=== PATIENT | male | born 1975 | race Hispanic/Latino ===

== ENCOUNTER 2018-12-29 19:45 | Inpatient (IN) | payer SELFPAY ==
--- NOTE | 2018-12-29 20:25 | RAD ---
ONE VIEW CHEST: History: Altered mental status. Comparison: None. FINDINGS: Normal cardiac silhouette. The pulmonary vessels and hilum are normal. Diminished lung volumes, likel y due to a poor inspiratory effort. No masses or consolidation. No pneumothorax or acute osseous abno rmality. IMPRESSION: No acute cardiopulmonary process. POS: [facility]
[2018-12-29 20:30] LABS: Hemoglobin 14.7 g/dL (14.0-18.0); Mean Corpuscular HGB CONC 32.9 g/dL (32.0-36.0); Mean Corpuscular Hemoglobin 29.8 pg (27.0-31.0); Mean Corpuscular Volume 90.6 fL (78.0-98.0); Mean Platelet Volume 11.3 fL (7.4-10.4); Platelet Count 154 thou/uL (130-400); RBC Distribution Width 11.6 % (11.5-14.5); Red Blood Cell (RBC) Count 4.95 mill/uL (4.70-6.10); White Blood Cell (WBC) Count 10.8 thou/uL (4.8-10.8)
[2018-12-29 20:41] LABS: ALT (SGPT) 146 U/L (8-55); AST (SGOT) 319 U/L (5-34); Acetaminophen Less than 6.0 mcg/mL (10.0-30.0); Albumin 2.6 g/dL (3.5-5.0); Alcohol Less than 10 mg/dL (Less than 10); Alkaline Phosphatase 131 U/L (40-150); Anion Gap 25 mmol/L (10-20); BUN (Urea Nitrogen) 43 mg/dL (8.9-20.6); Bilirubin, Total 0.6 mg/dL (0.2-1.2); Calc. Creatinine Clearance 0 mL/min (70-130); Calcium 8.5 mg/dL (7.8-10.44); Carbon Dioxide 17 mmol/L (22-29); Chloride 93 mmol/L (98-107); Estimated GFR-MDRD 24; Potassium 3.4 mmol/L (3.5-5.1); Protein, Total 6.6 g/dL (6.0-8.3); Salicylate Less than 8.0 mg/dL (15.0-30.0); Sodium 132 mmol/L (136-145)
--- NOTE | 2018-12-29 20:42 | CT ---
HEAD CT WITHOUT CONTRAST: History: Level II stroke alert. Comparison: None. FINDINGS: No parenchymal hemorrhage. No extraaxial hematoma. No midline shift. Basilar cisterns are patent. Age appropriate atrophy. Cortical rogers white matter differentiation is preserved. Ventricles and sulci are patent and symmetric. Calvarium is intact. Adequate aeration of sinuses and mastoid air cells. IMPRESSION: No acute intracranial process. Findings discussed with Dr. Fischer 12-29-18 at 8:05 p.m. Code CR POS: [facility]
[2018-12-29 20:44] LABS: Glucose 784 mg/dL (70-105)
[2018-12-29 20:45] LABS: INR-International Normal Ratio 1.1
[2018-12-29 20:46] LABS: PTT 39.6 SEC (22.9-36.1)
[2018-12-29 20:50] LABS: Band 27 % (5-11); Lymphocytes 1 % (21-51); MDiff Complete? YES; Metamyelocyte 1 % (0-0); Monocytes 6 % (0-10); Neutrophil 65 % (42-75)
[2018-12-29] MEDS ORDERED: Piperacillin/Tazobactam 4.5 GM VIAL ONE (20:53)
[2018-12-29 20:54] LABS: Bilirubin Negative (Negative); Blood, Urine Large (Negative); Clarity CLOUDY (Clear); Glucose, Urine (Dipstick) >=1000 mg/dL (Negative); Leukocyte Trace (Negative); Nitrite Negative (Negative); Protein, Urine (Dipstick) 300 mg/dL (Neg-Trace); Specific Gravity, Urine 1.026 (1.002-1.036); Urobilinogen 0.2 mg/dL (0.2-1.0); pH, Urine 5.5 (5.0-9.0)
[2018-12-29] MEDS ORDERED: Ondansetron PF 4 MG/2 ML Vial ONE (20:54)
[2018-12-29 20:56] LABS: Bacteria/HPF None Seen HPF (None Seen); Squamous Epithelial 21-50 HPF (0-3)
[2018-12-29 20:58] LABS: Pathc Cast-AUWi Flag 6.54 (0-2.49); Yeast-AUWi Flag 75.3 (0-25.0)
[2018-12-29 21:05] LABS: Amphetamine Not Detected (NotDetected); Barbiturates Screen Not Detected (NotDetected); Benzodiazepine Screen Not Detected (NotDetected); Cocaine Metabolite Screen Not Detected (NotDetected); Medtox Control Line Valid? VALID (VALID); Medtox Reader # READER 1; Methadone Not Detected (NotDetected); Methamphetamine Not Detected (NotDetected); Opiate Screen Not Detected (NotDetected); Oxycodone Screen Not Detected (NotDetected); Phencyclidine (PCP) Not Detected (NotDetected); THC/Cannabinoid Screen Not Detected (NotDetected); Tricyclic Screen Not Detected (NotDetected)
[2018-12-29 21:08] LABS: Crystals/HPF 3+ AMORPH URATES HPF (Negative); Hyaline Casts/LPF 0-3 HYALINE CAST LPF (0-3 Hyaline)
[2018-12-29 21:11] LABS: CKMB 139.2 ng/mL (0-6.6)
[2018-12-29] MEDS ORDERED: Vancomycin HCl 1.5 GM in Sodium Chloride 0.9% 250 ML 300 ML IVPB SCH (21:15)
[2018-12-29 21:41] LABS: CK (CPK) 29462 U/L (30-200)
[2018-12-29] MEDS ORDERED: Insulin Regular 300 UNITS/3 ML VIAL ONE (21:52)
[2018-12-29] MEDS ORDERED: Aspirin 300 MG Suppository ONE (21:57)
[2018-12-29] MEDS ORDERED: NS 0.9% w/ 20 MEQ KCL 1,000 ML IV SCH (22:00)
[2018-12-29] MEDS ORDERED: HUMULIN R 100 UNITS in Sodium Chloride 0.9% 100 ML IVPB SCH ×2 (22:30→23:27)
--- NOTE | 2018-12-29 22:53 | PDOC.FPRHP ---
- History of Present Illness Chief Complaint: found own History of Present Illness: 43 yo M with DM2 found down by friends. History is limited due to patient AMS and no family that is able to be contacted. Patient lives with friends however his lives in [place]. Friends say they don't know how long he's been down. Says hasn't had any recent infections. EMS report says blood sugar read "high" which is over 600. HR 130. Originally GCS 9 and became more alert en route. ED Course: 1L NS Insulin bolus Potassium Vanc, zosyn - Allergies/Adverse Reactions Allergies Allergy/AdvReac Type Severity Reaction Status Date / Time No Allergy Information Allergy Unverified 12/29/18 21:13 Available - History PMHx: DM2, the rest [place] PSHx: unable to elicit FHx: unable to elicit Social: unable to elicit - Review of Systems ROS unobtainable: due to mental status - Vital signs BP: [111/85] HR: [136] RR: [28] Tmax: [101] Pox: [100]% on [RA] Wt: [82kg] - Physical Exam Constitutional: NAD HEENT: PERRLA, other -HEENT: GCS 14 (E4V5M6) dried blood around mouth poor dental hygiene dry mucosal membranes -Neck: head fixated on right, nystagmus Chest: no-tender to palpation -Chest: lesions, old -Heart: tachycardic Lungs: CTAB, no respiratory distress, no wheezing -Lungs: tachypneic Abdomen: soft, non-tender -Abdomen: hypoactive BS Neurological: other -Neurological: unable to perform pt able to squeeze fingers FMR H&P: Results - Labs Result Diagrams: 12/30/18 03:35 12/30/18 07:20 Lab results: WBC 10.8 thou/uL (4.8-10.8) 12/29/18 20:17 Hgb 14.7 g/dL (14.0-18.0) 12/29/18 20:17 Hct 44.8 % (42.0-52.0) 12/29/18 20:17 MCV 90.6 fL (78.0-98.0) 12/29/18 20:17 Plt Count 154 thou/uL (130-400) 12/29/18 20:17 Band Neuts % (Manual) 27 % (5-11) H 12/29/18 20:17 Sodium 132 mmol/L (136-145) L 12/29/18 20:17 Potassium 3.4 mmol/L (3.5-5.1) L 12/29/18 20:17 Chloride 93 mmol/L (98-107) L 12/29/18 20:17 Carbon Dioxide 17 mmol/L (22-29) L 12/29/18 20:17 BUN 43 mg/dL (8.9-20.6) H 12/29/18 20:17 Creatinine 2.94 mg/dL (0.7-1.3) H 12/29/18 20:17 Glucose 784 mg/dL (70-105) H* 12/29/18 20:17 Lactic Acid 4.9 mmol/L (0.5-2.2) H* 12/29/18 20:17 Calcium 8.5 mg/dL (7.8-10.44) 12/29/18 20:17 Total Bilirubin 0.6 mg/dL (0.2-1.2) 12/29/18 20:17 AST 319 U/L (5-34) H 12/29/18 20:17 ALT 146 U/L (8-55) H 12/29/18 20:17 Alkaline Phosphatase 131 U/L (40-150) 12/29/18 20:17 Creatine Kinase 17209 U/L (30-200) H 12/29/18 20:17 CK-MB (CK-2) 139.2 ng/mL (0-6.6) H* 12/29/18 20:17 Serum Total Protein 6.6 g/dL (6.0-8.3) 12/29/18 20:17 Albumin 2.6 g/dL (3.5-5.0) L 12/29/18 20:17 Urine Ketones 15 mg/dL (Negative) H 12/29/18 20:35 Urine Blood Large (Negative) H 12/29/18 20:35 Urine Nitrite Negative (Negative) 12/29/18 20:35 Ur Leukocyte Esterase Trace (Negative) H 12/29/18 20:35 Urine RBC 7-10 HPF (0-3) H 12/29/18 20:35 Urine WBC Greater Than 50-TNTC HPF (0-3) H 12/29/18 20:35 Ur Squamous Epith Cells 21-50 HPF (0-3) H 12/29/18 20:35 Urine Bacteria None Seen HPF (None Seen) 12/29/18 20:35 - Radiology Interpretation Chest x-ray Status: report reviewed by me Additional comment: neg for acute CP processes CT scan - head Status: report reviewed by me Additional comment: neg for IC hemorrhage FMR H&P: A/P - Problem List (1) Metabolic encephalopathy Current Visit: Yes Status: Acute Code(s): G93.41 - METABOLIC ENCEPHALOPATHY (2) NSTEMI (non-ST elevated myocardial infarction) Current Visit: Yes Status: Acute Code(s): I21.4 - NON-ST ELEVATION (NSTEMI) MYOCARDIAL INFARCTION - Plan Disposition/LOS: DKA vs. HHS -admission glucose 662, non acidotic at pH 7.39 per VBG, bHb elevated -s/p 8units insulin in ED, start insulin gtt with BMP q4hr, accuchecks q1hr -Once <200, will bridge to subcutaneous insulin -s/p 2L fluids in ED, will continue to replace due to extreme volume depletion. Will aim for about 5-6L Acute metabolic encephalopathy -likely 2/2 problem above -CT head neg. for ICH, UDS negative -GCS 14 (E4V5M6) -need to clarify baseline with -monitor with neuro checks NSTEMI -trop 2.1 -> 2.4, continue to trend -No EKG changes aside from sinus tachycardia -ddx: secondary to hypoperfusion vs. primary cardiogenic NSTEMI vs. demand ischemia w/ sep. troponin clearance -ASA in ED, on . heparin drip -consulted Dr. Figueredo, rx continue w/ care, no emergent cath, however may need in morning. Call air pollution control engineer avionics electronics technician Acute renal failure -Creat 2.92, unsure of baseline. 300 proteinuria -ddx: prerenal IGLESIA vs. ischemic ATN for nephrotoxic ATN -Fermin, monitor I/O -No extreme electrolyte derangements at this time but if becomes oliguric or renal function worsening, nephro cnsult Suspected sepsis with unknown source -febrile, tachycardic, elevated procal -ddx: urosepsis -cover with broad spectrum, pending blood culture -tylenol PRN for fever AG Met acidosis -gap at 22 -lactic acid and bHb elevated -fluids, monitor with q4hr BMPs Rhabdomyolysis -CPK 11030 -fluids, recheck n AM Possible UTI -WBC TNTC, however not clean catch -continue zosyn, pending Ucx Hypokalemia -2/2 HHS/DKA hydrogen potassium shifts -continue to replace per DKA protocol Elevated LFTs -likely 2/2 dec perfusion -not >1000s, less likely hepatitis -will rpt CMP in AM diet: npo dvt ppx:th heparin code: full, need to clarify with in [place] Discussed with Dr. Montejo FMR H&P: Upper Level - Pertinent history Pt unable to provide history. Per EMS and friend he was found down beside his bed for unknown time. EMS reports tachycardia with BG reading "high". Received 8u insulin in ED. VBG pending. - Pertinent findings Labs as above PE: GEn in acute distress, Neuro. Alert to self only. Strength 1/5, but obeys command to squeeze hand b/l. R lateral gaze and head rotated toward R with pain upon movement. PERRL. GCS 12. CARDIO: Tachycardic, No MRG MSK: pain with passive leg movements. Skin - small excoriations diffusely; mild - Plan Date/Time: 12/29/18 3884 IOz, have evaluated this patient and agree with findings/plan as outlined by internal communications manager resident. Pertinent changes/additions are listed here. 43 y/o M admitted after being found down. # DKA vs HHS -pH 7.39 per VBG. S/p 8u insulin, will start insulin drip and continue IVF with potassium. CMP q2hr, regular accuchecks per DKA protocol. # NSTEMI - Initial Troponins elevated, will trend. Did receive ASA in ED. Cardiology consult. Possibly from demand ischemia. # Acute Renal failure - Continue IVF, insert Fermin and monitor. Cr 3 and GFR 24. Likely prerenal from hypovolemia. Consider nephrology consult if no improvement. Monitor output. # Possible Sepsis - Unknown source, but tachycardic and elevated WBC. Will order procal. Continue broad spectrum abx renally dosed and fluid resuscitation. # AMS - 2/2 the above acute conditions. Continue neuro checks and consider airway protection if worsening. CT head negative. # Elevated Lactic acid - Likely 2/2 ischemia/sepsis. Will trend Code Status: attempted to reach in [place] unsuccessful. full per tray drier. Addendum - Attending - Attending Attestation Date/Time: 12/30/18 7737 I personally evaluated the patient and discussed the management with Dr. Bronson at time fo admission. I agree with the History, Examination, Assessment and Plan documented above with any addition or exceptions noted below.
[2018-12-29 23:07] LABS: Base Excess-Venous -9.2 mmol/L (-2.0 to 3.0); Bicarbonate (HCO3v) 14.1 mmol/L (22.0-28.0); CO2 Tension (PvCO2) 23.2 mmHg (40.0-50.0); Calcium, Ionized 0.86 mmol/L (See Comments:); Chloride 103 mmol/L (98-107); Hemoglobin - Calc 11.5 g/dL (14.0-18.0); O2 Tension (PvO2) 47.5 mmHg (35.0-45.0); Potassium 2.9 mmol/L (3.5-5.1); Sodium 133 mmol/L (138-145); T. Carbon Dioxide 14.8 mmol/L (22.0-28.0); pH (Venous) 7.391 (7.320-7.430); vO2 Saturation-calc 83.9 % (60.0-85.0)
[2018-12-29] MEDS ORDERED: CCU Electrolyte Replacement 1 EACH IVPB ONE (23:27)
[2018-12-29] MEDS ORDERED: Sodium Chloride 0.9% 1,000 ML IV PRN ×4 (23:27)
[2018-12-29] MEDS ORDERED: Dextrose 5 %-0.45 % NaCl 1,000 ML IV PRN (23:27)
[2018-12-29] MEDS ORDERED: D5 1/2 NS w/20 mEq KCL 1,000 ML IV PRN (23:27)
[2018-12-29] MEDS ORDERED: NS 0.9% w/ 20 MEQ KCL 1,000 ML IV PRN (23:27)
[2018-12-29] MEDS ORDERED: Ondansetron PF 4 MG/2 ML Vial IVP PRN (23:27)
[2018-12-29 23:28] LABS: Hemoglobin A1c 14.1 % (4.0-6.0)
[2018-12-29] MEDS ORDERED: PHOS-NAK 1 PKT PACK PO PRN ×2 (23:33)
[2018-12-29] MEDS ORDERED: CCU ELECTROLYTE REPLACEMENT PROTOCOL FS PRN (23:33)
[2018-12-29] MEDS ORDERED: Potassium Phosphate 12 MMOL in Sodium Chloride 0.9% 250 ML 250 ML IV PRN (23:33)
[2018-12-29] MEDS ORDERED: Potassium Chloride 40 MEQ in Sodium Chloride 0.9% 250 ML 250 ML IVPB PRN (23:33)
[2018-12-29] MEDS ORDERED: Potassium Chloride 20 MEQ TAB PO PRN (23:33)
[2018-12-29] MEDS ORDERED: Potassium Phosphate 9 MMOL in Sodium Chloride 0.9% 100 ML IVPB PRN (23:33)
[2018-12-29] MEDS ORDERED: Magnesium Oxide 400 MG TAB PO PRN ×2 (23:33)
[2018-12-29] MEDS ORDERED: Potassium Chloride 40 MEQ in Premix Bag 1 BAG IVPB PRN (23:33)
[2018-12-29] MEDS ORDERED: Magnesium 2 GM/50 ML 2 GM in Premix Bag 1 BAG IVPB PRN (23:33)
[2018-12-29] MEDS ORDERED: Potassium Phosphate 15 MMOL in Sodium Chloride 0.9% 250 ML 250 ML IV PRN (23:33)
[2018-12-29 23:43] LABS: Troponin I 2.405 ng/mL (< 0.028)
[2018-12-29 23:54] LABS: Thyroid Stimulating Hormone 2.534 uIU/mL (0.35-4.94)
[2018-12-30 00:02] LABS: Anion Gap 20 mmol/L (10-20); BUN (Urea Nitrogen) 48 mg/dL (8.9-20.6); Calc. Creatinine Clearance 36 mL/min (70-130); Calcium 7.3 mg/dL (7.8-10.44); Carbon Dioxide 16 mmol/L (22-29); Chloride 102 mmol/L (98-107); Estimated GFR-MDRD 24; Potassium 3.1 mmol/L (3.5-5.1); Sodium 135 mmol/L (136-145)
[2018-12-30 00:04] LABS: Glucose 662 mg/dL (70-105)
[2018-12-30] MEDS ORDERED: Heparin 10,000 UNITS/ 10 ML VIAL SLOW IVP SCH (01:15)
[2018-12-30] MEDS ORDERED: Heparin 25,000 units/D5W 500 ML IVPB SCH (01:15)
[2018-12-30 01:39] LABS: Hemoglobin 11.8 g/dL (14.0-18.0); Platelet Count 136 thou/uL (130-400)
[2018-12-30] MEDS: NS 0.9% w/ 20 MEQ KCL 1,000 ML IV PRN ×2 (01:59→05:37)
[2018-12-30 02:26] LABS: Troponin I 3.112 ng/mL (< 0.028)
[2018-12-30] MEDS ORDERED: NS 0.9% w/ 20 MEQ KCL 1,000 ML IV SCH (02:45)
[2018-12-30 04:10] LABS: ALT (SGPT) 261 U/L (8-55); AST (SGOT) 561 U/L (5-34); Albumin 1.9 g/dL (3.5-5.0); Alkaline Phosphatase 79 U/L (40-150); Anion Gap 14 mmol/L (10-20); BUN (Urea Nitrogen) 51 mg/dL (8.9-20.6); Bilirubin, Total 0.4 mg/dL (0.2-1.2); Calc. Creatinine Clearance 33 mL/min (70-130); Carbon Dioxide 15 mmol/L (22-29); Cardiac Risk 4.8 (Less than 4.5); Chloride 113 mmol/L (98-107); Cholesterol 157 mg/dl (< 200 Desired); Estimated GFR-MDRD 21; Glucose 396 mg/dL (70-105); HDL Cholesterol 33 mg/dL (>60 Neg Risk); LDL Cholesterol, Calculated 90 mg/dL; Potassium 3.9 mmol/L (3.5-5.1); Protein, Total 4.9 g/dL (6.0-8.3); Sodium 138 mmol/L (136-145); Triglycerides 170 mg/dL (Less than 150)
[2018-12-30] MEDS ORDERED: Acetaminophen 1,000 MG in Premix Bag 1 BAG IVPB PRN (04:24)
[2018-12-30 04:33] LABS: CKMB 127.7 ng/mL (0-6.6); Critical Call CKMB RESULT DECREASING
[2018-12-30 04:52] LABS: Band 21 % (5-11); Hemoglobin 11.5 g/dL (14.0-18.0); Lymphocytes 14 % (21-51); MDiff Complete? YES; Mean Corpuscular HGB CONC 34.1 g/dL (32.0-36.0); Mean Corpuscular Hemoglobin 30.4 pg (27.0-31.0); Mean Corpuscular Volume 89.2 fL (78.0-98.0); Mean Platelet Volume 10.7 fL (7.4-10.4); Monocytes 4 % (0-10); Neutrophil 61 % (42-75); Platelet Count 131 thou/uL (130-400); RBC Distribution Width 11.4 % (11.5-14.5); Red Blood Cell (RBC) Count 3.77 mill/uL (4.70-6.10); Vacuoles SLIGHT; White Blood Cell (WBC) Count 8.5 thou/uL (4.8-10.8)
[2018-12-30] MEDS: Piperacillin/Tazobactam 2.25 GM in Sodium Chloride 0.9% 100 ML IVPB SCH ×2 (05:37→12:49)
--- NOTE | 2018-12-30 06:28 | PDOC.FM ---
- Subjective Subjective: Idris Bullard seen at bedside this morning. Brought to the ED yesterday evening after being found down at his house for unspecified amount of time. Admitted for DKA vs HHS, Acute Renal Failure, Rhabdo. BPs have remained stable over night. He has been stable overnight from a respiratory status, sats have been 98% on RA. Since arrival, he has had a fixed gaze to the right but he does respond to questions and can follow commands. He complains of pain in UEs and LEs bilaterally. He had a fever over night at 101, improved with tylenol. Friend is unaware of medications that patient takes and is in [place]. ABG this morning 12/30: pH 7.47, pCO2 24.6, pO2 94.4 - Objective MAR Reviewed: Yes Vital Signs & Weight: Vital Signs (12 hours) Temp Pulse Ox 12/30/18 04:00 101.0 F H 12/30/18 00:00 99.2 F 100 Weight Weight 82.9 kg Most Recent Monitor Data Heart Rate from ECG 126 NIBP 89/67 NIBP BP-Mean 74 Respiration from ECG 44 SpO2 96 I&O: 12/28/18 12/29/18 12/30/18 06:59 06:59 06:59 Output Total 352 Balance -352 Result Diagrams: 12/31/18 05:24 12/31/18 05:24 Radiology Reviewed by me: Yes (CT head negative, CXR negative) Phys Exam - Physical Examination lying in bed, head fixed to the right HEENT: sclera anicteric dry MM Neck: no JVD, supple Respiratory: no wheezing, no rales, no rhonchi, clear to auscultation bilateral Cardiovascular: no significant murmur tachycardic, regular Gastrointestinal: soft, non-tender, no distention Musculoskeletal: no edema, pulses present GCS 14-E4M5V5, can tell you his name Deviation from normal: A&O X1 Skin: no rash, cap refill <2 seconds Dx/Plan (1) Metabolic encephalopathy Code(s): G93.41 - METABOLIC ENCEPHALOPATHY Status: Acute (2) Acute renal failure Status: Acute (3) NSTEMI (non-ST elevated myocardial infarction) Code(s): I21.4 - NON-ST ELEVATION (NSTEMI) MYOCARDIAL INFARCTION Status: Suspected (4) Rhabdomyolysis Code(s): M62.82 - RHABDOMYOLYSIS Status: Acute (5) Lactic acid acidosis Code(s): E87.2 - ACIDOSIS Status: Acute (6) Type 2 diabetes mellitus Status: Chronic - Plan Plan: 43 y/o M admitted after being found down. 1) DKA vs HHS - Initial VBG pH 7.39. Elevated beta-hydroxybutarate, initial serum glucose was 784 - Unable to get any history from patient - Continue DKA protocol, currently on stage 4 - Pts sugars have downtrended - HgA1c of 14.1 2) Acute Metabolic Encephalopathy - GCS of 12: E4V5M4 - CT head was negative - Likely 2/2 #1 - Will continue current therapy, consider MRI of brain - Continue neuro checks and consider airway protection if worsening. - checking cortisol, HIV, RPR, Hep C Ab 3) NSTEMI - Initial Troponins elevated, no EKG changes - On heparin ggt. Received aspirin in the ED - likely from demand ischemia. - consulted Dr. Figueredo overnight, recommended to continue current therapy and consult cards this morning 4) Acute Renal failure - Cr 3.23 - Nominal urine output since being admitted, 8 mL out in the last hour - Likely prerenal from hypovolemia. - Consulted Nephro, Dr. Schrader - s/p 7 L IVFs, adding 1 L bolus of 1/2 NS with 40 mEq KCl and 75 mEq HCO3 followed by same fluid run at 300 mL/hr 5) Rhabdomyolysis - CK 29,462 - Pt found down after an unknown amount of time - Continue IVFs and monitoring CK - Adding bicarb to fluid to alkalinize urine to prevent crystal precipitation in renal tubules 6) SIRS - Unknown source - Tachycardic, elevated WBC count, elevated lactic acid - Procalcitonin was 37.75 - Continue broad spectrum abx renally dosed and fluid resuscitation. 7) Right gaze palsy - present on arrival - negative head CT - will consider Brain MRI when more hemodynamically stable Addendum - Attending - Attending Attestation Date/Time: 12/30/18 1028 I personally evaluated the patient and discussed the management with Dr. Sanchez I agree with the History, Examination, Assessment and Plan documented above with any addition or exceptions noted below - Patient responding to questions in Turk[place]. Following some commands. Has right gaze preference. T 101 BP 80-90/ 50-60 P103 RR30-40 A/P: 1) Sepsis secondary to unknown source - Continue IV abx. Blood, urine culture pending. 2) ARF- minimal urine output; continue IVF. Consult nephrology. 3) Rhabdomyolysis- continue aggressive IVF. 4) DM- BG improving; continue insulin drip.
[2018-12-30 07:47] LABS: Lactic Acid 3.7 mmol/L (0.5-2.2)
[2018-12-30 07:49] LABS: Anion Gap 14 mmol/L (10-20); BUN (Urea Nitrogen) 50 mg/dL (8.9-20.6); Calc. Creatinine Clearance 31 mL/min (70-130); Calcium 7.2 mg/dL (7.8-10.44); Carbon Dioxide 16 mmol/L (22-29); Chloride 115 mmol/L (98-107); Estimated GFR-MDRD 19; Glucose 234 mg/dL (70-105); Potassium 3.9 mmol/L (3.5-5.1); Sodium 141 mmol/L (136-145)
[2018-12-30 07:51] LABS: Actual Bicarbonate (HCO3a) 17.3 mEq/L (22-28); Base Excess (BEa) -5.1 mEq/L (-2.0 to +3.0); CO2 Tension 24.6 mmHg (35.0-45.0); Calcium, Ionized 1.07 mmol/L (1.12-1.30); Carboxyhemoglobin (COHb) 0.8 gm% (0.0-3.0); Hemoglobin (Hb) 10.7 g/dL (14.0-18.0); O2 Tension (PaO2) 94.4 mmHg (80.0-100.0); Potassium - ABG Lab 3.93 mmol/L (3.70-5.30); Puncture Site RRA; pH, Arterial 7.47 (7.35-7.45)
[2018-12-30] MEDS: Famotidine/PF 20 mg/2ml Vial SLOW IVP SCH (08:23)
[2018-12-30] MEDS ORDERED: Vancomycin HCl 1.25 GM in Sodium Chloride 0.9% 250 ML 250 ML IVPB SCH (09:00)
[2018-12-30] MEDS ORDERED: Hydrocortisone Sod Succ/PF 300 MG in Sodium Chloride 0.9% 50 ML IVPB SCH (09:30)
[2018-12-30] MEDS ORDERED: SODIUM BICARBONATE IV SCH ×2 (09:45→11:00)
[2018-12-30] MEDS ORDERED: SODIUM CHLORIDE 0.45% IV SCH ×2 (09:45→11:00)
[2018-12-30] MEDS ORDERED: POTASSIUM CHLORIDE IV SCH ×2 (09:45→11:00)
[2018-12-30 11:25] LABS: CKMB 62.8 ng/mL (0-6.6)
[2018-12-30 11:43] LABS: Syphilis Antibody Nonreactive (Nonreactive); Syphilis Antibody Index 0.03 S/CO (<1.00 Non-Reactive)
[2018-12-30 11:47] LABS: Hep C IgG Ab Non-Reactive (NonReactive); Hep C Index 0.03 S/CO (0-0.79)
[2018-12-30 11:48] LABS: HIV (1/2) Antibody/Antigen Non-Reactive (NonReactive); HIV 1/2 INDEX 0.19 S/CO (<1.00)
--- NOTE | 2018-12-30 12:35 | CON ---
DATE OF CONSULTATION: CONSULTING PHYSICIAN: Macrina Brunner MD REQUESTING PHYSICIAN: [facility], Dr. Blevins. REASON FOR CONSULTATION: Acute kidney injury. IMPRESSION: 1. Acute kidney injury versus also acute on chronic kidney disease (I do not know the patient's baseline). It is likely hemodynamically mediated in the context of intravascular depletion from severe hyperglycemia with its attendant polyuria and dehydration. This condition has now been compounded by rhabdomyolysis combination of these now; however, this patient is in anuric state with rise in creatinine. 2. Rhabdomyolysis likely from immobilization plus or minus trauma from fall. PLAN: 1. Aggressive IV fluid resuscitation. We will recommend using a bicarb base infusion in this patient given the severe rhabdomyolysis. We will start with blood loss and continue 300 mL an hour with a plan to repeat the ABG later today the possibility of this patient becoming very alkalotic, at which point decision will be taken to discontinue bicarb supplementation. 2. Renally dosed all medications for low GFR and avoid potentially nephrotoxic agents. 3. Further management to be dependent on the clinical course. HISTORY: A 43-year-old gentleman, who was found down and brought in noted to be severely hyperglycemic, severely dehydrated, and in clinical rhabdomyolysis. The patient on further clinical evaluation is noted not to be making much of any urine, and with the elevated creatinine could not get much of any history to establish the baseline in this patient. As a result of these findings, decision has not been taken to involve Renal in the management of this case. PAST MEDICAL HISTORY: Type 2 diabetes. The rest unknown. FAMILY HISTORY: Could not be obtained from this patient given the clinical condition of this patient. SOCIAL HISTORY: Could not be obtained from this patient given the clinical condition of this patient. REVIEW OF SYSTEMS: Could not be obtained from this patient given the clinical condition of this patient. PHYSICAL EXAMINATION: GENERAL: The patient was found to be ill looking severely dehydrated. VITAL SIGNS: Noted with the following vital signs. Afebrile, temperature 99.5, pulse 115, respiratory rate of , and O2 saturations are 99% with blood pressure 91/65. HEENT: Remarkable for very dry oral mucosa. NECK: Supple. No conjunctival injection or icterus. CARDIOVASCULAR: First and second heart sounds were heard. RESPIRATORY: Clear to auscultation. DIGESTIVE: Revealed a benign abdomen with positive bowel sounds. EXTREMITIES: No peripheral edema. SKIN: No new gross rash. LYMPHATICS: No peripheral lymphadenopathy. SUMMARY: A 43-year-old gentleman, who presented here as severely hyperglycemic, now noted to have rhabdomyolysis and with evidence of anuric acute kidney injury. Thank you for this consultation. We will follow with you. Job ID: [id number]
[2018-12-30] MEDS ORDERED: Acetaminophen 500 MG TAB PO PRN (13:27)
[2018-12-30 15:09] LABS: Base Excess (BEa) -4.2 mEq/L (-2.0 to +3.0); CO2 Tension 24.5 mmHg (35.0-45.0); Calcium, Ionized 1.02 mmol/L (1.12-1.30); Carboxyhemoglobin (COHb) 0.7 gm% (0.0-3.0); Hemoglobin (Hb) 10.1 g/dL (14.0-18.0); O2 Tension (PaO2) 96.1 mmHg (80.0-100.0); Potassium - ABG Lab 4.95 mmol/L (3.70-5.30); Puncture Site RR; pH, Arterial 7.48 (7.35-7.45)
--- NOTE | 2018-12-30 16:15 | PDOC.OP ---
Operative Note - Operative Note Operative Note: INDICATION: Frequent Blood Draws, Hypotension PROCEDURE WATCH ASSEMBLY INSTRUCTOR: Abimael Garcia DO; Elie Sanchez MD ATTENDING PHYSICIAN: Sung Alva MD in attendance Ultrasound Guided CONSENT: Implied consent in the setting of urgent need and altered mental status with no POA PROCEDURE SUMMARY: A time out was performed. My hands were washed immediately prior to the procedure. I wore a surgical cap, mask with protective eyewear, sterile gown and sterile gloves throughout the procedure. The left inguinal region was prepped using chlorhexidine scrub and draped in sterile fashion using a full drape and sterile probe cover employed. The femoral pulse was identified. Anesthesia was achieved using 1% lidocaine. Palpating the femoral pulse throughout the procedure, the introducer needle was inserted medial to the femoral artery and into the femoral vein. Venous blood was withdrawn. The syringe was removed and a guidewire was advanced into the introducer needle. A small incision was made at the skin surface with a scalpel and the introducer needle was exchanged for a dilator over the guidewire. After appropriate dilation was obtained, the dilator was exchanged over the wire for a triple lumen central venous catheter. The wire was removed and the catheter was sutured in place. A sterile dressing was placed over the catheter at the insertion site. The patient tolerated the procedure without any hemodynamic compromise. At time of procedure completion, all ports aspirated and flushed properly. Estimated blood loss is minimal.
[2018-12-30] MEDS: Sodium Chloride 0.45% 1,000 ML IV SCH (16:37)
--- NOTE | 2018-12-30 16:53 | CON ---
DATE OF CONSULTATION: REASON FOR CONSULTATION: 1. Elevated troponin. 2. Mr. Blevins is an unfortunate 43-year-old gentleman who was found down. The duration of him being found down is unknown. His CK-MB continues to elevate and is currently at 40,000. His troponin was increased at 4. His creatinine also continues to worsen. During my interview Mr. Bullard is mildly verbal. He has a rightward gaze. He does have a family member present. He does have a previous history of hypertension in addition to diabetes mellitus. PAST MEDICAL HISTORY: As above. MEDICATIONS: Unknown. SOCIAL HISTORY: He is currently with his and shoulder living in [place]. He currently resides in the [facility] and working. FAMILY HISTORY: Unknown. REVIEW OF SYSTEMS: Unobtainable. PHYSICAL EXAMINATION: GENERAL: Patient is a pleasant gentleman who is in no acute distress. The patient appears their stated age. VITAL SIGNS: Blood pressure 101/72, pulse 110, respirations 20 NEUROLOGIC: The patient is alert and oriented x3 with no focal neurologic deficits. HEENT: Sclerae without icterus. Mouth has moist mucous membranes with normal pallor. NECK: No JVD. Carotid upstroke brisk. No bruits bilaterally. LUNGS: Clear to auscultation with unlabored respirations. BACK: No scoliosis or kyphosis. CARDIAC: Regular rate and rhythm with normal S1 and S2. No S3 or S4 noted. No significant rubs, murmurs, thrills, or gallops noted throughout the precordium. PMI is not displaced. There is no parasternal heave. ABDOMEN: Soft, nontender, nondistended. No peritoneal signs present. No hepatosplenomegaly. No abnormal striae. EXTREMITIES: 2+ femoral and 2+ dorsalis pedis pulses. No cyanosis, clubbing, or edema. SKIN: No gross abnormalities. NEURO: Rightward gaze and does not follow commands on moving his upper or lower extremities. PERTINENT LABORATORY DATA: Hemoglobin 11.5, hematocrit 33.7, troponin 4.2, CK-MB of greater than 40,000. IMPRESSION: 1. Elevated troponin. 2. Rhabdomyolysis. 3. Renal failure. 4. ? stroke. RECOMMENDATIONS: At this point, I would stop heparin. Mr. Blevins's elevated troponin is likely related to elevated CK and CK-MB from rhabdomyolysis. His CT scan of the head was negative and we will recommend repeat CT scan in the next 1-2 days. Continue with IV hydration. Nephrology has been consulted. We will also review echo with Doppler. Job ID: [id number]
[2018-12-30] MEDS: Oxacillin 2 GM in Sodium Chloride 0.9% 100 ML IVPB SCH ×2 (17:45→21:33)
--- NOTE | 2018-12-30 21:14 | CON ---
DATE OF CONSULTATION: 12/30/2018 HISTORY OF PRESENT ILLNESS: Mr. Blevins is a 43-year-old male who presented with altered mental status after being found by coworkers. He missed work yesterday. They came to check on him, found him down and he was admitted to the hospital. He was found to have rhabdomyolysis, very mild metabolic acidosis, insignificant hyperglycemia. His glucose was 784 on admission. PAST MEDICAL HISTORY: Unknown. FAMILY HISTORY: Unknown. SOCIAL HISTORY: Apparently, he is with children, but they are in [place]. REVIEW OF SYSTEMS: 10 point review of systems completed, not obtainable. PHYSICAL EXAMINATION: GENERAL: He will answer in one word sentences occasionally. He has a deviated gaze, ignoring one side. He received at least 6 L of volume resuscitation by the time I saw him this morning and has received more since then as well as bicarb drip. HEENT: Pupils react. Sclerae are anicteric. NECK: Not supple. He is very rigid all over. LUNGS: Clear. HEART: Regular rhythm. S1 and S2 are normal. ABDOMEN: Soft. EXTREMITIES: Very stiff to try to mobilize his joints. IMAGING: Head CT showed no pathology. Chest radiograph was clear. LABORATORY DATA: His urine output has been essentially nothing all day. IMPRESSION: 1. Rhabdomyolysis. 2. Hyperosmolar coma. It is unclear how significant his rhabdomyolysis is in that. His CPK is greater than 40,000 and this was not diluted out and re-assayed. He will continue with volume replacement, although at a lower rate this evening , he will probably need renal replacement. His potassium needs to be removed from his IV fluids. He does not need a diabetic ketoacidosis protocol as his glucose will easily be managed with hydration and a little bit of insulin. This is much more likely to be a hyperosmolar state and not type 1 diabetes. He is probably combined with starvation, extreme intravascular volume depletion, and clinical sepsis. Cultures this afternoon have grown out Staph aureus. Antibiotics will be adjusted by Infectious Disease. He is certainly at risk for endocarditis. He also could have a paraspinous abscess somewhere. At this point in time, he is too unstable to takedown for extensive back imaging, so we will just continue with supportive care. He is doing an excellent job by protecting his airway at this point in time, so intubation is not indicated. Residents will place a central line under my supervision. Critical care time, preop today, 40 minutes. Job ID: [id number] [id number]
[2018-12-30] MEDS ORDERED: Dextrose 5% in Water 1,000 ML IV PRN (22:55)
[2018-12-30] MEDS ORDERED: Dextrose 50% Abboject 50 ML SYRINGE SLOW IVP PRN (22:55)
[2018-12-30] MEDS ORDERED: Insulin Glargine 10 UNITS in Pre-Filled Syringe 1 EACH SC SCH (23:00)
[2018-12-30] MEDS ORDERED: Vancomycin HCl 1 GM in Premix Bag 1 BAG IVPB SCH (23:59)
[2018-12-31] MEDS: Oxacillin 2 GM in Sodium Chloride 0.9% 100 ML IVPB SCH ×6 (00:43→20:20)
[2018-12-31] MEDS: Sodium Chloride 0.45% 1,000 ML IV SCH ×2 (02:44→17:03)
[2018-12-31] MEDS: HumaLOG 300 UNITS/3 ML VIAL SC PRN ×4 (04:35→22:11)
[2018-12-31 06:26] LABS: Anion Gap 19 mmol/L (10-20); BUN (Urea Nitrogen) 74 mg/dL (8.9-20.6); Calc. Creatinine Clearance 20 mL/min (70-130); Calcium 7.2 mg/dL (7.8-10.44); Carbon Dioxide 15 mmol/L (22-29); Chloride 113 mmol/L (98-107); Estimated GFR-MDRD 11; Glucose 212 mg/dL (70-105); Sodium 142 mmol/L (136-145)
[2018-12-31 06:34] LABS: ALT (SGPT) 244 U/L (8-55); AST (SGOT) 312 U/L (5-34); Albumin 1.8 g/dL (3.5-5.0); Alkaline Phosphatase 82 U/L (40-150); Bilirubin, Direct 0.2 mg/dL (0.1-0.3); Bilirubin, Total 0.3 mg/dL (0.2-1.2)
--- NOTE | 2018-12-31 06:56 | PDOC.FM ---
- Subjective Subjective: Idris Bullard seen at bedside this morning. There were no acute events overnight, patient has been sleeping all night. He has woken up several times throughout the night and denied any pain. His BPs have been stable and within normal limits, he has had MAPs in the 90s this morning. He has been doing well with protecting his airway, maintaining normal sats. - Objective MAR Reviewed: Yes Vital Signs & Weight: Vital Signs (12 hours) Temp Pulse Ox 12/31/18 04:00 99.4 F 12/31/18 00:00 98.8 F 12/30/18 20:00 98.3 F 98 Weight Weight 81.1 kg Most Recent Monitor Data Heart Rate from ECG 108 NIBP 120/81 NIBP BP-Mean 94 Respiration from ECG 21 SpO2 98 I&O: 12/29/18 12/30/18 12/31/18 06:59 06:59 06:59 Intake Total 4276.8 5254.5 Output Total 402 43 Balance 3874.8 5211.5 Result Diagrams: 12/31/18 05:24 12/31/18 05:24 Phys Exam - Physical Examination Constitutional: NAD HEENT: sclera anicteric MM dry but improved from yesterday Neck: no JVD, supple, full ROM Respiratory: no wheezing, no rales, no rhonchi, clear to auscultation bilateral Cardiovascular: no significant murmur tachycardic, regular Gastrointestinal: soft, non-tender, no distention Musculoskeletal: no edema, pulses present exam difficult because pt is mosotho speaking and still confused Skin: no rash, normal turgor, cap refill <2 seconds Dx/Plan (1) Hyperosmolar hyperglycemic coma due to diabetes mellitus without ketoacidosis Code(s): E11.01 - TYPE 2 DIABETES MELLITUS WITH HYPEROSMOLARITY WITH COMA Status: Acute (2) Metabolic encephalopathy Code(s): G93.41 - METABOLIC ENCEPHALOPATHY Status: Acute (3) Acute renal failure Status: Acute (4) Rhabdomyolysis Code(s): M62.82 - RHABDOMYOLYSIS Status: Acute (5) NSTEMI (non-ST elevated myocardial infarction) Code(s): I21.4 - NON-ST ELEVATION (NSTEMI) MYOCARDIAL INFARCTION Status: Suspected (6) Lactic acid acidosis Code(s): E87.2 - ACIDOSIS Status: Acute (7) Type 2 diabetes mellitus Status: Chronic - Plan Plan: 43 y/o M admitted after being found down, Hyperosmolar coma, acute renal failure , rhabdo 1) Hyperosmolar Hyperglcemic Coma 2/2 Uncontrolled Type 2 DM - Initial VBG pH 7.39. Elevated beta-hydroxybutarate likely from starvation state, initial serum glucose was 784 - Unable to get any history from patient - S/p 8 L IVFs, currently on aggressive SSI - Pts sugars have downtrended - HgA1c of 14.1 2) Acute Metabolic Encephalopathy: improving - GCS of 15 - CT head was negative - Likely 2/2 #1 - Will continue current therapy, consider MRI of brain - Continue neuro checks and consider airway protection if worsening. - Cortisol, HIV, RPR, Hep C Ab all negative 3) NSTEMI - Initial Troponins elevated, no EKG changes - On heparin ggt. Received aspirin in the ED - Dr. Lee consulted, he discontinued heparin ggt. Labs likely 2/2 rhabdo - Echo read pending 4) Acute Renal failure - Cr 3.23 on admission to 5.63 this morning - Very minimal urinary output since admission - s/p 8+ L IVFs - Consulted Nephro, Dr. Schrader - will likely need to be dialyzed today 5) Rhabdomyolysis - CK 29,462 on admission, increased to greater than 40,000 - Pt found down after an unknown amount of time - Continue IVFs and monitoring CK 6) SIRS - Unknown source - Tachycardic, elevated WBC count, elevated lactic acid - Procalcitonin was 37.7 trended up to 92, lactic acid is downtrending - Dr. Sheets consulted, Vanc and zosyn switched to Oxacillin yesterday. - Cultures pending sensitivities 7) Right gaze palsy: resolved - present on arrival - negative head CT - will consider Brain MRI when more hemodynamically stable Addendum - Attending - Attending Attestation Date/Time: 12/31/18 1860 I personally evaluated the patient and discussed the management with Dr. Sanchez I agree with the History, Examination, Assessment and Plan documented above with any addition or exceptions noted below - Patient awakens easily; denies any pain. Intermittently obeying commands. Afebrile BP 127/85 P109. A/P: 1) Sepsis secondary to MSSA - uncertain source; echo ordered and result pending. Changed to oxacillin per ID recommendations. 2) ARF - essentially no urine output overnight; nephrology consulted; anticipate will need to start dialysis. 3) Rhabdomyolysis - Continue IVF with bicarb. CK trending down. 4) DM- off insulin drip; continue sliding scale. 5) Nutrition- consider starting tube feeds versus bedside swallow.
[2018-12-31 07:00] LABS: Band 27 % (5-11); Hemoglobin 10.5 g/dL (14.0-18.0); Lymphocytes 10 % (21-51); MDiff Complete? YES; Mean Corpuscular HGB CONC 33.1 g/dL (32.0-36.0); Mean Corpuscular Hemoglobin 30.4 pg (27.0-31.0); Mean Platelet Volume 11.2 fL (7.4-10.4); Metamyelocyte 1 % (0-0); Monocytes 2 % (0-10); Neutrophil 58 % (42-75); Platelet Count 131 thou/uL (130-400); Polychromasia SLIGHT = 2-3 cells (100X) (0-2/hpf); Reactive Lymphocytes 2 % (0-10); Red Blood Cell (RBC) Count 3.46 mill/uL (4.70-6.10); White Blood Cell (WBC) Count 9.1 thou/uL (4.8-10.8)
[2018-12-31 07:59] LABS: Lactic Acid 1.5 mmol/L (0.5-2.2)
[2018-12-31] MEDS: Famotidine/PF 20 mg/2ml Vial SLOW IVP SCH (08:13)
--- NOTE | 2018-12-31 14:53 | CON ---
DATE OF CONSULTATION: 12/31/2018 REASON FOR CONSULTATION: Bacteremia. HISTORY OF PRESENT ILLNESS: A 43-year-old, who has a history of type 2 diabetes and alcoholism and was admitted with altered mental status. Initial exam showed nystagmus. Lungs were clear. White cell count 8.5, hemoglobin 11, he had 27% bands on arrival. CK was 29,000. Albumin 2.6. His pH was normal at 7.39. Impression was metabolic encephalopathy, hyperglycemia, non-STEMI, renal insufficiency, possible sepsis. Eventually, 2/2 sets of cultures positive for Staph aureus. Urine sample was positive for Staphylococcus aureus, but was 75,000 to 100,000 CFUs. The urinalysis with greater than 50 wbc's. Currently, Mr. Blevins is a bit more awake. He recognizes intermittently the family members, but he has difficulty in answering questions and following commands. I could not get a straight answers on various review of systems questions from him. He has some back pain mostly in the upper spine area, lower cervical and upper thoracic, mostly around the paravertebral areas. No headaches. No abdominal pain. He has indwelling Fermin catheter. PAST MEDICAL HISTORY: Type 2 diabetes. PAST SURGICAL HISTORY: Negative. FAMILY HISTORY: Noncontributory. SOCIAL HISTORY: He works as a martinez. Drinks heavily according to family members and acquaintances. Does not smoke cigarettes. CURRENT MEDICATIONS: Include: 1. Tylenol. 2. Dextrose. 3. Famotidine. 4. Glucagon. 5. Heparin. 6. Magnesium. 7. Ondansetron. 8. Potassium. 9. Oxacillin 2 g q.4. 10. IV fluids. PHYSICAL EXAMINATION: VITAL SIGNS: T-max 101, currently 100, blood pressure 120/80, pulse 108, respirations, O2 saturation 99%. SKIN: Shows the IV access, the Fermin catheter. He keeps his eyes open. He is still confused, could not tell me where he was. He was able to tell me his name though. HEENT: Ocular movements are conjugate. Sclerae white. Pupils are 2 mm and reactive. The patient has 2 areas with subconjunctival hemorrhage on the right side. NECK: Supple. LUNGS: Symmetric clear breath sounds. HEART: S1 and S2, regular rate with a questionable aortic murmur. ABDOMEN: Soft. Not distended or tender. No ascites. No bladder distention. MUSCULOSKELETAL: He did have pain on mobilization of the left upper extremity at the wrist and shoulder, so those joints need to be followed up for further inflammatory changes, but the other joints do not seem to have any inflammatory process at this time. EXTREMITIES: Pulses 1+ in dorsalis pedis. Plantar responses are indifferent. No clonus. NEUROLOGIC: He is drowsy and does establish eye contact, but he has very quite short attention span, could not follow commands very well. LABORATORY DATA: White cell count is at 9.1, hemoglobin 10.5, bands are 27%. INR 1.1. Glucose 204. AST 312, ALT 244, most likely due to rhabdomyolysis. CK was 21,000. Albumin 1.8. Urinalysis with greater than 50 wbc's. Chest x-ray with no acute cardiopulmonary process. ASSESSMENT: History of type 2 diabetes and alcoholism admitted with altered mental status and MSSA (methicillin-sensitive Staphylococcus aureus) bacteremia. He does have positive urine cultures of the abnormal urinalysis. He has delirium associated with bacteremia. He is at risk for delirium tremens in view of the history of alcohol abuse. DISCUSSION: The source of the bacteremia could be either urinary tract or one of the heart valves. Echocardiogram is pending. May need a KOJO or not. I would probably at least look at the CT stone protocol down the road to verify he has no obstructions. Prostatitis is another possibility with prostatic abscess being has to be considered. Cannot do contrast study since he has developed acute renal failure from the bacteremia, most likely his encephalopathy is due to the toxic metabolic changes associated with acute renal failure and sepsis. I do not think he needs a spinal tap, may consider a CT of the chest when he goes for this CT stone protocol to see if he has hematogenous pneumonitis, which would argue in favor of right-sided endocarditis depending on the appearance of the lung infiltrates if those are found. If the echo is normal and the CT stone protocol shows stranding in the perinephric areas, then we would consider urinary tract source as the more likely scenario. Other sites of involvement including spine, long bones and the left wrist and left shoulder are possible and we will need to be followed through the course of treatment. The patient most likely will need protracted treatment, PICC line placement and he will be eligible for eventual transition to Rocephin once daily to allow outpatient administration in the Oncology area once there is further clinical improvement. Job ID: [id number] MTDD
[2018-12-31 15:24] LABS: Anion Gap 17 mmol/L (10-20); BUN (Urea Nitrogen) 86 mg/dL (8.9-20.6); Calc. Creatinine Clearance 17 mL/min (70-130); Calcium 7.3 mg/dL (7.8-10.44); Carbon Dioxide 15 mmol/L (22-29); Chloride 114 mmol/L (98-107); Estimated GFR-MDRD 9; Glucose 234 mg/dL (70-105); Potassium 4.9 mmol/L (3.5-5.1); Sodium 141 mmol/L (136-145)
[2018-12-31] MEDS: Acetaminophen 650 MG Suppository PR PRN (15:29)
--- NOTE | 2018-12-31 16:35 | PRG ---
DATE OF SERVICE: 12/31/2018 SUBJECTIVE: Mr. Blevins has significantly improved. He moves all his extremities. He is not ignoring his left side today. OBJECTIVE: VITAL SIGNS: Heart rate is 108, blood pressure 114/75, respiratory rates in the teens. He is on no pressors. Intake and outputs, positive 5211. He only had 43 mL of urine out in last 24 hours. LUNGS: Clear. HEART: Regular rhythm. ABDOMEN: Soft. EXTREMITIES: Without asymmetry. LABORATORY DATA: White count 9.1, hemoglobin 10.5, platelets 131. Sodium 141, potassium 4.9, chloride 114, bicarb 15, BUN 86, creatinine 6.66, glucose 234. AST and ALT are elevated as expected with rhabdomyolysis. Alkaline phosphatase is normal. CPK still elevated at 21,677. Albumin is 1.8. IMPRESSION: 1. Status post hyperosmolar state. 2. Rhabdomyolysis. 3. Diabetes type 2. 4. Hypoalbuminemia. He did have 300 mg/dL protein in his urine, so this may be related to the protein spilling nephropathy. 5. Staph aureus bacteremia with positive urine culture. The urine culture likely is positive because of the bacteremia in my opinion. 6. Encephalopathy that is slowly improving. 7. History of heavy alcohol use. 8. It would be reasonable to do a noncontrast stone protocol abdominal CT to rule out a stone, but Staph aureus is not a common pathogen seen behind obstructing nephrolithiasis. 9. His encephalopathy is mostly related to his hyperosmolar state, his critical illness. Given his improvement, he probably does not need lumbar puncture. 10. We will continue to follow with the other physicians caring for him. CRITICAL CARE TIME: 30 minutes. Job ID: [id number]
--- NOTE | 2018-12-31 17:54 | PRG ---
DATE OF SERVICE: 12/31/2018 SUBJECTIVE: The patient is seen and examined, noted with the following vital signs. OBJECTIVE: VITAL SIGNS: Afebrile, temperature 99.6, pulse 107, respiratory rate of 23, blood pressure 96/66. HEENT: Unremarkable. CARDIOVASCULAR SYSTEM: First and second heart sounds were heard. RESPIRATORY SYSTEM: Clear to auscultation anteriorly. DIGESTIVE SYSTEM: Revealed a benign abdomen. EXTREMITIES: No peripheral edema. SKIN: No new gross rash. LABORATORY INVESTIGATION: Showed a potassium of 4.9, bicarb of 15, creatinine 6.66, BUN of 86. IMPRESSION: 1. Acute tubular necrosis. 2. Metabolic acidosis. 3. Rhabdomyolysis. PLAN: 1. Going by the rate of the declining renal function of this patient, the patient likely to be on hemodialysis within the next 24 to 48 hours. 2. We will evaluate this. We will order daily renal function panel. 3. Avoid potentially nephrotoxic agents. 4. Further management to be dependent on the clinical course. We will continue with gentle rehydration for now. Job ID: [id number]
--- NOTE | 2018-12-31 19:19 | PRG ---
DATE OF SERVICE: SUBJECTIVE: Mr. Blevins appears to be more alert today. He does look to the left as he did not yesterday. No other issues at present. OBJECTIVE: VITAL SIGNS: Blood pressure 103/65, temperature 99.6, and pulse 107. LUNGS: Clear to auscultation. HEART: Regular rate and rhythm. ABDOMEN: Soft, nontender, and nondistended. EXTREMITIES: No edema. NEUROLOGIC: As above. PERTINENT LABORATORY DATA: Hemoglobin 10.5. Creatinine 6.6, GFR 9, and AST and ALT of 312 and 244 respectively. CK of 21,000. Echo Doppler shows LVEF 25% to 30%. Mild MR and TR present. IMPRESSION: 1. Elevated troponin. 2. Rhabdomyolysis. 3. Renal failure. 4. Cardiomyopathy. RECOMMENDATIONS: Mr. Blevins's current situation is certainly complex. His LVEF was markedly diminished, has been 25% to 30%. None known, whether this is a new or old finding. There was also an area at the apex, they may have been suggestive of thrombus, but was more consistent with papillary muscle. At this point, we would recommend continuing conservative therapy. No new recommendations. Job ID: [id number]
[2019-01-01] MEDS: Oxacillin 2 GM in Sodium Chloride 0.9% 100 ML IVPB SCH ×6 (00:43→20:05)
[2019-01-01] MEDS: HumaLOG 300 UNITS/3 ML VIAL SC PRN ×2 (03:38→10:51)
[2019-01-01] MEDS: Sodium Chloride 0.45% 1,000 ML IV SCH ×2 (05:11→14:09)
[2019-01-01 05:38] LABS: Albumin 1.7 g/dL (3.5-5.0); Anion Gap 21 mmol/L (10-20); BUN (Urea Nitrogen) 103 mg/dL (8.9-20.6); BUN/Creatinine Ratio 13.52; Calc. Creatinine Clearance 15 mL/min (70-130); Calcium 7.6 mg/dL (7.8-10.44); Carbon Dioxide 13 mmol/L (22-29); Chloride 114 mmol/L (98-107); Estimated GFR-MDRD 8; Glucose 204 mg/dL (70-105); Phosphorus 5.3 mg/dL (2.3-4.7); Potassium 5.3 mmol/L (3.5-5.1); Sodium 143 mmol/L (136-145)
--- NOTE | 2019-01-01 06:01 | PDOC.FM ---
- Subjective Subjective: Idris Blevins seen at bedside this morning. It appears that patient is improving clinically. His ability to communicate is improving, he can say his name, where he is at and his . He continues to have pain with movement of any of his extremities. It was noticed that he had penile discharge yesterday and labs were ordered on discharge. He continues to have little to no urine output. No fevers over night. No other acute events overnight. - Objective MAR Reviewed: Yes Vital Signs & Weight: Vital Signs (12 hours) Temp Pulse Ox 01/01/19 03:06 100 01/01/19 03:00 98.9 F 01/01/19 00:00 98.8 F 12/31/18 22:00 98.9 F 12/31/18 19:50 99 12/31/18 19:00 99 F Weight Weight 82 kg Most Recent Monitor Data Heart Rate from ECG 89 NIBP 110/78 NIBP BP-Mean 88 Respiration from ECG 1 SpO2 100 I&O: 12/30/18 12/31/18 01/01/19 06:59 06:59 06:59 Intake Total 4276.8 5254.5 2683.7 Output Total 402 43 57 Balance 3874.8 5211.5 2626.7 Result Diagrams: 01/01/19 04:00 01/01/19 03:56 Phys Exam - Physical Examination Constitutional: NAD HEENT: moist MMs, sclera anicteric Neck: no JVD, supple, full ROM Respiratory: no wheezing, no rales, no rhonchi, clear to auscultation bilateral Cardiovascular: RRR, no significant murmur Gastrointestinal: soft, no distention, positive bowel sounds Musculoskeletal: no edema, pulses present can only slightly move all 4 limbs Psychiatric: normal affect Deviation from normal: A&O X2 Skin: no rash Dx/Plan (1) Hyperosmolar hyperglycemic coma due to diabetes mellitus without ketoacidosis Code(s): E11.01 - TYPE 2 DIABETES MELLITUS WITH HYPEROSMOLARITY WITH COMA Status: Acute (2) Metabolic encephalopathy Code(s): G93.41 - METABOLIC ENCEPHALOPATHY Status: Acute (3) Acute renal failure Status: Acute (4) Rhabdomyolysis Code(s): M62.82 - RHABDOMYOLYSIS Status: Acute (5) NSTEMI (non-ST elevated myocardial infarction) Code(s): I21.4 - NON-ST ELEVATION (NSTEMI) MYOCARDIAL INFARCTION Status: Suspected (6) Lactic acid acidosis Code(s): E87.2 - ACIDOSIS Status: Acute (7) Type 2 diabetes mellitus Status: Chronic - Plan Plan: 43 y/o M admitted after being found down, Hyperosmolar coma, acute renal failure , rhabdo 1) Hyperosmolar Hyperglcemic Coma 2/2 Uncontrolled Type 2 DM: improving - Initial VBG pH 7.39. Elevated beta-hydroxybutarate likely from starvation state, initial serum glucose was 784 - Unable to get any history from patient - S/p 9 L IVFs, currently on aggressive SSI - Pts sugars have downtrended - HgA1c of 14.1 - Continue accuchecks, will start long acting insulin based on SSI requirements 2) Acute Metabolic Encephalopathy: improving - GCS of 15 - CT head was negative - Likely 2/2 #1 - Will continue current therapy, consider MRI of brain - Continue neuro checks and consider airway protection if worsening. - Cortisol, HIV, RPR, Hep C Ab all negative 3) NSTEMI - Initial Troponins elevated, no EKG changes - Heparin ggt discontinued. Received aspirin in the ED, has been taken off heparin ggt by Cards - Echo showed LVEF of 25-30%, area of possible thrombus vs papillary mm - Dr. Lee recommended conservative therapy at this time 4) Acute Renal failure - Cr 3.23 on admission to 7.62 this morning - Very minimal urinary output since admission - s/p 9+ L IVFs - Consulted Nephro, Dr. Schrader - patient is trending more towards acidemia/uremia - ordered CT stone protocol this morning to r/o obstruction/stone 5) Rhabdomyolysis - CK 29,462 on admission, initial increase to greater than 40,000, trended down to 21,677 - Pt found down after an unknown amount of time - Continue IVFs and monitoring CK 6) Sepsis - Blood and urine cultures showed MSSA - Tachycardic, elevated WBC count, elevated lactic acid - Procalcitonin was 37.7 trended up to 92, lactic acid is downtrending - Dr. Sheets consulted, Vanc and zosyn switched to Oxacillin yesterday. - Cultures pending sensitivities 7) Right gaze palsy: resolved - present on arrival - negative head CT - will consider Brain MRI when more hemodynamically stable 8) Penile discharge: - found on physical exam last night - GC/Ch, wet mount, LING, gram stain and Cx of discharge Addendum - Attending - Attending Attestation Date/Time: 01/01/19 9742 I personally evaluated the patient and discussed the management with Dr. Sanchez I agree with the History, Examination, Assessment and Plan documented above with any addition or exceptions noted below- Patient more awake. Answering questions slowly. Afebrile VSS. Urine output= 12mL in last 24 hours. A/P: 1) ARF - Uremia continuing to worsen; will d/w Dr. Schrader; will most likely need to start dialysis. 2) DM- BG stable; continue sliding scale. 3) Rhabdomyolysis- improving. 4) MSSA bacteremia- continue oxacillin; appreciate ID input.
[2019-01-01 08:12] LABS: Wet Prep Clue Cells Clue Cells Absent (None Seen); Wet Prep Trichomonas Trichomonas Absent (None Seen)
[2019-01-01] MEDS: Famotidine/PF 20 mg/2ml Vial SLOW IVP SCH (08:23)
--- NOTE | 2019-01-01 08:57 | PRG ---
DATE OF SERVICE: 01/01/2019 SUBJECTIVE: Idris Bullard is much quicker to respond today. OBJECTIVE: VITAL SIGNS: He is afebrile. Heart rate 85, blood pressure 116/79, respiratory rate in the 20s. LUNGS: Clear. HEART: Regular rhythm. ABDOMEN: Soft. EXTREMITIES: His extremities are with edema. He still has four extremity swelling, which is part of his rhabdomyolysis. LABORATORY DATA: White count , hemoglobin 10.5, platelets 131,000. Sodium 143, potassium 5.3, chloride 114, bicarb 13, BUN 103, creatinine 7.62. IMPRESSION: 1. Acute renal failure. He probably should be dialyzed given his significantly rising potassium. 2. Hyperchloremic metabolic acidosis. 3. Rhabdomyolysis. 4. Hypoalbuminemia. Urinalysis did show 300 mg/dL of protein. His hypoalbuminemia with his history of heavy alcohol intake could be a combination of proteinuria and liver dysfunction. Surprisingly, he had an INR of 1.1 on admission, so he does appear to retain significant liver synthetic function at this time. We will continue to follow. He probably would need to remain in the Critical Care Unit until he is dialyzed. CRITICAL CARE TIME: 30 minutes. Job ID: [id number] MTDD
[2019-01-01] MEDS ORDERED: Lidocaine 1% w/Epinephrine 1:100K 20 ML VIAL ONE (09:47)
--- NOTE | 2019-01-01 10:10 | CT ---
CT ABDOMEN AND PELVIS WITHOUT CONTRAST STONE PROTOCOL: HISTORY: Sepsis. Urine and blood culture positive for staph. COMPARISON: None. FINDINGS: Moderate right and small left pleural effusions with compressive atelectasis. No significant pericar dial effusion. There is mild distention of the urinary bladder of the gallbladder containing hyperdense sludge. The urinary bladder is decompressed with a Fermin catheter. There is bilateral perinephric stranding whi ch is symmetric. Small volume of fluid within the perirenal space bilaterally. There is no nephrour eterolithiasis or hydroureteral nephrosis. No secondary evidence of recently passed stone. A left f emoral central venous catheter tip projects over the left common iliac vein. The appendix is visual ized and is normal. No dilated loops of large or small bowel. No retroperitoneal adenopathy. Mild third spacing of fluid. 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 IMPRESSION: 1. Extensive third spacing of fluid can be due to the patient's underlying sepsis and acute renal fa ilure. 2. Bilateral symmetric perinephric stranding can be seen with acute kidney injury. 3. No nephroureteral lithiasis or hydroureteral nephrosis. No secondary evidence of a recently pass ed stone. 4. High-density sludge within the gallbladder which is mildly distended may be sequelae of NPO statu s. POS: [facility]
[2019-01-01] MEDS ORDERED: Lidocaine 1% w/Epinephrine 1:100K 20 ML VIAL IJ SCH (10:30)
[2019-01-01 10:40] LABS: Band 16 % (5-11); Hemoglobin 10.3 g/dL (14.0-18.0); Lymphocytes 18 % (21-51); MDiff Complete? YES; Mean Corpuscular HGB CONC 32.2 g/dL (32.0-36.0); Mean Corpuscular Hemoglobin 29.4 pg (27.0-31.0); Mean Corpuscular Volume 91.3 fL (78.0-98.0); Mean Platelet Volume 10.5 fL (7.4-10.4); Monocytes 11 % (0-10); Myelocyte 1 % (0-0); Neutrophil 54 % (42-75); Platelet Count 173 thou/uL (130-400); Platelet Morphology Comment Appears Adequate; Polychromasia SLIGHT = 2-3 cells (100X) (0-2/hpf); RBC Distribution Width 12.3 % (11.5-14.5); Red Blood Cell (RBC) Count 3.51 mill/uL (4.70-6.10); White Blood Cell (WBC) Count 8.2 thou/uL (4.8-10.8)
--- NOTE | 2019-01-01 10:59 | PRG ---
DATE OF SERVICE: 01/01/2019 SUBJECTIVE: The patient is seen and examined. The patient seems to be very sick in critical condition. Noted with the following vital signs. OBJECTIVE: VITAL SIGNS: Afebrile. Temperature 98.5, pulse 85, respiratory rate of 19, blood pressure 116/79 with O2 saturation of 100%. HEENT: Unremarkable. CARDIOVASCULAR: First and second heart sounds were heard. RESPIRATORY: Clear to auscultation anteriorly. DIGESTIVE: Revealed a benign abdomen. EXTREMITIES: Showed significant peripheral edema. SKIN: No new gross rash. LYMPHATIC: No peripheral lymphadenopathy. LABORATORY INVESTIGATION: Showed potassium of 5.3, bicarb of 13, BUN of 103 with creatinine of 7.62, calcium 7.6 and phosphorus of 5.3. Albumin 1.7. IMPRESSION: 1. Dense acute tubular necrosis in the context of sepsis. 2. Uremia with profound azotemia. 3. Hyperkalemia. 4. Metabolic acidosis. 5. Rhabdomyolysis. PLAN: 1. The patient seems to be very uremic, decision will be taken today to initiate renal replacement therapy (hemodialysis). Therefore, a dialysis catheter to be placed after which dialysis will commence with immediate effect. 2. Continue to avoid potentially nephrotoxic agents. 3. Further management to be dependent on the clinical course. Job ID: [id number]
[2019-01-01] MEDS ORDERED: Heparin 1,000 UNITS/ML VIAL ONE (11:11)
[2019-01-01 11:45] LABS: HBSAB Concentration 0.49 mIU/mL; HBSAg Index 0.19 S/CO (0-0.99); Hep B Core Total Ab Non-Reactive (NonReactive); Hep B Core Total Index 0.06 S/CO (0-0.79); Hep B Surf AB Non-Reactive (NonReactive); Hep B Surf Ag Non-Reactive S/CO (NonReactive); Hep C IgG Ab Non-Reactive (NonReactive); Hep C Index 0.03 S/CO (0-0.79)
--- NOTE | 2019-01-01 15:16 | PRG ---
DATE OF SERVICE: 01/01/2019 SUBJECTIVE: Mr. Blevins appears to be more awake today. He is moving his toes bilaterally on command. He continues to be somnolent. OBJECTIVE: VITAL SIGNS: Blood pressure 100/70, pulse 98, and temperature afebrile. LUNGS: Clear to auscultation. HEART: Regular rate and rhythm. ABDOMEN: Soft, nontender, and nondistended. EXTREMITIES: No edema. NEURO: As above. PERTINENT LABORATORY DATA: Hemoglobin 10.3. Creatinine 7.67, sodium 143. Blood cultures x2 positive for Staph aureus. IMPRESSION: 1. Elevated troponin. 2. Cardiomyopathy of unknown etiology. 3. Sepsis. 4. Metabolic encephalopathy. 5. Rhabdomyolysis. 6. Renal failure. RECOMMENDATIONS: From a CV standpoint, he is stable. His blood pressure is marginal at this point for adding beta-elodia therapy. Avoid GERRY inhibitor therapy or ARB. Job ID: [id number]
[2019-01-01] MEDS: Clotrimazole 1 % Cream 30 GM TUBE TOP SCH (20:46)
[2019-01-02] MEDS: HumaLOG 300 UNITS/3 ML VIAL SC PRN ×2 (00:17→17:06)
[2019-01-02] MEDS: Oxacillin 2 GM in Sodium Chloride 0.9% 100 ML IVPB SCH ×6 (00:49→20:57)
[2019-01-02] MEDS: Sodium Chloride 0.45% 1,000 ML IV SCH ×3 (04:30→19:00)
--- NOTE | 2019-01-02 05:50 | PDOC.CTH ---
Cardiology Progress Note - Subjective MOre alert today. Moving all 4 extremities although very weak. Pain noted with lifting both arms. Pt unsure of the events prior to his demise. - Objective Vital Signs Temp Pulse Ox 01/02/19 03:58 98.4 F 01/02/19 00:51 98.1 F 01/01/19 19:42 97 01/01/19 19:00 98.2 F Admit Weight 171 lb 15.369 oz Weight 176 lb 2.389 oz 12/31/18 01/01/19 01/02/19 06:59 06:59 06:59 Intake Total 5254.5 2683.7 1492 Output Total 43 57 44 Balance 5211.5 2626.7 1448 - Physical Examination General/Neuro: NAD Neck: no JVD present Lungs: CTA, unlabored respirations Heart: PMI normal, RRR Abdomen: NT/ND, soft Extremities: + edema B - Telemetry Telemetry Rhythm: SR - Labs Result Diagrams: 01/01/19 04:00 01/02/19 04:19 Troponin/CKMB CK-MB (CK-2) 62.8 ng/mL (0-6.6) H* 12/30/18 10:09 Troponin I 4.239 ng/mL (< 0.028) H* 12/30/18 10:09 - Assessment/Plan Elevated troponin (type II) Rhabdomyolysis Renal failure Sepsis DM metabolic encephalpoathy More alert today No current changes in management On Abx Needs rehab [facility] with be discussed once he is more alert. He will likely be in hospital for some time.
[2019-01-02 06:01] LABS: Albumin 1.7 g/dL (3.5-5.0); Anion Gap 20 mmol/L (10-20); BUN (Urea Nitrogen) 100 mg/dL (8.9-20.6); BUN/Creatinine Ratio 13.72; Calc. Creatinine Clearance 15 mL/min (70-130); Calcium 7.5 mg/dL (7.8-10.44); Carbon Dioxide 16 mmol/L (22-29); Chloride 110 mmol/L (98-107); Estimated GFR-MDRD 8; Glucose 161 mg/dL (70-105); Phosphorus 6.6 mg/dL (2.3-4.7); Potassium 4.8 mmol/L (3.5-5.1); Sodium 141 mmol/L (136-145)
[2019-01-02 06:03] LABS: CK (CPK) 5307 U/L (30-200)
--- NOTE | 2019-01-02 06:31 | PDOC.FM ---
- Subjective Subjective: Idris Blevins seen at bedside this morning. He has become more responsive and has followed commands and had conversations with nursing staff over the last 24 hours. He had his first round of hemodialysis on 01/01 and will likely get hemodialysis for the next few days. We are awaiting speech eval and if we are able, would like to start a diet today. He continues to essentially have no urine output. He has significant pain with movement of any extremities. - Objective MAR Reviewed: Yes Vital Signs & Weight: Vital Signs (12 hours) Temp Pulse Ox 01/02/19 03:58 98.4 F 01/02/19 00:51 98.1 F 01/01/19 19:42 97 01/01/19 19:00 98.2 F Weight Admit Weight 78 kg Weight 79.9 kg Most Recent Monitor Data Heart Rate from ECG 98 NIBP 98/67 NIBP BP-Mean 77 Respiration from ECG 15 SpO2 99 I&O: 12/31/18 01/01/19 01/02/19 06:59 06:59 06:59 Intake Total 5254.5 2683.7 2598 Output Total 43 57 44 Balance 5211.5 2626.7 2554 Result Diagrams: 01/01/19 04:00 01/02/19 04:19 Phys Exam - Physical Examination Constitutional: NAD HEENT: moist MMs, sclera anicteric Neck: no JVD, supple, full ROM Respiratory: no wheezing, no rales, no rhonchi, clear to auscultation bilateral Cardiovascular: RRR, no significant murmur, no rub Gastrointestinal: soft, no distention, positive bowel sounds Musculoskeletal: no edema, pulses present Neurological: moves all 4 limbs Psychiatric: normal affect, A&O x 3 Skin: no rash, cap refill <2 seconds Dx/Plan (1) Hyperosmolar hyperglycemic coma due to diabetes mellitus without ketoacidosis Code(s): E11.01 - TYPE 2 DIABETES MELLITUS WITH HYPEROSMOLARITY WITH COMA Status: Resolved (2) Metabolic encephalopathy Code(s): G93.41 - METABOLIC ENCEPHALOPATHY Status: Resolved (3) Acute renal failure Status: Acute (4) Rhabdomyolysis Code(s): M62.82 - RHABDOMYOLYSIS Status: Acute (5) NSTEMI (non-ST elevated myocardial infarction) Code(s): I21.4 - NON-ST ELEVATION (NSTEMI) MYOCARDIAL INFARCTION Status: Suspected (6) Lactic acid acidosis Code(s): E87.2 - ACIDOSIS Status: Resolved (7) Type 2 diabetes mellitus Status: Chronic - Plan Plan: 43 y/o M admitted after being found down, Hyperosmolar coma, acute renal failure , rhabdo 1) Hyperosmolar Hyperglcemic Coma 2/2 Uncontrolled Type 2 DM: resolved - Initial VBG pH 7.39. Elevated beta-hydroxybutarate likely from starvation state, initial serum glucose was 784 - Unable to get any history from patient on presentation - S/p 14.5 L IVFs - Pts sugars have downtrended, currently on aggressive SSI - HgA1c of 14.1 - Continue accuchecks, required 12 U of SSI in last 24 hours - Will start longer acting insulin, likely 70/30 due to financial reasons, once patient starts on a diet 2) Acute Metabolic Encephalopathy: improving - GCS of 15 - CT head was negative - Likely 2/2 #1 - Will continue current therapy, consider MRI of brain - Continue neuro checks and consider airway protection if worsening. - Cortisol, HIV, RPR, Hep C Ab all negative 3) NSTEMI - Initial Troponins elevated, no EKG changes - Heparin ggt discontinued. Received aspirin in the ED, has been taken off heparin ggt by Cards - Echo showed LVEF of 25-30%, area of possible thrombus vs papillary mm - Dr. Lee recommended conservative therapy at this time 4) Acute Renal failure - Cr 3.23 on admission to 7.62 this morning - Very minimal urinary output since admission - s/p 14.5 L IVFs and continues to be anuric - Consulted NephroDr. Schrader - CT showed no evidence of stone or obstruction - s/p HD on 01/01, will likely get dialysis for the next several days 5) Rhabdomyolysis - CK 29,462 on admission, initial increase to greater than 40,000, trended down to 5307 - Pt found down after an unknown amount of time - Continue IVFs and monitoring CK 6) Sepsis - Blood and urine cultures showed MSSA - Tachycardic, elevated WBC count, elevated lactic acid - Procalcitonin was 37.7 trended up to 92, lactic acid is downtrending - Dr. Sheets consulted, Vanc and zosyn switched to Oxacillin yesterday. - Blood culture sensitive to oxacillin 7) Right gaze palsy: resolved - present on arrival, likely 2/2 encephalopathy - negative head CT - will consider Brain MRI when more hemodynamically stable 8) Penile discharge: - found on physical exam last night - GC/Ch, wet mount, LING, gram stain and Cx of discharge - wet mount showed truong, starting topical clotrimazole Addendum - Attending - Attending Attestation Date/Time: 01/02/19 [id number] I personally evaluated the patient and discussed the management with Dr. Sanchez I agree with the History, Examination, Assessment and Plan documented above with any addition or exceptions noted below - Patient more awake and responsive ; follows all commands. Afebrile VSS. A/P: 1) ARF - started on HD yesterday. Plan for additional HD today. Still no urine output. Continue to monitor. 2) Rhabdomyolysis- resolving. 3) Sepsis secondary to Staph aureus - continue current abx. 4) DN- stable; continue current meds. 5) HFrEF- continue to monitor. Start meds as BP tolerates.
--- NOTE | 2019-01-02 09:52 | PRG ---
DATE OF SERVICE: 01/02/2019 SUBJECTIVE: Idris Blevins continues to look a little better every day. He is more interactive each day. OBJECTIVE: VITAL SIGNS: His heart rate is 100, blood pressure 100/65, respiratory rate is in the teens, oximetry is 99%. LUNGS: Clear. HEART: Regular rhythm. S1 and S2 are normal. ABDOMEN: Soft and nontender. EXTREMITIES: Without asymmetry. He does have diffuse edema of both upper and lower extremities in part secondary to volume resuscitation and in part secondary to his rhabdomyolysis. LABORATORY DATA: His ejection fraction on echocardiogram is 25% to 30%. No vegetation was seen. White count is 8.2, hemoglobin 10.3, platelets 173,000. Sodium 141, potassium 4.8, chloride 110, bicarb 16, BUN 100, creatinine 7.29. IMPRESSION: 1. Staph aureus bacteremia with no vegetation seen on echocardiogram. 2. Severe decrease in left ventricular systolic function with a history of heavy alcohol use. 3. Acute renal failure secondary to rhabdomyolysis. 4. Rhabdomyolysis secondary to sepsis on presentation. 5. Diabetes. We will continue dialysis. 6. Hypoalbuminemia with proteinuria with significant. 7. Nephrology is following. 8. Cardiology is now following as well. We will continue daily dialysis and supportive care as well as nutritional support. Job ID: [id number] [facility]
[2019-01-02] MEDS: Famotidine/PF 20 mg/2ml Vial SLOW IVP SCH (09:53)
[2019-01-02] MEDS: Clotrimazole 1 % Cream 30 GM TUBE TOP SCH ×2 (09:54→20:57)
[2019-01-02] MEDS ORDERED: Heparin 1,000 UNITS/ML VIAL ONE (11:11)
--- NOTE | 2019-01-02 12:42 | PRG ---
DATE OF SERVICE: 01/02/2019 SUBJECTIVE: The patient was seen and examined, noted with the following vital signs. OBJECTIVE: VITAL SIGNS: Afebrile. Blood pressure 114/80, pulse of 106, respiratory rate of 17, O2 saturations are 99%. GENERAL: The patient seems to be doing much better. HEENT: Unremarkable. CARDIOVASCULAR SYSTEM: First and second heart sounds were heard. RESPIRATORY SYSTEM: Clear to auscultation. DIGESTIVE SYSTEM: Revealed a benign abdomen. EXTREMITIES: Showed mild peripheral edema. SKIN: No new gross rash. LYMPHATICS: No peripheral lymphadenopathy. LABORATORY INVESTIGATION: Showed a creatinine of 7.29 with BUN of 100, phosphorus of 6.6, calcium 7.5. IMPRESSION: 1. Acute on chronic kidney disease now on hemodialysis, seems to be improving. 2. Uremia, much improved, still with some profound azotemia. 3. Metabolic acidosis. 4. Hyperphosphatemia in the context of problems listed above. PLAN: 1. The patient to continue with hemodialysis for now. At this point, the patient is still anuric. 2. Renally dose all medications and avoid potentially nephrotoxic agents. 3. Further management to be dependent on the clinical course. Job ID: [id number]
--- NOTE | 2019-01-02 12:56 | OP ---
DATE OF PROCEDURE: 01/01/2019 PROCEDURE PERFORMED: Right femoral dialysis catheter placement. INDICATION: Renal failure. MEDICATION: 1% lidocaine with epi. DETAILS OF PROCEDURE: After overnight consent was obtained, initial attempt was made to exchange the left femoral central line over a wire for dialysis catheter, however, this proved impossible as the wire could not thread. Decision was then taken to prep the right femoral vein and under real-time ultrasound guidance, the right femoral vein was cannulated and over the wire, a serial dilatation was carried out. After which, Trialysis catheter was successfully placed. All the ports were evaluated for good flow. No significant blood loss and no immediate postop complications. The line is good for dialysis now. Job ID: [id number]
--- NOTE | 2019-01-02 13:45 | PRG ---
DATE OF SERVICE: 01/02/2019 SUBJECTIVE: Mr. Blevins is more alert, makes more sense, establish his eye contact, answers questions, is oriented to time, self and almost to place, did not know the year. He is weak particular in the right side. MRI of the head has been ordered because of concern of possible embolic lesions or some other intracranial event. OBJECTIVE: VITAL SIGNS: His T-max 98.6, blood pressure normal, and pulse 78. HEENT: Ocular movements conjugate. Pupils are equal and reactive. LUNGS: Symmetric air entry. HEART: S1 and S2 regular rate. ABDOMEN: Soft. Not distended. MUSCULOSKELETAL: No joint inflammatory activity. LABORATORY DATA: White cell count 8.2, hemoglobin 10.3, platelets 173. The patient has been dialyzed through the groin and is on oxacillin. ASSESSMENT AND DISCUSSION: Type 2 diabetes, alcoholism, altered mental status, and methicillin-susceptible Staphylococcus aureus bacteremia. Possibility of urinary tract infection associated with bacteremia is considered. We will order a CT stone protocol to evaluate the possibility to see if he has stranding around the kidneys. Delirium is improving. The disposition is going to be hard because he is undocumented, not going to be able to get dialysis in the outpatient setting and the antimicrobial therapy for his infection will be also difficult to arrange. Hopefully, if he does have evidence to suggest pyelonephritis, we could transition to quinolone to continue treatment in the outpatient setting maybe a combination of Cipro and Keflex or just ciprofloxacin by itself. Another option would be dicloxacillin for protracted periods of time. Since he would not be able to receive his vancomycin sliding scale with dialysis, we could then bypass that need and just use oral medications. Still the other problem with end-stage renal disease and the need for dialysis would remain. Job ID: [id number] [facility]
[2019-01-02] MEDS: Heparin 5,000 UNITS/ML VIAL SC SCH ×2 (15:36→20:57)
--- NOTE | 2019-01-02 16:39 | MRI ---
NONCONTRAST ENHANCED MRI IMAGES OF BRAIN: 01/02/19 HISTORY: Right sided weakness. Multiplanar and multisequence noncontrast enhanced MRI images of the brain obtained. Images demonstrate areas of increased T2 signal as well as diffusion restriction in the right centrum semiovale minimally. There is more prominent left centrum semiovale areas of diffusion restriction. In addition, white matter areas of diffusion restriction minimally also seen in the left parietal lob e. There is areas of signal abnormality in the left splenium of corpus callosum. There is also minima l areas of focal diffusion restriction in the left cerebellum. Findings compatible with multiple area s of diffusion restriction and small infarctions. These are concerning for possible embolic strokes. Normal flow voids seen in the major intracranial vessels. IMPRESSION: Small areas of multiple infarctions in the right and left centrum semiovale, more prominent on the l eft than the right. Small areas of diffusion restriction seen in the left parietal white matter, left splenium of the corpus callosum and left cerebellum. These are all compatible with small areas of ac daniel cytotoxic edema and small areas of infarction. POS: RYANN
[2019-01-02] MEDS: Acetaminophen 650 MG Suppository PR PRN (17:01)
[2019-01-03] MEDS: Oxacillin 2 GM in Sodium Chloride 0.9% 100 ML IVPB SCH ×6 (00:24→21:24)
[2019-01-03] MEDS: HumaLOG 300 UNITS/3 ML VIAL SC PRN ×3 (00:26→18:45)
[2019-01-03 05:01] LABS: Albumin 1.8 g/dL (3.5-5.0); Anion Gap 20 mmol/L (10-20); BUN (Urea Nitrogen) 100 mg/dL (8.9-20.6); BUN/Creatinine Ratio 13.23; CK (CPK) 3362 U/L (30-200); Calc. Creatinine Clearance 14 mL/min (70-130); Calcium 7.6 mg/dL (7.8-10.44); Carbon Dioxide 19 mmol/L (22-29); Chloride 106 mmol/L (98-107); Estimated GFR-MDRD 8; Glucose 223 mg/dL (70-105); Phosphorus 8.4 mg/dL (2.3-4.7); Potassium 4.8 mmol/L (3.5-5.1); Sodium 140 mmol/L (136-145)
--- NOTE | 2019-01-03 05:53 | PDOC.FM ---
- Subjective Subjective: No adverse events overnight. Pt denies chest pain, dyspnea. He has no complaints. - Objective MAR Reviewed: Yes Vital Signs & Weight: Vital Signs (12 hours) Temp 01/03/19 04:25 98.6 F 01/03/19 00:09 98.5 F 01/02/19 19:13 98.6 F Weight Admit Weight 78 kg Weight 84.822 kg Most Recent Monitor Data Heart Rate from ECG 96 NIBP 113/73 NIBP BP-Mean 86 Respiration from ECG 16 SpO2 100 I&O: 01/01/19 01/02/19 01/03/19 06:59 06:59 06:59 Intake Total 2683.7 2598 780 Output Total 57 44 15 Balance 2626.7 2554 765 Result Diagrams: 01/01/19 04:00 01/03/19 04:26 Phys Exam - Physical Examination Constitutional: NAD HEENT: PERRLA Respiratory: clear to auscultation bilateral Cardiovascular: RRR, no significant murmur Gastrointestinal: soft, non-tender, no distention Musculoskeletal: no edema 3/5 RUE strength. Psychiatric: normal affect, A&O x 3 Skin: no rash Dx/Plan (1) Acute renal failure Status: Acute (2) Rhabdomyolysis Code(s): M62.82 - RHABDOMYOLYSIS Status: Acute (3) Type 2 diabetes mellitus Status: Chronic (4) NSTEMI (non-ST elevated myocardial infarction) Code(s): I21.4 - NON-ST ELEVATION (NSTEMI) MYOCARDIAL INFARCTION Status: Suspected (5) Hyperosmolar hyperglycemic coma due to diabetes mellitus without ketoacidosis Code(s): E11.01 - TYPE 2 DIABETES MELLITUS WITH HYPEROSMOLARITY WITH COMA Status: Resolved (6) Lactic acid acidosis Code(s): E87.2 - ACIDOSIS Status: Resolved (7) Metabolic encephalopathy Code(s): G93.41 - METABOLIC ENCEPHALOPATHY Status: Resolved - Plan Plan: Acute Metabolic Encephalopathy: improving - GCS of 15 - CT head was negative - Likely 2/2 to HHS coma. - MRI of brain showed multiple small areas of infarction. - pt with RUE focal weakness, which has been consistent over the past several days per nursing staff. Continue PT. MSSA Bacteremia - continue Oxacillin - with multilpe areas of infarction seen on MRI, concern for possible vegetations raised. - may consider discussing with cardiology if KOJO is warranted. NSTEMI - Initial Troponins elevated, no EKG changes - Heparin ggt discontinued. Received aspirin in the ED, has been taken off heparin ggt by Cards - Echo showed LVEF of 25-30%, area of possible thrombus vs papillary mm - Dr. Lee recommended conservative therapy at this time Acute Renal failure - s/p HD on 01/01, will likely get dialysis for the next several days Rhabdomyolysis - CK improving Penile discharge: - found on physical exam last night - GC/Ch, wet mount, LING, gram stain and Cx of discharge - wet mount showed truong, starting topical clotrimazole Hyperosmolar Hyperglcemic Coma 2/2 Uncontrolled Type 2 DM: resolved - Initial VBG pH 7.39. Elevated beta-hydroxybutarate likely from starvation state, initial serum glucose was 784 - Unable to get any history from patient on presentation - S/p 14.5 L IVFs - Pts sugars have downtrended, currently on aggressive SSI - HgA1c of 14.1
--- NOTE | 2019-01-03 08:31 | PDOC.CTH ---
Cardiology Progress Note - Subjective Still ot moving right side well. Pt is hungry. No other issues. - Objective Vital Signs Temp Pulse Ox 01/03/19 07:54 100 01/03/19 07:01 99.3 F 01/03/19 04:25 98.6 F 01/03/19 00:09 98.5 F Admit Weight 171 lb 15.369 oz Weight 187 lb 01/02/19 01/03/19 01/04/19 06:59 06:59 07:59 Intake Total 2598 780 Output Total 44 15 Balance 2554 765 - Physical Examination General/Neuro: NAD Neck: carotid US brisk, no JVD present Lungs: CTA, unlabored respirations Heart: PMI normal, RRR Abdomen: NT/ND, soft Extremities: + femoral B Other PE findings: Neuro-SIgnificnat weakness to the right UE, LE - Labs Result Diagrams: 01/01/19 04:00 01/03/19 04:26 Troponin/CKMB CK-MB (CK-2) 62.8 ng/mL (0-6.6) H* 12/30/18 10:09 Troponin I 4.239 ng/mL (< 0.028) H* 12/30/18 10:09 - Assessment/Plan Rhabdomylolysis Elevated troponin Sepsis CVA? with right sided weakness DM Cardiomyopathy RF from rhabdo Given finding on recent MRI, may be consistent with embolic phenomenon; if so, would consider ACT. Pt with area at the apex likely papillary muscle but cannot exclude thrombus. Not sure KOJO changes management given hat if MRI consistent with emboli, may be from PAF or apical thrombus. Will discuss with pulmonary Will need lifevest when close to discharge on Abx Dialysis Very difficult situation in pt. On heparin for now and add eliquis when nearing DC Pt from [place] and unsure if he will comply with meds, dialysis. Will need to get SW involved.
[2019-01-03] MEDS ORDERED: Heparin 1,000 UNITS/ML VIAL ONE (11:11)
[2019-01-03] MEDS: Heparin 5,000 UNITS/ML VIAL SC SCH ×3 (11:48→21:25)
[2019-01-03] MEDS: Carvedilol 6.25 MG TAB PO SCH ×2 (11:48→21:25)
[2019-01-03] MEDS: Famotidine/PF 20 mg/2ml Vial SLOW IVP SCH (11:49)
[2019-01-03] MEDS: Clotrimazole 1 % Cream 30 GM TUBE TOP SCH ×2 (11:49→21:33)
--- NOTE | 2019-01-03 11:56 | PRG ---
DATE OF SERVICE: 01/03/2019 SUBJECTIVE: This morning, he is being dialyzed. No distress. OBJECTIVE: VITAL SIGNS: Sats are 97 on room air, respirations 19, . CHEST: Decreased breath sounds. No wheezing. CARDIAC: Normal S1 and S2. No gallops. ABDOMEN: No masses. LABORATORY DATA: Creatinine is 7.6. CK is 3362. IMPRESSION: 1. Acute renal failure, status post rhabdomyolysis sepsis syndrome, Staphylococcus on oxacillin. 2. Encephalopathy. PLAN: At this stage, continue supportive care, PT, eventually placement. MRI showed multiple areas of infarct in the right and left centrum. He is on subcu heparin 5000 three times a day, I would not initiate anything stronger at this stage. Job ID: [id number]
--- NOTE | 2019-01-03 21:45 | PRG ---
DATE OF SERVICE: 01/03/2019 SUBJECTIVE: The patient is seen and examined, seems to be doing much better since we started dialysis. Noted with the following vital signs. OBJECTIVE: VITAL SIGNS: Afebrile, temperature 99, pulse of 105, blood pressure 117/78, O2 saturations are 97%. HEENT: Unremarkable. CARDIOVASCULAR: First and second heart sounds were heard. RESPIRATORY: Clear to auscultation. DIGESTIVE: Revealed a benign abdomen. Positive bowel sounds. EXTREMITIES: No peripheral edema. SKIN: No new gross rash. LYMPHATICS: No peripheral lymphadenopathy. LABORATORY INVESTIGATION: Showed BUN of 100 with creatinine of 7.56, phosphorus of 8.4. IMPRESSION: 1. Acute on chronic kidney disease, now hemodialysis dependent, possibility of end-stage renal disease. 2. Hyperphosphatemia in the context of #1. 3. Profound azotemia. 4. Anemia. PLAN: 1. The patient to continue with hemodialysis with ultrafiltration at all as the patient seems to be more euvolemic at this point. 2. Renally dose medications and avoid potentially nephrotoxic agents. 3. Further management will be dependent on the clinical course. If the patient's renal function does not improve, arrangement will be made for tunneled dialysis catheter placement. Job ID: [id number]
[2019-01-04] MEDS: HumaLOG 300 UNITS/3 ML VIAL SC PRN ×5 (00:25→22:20)
[2019-01-04] MEDS: Oxacillin 2 GM in Sodium Chloride 0.9% 100 ML IVPB SCH ×6 (00:26→21:24)
--- NOTE | 2019-01-04 06:16 | PDOC.FM ---
- Subjective Subjective: Mr. Blevins was seen and examined at the bedside this morning with no complaints. Denies any complaints. Still having RUE weakness. - Objective MAR Reviewed: Yes Vital Signs & Weight: Vital Signs (12 hours) Temp BP 01/04/19 04:06 98.4 F 01/04/19 00:11 98.1 F 01/03/19 21:25 124/83 01/03/19 19:20 99.0 F Weight Admit Weight 78 kg Weight 92.703 kg Most Recent Monitor Data Heart Rate from ECG 98 NIBP 133/85 NIBP BP-Mean 101 Respiration from ECG 19 SpO2 97 I&O: 01/02/19 01/03/19 01/04/19 06:59 06:59 07:59 Intake Total 2598 780 1490 Output Total 44 15 1075 Balance 2554 765 415 Result Diagrams: 01/01/19 04:00 01/04/19 05:20 Phys Exam - Physical Examination Constitutional: NAD Respiratory: clear to auscultation bilateral Cardiovascular: RRR Gastrointestinal: soft, non-tender, no distention Musculoskeletal: no edema RUE weakness. Psychiatric: A&O x 3 Skin: no rash Dx/Plan (1) Acute renal failure Status: Acute (2) Rhabdomyolysis Code(s): M62.82 - RHABDOMYOLYSIS Status: Acute (3) Type 2 diabetes mellitus Status: Chronic (4) NSTEMI (non-ST elevated myocardial infarction) Code(s): I21.4 - NON-ST ELEVATION (NSTEMI) MYOCARDIAL INFARCTION Status: Suspected (5) Hyperosmolar hyperglycemic coma due to diabetes mellitus without ketoacidosis Code(s): E11.01 - TYPE 2 DIABETES MELLITUS WITH HYPEROSMOLARITY WITH COMA Status: Resolved (6) Lactic acid acidosis Code(s): E87.2 - ACIDOSIS Status: Resolved (7) Metabolic encephalopathy Code(s): G93.41 - METABOLIC ENCEPHALOPATHY Status: Resolved - Plan Plan: Acute Metabolic Encephalopathy: improving - GCS of 15 - CT head was negative - Likely 2/2 to HHS coma. - MRI of brain showed multiple small areas of infarction. - pt with RUE focal weakness, which has been consistent over the past several days per nursing staff. Continue PT. MSSA Bacteremia - uncertain etiology; pt denies drug use. - continue Oxacillin - with multilpe areas of infarction seen on MRI, concern for possible vegetations raised. - may consider discussing with cardiology if KOJO is warranted. HFrEF - EF 25-30% - Life vest planned per cardiology. Acute Renal failure - s/p HD on 01/01, will likely get dialysis for the next several days Rhabdomyolysis - CK improving Type 2 DM: - Pts sugars have downtrended, currently on aggressive SSI - HgA1c of 14.1 - Will add on longacting insulin since patient is eating. NSTEMI - Initial Troponins elevated, no EKG changes - Heparin ggt discontinued. Received aspirin in the ED, has been taken off heparin ggt by Cards - Echo showed LVEF of 25-30%, area of possible thrombus vs papillary mm - Dr. Lee recommended conservative therapy at this time Dispo: discharge planning will be difficult due to the fact that patient is undocumented and unfunded. CM recs appreciated. Pt stable, improving. Will transfer to stroke.
[2019-01-04 06:55] LABS: Albumin 1.8 g/dL (3.5-5.0); Anion Gap 18 mmol/L (10-20); BUN (Urea Nitrogen) 84 mg/dL (8.9-20.6); BUN/Creatinine Ratio 11.97; CK (CPK) 2317 U/L (30-200); Calc. Creatinine Clearance 18 mL/min (70-130); Calcium 7.3 mg/dL (7.8-10.44); Carbon Dioxide 21 mmol/L (22-29); Chloride 100 mmol/L (98-107); Estimated GFR-MDRD 9; Glucose 472 mg/dL (70-105); Phosphorus 7.5 mg/dL (2.3-4.7); Potassium 4.8 mmol/L (3.5-5.1); Sodium 134 mmol/L (136-145)
--- NOTE | 2019-01-04 08:49 | PDOC.CTH ---
Cardiology Progress Note - Subjective More alert today. Moving right arm more. Increase strength present. - Objective Vital Signs Temp BP Pulse Ox 01/04/19 08:00 98 01/04/19 07:13 97.9 F 01/04/19 04:06 98.4 F 01/04/19 00:11 98.1 F 01/03/19 21:25 124/83 Admit Weight 171 lb 15.369 oz Weight 204 lb 6 oz 01/03/19 01/04/19 01/05/19 05:59 06:59 06:59 Intake Total Output Total Balance - Physical Examination General/Neuro: alert & oriented x3, NAD Neck: carotid US brisk, no JVD present Lungs: CTA, unlabored respirations Heart: RRR Abdomen: NT/ND, soft Extremities: + femoral B - Labs Result Diagrams: 01/01/19 04:00 01/04/19 05:20 Troponin/CKMB CK-MB (CK-2) 62.8 ng/mL (0-6.6) H* 12/30/18 10:09 Troponin I 4.239 ng/mL (< 0.028) H* 12/30/18 10:09 - Assessment/Plan Rhabdomylolysis Elevated troponin Sepsis CVA? with right sided weakness DM Cardiomyopathy RF from rhabdo No changes overnight on heparin Recommend eliquis as outpatient given likelihood of emboli storke Change from sq heparin to IV Discussed lifevest with pt. Friends in room. He is amenable to lifevest at this time. He understands (and friends) the cost. Will order. I would like to defer angio at this time given his renal function and allow renal function to potentially recover. Lifevest will protect in the meantime and allow EF to improve with meds.
[2019-01-04] MEDS: Carvedilol 6.25 MG TAB PO SCH ×2 (09:46→21:25)
[2019-01-04] MEDS: Heparin 5,000 UNITS/ML VIAL SC SCH ×3 (09:47→21:25)
[2019-01-04] MEDS: Famotidine/PF 20 mg/2ml Vial SLOW IVP SCH (09:47)
[2019-01-04] MEDS: Insulin Glargine 25 UNITS in Pre-Filled Syringe 1 EACH SC SCH (09:47)
[2019-01-04] MEDS: Clotrimazole 1 % Cream 30 GM TUBE TOP SCH ×2 (09:48→22:53)
[2019-01-04] MEDS ORDERED: Heparin 1,000 UNITS/ML VIAL ONE (11:11)
--- NOTE | 2019-01-04 11:37 | PRG ---
DATE OF SERVICE: 01/04/2019 SUBJECTIVE: I spoke to him with the help of a compensation supervisor. He denies any pain or discomfort. OBJECTIVE: VITAL SIGNS: Blood pressure 130/80, pulse 80, respiratory rate 18, saturations 90% on room air. CHEST: Decreased breath sounds. No wheezing. CARDIAC: Normal S1 and S2. No gallops. ABDOMEN: No masses. LABORATORY DATA: Creatinine is 7. IMPRESSION: Sepsis syndrome, renal failure, rhabdo, diabetes, and encephalopathy, much improved. PLAN: He probably can be transferred out of the MICU to monitor bed. Continue PT, supportive care. Job ID: [id number]
--- NOTE | 2019-01-04 23:01 | PRG ---
DATE OF SERVICE: 01/04/2019 SUBJECTIVE: The patient is seen and examined, noted with the following vital signs. OBJECTIVE: VITAL SIGNS: Afebrile, temperature 98.8; pulse 86; respiratory rate of 18; O2 saturation of 100% with blood pressure 119/73. HEENT EXAMINATION: Unremarkable. Moist oral mucosa. NECK: Supple. No conjunctival injection or icterus. CARDIOVASCULAR SYSTEM: First and second heart sounds were heard. RESPIRATORY SYSTEM: Clear to auscultation. DIGESTIVE SYSTEM: Revealed a benign abdomen with positive bowel sounds. EXTREMITIES: No peripheral edema. SKIN EXAMINATION: No new gross rash. LYMPHATICS: No peripheral lymphadenopathy. IMPRESSION: 1. Dense acute tubular necrosis, now hemodialysis dependent. 2. Sepsis, improving. 3. Anemia. PLAN: Patient's dialysis schedule to be changed to Saturday, , and Saturday. We will discontinue daily dialysis. In summary, a 43-year-old gentleman with dense acute tubular necrosis, yet to begin to make any urine, dependent on dialysis. Job ID: [id number]
[2019-01-05] MEDS: Oxacillin 2 GM in Sodium Chloride 0.9% 100 ML IVPB SCH ×6 (00:50→22:16)
--- NOTE | 2019-01-05 04:44 | PDOC.CTH ---
Cardiology Progress Note - Subjective No new complaints - Objective Vital Signs Temp Pulse Resp BP Pulse Ox 01/05/19 00:00 98.2 F 88 16 112/69 96 01/04/19 18:56 98.8 F 86 18 119/73 100 Admit Weight 171 lb 15.369 oz Weight 204 lb 6 oz 01/03/19 01/04/19 01/05/19 05:59 06:59 06:59 Intake Total Output Total Balance - Physical Examination General/Neuro: NAD Neck: carotid US brisk, no JVD present Lungs: CTA, unlabored respirations Heart: PMI normal, RRR Abdomen: NT/ND, soft Extremities: + femoral B Other PE findings: weakness to RU, LE still noted - Labs Result Diagrams: 01/01/19 04:00 01/05/19 05:32 Troponin/CKMB CK-MB (CK-2) 62.8 ng/mL (0-6.6) H* 12/30/18 10:09 Troponin I 4.239 ng/mL (< 0.028) H* 12/30/18 10:09 - Assessment/Plan Rhabdomylolysis Elevated troponin Sepsis CVA? with right sided weakness DM Cardiomyopathy RF from rhabdo Pt transferred to tele No futher recommendations avoid ACEI, ARB lifevest will be placed Plan is to fu as outpatient I will be oout of the office; please reconsult if needed. Add BB
--- NOTE | 2019-01-05 06:01 | PDOC.FM ---
- Subjective Subjective: agricultural appraiser technology during interview. 43 yo male seen at bedside this am. He denies any complaints. He is inquiring about eating more food. No other acute events overnight. - Objective Vital Signs & Weight: Vital Signs (12 hours) Temp Pulse Resp BP Pulse Ox 01/05/19 04:00 99.2 F 86 16 118/71 99 01/05/19 00:00 98.2 F 88 16 112/69 96 01/04/19 18:56 98.8 F 86 18 119/73 100 Weight Admit Weight 78 kg Weight 83.506 kg Most Recent Monitor Data Heart Rate from ECG 90 NIBP 112/71 NIBP BP-Mean 84 Respiration from ECG 22 SpO2 97 I&O: 01/03/19 01/04/19 01/05/19 05:59 06:59 06:59 Intake Total 350 Output Total 75 Balance 275 Result Diagrams: 01/01/19 04:00 01/05/19 05:32 Phys Exam - Physical Examination Constitutional: NAD HEENT: moist MMs Neck: no nodes Respiratory: no wheezing, clear to auscultation bilateral Cardiovascular: RRR, no significant murmur Gastrointestinal: soft, non-tender, no distention, positive bowel sounds Musculoskeletal: no edema, pulses present Neurological: non-focal, normal sensation, moves all 4 limbs Psychiatric: normal affect, A&O x 3 Dx/Plan (1) Metabolic encephalopathy Code(s): G93.41 - METABOLIC ENCEPHALOPATHY Status: Resolved (2) Acute renal failure Status: Acute (3) Rhabdomyolysis Code(s): M62.82 - RHABDOMYOLYSIS Status: Resolved (4) Type 2 diabetes mellitus Status: Chronic (5) NSTEMI (non-ST elevated myocardial infarction) Code(s): I21.4 - NON-ST ELEVATION (NSTEMI) MYOCARDIAL INFARCTION Status: Suspected (6) Hyperosmolar hyperglycemic coma due to diabetes mellitus without ketoacidosis Code(s): E11.01 - TYPE 2 DIABETES MELLITUS WITH HYPEROSMOLARITY WITH COMA Status: Resolved - Plan Plan: Acute Metabolic Encephalopathy: resolved - GCS of 15 - CT head was negative - Likely 2/2 to HHS coma. - MRI of brain showed multiple small areas of infarction. - pt with RUE focal weakness, which has been consistent over the past several days per nursing staff. Continue PT. MSSA Bacteremia - uncertain etiology; pt denies drug use. - continue Oxacillin - with multilpe areas of infarction seen on MRI, concern for possible vegetations raised. - Per Cardiology, no KOJO at this time and recommend outpatient follow up. HFrEF - EF 25-30% - Life vest planned per cardiology. - Life vest was not placed on patient this AM. - Continue beta elodia Acute Renal failure - s/p HD on 01/01, will likely get dialysis for the next several days - Nephrology consulted, appreciate recommendations. - Creatinine improved to 4.97 and had total of 75 ml urine output overnight Rhabdomyolysis - CK improving - repeat labs pending this AM Type 2 DM: - Pts sugars have downtrended, currently on basal and meal time insulin. Will continue to titrate for better control. - HgA1c of 14.1 NSTEMI - Initial Troponins elevated, no EKG changes - Heparin ggt discontinued. Received aspirin in the ED, has been taken off heparin ggt by Cards - Echo showed LVEF of 25-30%, area of possible thrombus vs papillary mm - Dr. Lee recommended conservative therapy at this time and follow up as outpatient. Disposition. Awaiting CM recommendations. Pt stable and discharge planning will be completed based on CM findings. Addendum - Attending - Attending Attestation Date/Time: 01/05/19 6028 I personally evaluated the patient and discussed the management with Dr. Maqruez I agree with the History, Examination, Assessment and Plan documented above with any addition or exceptions noted below.Patient with minimal urine output and note improved RFT , EF 25-35%, history of diabetic noncompliance . Discussed care plan through [facility] today. Continued HD for now appreciate Specialist recommendations. Consider renal US prn bedside restorative care swallow study prn.
[2019-01-05 06:29] LABS: Albumin 1.6 g/dL (3.5-5.0); Anion Gap 13 mmol/L (10-20); BUN (Urea Nitrogen) 49 mg/dL (8.9-20.6); BUN/Creatinine Ratio 9.86; CK (CPK) 1249 U/L (30-200); Calc. Creatinine Clearance 23 mL/min (70-130); Calcium 7.2 mg/dL (7.8-10.44); Carbon Dioxide 25 mmol/L (22-29); Chloride 99 mmol/L (98-107); Estimated GFR-MDRD 13; Glucose 259 mg/dL (70-105); Phosphorus 5.8 mg/dL (2.3-4.7); Potassium 4.1 mmol/L (3.5-5.1); Sodium 133 mmol/L (136-145)
[2019-01-05] MEDS: Heparin 5,000 UNITS/ML VIAL SC SCH ×3 (09:12→22:16)
[2019-01-05] MEDS: Insulin Glargine 25 UNITS in Pre-Filled Syringe 1 EACH SC SCH (09:12)
[2019-01-05] MEDS: HumaLOG 300 UNITS/3 ML VIAL SC SCH ×3 (09:13→17:37)
[2019-01-05] MEDS: Clotrimazole 1 % Cream 30 GM TUBE TOP SCH (09:13)
[2019-01-05] MEDS: Famotidine/PF 20 mg/2ml Vial SLOW IVP SCH (09:13)
[2019-01-05] MEDS: Carvedilol 6.25 MG TAB PO SCH ×2 (09:14→22:16)
[2019-01-05 10:15] LABS: Chlamydia trachomatis by NAA Negative (Negative)
--- NOTE | 2019-01-05 11:10 | PRG ---
DATE OF SERVICE: 01/03/2019 ADDENDUM: Please see the note from Dr. Peralta, for which I agree. The patient was seen and evaluated and discussed with the residents by bedside. This is an unfortunate 43-year-old gentleman, who initially came in with severely uncontrolled diabetes based on hyperosmolar hyperglycemic coma and an acute renal failure from rhabdomyolysis and still needing hemodialysis for that. It was noted to have some staph sepsis as well, for which he is on oxacillin. He was having some mental status changes and some focal findings on the right side and so an MRI of the brain was done, which showed possible embolic phenomenon of small strokes, unclear if this is clots or less likely something like vegetations. He, on echo, has a low EF around 25% as well. So, Infectious Disease is managing antibiotics and is talking about where to put him as far as long-term antibiotics as he is going to be on them for a while. Renal is involved giving him dialysis, unclear if this is going to be a long-term issue or just short term. We got him on vancomycin and Zosyn right now in addition to oxacillin. I will have him on sliding scale and sugar is better controlled and Cardiology is following along as well. More of the base issues on this gentleman is he is not documented, he is not going to have likely access to outpatient dialysis, etc. So, it going to be an issue as far as figuring out long-term placement and plan, especially if his kidney function does not improve and looks like he needs long-term dialysis, this is going to be a challenge but currently stable on current medications etc. Job ID: [id number]
--- NOTE | 2019-01-05 11:19 | PRG ---
DATE OF SERVICE: ADDENDUM: Please see the note from Dr. Peralta, for which I agree. The patient was seen, evaluated, and discussed with the residents. The patient is still in the ICU, although fairly stable and probably can go up to the floor. Still needing dialysis. I think currently getting that daily for the elevated creatinine assumed to be from renal insult from the rhabdomyolysis, although we do not have a baseline to know. Has the elevated troponin level and had an embolic looking events to the brain with some right-sided weakness. It sounds like we may switch him off the heparin and switch him over to p.o. anticoagulants; however, with his renal failure, I am not sure if we can give him Eliquis and probably discontinue the heparin at this point in time. Continue same diabetes management, and his sugars are still extremely elevated and we are going to put him on routine Lantus in addition to the sliding scale. Still on oxacillin for the methicillin-sensitive Staph as well. Also talked about getting a LifeVest for the extremely low ejection fraction. The biggest issue on this gentleman is going to be really with his lack of insurance, how we get him on hemodialysis if needs it permanently. We keep him on long-term IV antibiotics, etc. So, definitely secondary social studies teacher could be involved to try to help us arrange for some of this as an outpatient if possible as just a really difficult situation. Job ID: [id number]
--- NOTE | 2019-01-05 19:40 | PRG ---
DATE OF SERVICE: 01/05/2019 SUBJECTIVE: The patient is seen and examined, noted with the following vital signs. OBJECTIVE: VITAL SIGNS: Afebrile, temperature 98.9, pulse 81, respiratory rate of 16, O2 saturations 96% with blood pressure 127/71. HEENT: Unremarkable. CARDIOVASCULAR SYSTEM: First and second heart sounds were heard. RESPIRATORY SYSTEM: Clear to auscultation. DIGESTIVE SYSTEM: Revealed a benign abdomen. EXTREMITIES: No peripheral edema. SKIN EXAMINATION: No new gross rash. LYMPHATICS: No peripheral lymphadenopathy. LABORATORY INVESTIGATION: Showed a creatinine of 4.97 and BUN of 49. IMPRESSION: 1. Acute on chronic kidney disease. 2. Hyperphosphatemia. 3. Sepsis, improved. PLAN: 1. The patient to stay on the current regimen of hemodialysis pending when the significant renal improvement is noted. 2. Continue renal supportive measures, avoid potentially nephrotoxic agents. 3. Further management to be dependent on the clinical course. Job ID: [id number]
[2019-01-06] MEDS: Clotrimazole 1 % Cream 30 GM TUBE TOP SCH ×3 (01:28→21:24)
[2019-01-06] MEDS: Oxacillin 2 GM in Sodium Chloride 0.9% 100 ML IVPB SCH ×6 (01:28→20:57)
--- NOTE | 2019-01-06 06:06 | PDOC.FM ---
- Subjective Subjective: Crm Technical Lead service used for interview. 43 yo male seen at bedside this AM. Patient has had no complaints, pain, SOB, n/v/d, or vision changes. Patient has no plans to go back to [place] and very little support financially. Patient is willing to adhere to all medication regimens going forward. No other complaints. - Objective Vital Signs & Weight: Vital Signs (12 hours) Temp Pulse Resp BP Pulse Ox 01/06/19 04:00 99.6 F 77 18 126/76 96 01/06/19 00:00 99.4 F 94 18 136/80 96 01/05/19 20:00 98.9 F 92 18 123/69 96 Weight Admit Weight 78 kg Weight 83.506 kg Most Recent Monitor Data Heart Rate from ECG 90 NIBP 112/71 NIBP BP-Mean 84 Respiration from ECG 22 SpO2 97 I&O: 01/04/19 01/05/19 01/06/19 06:59 06:59 06:59 Intake Total 350 1380 Output Total 75 45 Balance 275 1335 Result Diagrams: 01/01/19 04:00 01/06/19 05:18 Phys Exam - Physical Examination Constitutional: NAD HEENT: PERRLA, moist MMs Neck: no nodes Respiratory: no wheezing, clear to auscultation bilateral Cardiovascular: RRR, no significant murmur Gastrointestinal: soft, non-tender, no distention, positive bowel sounds Musculoskeletal: no edema, pulses present Neurological: non-focal, moves all 4 limbs RUE weakness Psychiatric: normal affect, A&O x 3 Skin: no rash Dx/Plan (1) Metabolic encephalopathy Code(s): G93.41 - METABOLIC ENCEPHALOPATHY Status: Resolved (2) Acute renal failure Status: Acute (3) Rhabdomyolysis Code(s): M62.82 - RHABDOMYOLYSIS Status: Resolved (4) Type 2 diabetes mellitus Status: Chronic (5) NSTEMI (non-ST elevated myocardial infarction) Code(s): I21.4 - NON-ST ELEVATION (NSTEMI) MYOCARDIAL INFARCTION Status: Suspected (6) Hyperosmolar hyperglycemic coma due to diabetes mellitus without ketoacidosis Code(s): E11.01 - TYPE 2 DIABETES MELLITUS WITH HYPEROSMOLARITY WITH COMA Status: Resolved - Plan Plan: Acute Metabolic Encephalopathy: resolved - GCS of 15 - CT head was negative - Likely 2/2 to HHS coma. - MRI of brain showed multiple small areas of infarction. - pt with RUE focal weakness, which has been consistent over the past several days per nursing staff. Continue PT. MSSA Bacteremia - uncertain etiology; pt denies drug use. - continue Oxacillin - with multilpe areas of infarction seen on MRI, concern for possible vegetations raised. - Per Cardiology, no KOJO at this time and recommend outpatient follow up. HFrEF - EF 25-30% - Life vest planned per cardiology. - Life vest was not placed on patient this AM. - Continue beta elodia Acute Renal failure - s/p HD on 01/01, will likely get dialysis for the next several days - Nephrology consulted, appreciate recommendations. - Creatinine improved to 6.88 and had total of 45 ml urine output overnight Rhabdomyolysis, resolved - CK to 1200 on 01/05 Type 2 DM: - Pts sugars have downtrended, currently on basal and meal time insulin. Will continue to titrate for better control. - Accuchecks continue to be out of control in 200-300s - HgA1c of 14.1 NSTEMI - Initial Troponins elevated, no EKG changes - Heparin ggt discontinued. Received aspirin in the ED, has been taken off heparin ggt by Cards - Echo showed LVEF of 25-30%, area of possible thrombus vs papillary mm - Dr. Lee recommended conservative therapy at this time and follow up as outpatient. Disposition. Awaiting CM recommendations, but placement very unlikely. Pt stable and discharge planning will be completed based on CM findings. Addendum - Attending - Attending Attestation Date/Time: 01/06/19 6074 I personally evaluated the patient and discussed the management with Dr. Marquez I agree with the History, Examination, Assessment and Plan documented above with any addition or exceptions noted below. Patient remains oliguric BS well controlled patient advised likely possibility permanent need HD. Further Cardiac evaluation as outpt.
[2019-01-06 06:12] LABS: Albumin 1.5 g/dL (3.5-5.0); Anion Gap 13 mmol/L (10-20); BUN (Urea Nitrogen) 65 mg/dL (8.9-20.6); BUN/Creatinine Ratio 9.45; Calc. Creatinine Clearance 17 mL/min (70-130); Calcium 7.4 mg/dL (7.8-10.44); Carbon Dioxide 26 mmol/L (22-29); Chloride 99 mmol/L (98-107); Estimated GFR-MDRD 9; Glucose 205 mg/dL (70-105); Potassium 4.3 mmol/L (3.5-5.1); Sodium 134 mmol/L (136-145)
[2019-01-06] MEDS ORDERED: Insulin Glargine 28 UNITS in Pre-Filled Syringe 1 EACH SC SCH (09:00)
[2019-01-06] MEDS: HumaLOG 300 UNITS/3 ML VIAL SC SCH ×3 (09:10→17:36)
[2019-01-06] MEDS: Famotidine/PF 20 mg/2ml Vial SLOW IVP SCH (09:10)
[2019-01-06] MEDS: Heparin 5,000 UNITS/ML VIAL SC SCH ×3 (09:10→20:57)
[2019-01-06] MEDS: Carvedilol 6.25 MG TAB PO SCH ×2 (09:10→20:57)
[2019-01-06] MEDS ORDERED: Aspirin 81 mg Enteric Coated Tablet PO SCH (12:30)
--- NOTE | 2019-01-06 20:11 | PRG ---
DATE OF SERVICE: 01/06/2019 SUBJECTIVE: The patient is seen and examined with no new complaint, noted with the following vital signs. OBJECTIVE: VITAL SIGNS: Afebrile, temperature 99.6, pulse 77, respiratory rate of 18, O2 saturations are 96%, and blood pressure 126/76. HEENT: Unremarkable. Moist oral mucosa. NECK: Supple. No conjunctival injection or icterus. CARDIOVASCULAR SYSTEM: First and second heart sounds were heard. RESPIRATORY SYSTEM: Clear to auscultation. DIGESTIVE SYSTEM: Revealed a benign abdomen with positive bowel sounds. EXTREMITIES: No peripheral edema. SKIN: No new gross rash. LYMPHATICS: No peripheral lymphadenopathy. IMPRESSION: 1. Acute on chronic kidney disease . 2. Rhabdomyolysis. 3. Sepsis, much improved. 4. Hyperphosphatemia. PLAN: 1. The patient is currently on hemodialysis. Outpatient dialysis placement is likely impossible given the status of the patient. 2. We will continue current renal supportive measures. 3. Further management to be dependent on the clinical course. Job ID: [id number]
[2019-01-06] MEDS: Atorvastatin Calcium 40 MG TAB PO SCH (20:56)
[2019-01-07] MEDS: Oxacillin 2 GM in Sodium Chloride 0.9% 100 ML IVPB SCH ×6 (00:33→21:52)
[2019-01-07 05:43] LABS: Albumin 1.4 g/dL (3.5-5.0); Anion Gap 16 mmol/L (10-20); BUN (Urea Nitrogen) 44 mg/dL (8.9-20.6); BUN/Creatinine Ratio 7.73; Calc. Creatinine Clearance 20 mL/min (70-130); Calcium 7.5 mg/dL (7.8-10.44); Carbon Dioxide 23 mmol/L (22-29); Chloride 101 mmol/L (98-107); Estimated GFR-MDRD 11; Glucose 245 mg/dL (70-105); Phosphorus 6.9 mg/dL (2.3-4.7); Potassium 4.9 mmol/L (3.5-5.1); Sodium 135 mmol/L (136-145)
--- NOTE | 2019-01-07 06:05 | PDOC.FM ---
- Subjective Subjective: 43 yo male seen at bedside this AM. Head Refrigerating Engineer services used during interview. Patient is doing well. He has no complaints. His family in [place] is working to get services set up for him when he is ready to go home. Patient denies pain. He states his RUE has been getting better, but is not back to normal. No other complaints. - Objective Vital Signs & Weight: Vital Signs (12 hours) Temp Pulse Resp BP Pulse Ox 01/07/19 04:00 97.5 F L 76 18 121/79 97 01/07/19 00:00 98.1 F 83 18 139/81 98 01/06/19 20:00 98.1 F 90 18 120/72 96 Weight Admit Weight 78 kg Weight 83.506 kg Most Recent Monitor Data Heart Rate from ECG 90 NIBP 112/71 NIBP BP-Mean 84 Respiration from ECG 22 SpO2 97 I&O: 01/05/19 01/06/19 01/07/19 06:59 06:59 06:59 Intake Total 350 1920 1140 Output Total 75 120 0 Balance 275 1800 1140 Result Diagrams: 01/01/19 04:00 01/07/19 04:48 Phys Exam - Physical Examination Constitutional: NAD HEENT: moist MMs Respiratory: no wheezing, clear to auscultation bilateral Cardiovascular: RRR, no significant murmur Gastrointestinal: soft, non-tender, no distention, positive bowel sounds Musculoskeletal: no edema, pulses present RUE weakness with swelling present. Neurological: moves all 4 limbs Lymphatic: no nodes Psychiatric: normal affect, A&O x 3 Skin: no rash Dx/Plan (1) Metabolic encephalopathy Code(s): G93.41 - METABOLIC ENCEPHALOPATHY Status: Resolved (2) Acute renal failure Status: Acute (3) Rhabdomyolysis Code(s): M62.82 - RHABDOMYOLYSIS Status: Resolved (4) Type 2 diabetes mellitus Status: Chronic (5) NSTEMI (non-ST elevated myocardial infarction) Code(s): I21.4 - NON-ST ELEVATION (NSTEMI) MYOCARDIAL INFARCTION Status: Suspected (6) Hyperosmolar hyperglycemic coma due to diabetes mellitus without ketoacidosis Code(s): E11.01 - TYPE 2 DIABETES MELLITUS WITH HYPEROSMOLARITY WITH COMA Status: Resolved - Plan Plan: Acute Metabolic Encephalopathy: resolved - GCS of 15 - CT head was negative - Likely 2/2 to HHS coma. - MRI of brain showed multiple small areas of infarction. - pt with RUE focal weakness, which has been consistent over the past several days per nursing staff. Continue PT. - Will get RUE US to rule out DVT vs other etiology. MSSA Bacteremia - uncertain etiology; pt denies drug use. - continue Oxacillin - Dr. Sheets consulted, appreciate recs. - with multilpe areas of infarction seen on MRI, concern for possible vegetations raised. - Per Cardiology, no KOJO at this time and recommend outpatient follow up. HFrEF - EF 25-30% - Life vest planned per cardiology. - Life vest was not placed on patient this AM. - Continue beta elodia Acute Renal failure - s/p HD on 01/01, will likely get dialysis for the next several days - Nephrology consulted, appreciate recommendations. - Creatinine does not seem to improve without dialysis - Patient will be impossible to place. Plan to continue treatment until well enough to make it back to [place] for supportive services. Rhabdomyolysis, resolved - CK to 1200 on 01/05 Type 2 DM: - Pts sugars have downtrended, currently on basal and meal time insulin. Will continue to titrate for better control. - Accuchecks improved, will continue to titrate insulin - HgA1c of 14.1 NSTEMI - Initial Troponins elevated, no EKG changes - Heparin ggt discontinued. Received aspirin in the ED, has been taken off heparin ggt by Cards - Echo showed LVEF of 25-30%, area of possible thrombus vs papillary mm - Dr. Lee recommended conservative therapy at this time and follow up as outpatient. Disposition. Awaiting CM recommendations, but placement very unlikely. Pt stable and discharge planning will be completed based on CM findings. Addendum - Attending - Attending Attestation Date/Time: 01/07/19 3910 I personally evaluated the patient and discussed the management with Dr. Marquez I agree with the History, Examination, Assessment and Plan documented above with any addition or exceptions noted below.
[2019-01-07] MEDS: Famotidine/PF 20 mg/2ml Vial SLOW IVP SCH (08:32)
[2019-01-07] MEDS: Heparin 5,000 UNITS/ML VIAL SC SCH ×3 (08:32→21:28)
[2019-01-07] MEDS: Carvedilol 6.25 MG TAB PO SCH ×2 (08:34→21:25)
[2019-01-07] MEDS: HumaLOG 300 UNITS/3 ML VIAL SC SCH ×3 (08:34→17:52)
--- NOTE | 2019-01-07 08:34 | PRG ---
DATE OF SERVICE: 01/06/2019 SUBJECTIVE: Mr. Blevins is in the Neuro Unit. He is awake, but a little bit disoriented. He is able to follow commands, he complains of weakness in the left upper extremity. He denies any respiratory symptoms or abdominal pain. The patient has a Fermin catheter inserted. OBJECTIVE: VITAL SIGNS: Show T-max 98.5 to 99.9 and his output in the Fermin has ranged from 75 to 120. HEENT: His ocular movements are conjugate. The oral cavity is moist. EXTREMITIES: He has weakness in the right side of his body, specifically the right upper extremity weakness, still able to lift it, but the final inspection supervisor is weaker than the left side. Plantar reflexes are different. There is no evidence of clonus. Trace edema in the lower extremities. LUNGS: Symmetric air entry. CARDIAC: S1 and S2. Regular rate. ABDOMEN: Soft, not distended. LABORATORY DATA: White cell count 8.2, hemoglobin 10.3 platelets 173, 54% neutrophils and 16% bands. The previous microbiology with positive venous blood sample for cultures with Staphylococcus aureus was methicillin sensitive. The urine culture showed Staphylococcus species, but there was no further speciation of the organism. It was presumed normal skin yamile, so I assume it did not have the Staphylococcus aureus morphology to it. ASSESSMENT AND DISCUSSION: 1. Type 2 diabetes. 2. Alcoholism. 3. Altered mental status. 4. Methicillin-susceptible Staphylococcus aureus bacteremia. Now that the organism isolated from the urinary tract has not been identified as Staphylococcus aureus , the main suspicion will have to be endocarditis. The echocardiogram report was of poor quality. A KOJO may be considered for more specific diagnosis confirmation , but that is the more likely scenario. He has been treated now for approximately 7 days. I will need another 35 days to complete treatment with intravenous administration of either beta-lactam or vancomycin. Since he is in dialysis that could be administered via vancomycin sliding scale. The other option would be treatments with oral antibiotics assuming endocarditis as well. There had been some recent studies that demonstrated the feasibility of that; however, this patient has had embolic complications that would probably advise against treatment with oral antimicrobials. He does not have insurance and does not have documents, because it does not look like he would be eligible for outpatient dialytic therapy, so he may have to remain in the hospital for completion of treatment of endocarditis. The patient still has a temporary dialysis catheter in the right groin and that will need to be removed and a better access placed, likely a tunneled catheter in the neck region to avoid infectious complications there. The end date of IV therapy for this gentleman would be February 11. Job ID: [id number] MTDD
[2019-01-07] MEDS: Aspirin 81 mg Enteric Coated Tablet PO SCH (08:35)
[2019-01-07] MEDS: Clotrimazole 1 % Cream 30 GM TUBE TOP SCH ×2 (08:36→21:52)
--- NOTE | 2019-01-07 17:25 | ULT ---
RIGHT UPPER EXTREMITY VENOUS DOPPLER ULTRASOUND EVALUATION 01/07/19 Multiple longitudinal and transverse images of the right upper extremity venous system is obtained us ing a multihertz linear array transducer. Real time, color flow and spectral waveform doppler analysis demonstrates the right internal jugular vein, subclavian vein, axillary vein to be patent. Right brachial veins are patent. The right cephalic vein is suboptimally visualized due to patient's arm position and could not be [place] quately evaluated. There is acute echogenic noncompressible clot in the right basilic vein. The right radial and ulnar veins are patent. IMPRESSION: 1. Extensive echogenic clot filling the right basilic vein. 2. Edema is seen in the right arm soft tissues. POS: [facility]
[2019-01-07] MEDS ORDERED: Insulin Glargine 30 UNITS in Pre-Filled Syringe 1 EACH SC SCH (21:00)
[2019-01-07] MEDS: Atorvastatin Calcium 40 MG TAB PO SCH (21:25)
[2019-01-07 23:09] LABS: Chlamydia trachomatis Culture Negative (.)
[2019-01-08] MEDS: Oxacillin 2 GM in Sodium Chloride 0.9% 100 ML IVPB SCH ×5 (02:17→23:46)
--- NOTE | 2019-01-08 06:01 | PDOC.FM ---
- Subjective Subjective: 43 yo male seen at bedside this AM. Patient is being prepared for tunnel cath insertion with Dr. Peralta. Yesterday RUE doppler found basilic vein thromboembolism. Patient has no other complaints today. - Objective Vital Signs & Weight: Vital Signs (12 hours) Temp Pulse Resp BP BP BP Pulse Ox 01/08/19 04:00 97 F L 77 20 130/74 96 01/08/19 00:00 98.4 F 80 20 131/76 96 01/07/19 21:25 132/84 01/07/19 20:00 98.7 F 94 20 132/84 98 Weight Admit Weight 78 kg Weight 85.593 kg Most Recent Monitor Data Heart Rate from ECG 90 NIBP 112/71 NIBP BP-Mean 84 Respiration from ECG 22 SpO2 97 I&O: 01/06/19 01/07/19 01/08/19 06:59 06:59 06:59 Intake Total 1920 1950 1799 Output Total 120 100 160 Balance 1800 1850 1639 Result Diagrams: 01/08/19 06:56 01/08/19 06:56 Phys Exam - Physical Examination Constitutional: NAD HEENT: moist MMs Respiratory: no wheezing, clear to auscultation bilateral Cardiovascular: RRR, no significant murmur Gastrointestinal: soft, non-tender, no distention, positive bowel sounds Musculoskeletal: no edema, pulses present Neurological: moves all 4 limbs RUE swelling and weakness Psychiatric: A&O x 3 Skin: no rash Dx/Plan (1) Metabolic encephalopathy Code(s): G93.41 - METABOLIC ENCEPHALOPATHY Status: Resolved (2) Acute renal failure Status: Acute (3) Basilic vein thrombosis Code(s): I82.619 - ACUTE EMBOLISM AND THROMBOSIS OF SUPERFIC VN UNSP UP EXTREM Status: Acute (4) Rhabdomyolysis Code(s): M62.82 - RHABDOMYOLYSIS Status: Resolved (5) Type 2 diabetes mellitus Status: Chronic (6) NSTEMI (non-ST elevated myocardial infarction) Code(s): I21.4 - NON-ST ELEVATION (NSTEMI) MYOCARDIAL INFARCTION Status: Suspected (7) Hyperosmolar hyperglycemic coma due to diabetes mellitus without ketoacidosis Code(s): E11.01 - TYPE 2 DIABETES MELLITUS WITH HYPEROSMOLARITY WITH COMA Status: Resolved - Plan Plan: Acute Metabolic Encephalopathy: resolved - GCS of 15 - CT head was negative - Likely 2/2 to HHS coma. - MRI of brain showed multiple small areas of infarction. - pt with RUE focal weakness, which has been consistent over the past several days per nursing staff. Continue PT. MSSA Bacteremia - uncertain etiology; pt denies drug use. - continue Oxacillin - Dr. Sheets consulted, appreciate recs. - with multilpe areas of infarction seen on MRI, concern for possible vegetations raised. - Per Cardiology, no KOJO at this time and recommend outpatient follow up. Basilic Vein Thrombosis (R) - Found on RUE US - Will transition to Heparin drip for therapeutic level. - Monitor for other signs of thrombosis - Consider workup for hypercoagulability HFrEF - EF 25-30% - Life vest planned per cardiology. - Continue beta elodia Acute Renal failure - s/p HD on 01/01, will likely get dialysis for the next several days - Nephrology consulted, appreciate recommendations. - Creatinine does not seem to improve without dialysis - Patient will be impossible to place. Plan to continue treatment until well enough to make it back to [place] for supportive services. Rhabdomyolysis, resolved - CK to 1200 on 01/05 Type 2 DM: - Pts sugars have downtrended, currently on basal and meal time insulin. Will continue to titrate for better control. - Accuchecks improved, will continue to titrate insulin - HgA1c of 14.1 NSTEMI - Initial Troponins elevated, no EKG changes - Heparin ggt discontinued. Received aspirin in the ED, has been taken off heparin ggt by Cards - Echo showed LVEF of 25-30%, area of possible thrombus vs papillary mm - Dr. Lee recommended conservative therapy at this time and follow up as outpatient. Disposition. Awaiting CM recommendations, but placement very unlikely. Pt stable and discharge planning will be completed based on CM findings. Addendum - Attending - Attending Attestation Date/Time: 01/08/19 3882 I personally evaluated the patient and discussed the management with Dr. Marquez I agree with the History, Examination, Assessment and Plan documented above with any addition or exceptions noted below. Patient seen post op tunnel cath for continued HD patient stable doing well awre plan continued HD and IV antibiotics.
[2019-01-08] MEDS ORDERED: Heparin 10,000 UNITS/ 10 ML VIAL SLOW IVP SCH (06:15)
[2019-01-08] MEDS ORDERED: CEFAZOLIN 2 GM in Premix Bag 1 BAG IVPB SCH (07:15)
[2019-01-08 07:20] LABS: Hemoglobin 10.1 g/dL (14.0-18.0); Platelet Count 372 thou/uL (130-400)
[2019-01-08 07:30] LABS: Anion Gap 15 mmol/L (10-20); BUN (Urea Nitrogen) 58 mg/dL (8.9-20.6); Calc. Creatinine Clearance 16 mL/min (70-130); Calcium 7.4 mg/dL (7.8-10.44); Carbon Dioxide 26 mmol/L (22-29); Chloride 101 mmol/L (98-107); Estimated GFR-MDRD 9; Glucose 134 mg/dL (70-105); Potassium 4.7 mmol/L (3.5-5.1); Sodium 137 mmol/L (136-145)
[2019-01-08] MEDS ORDERED: ceFAZolin Sodium 2 GM/100 ML BAG ONE (08:39)
[2019-01-08] MEDS ORDERED: Bupivacaine PF 0.5% 30 ML VIAL ONE (08:47)
[2019-01-08] MEDS ORDERED: Lidocaine 2% PF 5 ML VIAL ONE (08:48)
[2019-01-08] MEDS ORDERED: Sodium Chloride 0.9% 10 ML ONE (08:48)
[2019-01-08] MEDS ORDERED: Heparin 10,000 UNITS/1 ML VIAL ONE (08:48)
[2019-01-08] MEDS ORDERED: Bupivacaine HCl 0.5%/Epinephrine 1:200,000/PF 30 ml Vial ONE (08:49)
[2019-01-08] MEDS ORDERED: Fentanyl 100 MCG/2 ML VIAL ONE (08:59)
[2019-01-08] MEDS ORDERED: Sodium Chloride 0.9% 20 ML ONE (10:10)
--- NOTE | 2019-01-08 11:18 | OP ---
DATE OF PROCEDURE: 01/08/2019 PREOPERATIVE DIAGNOSIS: Acute on chronic renal failure. POSTOPERATIVE DIAGNOSIS: Acute on chronic renal failure. PROCEDURE PERFORMED: Placement of 15.5-Occitan right subclavian tunneled dialysis catheter under fluoroscopy. ANESTHESIA: Monitored anesthesia care and local. INDICATIONS FOR PROCEDURE: A 43-year-old woman with acute on chronic renal failure, requires a tunneled dialysis catheter for prolonged hemodialysis. The patient was brought to the operating room for that purpose. DESCRIPTION OF PROCEDURE: Informed consent was obtained from the patient and he was brought to the operating room and placed in supine position. Following monitored anesthesia care, the anterior chest wall sterilely prepped and draped in usual fashion. The skin below the right clavicle was anesthetized with 1% lidocaine. The right subclavian vein was cannulated with an 18-gauge introducer needle returning dark venous blood. Guidewire was passed through the needle and placed into the right subclavian vein without resistance. The needle was withdrawn over the guidewire. The proper placement of the guidewire was confirmed by fluoroscopy. A stab incision was made adjacent to the guidewire. I then choose an area 7 cm below the stab incision, where the tunneled catheter will exit. We chosen the path of the tunnel and widely infiltrated with 1% lidocaine. A stab incision was made in this region. Through this, tunneler connected to hemodialysis catheter was introduced through the chosen tunnel, exiting the infraclavicular stab incision adjacent to the guidewire. At this juncture, a dilator was passed over the guidewire, dilating the subcutaneous tissues on the fluoroscopy. Following this, a dilator with introducer sheath was then passed over the guidewire and introduced into the right subclavian vein under fluoroscopy. The dilator and guidewire removed as a unit. The 15.5-Occitan hemodialysis catheter was then inserted through the introducer sheath and placed in the right subclavian vein without resistance. The introducer sheath was peeled away leaving the catheter in place. Proper sitting of the catheter was confirmed by fluoroscopy. Dark venous blood was vigorously aspirated from both ports, which were flushed with saline followed by straight heparin. The catheter was secured to anterior chest wall using 3-0 nylon suture. Biopatch was applied there. The previous infraclavicular stab incision was closed using interrupted sutures of 4-0 Monocryl. Dermabond was applied over incisional closure. Sterile dressings applied over the rest of the incision. The patient tolerated the procedure without any apparent complication and was returned to recovery room in satisfactory condition. A chest x-ray will be obtained to exclude pneumothorax. Job ID: [id number]
--- NOTE | 2019-01-08 11:33 | PRG ---
DATE OF SERVICE: 01/08/2019 SUBJECTIVE: The patient was seen and examined, noted with the following vital signs. OBJECTIVE: VITAL SIGNS: Afebrile, temperature 97, pulse 77, respiratory rate of 20, O2 saturations are 96%, blood pressure 130/74. HEENT: Unremarkable. CARDIOVASCULAR: First and second heart sounds were heard. RESPIRATORY: Clear to auscultation. DIGESTIVE: Revealed a benign abdomen. EXTREMITIES: Showed some peripheral edema. LABORATORY INVESTIGATION: Showed a hemoglobin of 10.1. Chemistry showed a creatinine of 7.11, BUN of 58. IMPRESSION: 1. Acute tubular necrosis in the context of rhabdomyolysis and sepsis, which seems to be combination into end-stage renal disease. 2. Sepsis, much improved. 3. Diabetes mellitus, poorly controlled. PLAN: 1. Patient currently receiving hemodialysis. 2. Outpatient dialysis placement is going to be a serious challenge given the undocumented status of this patient. We will coordinate with the medical case worker and the family vis-a-vis the possibility of the patient returning to [place]. 3. Further management to dependent on the clinical course. Job ID: [id number]
--- NOTE | 2019-01-08 11:53 | RAD ---
PORTABLE CHEST 1 VIEW: DATE: 01/08/2019. TIME: 10:39 a.m. HISTORY: Line placement. FINDINGS/IMPRESSION: Comparison is made with the exam of 12/29/2018. There has been interval placement of a right subclavia n double-lumen venous catheter with tips in the projection of the right atrium. No pneumothoraces ar e seen. There is continued elevation of the right hemidiaphragm. Mild opacity is seen in the right lower lung. POS: [facility]
[2019-01-08] MEDS ORDERED: PROPOFOL 200 MG/20 ML VIAL ONE (12:36)
[2019-01-08] MEDS ORDERED: Glycopyrrolate 0.2 MG/ML 5 ML SYRINGE ONE (12:36)
[2019-01-08] MEDS ORDERED: Ondansetron PF 4 MG/2 ML Vial ONE (12:36)
[2019-01-08] MEDS: HumaLOG 300 UNITS/3 ML VIAL SC SCH ×3 (13:30→17:08)
[2019-01-08] MEDS: Aspirin 81 mg Enteric Coated Tablet PO SCH (16:58)
[2019-01-08] MEDS: Famotidine/PF 20 mg/2ml Vial SLOW IVP SCH (16:59)
[2019-01-08] MEDS: Carvedilol 6.25 MG TAB PO SCH (16:59)
[2019-01-08] MEDS ORDERED: Famotidine/PF 20 mg/2ml Vial SLOW IVP SCH (17:00)
[2019-01-08] MEDS: Clotrimazole 1 % Cream 30 GM TUBE TOP SCH ×2 (17:10→23:09)
[2019-01-08] MEDS ORDERED: Carvedilol 3.125 MG TAB PO SCH (17:15)
[2019-01-08] MEDS ORDERED: Aspirin 81 mg Enteric Coated Tablet PO SCH (17:15)
[2019-01-08] MEDS: Heparin 25,000 units/D5W 500 ML IVPB SCH (17:19)
[2019-01-08] MEDS: Atorvastatin Calcium 40 MG TAB PO SCH (23:06)
[2019-01-08] MEDS: Carvedilol 3.125 MG TAB PO SCH (23:08)
[2019-01-09] MEDS: Insulin Glargine 32 UNITS in Pre-Filled Syringe 1 EACH SC SCH ×2 (00:28→20:40)
[2019-01-09] MEDS: Oxacillin 2 GM in Sodium Chloride 0.9% 100 ML IVPB SCH ×6 (00:53→20:18)
--- NOTE | 2019-01-09 06:07 | PDOC.FM ---
- Subjective Subjective: 43 yo male seen at bedside this AM. box estimator services used during interview. Patient had good night. He has no new complaints. He has made no efforts to set up services in [place]. No other complaints. - Objective Vital Signs & Weight: Vital Signs (12 hours) Temp Pulse Resp BP Pulse Ox 01/09/19 04:00 98.5 F 84 19 128/76 94 L 01/09/19 00:00 98.4 F 84 18 121/67 91 L 01/08/19 20:00 98.4 F 90 18 124/74 97 Weight Admit Weight 78 kg Weight 95.164 kg Most Recent Monitor Data Heart Rate from ECG 90 NIBP 112/71 NIBP BP-Mean 84 Respiration from ECG 22 SpO2 97 I&O: 01/07/19 01/08/19 01/09/19 06:59 06:59 06:59 Intake Total 1950 1799 990 Output Total 100 160 460 Balance 1850 1639 530 Result Diagrams: 01/08/19 06:56 01/09/19 05:13 Phys Exam - Physical Examination Constitutional: NAD HEENT: moist MMs Respiratory: no wheezing, clear to auscultation bilateral Cardiovascular: RRR, no significant murmur Gastrointestinal: soft, non-tender, no distention, positive bowel sounds Musculoskeletal: no edema, pulses present Neurological: moves all 4 limbs RUE weakness with wrist drop. Psychiatric: A&O x 3 Skin: no rash Dx/Plan (1) MSSA bacteremia Code(s): R78.81 - BACTEREMIA Status: Acute (2) Acute renal failure Status: Acute (3) Basilic vein thrombosis Code(s): I82.619 - ACUTE EMBOLISM AND THROMBOSIS OF SUPERFIC VN UNSP UP EXTREM Status: Acute (4) Metabolic encephalopathy Code(s): G93.41 - METABOLIC ENCEPHALOPATHY Status: Resolved (5) Rhabdomyolysis Code(s): M62.82 - RHABDOMYOLYSIS Status: Resolved (6) Type 2 diabetes mellitus Status: Chronic (7) NSTEMI (non-ST elevated myocardial infarction) Code(s): I21.4 - NON-ST ELEVATION (NSTEMI) MYOCARDIAL INFARCTION Status: Suspected (8) Hyperosmolar hyperglycemic coma due to diabetes mellitus without ketoacidosis Code(s): E11.01 - TYPE 2 DIABETES MELLITUS WITH HYPEROSMOLARITY WITH COMA Status: Resolved - Plan Plan: Acute Metabolic Encephalopathy: resolved - GCS of 15 - CT head was negative - Likely 2/2 to HHS coma. - MRI of brain showed multiple small areas of infarction. - pt with RUE focal weakness, which has been consistent over the past several days per nursing staff. Continue PT. MSSA Bacteremia - uncertain etiology; pt denies drug use. - continue Oxacillin - Dr. Sheets consulted, appreciate recs. Likely needs Antibiotics until Mid-January - Will await transitioning antibiotics until Dr. Sheets directs - Per Cardiology, no KOJO at this time and recommend outpatient follow up. Basilic Vein Thrombosis (R) - Found on RUE US - Will transition to Heparin drip for therapeutic level. - Will consult with Nephrology for further recommendations of anticoagulation - Monitor for other signs of thrombosis HFrEF - EF 25-30% - Life vest planned per cardiology. - Continue beta elodia Acute Renal failure - s/p HD on 01/01, will likely get dialysis for the next several days - Nephrology consulted, appreciate recommendations. - Creatinine does not seem to improve without dialysis - No improvement in urine output made and kaur discontinued - Patient will be impossible to place. Plan to continue treatment until well enough to make it back to [place] for supportive services. Rhabdomyolysis, resolved - CK to 1200 on 01/05 Type 2 DM: - Pts sugars have downtrended, currently on basal and meal time insulin. Will continue to titrate for better control. - Accuchecks improved, will continue to titrate insulin - HgA1c of 14.1 NSTEMI - Initial Troponins elevated, no EKG changes - Echo showed LVEF of 25-30%, area of possible thrombus vs papillary mm - Dr. Lee recommended conservative therapy at this time and follow up as outpatient. Disposition. Awaiting CM recommendations, but placement very unlikely. Patient needs IV antibiotics until mid-January per Dr. Sheets. Will continue current plan of care. Addendum - Attending - Attending Attestation Date/Time: 01/09/19 5379 I personally evaluated the patient and discussed the management with Dr. Marquez I agree with the History, Examination, Assessment and Plan documented above with any addition or exceptions noted below.POD #1 s/p tunnel cath for HD access , BS better controlled, no arrthymias, continue heparin for now, ABX until February 11 per ID recommendations, should be able to transfer to lower level care. Patient discussed via interpretor care plan and difficulties anticipated with outpatient HD candidate status as non documented alien.
[2019-01-09 06:13] LABS: Anion Gap 14 mmol/L (10-20); BUN (Urea Nitrogen) 41 mg/dL (8.9-20.6); Calc. Creatinine Clearance 23 mL/min (70-130); Calcium 7.2 mg/dL (7.8-10.44); Carbon Dioxide 25 mmol/L (22-29); Chloride 99 mmol/L (98-107); Estimated GFR-MDRD 11; Glucose 223 mg/dL (70-105); Potassium 4.2 mmol/L (3.5-5.1); Sodium 134 mmol/L (136-145)
[2019-01-09 07:45] LABS: PTT 248.5 SEC (22.9-36.1)
[2019-01-09] MEDS ORDERED: Heparin 10,000 UNITS/ 10 ML VIAL ONE (08:10)
[2019-01-09 09:16] LABS: PTT 134.5 SEC (22.9-36.1)
[2019-01-09] MEDS: HumaLOG 300 UNITS/3 ML VIAL SC SCH ×3 (09:37→16:04)
[2019-01-09] MEDS: Aspirin 81 mg Enteric Coated Tablet PO SCH (09:38)
[2019-01-09] MEDS: Carvedilol 3.125 MG TAB PO SCH ×2 (09:38→20:18)
[2019-01-09] MEDS: Famotidine/PF 20 mg/2ml Vial SLOW IVP SCH (09:38)
[2019-01-09] MEDS: Clotrimazole 1 % Cream 30 GM TUBE TOP SCH ×2 (11:18→20:17)
[2019-01-09] MEDS: Heparin 25,000 units/D5W 500 ML IVPB SCH (16:05)
--- NOTE | 2019-01-09 19:40 | PRG ---
DATE OF SERVICE: 01/09/2019 SUBJECTIVE: The patient was seen and examined, denied any new complaint. OBJECTIVE: HEENT: Unremarkable. EXTREMITIES: No peripheral edema. CARDIOVASCULAR: First and second heart sounds were heard. RESPIRATORY SYSTEM: Clear to auscultation. DIGESTIVE: Revealed benign abdomen. IMPRESSION: 1. Acute on chronic kidney disease, which has progressed to point been dependent on dialysis. 2. Basilic vein thrombosis. 3. Bacteremia. 4. Metabolic encephalopathy, resolved. PLAN: 1. The patient is currently on hemodialysis, on Saturday, , and Saturday schedule. 2. Very impossible to secure outpatient dialysis placement. From my discussion with this patient through a friend, I am not sure this patient wants to go back to [place], but I made it very clear that outpatient dialysis placement is virtually impossible because of the status. In any case, for now, the patient to continue with current hemodialysis schedule. Job ID: [id number]
[2019-01-09 19:45] LABS: PTT Greater than 250.0 SEC (22.9-36.1)
[2019-01-09] MEDS: Atorvastatin Calcium 40 MG TAB PO SCH (20:16)
[2019-01-10] MEDS: Oxacillin 2 GM in Sodium Chloride 0.9% 100 ML IVPB SCH ×6 (00:46→21:35)
--- NOTE | 2019-01-10 06:34 | PDOC.FM ---
- Subjective Subjective: Patient feels well this AM, no complaints. - Objective Vital Signs & Weight: Vital Signs (12 hours) Temp Pulse Resp BP Pulse Ox 01/10/19 04:00 98.3 F 81 16 125/80 95 01/10/19 00:26 98.7 F 82 16 138/78 96 01/09/19 20:00 98.4 F 81 16 95/80 96 Weight Admit Weight 78 kg Weight 98.203 kg Most Recent Monitor Data Heart Rate from ECG 90 NIBP 112/71 NIBP BP-Mean 84 Respiration from ECG 22 SpO2 97 I&O: 01/08/19 01/09/19 01/10/19 06:59 06:59 06:59 Intake Total 2971 676 8055 Output Total 160 460 Balance 9632 196 1148 Result Diagrams: 01/10/19 06:08 01/10/19 06:08 Phys Exam - Physical Examination Constitutional: NAD HEENT: PERRLA, moist MMs Neck: no nodes, supple Respiratory: no wheezing, clear to auscultation bilateral Cardiovascular: RRR, no significant murmur no erythema or warmth RUE Gastrointestinal: soft, non-tender, no distention Musculoskeletal: no edema, pulses present RLE calf tenderness Neurological: moves all 4 limbs 3/5 strength RUE Psychiatric: normal affect Skin: normal turgor, cap refill <2 seconds Dx/Plan (1) MSSA bacteremia Code(s): R78.81 - BACTEREMIA Status: Acute (2) Acute renal failure Status: Acute (3) Basilic vein thrombosis Code(s): I82.619 - ACUTE EMBOLISM AND THROMBOSIS OF SUPERFIC VN UNSP UP EXTREM Status: Acute (4) Type 2 diabetes mellitus Status: Chronic (5) NSTEMI (non-ST elevated myocardial infarction) Code(s): I21.4 - NON-ST ELEVATION (NSTEMI) MYOCARDIAL INFARCTION Status: Suspected (6) Hyperosmolar hyperglycemic coma due to diabetes mellitus without ketoacidosis Code(s): E11.01 - TYPE 2 DIABETES MELLITUS WITH HYPEROSMOLARITY WITH COMA Status: Resolved (7) Metabolic encephalopathy Code(s): G93.41 - METABOLIC ENCEPHALOPATHY Status: Resolved (8) Rhabdomyolysis Code(s): M62.82 - RHABDOMYOLYSIS Status: Resolved - Plan Plan: Acute Metabolic Encephalopathy: resolved - CT head was negative - Likely 2/2 to HHS coma. - MRI of brain showed multiple small areas of infarction. - pt with RUE focal weakness, which has been consistent over the past several days per nursing staff. Continue PT/OT. MSSA Bacteremia - uncertain etiology; pt denies drug use. - continue Oxacillin - Dr. Sheets consulted, appreciate recs. Likely needs Antibiotics until Mid-January - Will await transitioning antibiotics until Dr. Sheets directs - Per Cardiology, no KOJO at this time and recommend outpatient follow up. Basilic Vein Thrombosis (R) - Found on RUE US - Will transition off heparin drip to Heparin [address] Schrader's recommendations - Monitor for other signs of thrombosis HFrEF - EF 25-30% - Life vest planned per cardiology. - Continue beta elodia Acute Renal failure - s/p HD on 01/01, will likely get dialysis for the next several days - Nephrology consulted, appreciate recommendations. - Creatinine does not seem to improve without dialysis - No improvement in urine output made and kaur discontinued - Patient will be impossible to place. Plan to continue treatment until well enough to make it back to [place] for supportive services. Rhabdomyolysis, resolved - CK to 1200 on 01/05 Type 2 DM: - Pts sugars have downtrended, currently on basal and meal time insulin. Will continue to titrate for better control. - Accuchecks improved, will continue to titrate insulin - HgA1c of 14.1 NSTEMI - Initial Troponins elevated, no EKG changes - Echo showed LVEF of 25-30%, area of possible thrombus vs papillary mm - Dr. Lee recommended conservative therapy at this time and follow up as outpatient. Disposition. Awaiting CM recommendations, but placement very unlikely. Patient needs IV antibiotics until mid-January per Dr. Sheets. Will continue current plan of care. Addendum - Attending - Attending Attestation Date/Time: 01/10/19 8307 I personally evaluated the patient and discussed the management with Dr. Tapia. I agree with the History, Examination, Assessment and Plan documented above with any addition or exceptions noted below. Patient denies complaints this AM. Continues to need HD for acute renal failure that is not improving with time. He continues on manager intermediate abx for MSSA bacteremia and suspected endocarditis. He has been transitioned to Heparin BID for anticoagulation per Nephrology recs. Will monitor periodic PTT to ensure he is appropriately anticoagulated. Renal function labs somewhat worse today. Afebrile. Continue therapy services and with CM assistance work on placement though this is unlikely due to his undocumented status.
[2019-01-10 06:42] LABS: Hemoglobin 8.9 g/dL (14.0-18.0); Platelet Count 335 thou/uL (130-400)
[2019-01-10 06:54] LABS: PTT 150.8 SEC (22.9-36.1)
[2019-01-10 06:58] LABS: Anion Gap 16 mmol/L (10-20); BUN (Urea Nitrogen) 55 mg/dL (8.9-20.6); Calc. Creatinine Clearance 19 mL/min (70-130); Calcium 6.9 mg/dL (7.8-10.44); Carbon Dioxide 24 mmol/L (22-29); Chloride 99 mmol/L (98-107); Estimated GFR-MDRD 9; Glucose 115 mg/dL (70-105); Potassium 4.7 mmol/L (3.5-5.1); Sodium 134 mmol/L (136-145)
[2019-01-10] MEDS: Aspirin 81 mg Enteric Coated Tablet PO SCH (09:32)
[2019-01-10] MEDS: Famotidine 20 MG TAB PO SCH (09:32)
[2019-01-10] MEDS: Clotrimazole 1 % Cream 30 GM TUBE TOP SCH ×2 (09:32→21:36)
[2019-01-10] MEDS: Carvedilol 3.125 MG TAB PO SCH ×2 (09:32→21:34)
[2019-01-10] MEDS: Heparin 5,000 UNITS/ML VIAL SC SCH ×2 (09:33→21:36)
[2019-01-10] MEDS: HumaLOG 300 UNITS/3 ML VIAL SC SCH ×3 (09:49→18:14)
[2019-01-10] MEDS: Insulin Glargine 32 UNITS in Pre-Filled Syringe 1 EACH SC SCH (10:06)
--- NOTE | 2019-01-10 16:31 | EKG ---
Test Reason : L2 STROKE Blood Pressure : / mmHG Vent. Rate : 136 BPM Atrial Rate : 136 BPM P-R Int : 130 ms QRS Dur : 084 ms QT Int : 288 ms P-R-T Axes : 045 063 082 degrees QTc Int : 433 ms Sinus tachycardia Otherwise normal ECG Confirmed by BECKI LIVINGSTON DO ([id number]), mapping editor JOVANA CAMPBELL ([id number]) on 01/10/2019 4:31:11 PM Referred By: Confirmed By:BECKI LIVINGSTON DO
[2019-01-10] MEDS ORDERED: Heparin 10,000 UNITS/ 10 ML VIAL ONE (17:34)
[2019-01-10] MEDS: Atorvastatin Calcium 40 MG TAB PO SCH (21:35)
[2019-01-11] MEDS: Oxacillin 2 GM in Sodium Chloride 0.9% 100 ML IVPB SCH ×6 (00:42→20:58)
[2019-01-11] MEDS: Acetaminophen 325 MG TAB PO PRN (05:25)
--- NOTE | 2019-01-11 05:30 | PDOC.FM ---
- Subjective Subjective: Patient states he did not eat well yesterday, but today he is very hungry. Denies pain anywhere. - Objective Vital Signs & Weight: Vital Signs (12 hours) Temp Pulse Resp BP Pulse Ox 01/11/19 04:00 98.4 F 80 16 113/64 95 01/11/19 00:00 98.5 F 80 16 106/60 92 L 01/10/19 20:00 97.7 F 93 16 135/83 98 Weight Admit Weight 78 kg Weight 98.203 kg Most Recent Monitor Data Heart Rate from ECG 90 NIBP 112/71 NIBP BP-Mean 84 Respiration from ECG 22 SpO2 97 I&O: 01/09/19 01/10/19 01/11/19 06:59 06:59 06:59 Intake Total 990 1275 560 Output Total 460 Balance 530 1275 560 Result Diagrams: 01/10/19 06:08 01/11/19 05:03 Phys Exam - Physical Examination Constitutional: NAD Neck: no nodes, supple Respiratory: no wheezing, clear to auscultation bilateral Cardiovascular: RRR, no significant murmur Gastrointestinal: soft, non-tender, no distention, positive bowel sounds Musculoskeletal: no edema, pulses present Neurological: moves all 4 limbs 3/5 weakness RUE Psychiatric: normal affect Skin: normal turgor, cap refill <2 seconds Dx/Plan (1) MSSA bacteremia Code(s): R78.81 - BACTEREMIA Status: Acute (2) Acute renal failure Status: Acute (3) Basilic vein thrombosis Code(s): I82.619 - ACUTE EMBOLISM AND THROMBOSIS OF SUPERFIC VN UNSP UP EXTREM Status: Acute (4) Type 2 diabetes mellitus Status: Chronic (5) NSTEMI (non-ST elevated myocardial infarction) Code(s): I21.4 - NON-ST ELEVATION (NSTEMI) MYOCARDIAL INFARCTION Status: Suspected (6) Hyperosmolar hyperglycemic coma due to diabetes mellitus without ketoacidosis Code(s): E11.01 - TYPE 2 DIABETES MELLITUS WITH HYPEROSMOLARITY WITH COMA Status: Resolved (7) Metabolic encephalopathy Code(s): G93.41 - METABOLIC ENCEPHALOPATHY Status: Resolved (8) Rhabdomyolysis Code(s): M62.82 - RHABDOMYOLYSIS Status: Resolved - Plan Plan: Acute Metabolic Encephalopathy: resolved - CT head was negative - Likely 2/2 to HHS coma. - MRI of brain showed multiple small areas of infarction. - pt with RUE focal weakness, which has been consistent over the past several days. Continue PT/OT. MSSA Bacteremia - uncertain etiology; pt denies drug use. - continue Oxacillin - Dr. Sheets consulted, appreciate recs. Likely needs Antibiotics until Mid-January - Will await transitioning antibiotics until Dr. Sheets directs - Per Cardiology, no KOJO at this time and recommend outpatient follow up. Basilic Vein Thrombosis (R) - Found on RUE US - Will transition off heparin drip to Heparin [address] Schrader's recommendations - Monitor for other signs of thrombosis HFrEF - EF 25-30% - Life vest planned per cardiology. - Continue beta elodia Acute Renal failure - s/p HD on 01/10, removed 1.8 L - Nephrology consulted, appreciate recommendations. - Creatinine does not seem to improve without dialysis - No improvement in urine output made and kaur discontinued - Patient will be impossible to place. Plan to continue treatment until well enough to make it back to [place] for supportive services. Rhabdomyolysis, resolved - CK to 1200 on 01/05 Type 2 DM: - Pts sugars have downtrended, currently on basal and meal time insulin. Will continue to titrate for better control. - Accuchecks improved, will continue to titrate insulin - HgA1c of 14.1 NSTEMI - Initial Troponins elevated, no EKG changes - Echo showed LVEF of 25-30%, area of possible thrombus vs papillary mm - Dr. Lee recommended conservative therapy at this time and follow up as outpatient. Disposition. Awaiting CM recommendations, but placement very unlikely. Patient needs IV antibiotics until mid-January per Dr. Sheets. Will continue current plan of care. Addendum - Attending - Attending Attestation Date/Time: 01/11/19 9770 I personally evaluated the patient and discussed the management with Dr. Tapia. I agree with the History, Examination, Assessment and Plan documented above with any addition or exceptions noted below. Patient stable. Continue insulin titration as needed, and abx therapy for presumed endocarditis with MSSA bacteremia. Continue anticoagulation. Continue HD per Nephro as no noted return of renal function. Work with CM on placement though this is unlikely.
[2019-01-11 05:59] LABS: Anion Gap 14 mmol/L (10-20); BUN (Urea Nitrogen) 34 mg/dL (8.9-20.6); Calc. Creatinine Clearance 26 mL/min (70-130); Calcium 7.2 mg/dL (7.8-10.44); Carbon Dioxide 28 mmol/L (22-29); Chloride 99 mmol/L (98-107); Estimated GFR-MDRD 12; Glucose 74 mg/dL (70-105); Potassium 4.2 mmol/L (3.5-5.1); Sodium 137 mmol/L (136-145)
[2019-01-11] MEDS: HumaLOG 300 UNITS/3 ML VIAL SC SCH ×3 (07:55→17:28)
[2019-01-11] MEDS: Insulin Glargine 32 UNITS in Pre-Filled Syringe 1 EACH SC SCH (10:11)
[2019-01-11] MEDS: Carvedilol 3.125 MG TAB PO SCH ×2 (10:12→20:48)
[2019-01-11] MEDS: Heparin 5,000 UNITS/ML VIAL SC SCH ×2 (10:12→20:52)
[2019-01-11] MEDS: Aspirin 81 mg Enteric Coated Tablet PO SCH (10:12)
[2019-01-11] MEDS: Famotidine 20 MG TAB PO SCH (10:12)
[2019-01-11] MEDS: Clotrimazole 1 % Cream 30 GM TUBE TOP SCH ×2 (10:13→20:49)
[2019-01-11] MEDS: Atorvastatin Calcium 40 MG TAB PO SCH (20:48)
[2019-01-12] MEDS: Oxacillin 2 GM in Sodium Chloride 0.9% 100 ML IVPB SCH ×6 (00:52→21:25)
--- NOTE | 2019-01-12 06:01 | PDOC.FM ---
- Subjective Subjective: 43 yo male seen at bedside this AM. New Car Inspector services used during interview. Patient has no complaints. He states that he has not had as much to eat as he would like. Denies any other complaints. - Objective Vital Signs & Weight: Vital Signs (12 hours) Temp Pulse Resp BP BP Pulse Ox 01/12/19 04:23 97.6 F 78 150/88 H 94 L 01/12/19 00:00 99.2 F 79 16 151/88 H 93 L 01/11/19 20:00 97.6 F 92 20 152/93 H 98 Weight Admit Weight 78 kg Weight 97.885 kg Most Recent Monitor Data Heart Rate from ECG 90 NIBP 112/71 NIBP BP-Mean 84 Respiration from ECG 22 SpO2 97 I&O: 01/10/19 01/11/19 01/12/19 06:59 06:59 06:59 Intake Total 9861 285 3898 Balance 3805 254 8464 Result Diagrams: 01/12/19 05:23 01/12/19 05:23 Phys Exam - Physical Examination Constitutional: NAD HEENT: moist MMs Respiratory: no wheezing, clear to auscultation bilateral Cardiovascular: RRR, no significant murmur Gastrointestinal: soft, non-tender, no distention, positive bowel sounds Musculoskeletal: no edema, pulses present Neurological: moves all 4 limbs RUE clumsiness and weakness Psychiatric: A&O x 3 Dx/Plan (1) MSSA bacteremia Code(s): R78.81 - BACTEREMIA Status: Acute (2) Acute renal failure Status: Acute (3) Basilic vein thrombosis Code(s): I82.619 - ACUTE EMBOLISM AND THROMBOSIS OF SUPERFIC VN UNSP UP EXTREM Status: Acute (4) Metabolic encephalopathy Code(s): G93.41 - METABOLIC ENCEPHALOPATHY Status: Resolved (5) Rhabdomyolysis Code(s): M62.82 - RHABDOMYOLYSIS Status: Resolved (6) Type 2 diabetes mellitus Status: Chronic (7) NSTEMI (non-ST elevated myocardial infarction) Code(s): I21.4 - NON-ST ELEVATION (NSTEMI) MYOCARDIAL INFARCTION Status: Suspected (8) Hyperosmolar hyperglycemic coma due to diabetes mellitus without ketoacidosis Code(s): E11.01 - TYPE 2 DIABETES MELLITUS WITH HYPEROSMOLARITY WITH COMA Status: Resolved - Plan Plan: Acute Metabolic Encephalopathy: resolved - CT head was negative - Likely 2/2 to HHS coma. - MRI of brain showed multiple small areas of infarction. - pt with RUE focal weakness. Continue PT/OT. MSSA Bacteremia - uncertain etiology; pt denies drug use. - continue Oxacillin - Dr. Sheets consulted, appreciate recs. Likely needs Antibiotics until Mid-January - Will await transitioning antibiotics until Dr. Sheets directs - Per Cardiology, no KOJO at this time and recommend outpatient follow up. Basilic Vein Thrombosis (R) - Found on RUE US - Will transition off heparin drip to Heparin [address] Schrader's recommendations - Monitor for other signs of thrombosis HFrEF - EF 25-30% - Life vest planned per cardiology. - Continue beta elodia Acute Renal failure - s/p HD on 01/10, removed 1.8 L - Nephrology consulted, appreciate recommendations. - Creatinine does not seem to improve without dialysis - No improvement in urine output made and kaur discontinued - Patient will be impossible to place. Plan to continue treatment until well enough to make it back to [place] for supportive services. Rhabdomyolysis, resolved - CK to 1200 on 01/05 Type 2 DM: - Pts sugars have downtrended, currently on basal and meal time insulin. - Accuchecks improved with some hypoglycemic episodes. Will decrease insulin doses at this time. - Continue to titrate to control. - HgA1c of 14.1 NSTEMI - Initial Troponins elevated, no EKG changes - Echo showed LVEF of 25-30%, area of possible thrombus vs papillary mm - Dr. Lee recommended conservative therapy at this time and follow up as outpatient. Disposition. Awaiting CM recommendations, but placement very unlikely. Patient needs IV antibiotics until mid-January per Dr. Sheets. Will continue current plan of care. Addendum - Attending - Attending Attestation Date/Time: 01/12/19 1048 I personally evaluated the patient and discussed the management with Dr. Marquez I agree with the History, Examination, Assessment and Plan documented above with any addition or exceptions noted below. MSSA bacteremia with presumed endocarditis- patient needs IV abx until February 11. Will discuss options with CM as patient unfunded. ESRD- T, Th,Sat dialysis Basilic Vein Thrombosis- heparin 5000 bid per nephrology t2DM- hypoglycemic overnight that responded to D5. Will back off basal insulin dose. Ultimately will need transition to 70/30 so patient can afford.
[2019-01-12 06:02] LABS: Hemoglobin 9.2 g/dL (14.0-18.0); Platelet Count 364 thou/uL (130-400)
[2019-01-12 06:19] LABS: Anion Gap 16 mmol/L (10-20); BUN (Urea Nitrogen) 47 mg/dL (8.9-20.6); Calc. Creatinine Clearance 20 mL/min (70-130); Calcium 7.1 mg/dL (7.8-10.44); Carbon Dioxide 25 mmol/L (22-29); Chloride 101 mmol/L (98-107); Estimated GFR-MDRD 9; Potassium 4.5 mmol/L (3.5-5.1); Sodium 137 mmol/L (136-145)
[2019-01-12 06:26] LABS: Glucose 30 mg/dL (70-105)
[2019-01-12] MEDS: HumaLOG 300 UNITS/3 ML VIAL SC SCH ×3 (08:43→17:32)
[2019-01-12] MEDS: Carvedilol 3.125 MG TAB PO SCH ×2 (09:02→21:33)
[2019-01-12] MEDS: Heparin 5,000 UNITS/ML VIAL SC SCH ×2 (09:03→21:34)
[2019-01-12] MEDS: Aspirin 81 mg Enteric Coated Tablet PO SCH (09:03)
[2019-01-12] MEDS: Famotidine 20 MG TAB PO SCH (09:03)
[2019-01-12] MEDS: Clotrimazole 1 % Cream 30 GM TUBE TOP SCH ×2 (09:06→21:34)
--- NOTE | 2019-01-12 19:47 | PRG ---
DATE OF SERVICE: 01/12/2019 SUBJECTIVE: The patient was seen and examined. OBJECTIVE: VITAL SIGNS: Noted with the following vital signs; afebrile temperature 97.9, pulse 88, respiratory rate of 16, O2 saturations are 97%, and blood pressure 129/82. HEENT: Unremarkable. CARDIOVASCULAR: First and second heart sounds were heard. RESPIRATORY: Clear to auscultation. DIGESTIVE: Revealed a benign abdomen. Positive bowel sounds. EXTREMITIES: No peripheral edema. SKIN: No new gross rash. LYMPHATICS: No peripheral lymphadenopathy. IMPRESSION: 1. Acute on chronic kidney disease, which is not dependent on dialysis. 2. Sepsis, on treatment. 3. Rhabdomyolysis. PLAN: 1. The patient to continue with renal replacement therapy (hemodialysis). 2. Further management will be dependent on the clinical course. Job ID: [id number]
[2019-01-12] MEDS: Insulin Glargine 20 UNITS in Pre-Filled Syringe 1 EACH SC SCH (21:34)
[2019-01-12] MEDS: Atorvastatin Calcium 40 MG TAB PO SCH (21:34)
[2019-01-13] MEDS: Oxacillin 2 GM in Sodium Chloride 0.9% 100 ML IVPB SCH ×3 (01:20→08:27)
[2019-01-13 06:08] LABS: Anion Gap 17 mmol/L (10-20); BUN (Urea Nitrogen) 55 mg/dL (8.9-20.6); Calc. Creatinine Clearance 19 mL/min (70-130); Calcium 6.7 mg/dL (7.8-10.44); Carbon Dioxide 24 mmol/L (22-29); Chloride 97 mmol/L (98-107); Estimated GFR-MDRD 8; Glucose 101 mg/dL (70-105); Potassium 4.6 mmol/L (3.5-5.1); Sodium 133 mmol/L (136-145)
--- NOTE | 2019-01-13 06:08 | PDOC.FM ---
- Subjective Subjective: 43 yo male seen at bedside this AM. parachutist/combatant diver qualified services used to conduct interview. Patient reports he did pee one time yesterday. Otherwise no new complaints. - Objective Vital Signs & Weight: Vital Signs (12 hours) Temp Pulse Resp BP Pulse Ox 01/13/19 03:54 98.4 F 86 18 133/80 96 01/13/19 00:00 98.9 F 94 18 134/82 95 01/12/19 20:00 97.9 F 94 18 138/78 96 Weight Admit Weight 78 kg Weight 100.199 kg Most Recent Monitor Data Heart Rate from ECG 90 NIBP 112/71 NIBP BP-Mean 84 Respiration from ECG 22 SpO2 97 I&O: 01/11/19 01/12/19 01/13/19 06:59 06:59 06:59 Intake Total 800 2420 1837 Balance 800 2420 1837 Result Diagrams: 01/12/19 05:23 01/13/19 04:56 Phys Exam - Physical Examination Constitutional: NAD HEENT: moist MMs Respiratory: no wheezing, clear to auscultation bilateral Cardiovascular: RRR, no significant murmur Gastrointestinal: soft, non-tender, no distention, positive bowel sounds Musculoskeletal: no edema, pulses present Neurological: moves all 4 limbs RUE weakness and clumsiness Psychiatric: A&O x 3 Dx/Plan (1) MSSA bacteremia Code(s): R78.81 - BACTEREMIA Status: Acute (2) CVA (cerebral vascular accident) Code(s): I63.9 - CEREBRAL INFARCTION, UNSPECIFIED Status: Acute (3) Acute renal failure Status: Acute (4) Basilic vein thrombosis Code(s): I82.619 - ACUTE EMBOLISM AND THROMBOSIS OF SUPERFIC VN UNSP UP EXTREM Status: Acute (5) Metabolic encephalopathy Code(s): G93.41 - METABOLIC ENCEPHALOPATHY Status: Resolved (6) Rhabdomyolysis Code(s): M62.82 - RHABDOMYOLYSIS Status: Resolved (7) Type 2 diabetes mellitus Status: Chronic (8) NSTEMI (non-ST elevated myocardial infarction) Code(s): I21.4 - NON-ST ELEVATION (NSTEMI) MYOCARDIAL INFARCTION Status: Suspected (9) Hyperosmolar hyperglycemic coma due to diabetes mellitus without ketoacidosis Code(s): E11.01 - TYPE 2 DIABETES MELLITUS WITH HYPEROSMOLARITY WITH COMA Status: Resolved - Plan Plan: Acute Metabolic Encephalopathy: resolved - CT head was negative - Likely 2/2 to HHS coma. - MRI of brain showed multiple small areas of infarction. - pt with RUE focal weakness. Continue PT/OT. MSSA Bacteremia - uncertain etiology; pt denies drug use. Suspected endocarditis - continue Oxacillin - Dr. Sheets consulted, appreciate recs. Likely needs Antibiotics until Mid-January - Will await transitioning antibiotics until Dr. Sheets directs - Per Cardiology, no KOJO at this time and recommend outpatient follow up. Basilic Vein Thrombosis (R) - Found on RUE US - Will transition off heparin drip to Heparin [address] Schrader's recommendations - Monitor for other signs of thrombosis HFrEF - EF 25-30% - Life vest planned per cardiology. - Continue beta elodia Acute Renal failure - s/p HD on 01/10, removed 1.8 L - Nephrology consulted, appreciate recommendations. - Creatinine does not seem to improve without dialysis - No improvement in urine output made and kaur discontinued - Patient will be impossible to place. Plan to continue treatment until well enough to make it back to [place] for supportive services. Rhabdomyolysis, resolved - CK to 1200 on 01/05 Type 2 DM: - Pts sugars have downtrended, currently on basal and meal time insulin. - Accuchecks improved with some hypoglycemic episodes. Will decrease insulin doses at this time. - Continue to titrate to control. - HgA1c of 14.1 NSTEMI - Initial Troponins elevated, no EKG changes - Echo showed LVEF of 25-30%, area of possible thrombus vs papillary mm - Dr. Lee recommended conservative therapy at this time and follow up as outpatient. Disposition. Awaiting CM recommendations, but placement very unlikely. Patient needs IV antibiotics until mid-January per Dr. Sheets. Will continue current plan of care. Addendum - Attending - Attending Attestation Date/Time: 01/13/19 8710 I personally evaluated the patient and discussed the management with Dr. Marquez. I agree with the History, Examination, Assessment and Plan documented above with any addition or exceptions noted below. MSSA bacteremia- per ID will do Vanc sliding scale with dialysis through February 11. ESRD- dialysis T, Th, Sat.
[2019-01-13] MEDS: HumaLOG 300 UNITS/3 ML VIAL SC SCH ×3 (08:16→18:23)
[2019-01-13] MEDS: Aspirin 81 mg Enteric Coated Tablet PO SCH (08:28)
[2019-01-13] MEDS: Famotidine 20 MG TAB PO SCH (08:28)
[2019-01-13] MEDS: Carvedilol 3.125 MG TAB PO SCH ×2 (08:28→21:10)
[2019-01-13] MEDS: Heparin 5,000 UNITS/ML VIAL SC SCH ×2 (08:31→21:10)
[2019-01-13] MEDS: Clotrimazole 1 % Cream 30 GM TUBE TOP SCH ×2 (08:35→21:10)
[2019-01-13] MEDS ORDERED: VANCOMYCIN IVPB PRN (08:57)
[2019-01-13] MEDS ORDERED: Vancomycin HCl 1.5 GM in Sodium Chloride 0.9% 250 ML 300 ML IVPB SCH (09:00)
[2019-01-13] MEDS ORDERED: HOLD VANCOMYCIN FOR LEVEL >20 FS SCH (09:00)
[2019-01-13] MEDS ORDERED: Vancomycin HCl 750 MG in Sodium Chloride 0.9% 250 ML 250 ML IVPB SCH (09:00)
[2019-01-13] MEDS ORDERED: Vancomycin HCl 1.25 GM in Sodium Chloride 0.9% 250 ML 250 ML IVPB SCH (09:00)
[2019-01-13] MEDS ORDERED: Prevnar 13-Val Conj/PF 0.5 ML SYRINGE IM ONE (09:00)
[2019-01-13] MEDS ORDERED: Heparin 10,000 UNITS/ 10 ML VIAL ONE (10:00)
--- NOTE | 2019-01-13 19:35 | PRG ---
DATE OF SERVICE: 01/13/2019 SUBJECTIVE: The patient is seen and examined with no new complaint, noted with the following vital signs. OBJECTIVE: VITAL SIGNS: Afebrile, temperature 98.4, pulse 85, respiratory rate of 18, O2 saturations are 97%, with blood pressure 143/88. HEENT: Unremarkable. Moist oral mucosa. NECK: Supple. No conjunctival injection or icterus. CARDIOVASCULAR: First and second heart sounds were heard. RESPIRATORY: Clear to auscultation. DIGESTIVE: Revealed a benign abdomen with positive bowel sounds. EXTREMITIES: No peripheral edema. SKIN: No new gross rash. LYMPHATICS: No peripheral lymphadenopathy. IMPRESSION: 1. Acute on chronic kidney disease, which is turning toward end-stage renal disease. 2. Anemia. PLAN: 1. Thew patient to continue with current regimen of hemodialysis. 2. Continue to monitor the renal function vis-a-vis the possibility of recovery. 3. Further management to be dependent on the clinical course. Job ID: [id number]
[2019-01-13] MEDS: Insulin Glargine 20 UNITS in Pre-Filled Syringe 1 EACH SC SCH (21:10)
[2019-01-13] MEDS: Atorvastatin Calcium 40 MG TAB PO SCH (21:10)
--- NOTE | 2019-01-14 06:00 | PDOC.FM ---
- Subjective Subjective: 43 yo male seen at bedside this AM. crib attendant services used during interview. Patient was not alert this morning. He was arousable. A glucose check was conducted and found to be 107. He then was able to converse fully after taking a few minutes to wake up. Patient had no other complaints. - Objective Vital Signs & Weight: Vital Signs (12 hours) Temp Pulse Resp BP Pulse Ox 01/14/19 04:00 98.7 F 94 16 147/81 H 95 01/14/19 00:00 98.7 F 108 H 16 151/87 H 93 L 01/13/19 20:00 93 L 01/13/19 19:48 99.4 F 102 H 16 138/78 94 L Weight Admit Weight 78 kg Weight 100.199 kg Most Recent Monitor Data Heart Rate from ECG 90 NIBP 112/71 NIBP BP-Mean 84 Respiration from ECG 22 SpO2 97 I&O: 01/12/19 01/13/19 01/14/19 06:59 06:59 06:59 Intake Total 2420 1837 2288 Output Total 2600 Balance 2420 1837 -312 Result Diagrams: 01/12/19 05:23 01/14/19 05:23 Phys Exam - Physical Examination Constitutional: NAD HEENT: moist MMs Neck: no nodes Respiratory: no wheezing, clear to auscultation bilateral Cardiovascular: RRR, no significant murmur Gastrointestinal: soft, non-tender, no distention, positive bowel sounds RUE swelling and weakness present. Neurological: non-focal, moves all 4 limbs Psychiatric: A&O x 3 Deviation from normal: Initially didn't respond, but then was able to converse Skin: no rash Dx/Plan (1) MSSA bacteremia Code(s): R78.81 - BACTEREMIA Status: Acute (2) CVA (cerebral vascular accident) Code(s): I63.9 - CEREBRAL INFARCTION, UNSPECIFIED Status: Acute (3) Acute renal failure Status: Acute (4) Basilic vein thrombosis Code(s): I82.619 - ACUTE EMBOLISM AND THROMBOSIS OF SUPERFIC VN UNSP UP EXTREM Status: Acute (5) Metabolic encephalopathy Code(s): G93.41 - METABOLIC ENCEPHALOPATHY Status: Resolved (6) Rhabdomyolysis Code(s): M62.82 - RHABDOMYOLYSIS Status: Resolved (7) Type 2 diabetes mellitus Status: Chronic (8) NSTEMI (non-ST elevated myocardial infarction) Code(s): I21.4 - NON-ST ELEVATION (NSTEMI) MYOCARDIAL INFARCTION Status: Suspected (9) Hyperosmolar hyperglycemic coma due to diabetes mellitus without ketoacidosis Code(s): E11.01 - TYPE 2 DIABETES MELLITUS WITH HYPEROSMOLARITY WITH COMA Status: Resolved - Plan Plan: MSSA Bacteremia - uncertain etiology; pt denies drug use. Suspected endocarditis - continue Vancomycin SS - Dr. Sheets consulted, appreciate recs. Likely needs Antibiotics until Mid-January - Per Cardiology, no KOJO at this time and recommend outpatient follow up. Acute Renal failure - Continue Dialysis - Nephrology consulted, appreciate recommendations. - Creatinine does not seem to improve without dialysis - No improvement in urine output made and kaur discontinued - Patient will be impossible to place. Plan to continue treatment until well enough to make it back to [place] for supportive services. Basilic Vein Thrombosis (R) - Found on RUE US - Will transition off heparin drip to Heparin [address] Schrader's recommendations - Monitor for other signs of thrombosis HFrEF - EF 25-30% - Life vest planned per cardiology. - Continue beta elodia Type 2 DM: - Pts sugars have downtrended, currently on basal and meal time insulin. - Accuchecks improved with some hypoglycemic episodes. Will decrease insulin doses at this time. - Continue to titrate to control. - HgA1c of 14.1 NSTEMI - Initial Troponins elevated, no EKG changes - Echo showed LVEF of 25-30%, area of possible thrombus vs papillary mm - Dr. Lee recommended conservative therapy at this time and follow up as outpatient. Acute Metabolic Encephalopathy: resolved - CT head was negative - Likely 2/2 to HHS coma. - MRI of brain showed multiple small areas of infarction. - pt with RUE focal weakness. Continue PT/OT. Rhabdomyolysis, resolved - CK to 1200 on 01/05 Disposition: Continue current plan of care until antibiotic regimen is completed. Addendum - Attending - Attending Attestation Date/Time: 01/14/19 8654 I personally evaluated the patient and discussed the management with Dr. Marquez I agree with the History, Examination, Assessment and Plan documented above with any addition or exceptions noted below. MSSA bacteremia with presumed endocarditis- SS Vanc with dialysis through . ESRD-dialysis per nephro R basilic vein thrombosis- on bid heparin per nephro.
[2019-01-14 07:28] LABS: Anion Gap 13 mmol/L (10-20); BUN (Urea Nitrogen) 36 mg/dL (8.9-20.6); Calc. Creatinine Clearance 24 mL/min (70-130); Calcium 6.9 mg/dL (7.8-10.44); Carbon Dioxide 28 mmol/L (22-29); Chloride 99 mmol/L (98-107); Estimated GFR-MDRD 12; Glucose 127 mg/dL (70-105); Potassium 3.9 mmol/L (3.5-5.1); Sodium 136 mmol/L (136-145)
[2019-01-14] MEDS: HumaLOG 300 UNITS/3 ML VIAL SC SCH ×3 (09:09→17:31)
[2019-01-14] MEDS: Famotidine 20 MG TAB PO SCH (09:10)
[2019-01-14] MEDS: Clotrimazole 1 % Cream 30 GM TUBE TOP SCH ×2 (09:10→21:06)
[2019-01-14] MEDS: Aspirin 81 mg Enteric Coated Tablet PO SCH (09:10)
[2019-01-14] MEDS: Carvedilol 3.125 MG TAB PO SCH ×2 (09:10→21:06)
[2019-01-14] MEDS: Heparin 5,000 UNITS/ML VIAL SC SCH ×2 (09:10→21:05)
--- NOTE | 2019-01-14 16:43 | ULT ---
TESTICULAR DOPPLER ULTRASOUND: HISTORY: Scrotal swelling. COMPARISON: None. TECHNIQUE: Grimes-scale, color-flow, and Doppler imaging with spectral wave-form analysis was performed of the lef t and right hemitesticles. FINDINGS: RIGHT HEMISCROTUM: The right testicle has a slightly heterogeneous echotexture without intratesticul ar mass. The right testicle measures 3.2 x 3 x 4.4 cm. The right epididymis has a normal echotextur e, measuring 3.8 x 1.1 x 1 cm. No significant fluid in the right hemiscrotum. LEFT HEMISCROTUM: The left testicle has a slightly heterogeneous echotexture without intratesticular mass. The left testicle measures 4.7 x 3.4 x 2.7 cm. The left epididymis has a normal echotexture, measuring 4.3 x 1.1 x 0.8 cm. No significant fluid in the left hemiscrotum. There are some vessels in the left and right inguinal region without evidence of definite increase in flow upon Valsalva. Of note, the patient had difficulty performing the Valsalva maneuver. There is swelling of the scrotal wall bilaterally. TESTICULAR DOPPLER: There is symmetric flow to the testicles. IMPRESSION: 1. Slightly heterogeneous echotexture of both testicles, without intratesticular mass. Findings are nonspecific. There is symmetric vascular flow to both testicles. 2. Scrotal swelling. POS: [facility]
--- NOTE | 2019-01-14 20:40 | PRG ---
DATE OF SERVICE: 01/14/2019 SUBJECTIVE: The patient was seen and examined, noted with the following vital signs. OBJECTIVE: VITAL SIGNS: Afebrile, temperature 98.7, pulse 94, respiratory rate of 16, blood pressure 147/81, O2 saturations are 95%. HEENT: Unremarkable. CARDIOVASCULAR SYSTEM: First and second heart sounds were heard. RESPIRATORY SYSTEM: Clear to auscultation. DIGESTIVE SYSTEM: Revealed a benign abdomen. EXTREMITIES: No peripheral edema. SKIN: No new gross rash. LYMPHATICS: No peripheral lymphadenopathy. LABORATORY INVESTIGATION: Showed a potassium of 3.9, creatinine of 5.27. IMPRESSION: 1. Acute tubular necrosis in the context of #2. 2. Rhabdomyolysis. 3. Sepsis. 4. Poorly controlled diabetes mellitus. PLAN: 1. Discontinue daily blood draws to avoid iatrogenic anemia. 2. Renally dose all medications and avoid potentially nephrotoxic agents. 3. Hemodialysis as per schedule. 4. Further management to be dependent on the clinical course. Job ID: [id number]
[2019-01-14] MEDS: Insulin Glargine 20 UNITS in Pre-Filled Syringe 1 EACH SC SCH (21:06)
[2019-01-14] MEDS: Atorvastatin Calcium 40 MG TAB PO SCH (21:06)
--- NOTE | 2019-01-15 06:02 | PDOC.FM ---
- Subjective Subjective: 43 yo male seen at bedside this AM. Patient has no complaints. He denies any pain. Patient's nursing staff, report sustained bruising and redness to right 4th digit. No other complaints. - Objective Vital Signs & Weight: Vital Signs (12 hours) Temp Pulse Resp BP Pulse Ox 01/15/19 04:00 98.8 F 84 16 138/79 96 01/15/19 00:00 99.3 F 91 16 143/80 H 95 01/14/19 20:00 98.1 F 90 16 146/87 H 93 L Weight Admit Weight 78 kg Weight 93.803 kg Most Recent Monitor Data Heart Rate from ECG 90 NIBP 112/71 NIBP BP-Mean 84 Respiration from ECG 22 SpO2 97 I&O: 01/13/19 01/14/19 01/15/19 06:59 06:59 06:59 Intake Total 1837 2288 1436 Output Total 2600 Balance 1837 -312 1436 Result Diagrams: 01/12/19 05:23 01/14/19 05:23 Phys Exam - Physical Examination Constitutional: NAD HEENT: moist MMs Respiratory: no wheezing, clear to auscultation bilateral Cardiovascular: RRR, no significant murmur Gastrointestinal: soft, non-tender, no distention, positive bowel sounds Scrotal swelling Musculoskeletal: no edema, pulses present Right 4th digit ecchymosis, erythema, and edema. NO fluid collection Neurological: moves all 4 limbs RUE swelling and weakness Psychiatric: A&O x 3 Skin: no rash Dx/Plan (1) MSSA bacteremia Code(s): R78.81 - BACTEREMIA Status: Acute (2) CVA (cerebral vascular accident) Code(s): I63.9 - CEREBRAL INFARCTION, UNSPECIFIED Status: Acute (3) Acute renal failure Status: Acute (4) Basilic vein thrombosis Code(s): I82.619 - ACUTE EMBOLISM AND THROMBOSIS OF SUPERFIC VN UNSP UP EXTREM Status: Acute (5) Metabolic encephalopathy Code(s): G93.41 - METABOLIC ENCEPHALOPATHY Status: Resolved (6) Rhabdomyolysis Code(s): M62.82 - RHABDOMYOLYSIS Status: Resolved (7) Type 2 diabetes mellitus Status: Chronic (8) Scrotum swelling Code(s): N50.89 - OTHER SPECIFIED DISORDERS OF THE MALE GENITAL ORGANS Status : Acute (9) NSTEMI (non-ST elevated myocardial infarction) Code(s): I21.4 - NON-ST ELEVATION (NSTEMI) MYOCARDIAL INFARCTION Status: Suspected (10) Hyperosmolar hyperglycemic coma due to diabetes mellitus without ketoacidosis Code(s): E11.01 - TYPE 2 DIABETES MELLITUS WITH HYPEROSMOLARITY WITH COMA Status: Resolved - Plan Plan: MSSA Bacteremia - uncertain etiology; pt denies drug use. Suspected endocarditis - continue Vancomycin SS - Dr. Sheets consulted, appreciate recs. Likely needs Antibiotics until Mid-January - Per Cardiology, no KOJO at this time and recommend outpatient follow up. - Possible source of Right 4th digit. XR pending. Acute Renal failure - Continue Dialysis - Will limit blood draws to weekly - Nephrology consulted, appreciate recommendations. - Creatinine does not seem to improve without dialysis - No improvement in urine output made and kaur discontinued - Patient will be impossible to place. Plan to continue treatment until well enough to make it back to [place] for supportive services. Basilic Vein Thrombosis (R) - Found on RUE US - Will transition off heparin drip to Heparin [address] Schrader's recommendations - Monitor for other signs of thrombosis Scrotal Swelling - US nonspecific - No testicular etiology - Likely due to fluid status HFrEF - EF 25-30% - Life vest planned per cardiology. - Friends will fund life vest. - Continue beta elodia Type 2 DM: - Pts sugars have downtrended, currently on basal and meal time insulin. - Accuchecks improved with some hypoglycemic episodes. Will decrease insulin doses at this time. - Continue to titrate to control. - HgA1c of 14.1 NSTEMI - Initial Troponins elevated, no EKG changes - Echo showed LVEF of 25-30%, area of possible thrombus vs papillary mm - Dr. Lee recommended conservative therapy at this time and follow up as outpatient. Acute Metabolic Encephalopathy: resolved - CT head was negative - Likely 2/2 to HHS coma. - MRI of brain showed multiple small areas of infarction. - pt with RUE focal weakness. Continue PT/OT. Rhabdomyolysis, resolved - CK to 1200 on 01/05 Disposition: Continue current plan of care until antibiotic regimen is completed. Addendum - Attending - Attending Attestation Date/Time: 01/15/19 1117 I personally evaluated the patient and discussed the management with Dr. Alma. I agree with the History, Examination, Assessment and Plan documented above with any addition or exceptions noted below. MSSA bacteremia and presumed endocarditis- IV Vanc with dialysis until 02/11/19 R basilic vein thrombosis- on heparin bid R 4th digit with ecchymosis and mild erythema- appears to have bruised finger and now has some skin sloughing. No sign of abscess. Will check R hand xray and have wound care evaluate. eSRD- t,th, sat dialysis
[2019-01-15] MEDS: HumaLOG 300 UNITS/3 ML VIAL SC SCH ×3 (07:35→17:12)
[2019-01-15 08:59] LABS: Vancomycin, Random 8.2 ug/mL (See Comment)
[2019-01-15] MEDS ORDERED: Heparin 10,000 UNITS/ 10 ML VIAL ONE (09:00)
[2019-01-15] MEDS: Famotidine 20 MG TAB PO SCH (12:36)
[2019-01-15] MEDS: Heparin 5,000 UNITS/ML VIAL SC SCH ×2 (12:36→20:18)
[2019-01-15] MEDS: Carvedilol 3.125 MG TAB PO SCH ×2 (12:36→20:19)
[2019-01-15] MEDS: Aspirin 81 mg Enteric Coated Tablet PO SCH (12:36)
[2019-01-15] MEDS: Clotrimazole 1 % Cream 30 GM TUBE TOP SCH ×2 (12:37→20:19)
--- NOTE | 2019-01-15 15:04 | RAD ---
RIGHT RING FINGER THREE VIEWS: HISTORY: Pain and swelling in the right ring finger. FINDINGS: Three views of the right ring finger shows diffuse soft tissue swelling. No fracture or dislocation is seen. No degenerative changes are present. IMPRESSION: Soft tissue swelling without underlying osseous abnormality. POS: [facility]
--- NOTE | 2019-01-15 18:03 | PRG ---
DATE OF SERVICE: 01/15/2019 SUBJECTIVE: The patient was seen and examined, had dialysis, noted with the following vital signs. OBJECTIVE: VITAL SIGNS: Afebrile, temperature 98.6, pulse 99, respiratory rate of 20, O2 saturation 96%, blood pressure 146/79. HEENT: Unremarkable. CARDIOVASCULAR: First and second heart sounds were heard. RESPIRATORY: Clear to auscultation. DIGESTIVE: Revealed a benign abdomen with positive bowel sounds. EXTREMITIES: No peripheral edema. SKIN: No new gross rash. LYMPHATICS: No peripheral lymphadenopathy. IMPRESSION: End-stage renal disease, on hemodialysis. PLAN: We will continue with current regimen of hemodialysis. Job ID: [id number]
[2019-01-15] MEDS: Insulin Glargine 20 UNITS in Pre-Filled Syringe 1 EACH SC SCH (20:18)
[2019-01-15] MEDS: Atorvastatin Calcium 40 MG TAB PO SCH (20:18)
--- NOTE | 2019-01-16 06:08 | PDOC.FM ---
- Subjective Subjective: 43 yo male seen at bedside this AM. translator interpreter services used during interview. Patient had no acute events overnight. No other complaints. - Objective Vital Signs & Weight: Vital Signs (12 hours) Temp Pulse Resp BP Pulse Ox 01/16/19 04:00 98.8 F 93 18 161/89 H 97 01/16/19 00:00 100.0 F H 104 H 18 143/76 H 95 01/15/19 20:00 99.3 F 110 H 19 156/81 H 95 Weight Admit Weight 78 kg Weight 94.438 kg Most Recent Monitor Data Heart Rate from ECG 90 NIBP 112/71 NIBP BP-Mean 84 Respiration from ECG 22 SpO2 97 I&O: 01/14/19 01/15/19 01/16/19 06:59 06:59 06:59 Intake Total 2288 1436 1472 Output Total 2600 Balance -312 1436 1472 Result Diagrams: 01/12/19 05:23 01/14/19 05:23 Phys Exam - Physical Examination Constitutional: NAD HEENT: moist MMs Respiratory: no wheezing, clear to auscultation bilateral Cardiovascular: RRR, no significant murmur Gastrointestinal: soft, non-tender, no distention, positive bowel sounds Musculoskeletal: no edema, pulses present Right fourth digit erythema and ecchymosis Neurological: moves all 4 limbs RUE weakness Psychiatric: A&O x 3 Skin: no rash Dx/Plan (1) MSSA bacteremia Code(s): R78.81 - BACTEREMIA Status: Acute (2) CVA (cerebral vascular accident) Code(s): I63.9 - CEREBRAL INFARCTION, UNSPECIFIED Status: Acute (3) Acute renal failure Status: Acute (4) Basilic vein thrombosis Code(s): I82.619 - ACUTE EMBOLISM AND THROMBOSIS OF SUPERFIC VN UNSP UP EXTREM Status: Acute (5) Metabolic encephalopathy Code(s): G93.41 - METABOLIC ENCEPHALOPATHY Status: Resolved (6) Rhabdomyolysis Code(s): M62.82 - RHABDOMYOLYSIS Status: Resolved (7) Type 2 diabetes mellitus Status: Chronic (8) Scrotum swelling Code(s): N50.89 - OTHER SPECIFIED DISORDERS OF THE MALE GENITAL ORGANS Status : Acute (9) NSTEMI (non-ST elevated myocardial infarction) Code(s): I21.4 - NON-ST ELEVATION (NSTEMI) MYOCARDIAL INFARCTION Status: Suspected (10) Hyperosmolar hyperglycemic coma due to diabetes mellitus without ketoacidosis Code(s): E11.01 - TYPE 2 DIABETES MELLITUS WITH HYPEROSMOLARITY WITH COMA Status: Resolved - Plan Plan: MSSA Bacteremia - uncertain etiology; pt denies drug use. Suspected endocarditis - continue Vancomycin SS - Dr. Sheets consulted, appreciate recs. Likely needs Antibiotics until Mid-January - Per Cardiology, no KOJO at this time and recommend outpatient follow up. - Right fourth digit showed swelling. No evidence of osteomyelitis - Wound care consulted - Will make CBC/CMP draws weekly. Acute Renal failure - Continue Dialysis - Will limit blood draws to weekly - Nephrology consulted, appreciate recommendations. - Creatinine does not seem to improve without dialysis - No improvement in urine output made and kaur discontinued - Patient will be impossible to place. Plan to continue treatment until well enough to make it back to [place] for supportive services. Basilic Vein Thrombosis (R) - Found on RUE US - Will transition off heparin drip to Heparin [address] Schrader's recommendations - Monitor for other signs of thrombosis Scrotal Swelling - US nonspecific - No testicular etiology - Likely due to fluid status - Monitor HFrEF - EF 25-30% - Life vest planned per cardiology. - Friends will fund life vest. - Continue beta elodia Type 2 DM: - Pts sugars have downtrended, currently on basal and meal time insulin. - Accuchecks improved with some hypoglycemic episodes. - Continue to titrate to control. - HgA1c of 14.1 NSTEMI - Initial Troponins elevated, no EKG changes - Echo showed LVEF of 25-30%, area of possible thrombus vs papillary mm - Dr. Lee recommended conservative therapy at this time and follow up as outpatient. Acute Metabolic Encephalopathy: resolved - CT head was negative - Likely 2/2 to HHS coma. - MRI of brain showed multiple small areas of infarction. - pt with RUE focal weakness. Continue PT/OT. Rhabdomyolysis, resolved - CK to 1200 on 01/05 Disposition: Continue current plan of care until antibiotic regimen is completed. Addendum - Attending - Attending Attestation Date/Time: 01/16/19 7733 I personally evaluated the patient and discussed the management with Dr. Marquez. I agree with the History, Examination, Assessment and Plan documented above with any addition or exceptions noted below. MSSA bacteremia with presumed endocarditis-Continue SS vanc with dialysis until 02/11/19. ESRD- dialysis T,Th, Sat CVA, multiple small infarcts. continue PT. T2DM- hypoglycemia intermittently. Will change to 70/30 insulin tonight
[2019-01-16] MEDS: Clotrimazole 1 % Cream 30 GM TUBE TOP SCH ×2 (08:35→22:27)
[2019-01-16] MEDS: Famotidine 20 MG TAB PO SCH (08:36)
[2019-01-16] MEDS: Heparin 5,000 UNITS/ML VIAL SC SCH ×2 (08:36→20:37)
[2019-01-16] MEDS: Aspirin 81 mg Enteric Coated Tablet PO SCH (08:37)
[2019-01-16] MEDS: HumaLOG 300 UNITS/3 ML VIAL SC SCH ×3 (08:37→17:05)
[2019-01-16] MEDS: Carvedilol 3.125 MG TAB PO SCH ×2 (08:37→20:37)
--- NOTE | 2019-01-16 08:57 | PDOC.EVN ---
Event Note - Event Note Event Note: TRANSITION OF CARE NOTE 01/16/19 Patient is a very pleasant [place] speaking only male. The sign manufacturer services were used each day during the interview. Patient's date of admission was 12/29/18. Patient is a 43 yo unfunded and undocumented male. Patient has a PMH of DM2 and he was found down by friends. Patient was altered and no other history of the presenting event was made available. In the ED, patient was found to be in HHS and ARF. Patient was started emergently on dialysis, broad spectrum antibiotics and insulin. During the workup, the patient had blood cultures drawn that grew out MSSA positive bacteria. Patient was then transitioned to Oxacillin for antibiotic coverage. Patient was also found on ECHOcardiogram to have EF of 25-30%. Due to his positive blood cultures patient was suspected to have endocarditis, but Dr. Lee recommended against KOJO and to continue to receive treatment. He also recommended a lifevest due to his poor EF. Patient was also found to have persistent RUE weakness. An MRI was performed that showed a likely embolic like nature of small infarcts. This again supports the likelihood of endocarditis. Patient was also found to have a Right basilic vein thrombosis. He received 48 hours of therapeutic dosing heparin and per Nephrology recommendations was de- escalated to prophylactic dosing due to his complicated social situation. Patient is continuing to work with PT and OT to regain strength and function. Patient is also undergoing active insulin titration due to his very poorly controlled DM and Saturday, , Saturday dialysis sessions. Due to his unfunded and undocumented state, it was determined that the patient would require intensive inpatient/outpatient follow up. However, he is not a candidate for any services in [facility]. He was counseled to get services established in [place] and to return there for further treatment. He has friends that will transport him to [place] and also fund his lifevest. Current plan is to continue IV Vancomycin during dialysis sessions until February 11. Patient will then be discharged home to drive with friends/family to [place] to continue his outpatient treatment dialysis. Please contact with any questions or concerns.
[2019-01-16] MEDS: Acetaminophen 325 MG TAB PO PRN (11:52)
[2019-01-16] MEDS: Atorvastatin Calcium 40 MG TAB PO SCH (20:37)
[2019-01-16] MEDS ORDERED: Insulin Glargine 10 UNITS in Pre-Filled Syringe 1 EACH SC SCH (21:00)
--- NOTE | 2019-01-17 06:00 | PDOC.FM ---
- Subjective Subjective: Feeling well this morning. He feels he is regaining a little strength each day. He also reports he feels scrotal swelling is decreasing each day. He has been up to chair with PT. - Objective MAR Reviewed: Yes Vital Signs & Weight: Vital Signs (12 hours) Temp Pulse Resp BP Pulse Ox 01/17/19 04:00 98.6 F 97 16 135/77 94 L 01/17/19 00:00 98.5 F 99 16 148/78 H 98 01/16/19 20:00 98.2 F 98 16 153/83 H 98 Weight Admit Weight 78 kg Weight 94.347 kg Most Recent Monitor Data Heart Rate from ECG 90 NIBP 112/71 NIBP BP-Mean 84 Respiration from ECG 22 SpO2 97 I&O: 01/15/19 01/16/19 01/17/19 06:59 06:59 06:59 Intake Total 1436 1472 1611 Balance 1436 1472 1611 Result Diagrams: 01/12/19 05:23 01/14/19 05:23 Phys Exam - Physical Examination Constitutional: NAD HEENT: moist MMs, sclera anicteric Neck: supple Respiratory: no wheezing, clear to auscultation bilateral Cardiovascular: RRR, no significant murmur Gastrointestinal: soft, non-tender, no distention, positive bowel sounds RUE with non-pitting edema from mid-forearm to shoulder RUE weakness, decreased motor inspection mechanic strength, able to move LE equally Psychiatric: normal affect, A&O x 3 Skin: no rash, cap refill <2 seconds Deviation from normal: tattoos, swelling to RUE Dx/Plan (1) Acute renal failure Status: Acute (2) Basilic vein thrombosis Code(s): I82.619 - ACUTE EMBOLISM AND THROMBOSIS OF SUPERFIC VN UNSP UP EXTREM Status: Acute (3) CVA (cerebral vascular accident) Code(s): I63.9 - CEREBRAL INFARCTION, UNSPECIFIED Status: Acute (4) MSSA bacteremia Code(s): R78.81 - BACTEREMIA Status: Acute (5) Scrotum swelling Code(s): N50.89 - OTHER SPECIFIED DISORDERS OF THE MALE GENITAL ORGANS Status : Acute (6) Type 2 diabetes mellitus Status: Chronic (7) NSTEMI (non-ST elevated myocardial infarction) Code(s): I21.4 - NON-ST ELEVATION (NSTEMI) MYOCARDIAL INFARCTION Status: Suspected - Plan Plan: 43 yo M with poorly controlled DM now with MSSA bacteremia requiring long-term antibiotics MSSA Bacteremia - uncertain etiology; pt denies drug use. Suspected endocarditis - continue Vancomycin SS - Dr. Sheets consulted, appreciate recs. Abx until 02/11 - Per Cardiology, no KOJO at this time and recommend outpatient follow up. - Right fourth digit showed swelling. No evidence of osteomyelitis - Wound care consulted - Will make CBC/CMP draws weekly. Acute Renal failure - Continue Dialysis - Will limit blood draws to weekly - Nephrology consulted, appreciate recommendations. - Creatinine does not seem to improve without dialysis - No improvement in urine output made and kaur discontinued - Patient will be impossible to place. Plan to continue treatment until well enough to make it back to [place] for supportive services. Basilic Vein Thrombosis (R) - Found on RUE US - Will transition off heparin drip to Heparin [address] Schrader's recommendations - Monitor for other signs of thrombosis Scrotal Swelling - US nonspecific - No testicular etiology - Likely due to fluid status - Monitor HFrEF - EF 25-30% - Life vest planned per cardiology. - Friends will fund life vest. - Continue beta elodia Type 2 DM: - Pts sugars have downtrended, currently on basal and meal time insulin. - Accuchecks improved with some hypoglycemic episodes. - Continue to titrate to control. - HgA1c of 14.1 NSTEMI - Initial Troponins elevated, no EKG changes - Echo showed LVEF of 25-30%, area of possible thrombus vs papillary mm - Dr. Lee recommended conservative therapy at this time and follow up as outpatient. Acute Metabolic Encephalopathy: resolved - CT head was negative - Likely 2/2 to HHS coma. - MRI of brain showed multiple small areas of infarction. - pt with RUE focal weakness. Continue PT/OT. Rhabdomyolysis, resolved - CK to 1200 on 01/05 Disposition: Continue current plan of care until antibiotic regimen is completed on 02/11 Addendum - Attending - Attending Attestation Date/Time: 01/17/19 1677 I personally evaluated the patient and discussed the management with Dr. Joseph I agree with the History, Examination, Assessment and Plan documented above with any addition or exceptions noted below. MSSA bacteremia with endocarditis- on vanc ss ESRD- with dialysis R basilic vein thrombosis- on heparin bid- RUE swelling is worsened. Will reach out to Dr. Schrader to discuss anticoagulation T2DM- will change to 70/30 insulin
[2019-01-17] MEDS: HumaLOG 300 UNITS/3 ML VIAL SC PRN ×2 (06:04→20:24)
[2019-01-17 07:51] LABS: Vancomycin, Random 13.6 ug/mL (See Comment)
[2019-01-17] MEDS: Acetaminophen 325 MG TAB PO PRN ×2 (08:45→18:47)
[2019-01-17] MEDS: Carvedilol 3.125 MG TAB PO SCH ×2 (08:45→20:23)
[2019-01-17] MEDS: Aspirin 81 mg Enteric Coated Tablet PO SCH (08:45)
[2019-01-17] MEDS: Heparin 5,000 UNITS/ML VIAL SC SCH ×2 (08:45→20:23)
[2019-01-17] MEDS: Famotidine 20 MG TAB PO SCH (08:45)
[2019-01-17] MEDS: HumaLOG 300 UNITS/3 ML VIAL SC SCH ×2 (08:45→11:29)
[2019-01-17] MEDS: Clotrimazole 1 % Cream 30 GM TUBE TOP SCH ×2 (08:56→20:59)
[2019-01-17] MEDS ORDERED: Heparin 1,000 UNITS/ML VIAL ONE (11:11)
[2019-01-17] MEDS: Vancomycin HCl 1 GM in Premix Bag 1 BAG IVPB SCH (12:22)
[2019-01-17] MEDS ORDERED: HumuLIN 70/30 (300 UNITS/3 ML VIAL) SC SCH (17:00)
[2019-01-17] MEDS: Atorvastatin Calcium 40 MG TAB PO SCH (20:23)
--- NOTE | 2019-01-17 21:04 | PRG ---
DATE OF SERVICE: 01/17/2019 SUBJECTIVE: The patient is hemodynamically stable with no new complaints. OBJECTIVE: HEENT: Unremarkable. CARDIOVASCULAR: First and second heart sounds were heard. RESPIRATORY: Clear to auscultation. DIGESTIVE: Revealed a benign abdomen. EXTREMITIES: No peripheral edema. SKIN: No new gross rash. LYMPHATICS: No peripheral lymphadenopathy. IMPRESSION: 1. End-stage renal disease, on hemodialysis. 2. Systolic congestive heart failure. 3. Rhabdomyolysis with sepsis, recently treated. PLAN: 1. We will continue with current hemodialysis regimen/schedule. 2. Further management will be dependent on the clinical course. Job ID: [id number]
[2019-01-18] MEDS: Acetaminophen 325 MG TAB PO PRN ×3 (03:20→21:00)
[2019-01-18] MEDS: HumaLOG 300 UNITS/3 ML VIAL SC PRN ×2 (05:23→11:22)
--- NOTE | 2019-01-18 06:19 | PDOC.FM ---
- Subjective Subjective: Feeling well this morning. He reports the pain in his R arm seems a little worse the last 2 days. Steadily making little improvements in ROM and strength. He is undecided on whether or not he wants to proceed with anti-coagulation for treatment. - Objective MAR Reviewed: Yes Vital Signs & Weight: Vital Signs (12 hours) Temp Pulse Resp BP BP BP Pulse Ox 01/18/19 03:00 99.2 F 97 20 161/87 H 97 01/18/19 00:00 98.4 F 78 20 140/81 98 01/17/19 20:00 98.7 F 91 18 134/77 99 Weight Admit Weight 78 kg Weight 94.075 kg Most Recent Monitor Data Heart Rate from ECG 90 NIBP 112/71 NIBP BP-Mean 84 Respiration from ECG 22 SpO2 97 I&O: 01/16/19 01/17/19 01/18/19 06:59 06:59 06:59 Intake Total 1472 1611 1450 Balance 1472 1611 1450 Result Diagrams: 01/12/19 05:23 01/14/19 05:23 Phys Exam - Physical Examination Constitutional: NAD HEENT: moist MMs, sclera anicteric Neck: supple Respiratory: no wheezing, clear to auscultation bilateral Cardiovascular: RRR, no significant murmur Gastrointestinal: soft, non-tender, no distention, positive bowel sounds Musculoskeletal: pulses present non pitting edema in RUE RUE with 2/4 strength Psychiatric: normal affect, A&O x 3 Skin: no rash Dx/Plan (1) Acute renal failure Status: Acute (2) Basilic vein thrombosis Code(s): I82.619 - ACUTE EMBOLISM AND THROMBOSIS OF SUPERFIC VN UNSP UP EXTREM Status: Acute (3) CVA (cerebral vascular accident) Code(s): I63.9 - CEREBRAL INFARCTION, UNSPECIFIED Status: Acute (4) MSSA bacteremia Code(s): R78.81 - BACTEREMIA Status: Acute (5) Scrotum swelling Code(s): N50.89 - OTHER SPECIFIED DISORDERS OF THE MALE GENITAL ORGANS Status : Acute (6) Type 2 diabetes mellitus Status: Chronic (7) NSTEMI (non-ST elevated myocardial infarction) Code(s): I21.4 - NON-ST ELEVATION (NSTEMI) MYOCARDIAL INFARCTION Status: Suspected - Plan Plan: 43 yo M with poorly controlled DM now with MSSA bacteremia requiring long-term antibiotics MSSA Bacteremia - uncertain etiology; pt denies drug use. Suspected endocarditis - continue Vancomycin SS - Dr. Sheets consulted, appreciate recs. Abx until 02/11 - Per Cardiology, no KOJO at this time and recommend outpatient follow up. - Right fourth digit showed swelling. No evidence of osteomyelitis - Wound care consulted - Will make CBC/CMP draws weekly on Mondays Acute Renal failure - Continue Dialysis - Limited blood draws to weekly (Mondays) - Nephrology consulted, appreciate recommendations. - Creatinine does not seem to improve without dialysis - No improvement in urine output made and kaur discontinued - Patient will be impossible to place. Plan to continue treatment until well enough to make it back to [place] for supportive services. Basilic Vein Thrombosis (R) - Found on RUE US - D/w Dr. Schrader option to give tx heparin and transition to coumadin while he is in house, patient undecided, will revisit - Monitor for other signs of thrombosis Scrotal Swelling - US nonspecific - No testicular etiology - Likely due to fluid status - Monitor HFrEF - EF 25-30% - Life vest planned per cardiology. - Friends will fund life vest. - Continue beta elodia Type 2 DM: - Pts sugars have downtrended, currently on basal and meal time insulin. - Accuchecks improved with some hypoglycemic episodes. - Continue to titrate to control. - HgA1c of 14.1 NSTEMI - Initial Troponins elevated, no EKG changes - Echo showed LVEF of 25-30%, area of possible thrombus vs papillary mm - Dr. Lee recommended conservative therapy at this time and follow up as outpatient. Acute Metabolic Encephalopathy: resolved - CT head was negative - Likely 2/2 to HHS coma. - MRI of brain showed multiple small areas of infarction. - pt with RUE focal weakness. Continue PT/OT. Rhabdomyolysis, resolved - CK to 1200 on 01/05 Disposition: Continue current plan of care until antibiotic regimen is completed on 02/11 Addendum - Attending - Attending Attestation Date/Time: 01/18/19 1055 I personally evaluated the patient and discussed the management with Dr. Joseph I agree with the History, Examination, Assessment and Plan documented above with any addition or exceptions noted below. Continue vanc with dialysis until 02/11. Discuss options of coumadin for his R basilic vein thrombosis and swelling and pain worsened on current heparin dose.
[2019-01-18] MEDS: Famotidine 20 MG TAB PO SCH (09:01)
[2019-01-18] MEDS: Carvedilol 3.125 MG TAB PO SCH ×2 (09:01→21:01)
[2019-01-18] MEDS: Aspirin 81 mg Enteric Coated Tablet PO SCH (09:01)
[2019-01-18] MEDS: Clotrimazole 1 % Cream 30 GM TUBE TOP SCH ×2 (09:02→21:01)
[2019-01-18] MEDS: HumuLIN 70/30 (300 UNITS/3 ML VIAL) SC SCH ×2 (09:02→17:05)
[2019-01-18] MEDS: Heparin 5,000 UNITS/ML VIAL SC SCH ×2 (09:03→21:00)
[2019-01-18] MEDS: Atorvastatin Calcium 40 MG TAB PO SCH (21:00)
--- NOTE | 2019-01-19 06:44 | PDOC.FM ---
- Subjective Subjective: This morning patient states he is feeling well overall. He denies any pain at the moment. He states he was able to stand up yesterday but is still feeling somewhat weak when walking. He denies N/V/D, fevers, chills, or sweats. He states his plan is still to return to [place] after he finishes out his hospital course here. - Objective Vital Signs & Weight: Vital Signs (12 hours) Temp Pulse Resp BP BP Pulse Ox 01/19/19 04:20 97.6 F 98 16 175/89 H 98 01/19/19 00:18 98.8 F 92 18 146/75 H 95 01/18/19 20:51 99.4 F 96 18 169/88 H 97 Weight Admit Weight 78 kg Weight 89.403 kg Most Recent Monitor Data Heart Rate from ECG 90 NIBP 112/71 NIBP BP-Mean 84 Respiration from ECG 22 SpO2 97 I&O: 01/17/19 01/18/19 01/19/19 06:59 06:59 06:59 Intake Total 1611 1450 543 Balance 1611 1450 543 Result Diagrams: 01/12/19 05:23 01/14/19 05:23 Phys Exam - Physical Examination Constitutional: NAD HEENT: moist MMs, sclera anicteric Neck: no nodes Respiratory: no wheezing, clear to auscultation bilateral Cardiovascular: RRR, no significant murmur Gastrointestinal: soft, non-tender, no distention, positive bowel sounds Musculoskeletal: no edema, pulses present Neurological: non-focal, moves all 4 limbs Lymphatic: no nodes Psychiatric: normal affect, A&O x 3 Skin: no rash, cap refill <2 seconds Dx/Plan (1) Acute renal failure Status: Acute (2) Basilic vein thrombosis Code(s): I82.619 - ACUTE EMBOLISM AND THROMBOSIS OF SUPERFIC VN UNSP UP EXTREM Status: Acute (3) CVA (cerebral vascular accident) Code(s): I63.9 - CEREBRAL INFARCTION, UNSPECIFIED Status: Acute (4) MSSA bacteremia Code(s): R78.81 - BACTEREMIA Status: Acute (5) Type 2 diabetes mellitus Status: Chronic (6) NSTEMI (non-ST elevated myocardial infarction) Code(s): I21.4 - NON-ST ELEVATION (NSTEMI) MYOCARDIAL INFARCTION Status: Suspected - Plan Plan: 43 yo M with poorly controlled DM now with MSSA bacteremia requiring long-term antibiotics MSSA Bacteremia - uncertain etiology; pt denies drug use. Suspected endocarditis - continue Vancomycin SS - Dr. Sheets consulted, appreciate recs. Abx until 02/11 - Per Cardiology, no KOJO at this time and recommend outpatient follow up. - Right fourth digit showed swelling. No evidence of osteomyelitis - Wound care consulted - Will make CBC/CMP draws weekly on Mondays, ( was not taken today will check tomorrow with AM labs) Type 2 DM: - Accuchecks improved with some hypoglycemic episodes. - Continue to titrate to control, titrated to 12 U 70/30 BID on 01/18, had lows earlier in stay will titrate up tomorrow if needed - HgA1c of 14.1 on admission CVA 2/2 septic emboli - persistent RUE weakness Acute Renal failure - Continue Dialysis - Limited blood draws to weekly (Mondays) - Nephrology consulted, appreciate recommendations. - Creatinine does not seem to improve without dialysis - No improvement in urine output made and kaur discontinued - Patient will be impossible to place. Plan to continue treatment until well enough to make it back to [place] for supportive services. Basilic Vein Thrombosis (R) - Found on RUE US - D/w Dr. Schrader option to give tx heparin and transition to coumadin while he is in house, patient is still undecided but he is not having arm pain today - Monitor for other signs of thrombosis Scrotal Swelling - US nonspecific - No testicular etiology - Likely due to fluid status - Monitor HFrEF - EF 25-30% - Life vest planned per cardiology. - Friends will fund life vest. - Continue beta elodia NSTEMI- resolved - Initial Troponins elevated, no EKG changes - Echo showed LVEF of 25-30%, area of possible thrombus vs papillary mm - Dr. Lee recommended conservative therapy at this time and follow up as outpatient. Acute Metabolic Encephalopathy: resolved - CT head was negative - Likely 2/2 to HHS coma. - MRI of brain showed multiple small areas of infarction. - pt with RUE focal weakness. Continue PT/OT. Rhabdomyolysis, resolved - CK to 1200 on 01/05 Disposition: Continue current plan of care until antibiotic regimen is completed on 02/11 Addendum - Attending - Attending Attestation Date/Time: 01/19/19 0650 I personally evaluated the patient and discussed the management with Dr. Tapia. I agree with the History, Examination, Assessment and Plan documented above with any addition or exceptions noted below. Patient stable. Continues to have mostly elevated blood pressures, consider elevation of Coreg today. Continues on IV abx for suspected endocarditis. No return of renal function and will continue HD. Continue heparin for anticoagulation and discuss with patient about initiating OAC therapy such as warfarin. Placement unlikely, but continue to work on finding options for getting patient out of the hospital before mid January when his IV abx therapy will be complete.
[2019-01-19] MEDS ORDERED: Carvedilol 6.25 MG TAB PO SCH (08:00)
[2019-01-19] MEDS: Heparin 5,000 UNITS/ML VIAL SC SCH ×2 (08:51→20:49)
[2019-01-19] MEDS: HumuLIN 70/30 (300 UNITS/3 ML VIAL) SC SCH ×2 (08:52→17:40)
[2019-01-19] MEDS: Carvedilol 3.125 MG TAB PO SCH ×2 (08:53→20:49)
[2019-01-19] MEDS: Lisinopril 5 MG TAB PO SCH (08:53)
[2019-01-19] MEDS: Aspirin 81 mg Enteric Coated Tablet PO SCH (08:53)
[2019-01-19] MEDS: Famotidine 20 MG TAB PO SCH (08:53)
[2019-01-19] MEDS: Clotrimazole 1 % Cream 30 GM TUBE TOP SCH ×2 (08:54→20:49)
[2019-01-19] MEDS: Acetaminophen 325 MG TAB PO PRN (11:39)
[2019-01-19] MEDS: HumaLOG 300 UNITS/3 ML VIAL SC PRN ×3 (11:39→20:50)
--- NOTE | 2019-01-19 17:57 | PRG ---
DATE OF SERVICE: 01/19/2019 SUBJECTIVE: The patient was seen and examined with no new complaints, noted with the following vital signs. OBJECTIVE: VITAL SIGNS: Afebrile, temperature 98.8, pulse 92, respiratory rate of 18, O2 saturations of 95%, blood pressure 146/75 to 175/89. HEENT: Unremarkable. CARDIOVASCULAR: First and sounds heart sounds were heard. RESPIRATORY: Clear to auscultation. DIGESTIVE: Revealed a benign abdomen. EXTREMITIES: Showed no peripheral edema. SKIN: No new gross rash. LYMPHATICS: No peripheral lymphadenopathy. IMPRESSION: 1. End-stage renal disease, on hemodialysis. 2. Rhabdomyolysis. 3. Failure to thrive. PLAN: 1. We will continue hemodialysis per current schedule. 2. Further management to be dependent on the clinical course. Job ID: [id number]
[2019-01-19] MEDS: Atorvastatin Calcium 40 MG TAB PO SCH (20:49)
[2019-01-20] MEDS: HumaLOG 300 UNITS/3 ML VIAL SC PRN ×3 (06:06→22:27)
--- NOTE | 2019-01-20 06:25 | PDOC.FM ---
- Subjective Subjective: This morning patient states he is feeling well overall. STates he is feeling stronger in his right arm. He states he still has some aching pain that comes and goes in that arm. He states he is okay holding off of anticoagulation for now but would like to re-visit if pain persists for more than a week. He is eating and drinking well. States he was not able to walk yesterday with PT but states he is not feeling particularly weak. - Objective Vital Signs & Weight: Vital Signs (12 hours) Temp Pulse Resp BP BP Pulse Ox 01/20/19 04:00 98.6 F 97 16 156/85 H 94 L 01/20/19 01:25 144/78 H 01/20/19 00:00 98.9 F 97 16 179/87 H 97 01/19/19 20:49 97 01/19/19 20:00 97.7 F 94 16 168/88 H 97 Weight Admit Weight 78 kg Weight 89.403 kg Most Recent Monitor Data Heart Rate from ECG 90 NIBP 112/71 NIBP BP-Mean 84 Respiration from ECG 22 SpO2 97 I&O: 01/18/19 01/19/19 01/20/19 06:59 06:59 06:59 Intake Total 1450 1703 1440 Balance 1450 1703 1440 Result Diagrams: 01/12/19 05:23 01/14/19 05:23 Phys Exam - Physical Examination Constitutional: NAD HEENT: PERRLA, moist MMs Neck: no nodes Respiratory: no wheezing, clear to auscultation bilateral Cardiovascular: RRR, no significant murmur Gastrointestinal: soft, non-tender, no distention, positive bowel sounds Musculoskeletal: no edema Neurological: moves all 4 limbs Psychiatric: normal affect, A&O x 3 Skin: no rash, cap refill <2 seconds Dx/Plan (1) Acute renal failure Status: Acute (2) Basilic vein thrombosis Code(s): I82.619 - ACUTE EMBOLISM AND THROMBOSIS OF SUPERFIC VN UNSP UP EXTREM Status: Acute (3) CVA (cerebral vascular accident) Code(s): I63.9 - CEREBRAL INFARCTION, UNSPECIFIED Status: Acute (4) MSSA bacteremia Code(s): R78.81 - BACTEREMIA Status: Acute (5) Type 2 diabetes mellitus Status: Chronic (6) NSTEMI (non-ST elevated myocardial infarction) Code(s): I21.4 - NON-ST ELEVATION (NSTEMI) MYOCARDIAL INFARCTION Status: Suspected - Plan Plan: 43 yo M with poorly controlled DM now with MSSA bacteremia requiring long-term antibiotics MSSA Bacteremia - uncertain etiology; pt denies drug use. Suspected endocarditis - continue Vancomycin SS - Dr. Sheets consulted, appreciate recs. Abx until 02/11 - Per Cardiology, no KOJO at this time and recommend outpatient follow up. - Right fourth digit showed swelling. No evidence of osteomyelitis - Wound care consulted - Will make CBC/CMP draws weekly on Mondays, HTN - titrating up on coreg 01/20 - also on lisinopril Type 2 DM: - Accuchecks improved with some hypoglycemic episodes. - Continue to titrate to control, titrated to 15 U 70/30 BID on 01/20, had lows earlier in stay will titrate up tomorrow if needed - HgA1c of 14.1 on admission CVA 2/2 septic emboli - persistent RUE weakness Acute Renal failure - Continue Dialysis - Limited blood draws to weekly (Mondays) - Nephrology consulted, appreciate recommendations. - Creatinine does not seem to improve without dialysis - No improvement in urine output made and kaur discontinued - Patient will be impossible to place. Plan to continue treatment until well enough to make it back to [place] for supportive services. Basilic Vein Thrombosis (R) - Found on RUE US - D/w Dr. Schrader option to give tx heparin and transition to coumadin while he is in house, patient is still undecided but he is not having arm pain today - Monitor for other signs of thrombosis Scrotal Swelling - US nonspecific - No testicular etiology - Likely due to fluid status - Monitor HFrEF - EF 25-30% - Life vest planned per cardiology. - Friends will fund life vest. - Continue beta elodia NSTEMI- resolved - Initial Troponins elevated, no EKG changes - Echo showed LVEF of 25-30%, area of possible thrombus vs papillary mm - Dr. Lee recommended conservative therapy at this time and follow up as outpatient. Acute Metabolic Encephalopathy: resolved - CT head was negative - Likely 2/2 to HHS coma. - MRI of brain showed multiple small areas of infarction. - pt with RUE focal weakness. Continue PT/OT. Rhabdomyolysis, resolved - CK to 1200 on 01/05 Disposition: Continue current plan of care until antibiotic regimen is completed on 02/11 Addendum - Attending - Attending Attestation Date/Time: 01/20/19 7026 I personally evaluated the patient and discussed the management with Dr. Tapia. I agree with the History, Examination, Assessment and Plan documented above with any addition or exceptions noted below. Patient stable. Continue IV abx and HD as per Nephro. Increasing Coreg today for improved HTN control and also increasing insulin regimen today to improve glycemic control. CM following.
[2019-01-20 09:36] LABS: Vancomycin, Random 10.3 ug/mL (See Comment)
[2019-01-20 09:37] LABS: Anion Gap 15 mmol/L (10-20); BUN (Urea Nitrogen) 34 mg/dL (8.9-20.6); Calc. Creatinine Clearance 29 mL/min (70-130); Carbon Dioxide 19 mmol/L (22-29); Chloride 115 mmol/L (98-107); Estimated GFR-MDRD 16; Glucose 134 mg/dL (70-105); Sodium 147 mmol/L (136-145)
[2019-01-20 10:12] LABS: Hemoglobin 7.4 g/dL (14.0-18.0); Mean Corpuscular HGB CONC 33.4 g/dL (32.0-36.0); Mean Corpuscular Hemoglobin 30.1 pg (27.0-31.0); Mean Platelet Volume 7.1 fL (7.4-10.4); Platelet Count 367 thou/uL (130-400); RBC Distribution Width 12.4 % (11.5-14.5); Red Blood Cell (RBC) Count 2.45 mill/uL (4.70-6.10); White Blood Cell (WBC) Count 8.6 thou/uL (4.8-10.8)
--- NOTE | 2019-01-20 10:23 | PDOC.EVN ---
Event Note - Event Note Event Note: patient's hgb today was 7.[address] Schrader, rec'd 10,000U of epogen today, he will schedule the epogen going forward, appreciate the assistance titrated up on coreg to 6.25 BID today, added lisinopril 5mg yesterday
[2019-01-20 10:30] LABS: Calcium 7.7 mg/dL (7.8-10.44)
[2019-01-20] MEDS ORDERED: Epoetin (ESRD) 20,000 UNITS/ML SC SCH (10:30)
[2019-01-20 10:47] LABS: Potassium 2.8 mmol/L (3.5-5.1)
[2019-01-20] MEDS: Vancomycin HCl 1 GM in Premix Bag 1 BAG IVPB SCH (10:54)
[2019-01-20] MEDS ORDERED: Epoetin (ESRD) 10,000 UNITS/ML VIAL SC SCH (11:00)
[2019-01-20] MEDS ORDERED: Potassium Chloride 20 MEQ TAB PO SCH ×2 (11:45→19:15)
[2019-01-20] MEDS: Aspirin 81 mg Enteric Coated Tablet PO SCH (12:28)
[2019-01-20] MEDS: Lisinopril 5 MG TAB PO SCH (12:28)
[2019-01-20] MEDS: Famotidine 20 MG TAB PO SCH (12:29)
[2019-01-20] MEDS: Heparin 5,000 UNITS/ML VIAL SC SCH ×2 (12:29→22:27)
[2019-01-20] MEDS: Clotrimazole 1 % Cream 30 GM TUBE TOP SCH ×2 (12:29→23:23)
[2019-01-20] MEDS: Carvedilol 6.25 MG TAB PO SCH ×2 (12:29→16:58)
[2019-01-20] MEDS: HumuLIN 70/30 (300 UNITS/3 ML VIAL) SC SCH ×2 (12:44→16:59)
[2019-01-20] MEDS: Epoetin (ESRD) 20,000 UNITS/ML IVP SCH (16:39)
[2019-01-20] MEDS: Acetaminophen 325 MG TAB PO PRN (16:58)
--- NOTE | 2019-01-20 17:16 | PRG ---
DATE OF SERVICE: 01/20/2019 SUBJECTIVE: The patient was seen and examined, noted with the following vital signs. OBJECTIVE: VITAL SIGNS: Afebrile, temperature 99.2, pulse 95, respiratory rate of 16, O2 saturation of 93%, and blood pressure 158/87. HEENT: Unremarkable. CARDIOVASCULAR: First and second heart sounds were heard. RESPIRATORY: Clear to auscultation. DIGESTIVE: Revealed benign abdomen. Positive bowel sounds. EXTREMITIES: No peripheral edema. SKIN: No new gross rash. LYMPHATICS: No peripheral lymphadenopathy. LABORATORY INVESTIGATIONS: Significant for hemoglobin of 7.4. Chemistries pretty much inconclusive. This specimen was drawn during dialysis. IMPRESSION: 1. End-stage renal disease, on hemodialysis. 2. Anemia, likely anemia of chronic kidney disease. PLAN: 1. The patient to be placed on erythropoiesis stimulating agent. 2. Further management to be dependent on the clinical course. The patient to continue with outpatient dialysis status post discharge. Job ID: [id number]
[2019-01-20] MEDS ORDERED: traMADol HCl 50 MG TAB PO SCH (19:45)
[2019-01-20] MEDS: Atorvastatin Calcium 40 MG TAB PO SCH (22:27)
[2019-01-21 06:12] LABS: Anion Gap 9 mmol/L (10-20); BUN (Urea Nitrogen) 28 mg/dL (8.9-20.6); Calc. Creatinine Clearance 34 mL/min (70-130); Calcium 7.4 mg/dL (7.8-10.44); Carbon Dioxide 30 mmol/L (22-29); Chloride 100 mmol/L (98-107); Estimated GFR-MDRD 19; Glucose 245 mg/dL (70-105); Potassium 3.8 mmol/L (3.5-5.1); Sodium 135 mmol/L (136-145)
--- NOTE | 2019-01-21 07:02 | PDOC.FM ---
- Subjective Subjective: This morning the patient states he is feeling well overall. He is looking forward to sitting up in the chair today. The patient states that his right arm is still bothering him all the time. Desicrbed as ache, radiates from shoulder joint down the arm, not changed by movement. - Objective Vital Signs & Weight: Vital Signs (12 hours) Temp Pulse Resp BP Pulse Ox 01/21/19 04:00 98.1 F 87 16 154/85 H 94 L 01/21/19 00:00 98.1 F 96 16 130/75 96 01/20/19 20:00 100.2 F H 95 16 159/87 H 97 Weight Admit Weight 78 kg Weight 87.407 kg Most Recent Monitor Data Heart Rate from ECG 90 NIBP 112/71 NIBP BP-Mean 84 Respiration from ECG 22 SpO2 97 I&O: 01/20/19 01/21/19 01/22/19 06:59 06:59 06:59 Intake Total 0 1072 Balance 0 1072 Result Diagrams: 01/20/19 09:54 01/21/19 05:12 Phys Exam - Physical Examination Constitutional: NAD HEENT: moist MMs, sclera anicteric Neck: no nodes, supple Respiratory: no wheezing, clear to auscultation bilateral Cardiovascular: RRR, no significant murmur Gastrointestinal: soft, non-tender, no distention, positive bowel sounds Musculoskeletal: no edema, pulses present shoulder pain not affected by manipulation of shoulder joint Neurological: non-focal, moves all 4 limbs Psychiatric: normal affect, A&O x 3 Skin: no rash, cap refill <2 seconds Dx/Plan (1) Acute renal failure Status: Acute (2) Basilic vein thrombosis Code(s): I82.619 - ACUTE EMBOLISM AND THROMBOSIS OF SUPERFIC VN UNSP UP EXTREM Status: Acute (3) CVA (cerebral vascular accident) Code(s): I63.9 - CEREBRAL INFARCTION, UNSPECIFIED Status: Acute (4) MSSA bacteremia Code(s): R78.81 - BACTEREMIA Status: Acute (5) Type 2 diabetes mellitus Status: Chronic (6) NSTEMI (non-ST elevated myocardial infarction) Code(s): I21.4 - NON-ST ELEVATION (NSTEMI) MYOCARDIAL INFARCTION Status: Suspected - Plan Plan: 43 yo M with poorly controlled DM now with MSSA bacteremia requiring long-term antibiotics MSSA Bacteremia - uncertain etiology; pt denies drug use. Suspected endocarditis - continue Vancomycin SS - Dr. Sheets consulted, appreciate recs. Abx until 02/11 - Per Cardiology, no KOJO at this time and recommend outpatient follow up. - Right fourth digit showed swelling. No evidence of osteomyelitis - Wound care consulted - Will make CBC/CMP draws weekly on Mondays, Basilic Vein Thrombosis (R) - Found on RUE US on 01/07, still having pain, will repeat US today - D/w Dr. Schrader option to give tx heparin and transition to coumadin while he is in house, patient is still undecided but he is not having arm pain today - Monitor for other signs of thrombosis Acute Renal failure progressing to ESRD - Continue Dialysis - Limited blood draws to weekly (Mondays) - Nephrology consulted, appreciate recommendations. - Creatinine does not seem to improve without dialysis - No improvement in urine output made and kaur discontinued - Patient will be impossible to place. Plan to continue treatment until well enough to make it back to [place] for supportive services. - started patient on epogen 01/20 HTN - titrating up on coreg 01/20 - also on lisinopril Type 2 DM: - Accuchecks improved with some hypoglycemic episodes. - Continue to titrate to control, titrated to 15 U 70/30 BID on 01/20, had lows earlier in stay will titrate up tomorrow if needed - HgA1c of 14.1 on admission CVA 2/2 septic emboli - persistent RUE weakness Scrotal Swelling - US nonspecific - No testicular etiology - Likely due to fluid status - Monitor HFrEF - EF 25-30% - Life vest planned per cardiology. - Friends will fund life vest. - Continue beta elodia NSTEMI- resolved - Initial Troponins elevated, no EKG changes - Echo showed LVEF of 25-30%, area of possible thrombus vs papillary mm - Dr. Lee recommended conservative therapy at this time and follow up as outpatient. Acute Metabolic Encephalopathy: resolved - CT head was negative - Likely 2/2 to [facility]HS coma. - MRI of brain showed multiple small areas of infarction. - pt with RUE focal weakness. Continue PT/OT. Rhabdomyolysis, resolved - CK to 1200 on 01/05 Disposition: Continue current plan of care until antibiotic regimen is completed on 02/11 Addendum - Attending - Attending Attestation Date/Time: 01/21/19 0805 I personally evaluated the patient and discussed the management with Dr. Tapia. I agree with the History, Examination, Assessment and Plan documented above with any addition or exceptions noted below. Patient stable. Had some low grade temp overnight but no true fever. His blood sugars have been creeping up and I note his is not on diabetic diet, will make that change today and work to get sugars better controlled. Labs stable. Continue intermediate abx, therapy, insulin, HD as needed. CM on board but likely no placement due to his immigration and financial status.
[2019-01-21] MEDS: HumaLOG 300 UNITS/3 ML VIAL SC PRN ×2 (07:27→21:40)
[2019-01-21] MEDS: Carvedilol 6.25 MG TAB PO SCH ×2 (08:11→16:31)
[2019-01-21] MEDS: Aspirin 81 mg Enteric Coated Tablet PO SCH (08:12)
[2019-01-21] MEDS: Potassium Chloride 20 MEQ TAB PO SCH ×2 (08:12→16:31)
[2019-01-21] MEDS: Lisinopril 5 MG TAB PO SCH (08:12)
[2019-01-21] MEDS: Famotidine 20 MG TAB PO SCH (08:12)
[2019-01-21] MEDS: Heparin 5,000 UNITS/ML VIAL SC SCH ×2 (08:13→21:25)
[2019-01-21] MEDS: HumuLIN 70/30 (300 UNITS/3 ML VIAL) SC SCH ×2 (08:13→16:32)
[2019-01-21] MEDS: Clotrimazole 1 % Cream 30 GM TUBE TOP SCH ×2 (08:14→22:33)
--- NOTE | 2019-01-21 09:40 | PRG ---
DATE OF SERVICE: 01/21/2019 SUBJECTIVE: The patient was seen and examined with no new complaint noted with the following vital signs. OBJECTIVE: VITAL SIGNS: Afebrile, temperature 98.9, pulse 85, blood pressure 159/89, respiratory rate of 16, O2 saturation of 94%. HEENT: Unremarkable. CARDIOVASCULAR: First and second heart sounds were heard. RESPIRATORY: Clear to auscultation. DIGESTIVE: Revealed a benign abdomen with positive bowel sounds. EXTREMITIES: No peripheral edema. SKIN: No new gross rash. LYMPHATICS: No peripheral lymphadenopathy. IMPRESSION: 1. End-stage renal disease, on hemodialysis. 2. Rhabdomyolysis leading up to kidney failure. 3. Anemia of chronic kidney disease. PLAN: 1. We will continue with hemodialysis per schedule. 2. Erythropoiesis stimulating agent to address the anemia. 3. Further management to be dependent on the clinical course. Job ID: [id number]
--- NOTE | 2019-01-21 12:33 | ULT ---
RIGHT UPPER EXTREMITY VENOUS ULTRASOUND: HISTORY: Right upper extremity thrombosis seen on prior examination from 01/07/2019. COMPARISON: 01/07/2019. TECHNIQUE: Multiplanar, rogers scale, and color Doppler images were obtained in a right upper extremity venous ult rasound. Spectral analysis of the Doppler waveforms was performed. FINDINGS: The right internal jugular vein demonstrates normal compression and flow without evidence of thrombus . The right subclavian vein demonstrates normal flow and augmentation without evidence of thrombus. The right axillary and brachial veins demonstrate normal compression, flow, and augmentation without evidence of thrombus. The venous structures distal to the elbow are unremarkable. The right basilic and cephalic veins are patent without evidence of thrombus. IMPRESSION: No evidence of right upper extremity deep vein thrombosis. POS: GENI
[2019-01-21] MEDS: Atorvastatin Calcium 40 MG TAB PO SCH (21:25)
[2019-01-21] MEDS: Acetaminophen 325 MG TAB PO PRN (23:11)
[2019-01-22] MEDS ORDERED: traMADol HCl 50 MG TAB PO SCH ×2 (01:00→04:15)
[2019-01-22] MEDS: HumaLOG 300 UNITS/3 ML VIAL SC PRN ×2 (05:44→20:25)
--- NOTE | 2019-01-22 06:28 | PDOC.FM ---
- Subjective Subjective: This morning patient is still complaining of RUE pain, neg US yesterday for VTE. The patient states the pain is sometimes at the R shoulder and other times at the elbow. Comes and goes, not related to movement. He does states that it hurts more after PT works him harder. Patient denies any fevers, chills, or sweats last night. Denies cough or production. Denies N/V/D, tolerated PO without difficulty. - Objective Vital Signs & Weight: Vital Signs (12 hours) Temp Pulse Resp BP BP Pulse Ox 01/22/19 04:00 99.1 F 84 18 168/83 H 99 01/22/19 00:00 99.1 F 99 18 162/83 H 96 01/21/19 20:00 100.6 F H 99 18 169/88 H 99 Weight Admit Weight 78 kg Weight 85.502 kg Most Recent Monitor Data Heart Rate from ECG 90 NIBP 112/71 NIBP BP-Mean 84 Respiration from ECG 22 SpO2 97 I&O: 01/20/19 01/21/19 01/22/19 06:59 06:59 06:59 Intake Total 2039 1792 3010 Balance 2039 1791 3010 Result Diagrams: 01/20/19 09:54 01/21/19 05:12 Phys Exam - Physical Examination Constitutional: NAD HEENT: moist MMs, sclera anicteric Respiratory: no wheezing, clear to auscultation bilateral Cardiovascular: RRR, no significant murmur, no rub Gastrointestinal: soft, non-tender, no distention, positive bowel sounds Musculoskeletal: pulses present full passive ROM, 3/4 strength, pain not exacerbated by movement Neurological: non-focal, moves all 4 limbs Psychiatric: normal affect, A&O x 3 Skin: no rash, cap refill <2 seconds Dx/Plan (1) Acute renal failure Status: Acute (2) Basilic vein thrombosis Code(s): I82.619 - ACUTE EMBOLISM AND THROMBOSIS OF SUPERFIC VN UNSP UP EXTREM Status: Acute (3) CVA (cerebral vascular accident) Code(s): I63.9 - CEREBRAL INFARCTION, UNSPECIFIED Status: Acute (4) MSSA bacteremia Code(s): R78.81 - BACTEREMIA Status: Acute (5) Type 2 diabetes mellitus Status: Chronic (6) NSTEMI (non-ST elevated myocardial infarction) Code(s): I21.4 - NON-ST ELEVATION (NSTEMI) MYOCARDIAL INFARCTION Status: Suspected - Plan Plan: 43 yo M with poorly controlled DM now with MSSA bacteremia requiring long-term antibiotics # Fever - 100.6 01/21 - will check cx from line and peripheral - suspect atelectasis, add IC MSSA Bacteremia - uncertain etiology; pt denies drug use. Suspected endocarditis - continue Vancomycin SS - Dr. Sheets consulted, appreciate recs. Abx until 02/11 - Per Cardiology, no KOJO at this time and recommend outpatient follow up. - Right fourth digit showed swelling. No evidence of osteomyelitis - Wound care consulted - Will make CBC/CMP draws weekly on Mondays, HTN - titrating up on coreg 01/20, 01/22 - also on lisinopril 01/20 Basilic Vein Thrombosis (R)- resolved - Found on RUE US on 01/07, resolved on US 01/20 - still having pain, suspect thrombophlebitis vs complex pain syndrome - Monitor for other signs of thrombosis Acute Renal failure progressing to ESRD - Continue Dialysis - Limited blood draws to weekly (Mondays) - Nephrology consulted, appreciate recommendations. - Creatinine does not seem to improve without dialysis - No improvement in urine output made and kaur discontinued - Patient will be impossible to place. Plan to continue treatment until well enough to make it back to [place] for supportive services. - started patient on epogen 01/20 Type 2 DM: - Accuchecks improved with some hypoglycemic episodes. - Continue to titrate to control, titrated to 15 U 70/30 BID on 01/20, had lows earlier in stay will titrate up tomorrow if needed - HgA1c of 14.1 on admission CVA 2/2 septic emboli - persistent RUE weakness Scrotal Swelling - US nonspecific - No testicular etiology - Likely due to fluid status - Monitor HFrEF - EF 25-30% - Life vest planned per cardiology. - Friends will fund life vest. - Continue beta elodia NSTEMI- resolved - Initial Troponins elevated, no EKG changes - Echo showed LVEF of 25-30%, area of possible thrombus vs papillary mm - Dr. Lee recommended conservative therapy at this time and follow up as outpatient. Acute Metabolic Encephalopathy: resolved - CT head was negative - Likely 2/2 to HHS coma. - MRI of brain showed multiple small areas of infarction. - pt with RUE focal weakness. Continue PT/OT. Rhabdomyolysis, resolved - CK to 1200 on 01/05 Disposition: Continue current plan of care until antibiotic regimen is completed on 02/11 Addendum - Attending - Attending Attestation Date/Time: 01/22/19 0805 I personally evaluated the patient and discussed the management with Dr. Tapia. I agree with the History, Examination, Assessment and Plan documented above with any addition or exceptions noted below. Patient overall stable. Low grade temp overnight, will do basic lab eval, consider atelectasis. Continue abx. His repeat U/S did not show venous thrombosis in the upper extremity. Case mgmt assistance as needed.
[2019-01-22] MEDS ORDERED: HumuLIN 70/30 (300 UNITS/3 ML VIAL) SC SCH (08:29)
--- NOTE | 2019-01-22 08:34 | RAD ---
FRight elbow: 4 views INDICATIONS: Pain right upper extremity. FINDINGS: No evidence of fracture. No evidence for joint effusion. Minimal degenerative change noted. IMPRESSION: No acute finding
--- NOTE | 2019-01-22 08:37 | RAD ---
RIGHT SHOULDER THREE VIEWS: History: Shoulder pain. FINDINGS: There are no signs of fracture or dislocation. No other significant bony findings. IMPRESSION: Unremarkable right shoulder. POS: TPC
[2019-01-22] MEDS: Potassium Chloride 20 MEQ TAB PO SCH (08:53)
[2019-01-22] MEDS: Heparin 5,000 UNITS/ML VIAL SC SCH ×2 (08:53→20:22)
[2019-01-22] MEDS: Lisinopril 5 MG TAB PO SCH (08:54)
[2019-01-22] MEDS: Aspirin 81 mg Enteric Coated Tablet PO SCH (08:54)
[2019-01-22] MEDS: Carvedilol 6.25 MG TAB PO SCH ×2 (08:54→18:05)
[2019-01-22] MEDS: Clotrimazole 1 % Cream 30 GM TUBE TOP SCH ×2 (08:55→20:22)
[2019-01-22] MEDS: Famotidine 20 MG TAB PO SCH (08:55)
[2019-01-22] MEDS: HumuLIN 70/30 (300 UNITS/3 ML VIAL) SC SCH ×3 (09:26→18:25)
[2019-01-22 11:02] LABS: Vancomycin, Random 10.2 ug/mL (See Comment)
[2019-01-22] MEDS ORDERED: Labetalol HCl 100 MG/20 ML VIAL SLOW IVP PRN (13:45)
[2019-01-22] MEDS ORDERED: Heparin 10,000 UNITS/ 10 ML VIAL ONE (18:00)
--- NOTE | 2019-01-22 19:31 | PRG ---
DATE OF SERVICE: 01/22/2019 SUBJECTIVE: The patient was seen and examined with no new complaint noted with the following vital signs. OBJECTIVE: VITAL SIGNS: Afebrile, temperature 98.1 pulse 84, respiratory rate of 17, O2 saturation of 99%, and blood pressure 142/81. HEENT: Unremarkable. CARDIOVASCULAR SYSTEM: First and second heart sounds were heard. RESPIRATORY SYSTEM: Clear to auscultation. DIGESTIVE: Revealed a benign abdomen with positive bowel sounds. EXTREMITIES: No peripheral edema. SKIN: No new gross rash. LYMPHATICS: No peripheral lymphadenopathy. IMPRESSION: 1. End-stage renal disease, on hemodialysis. 2. Rhabdomyolysis, resolved. 3. Anemia of chronic kidney disease. PLAN: 1. The patient claims to be making more urine. Therefore, we will check a 24-hour urine. In order to be very comprehensive, we will set up a Fermin catheter for accurate assessment. 2. Continue hemodialysis per current schedule. 3. Erythropoiesis-stimulating agent. 4. Discontinue potassium chloride supplementation. 5. Further management will be dependent on the clinical course. Job ID: [id number]
[2019-01-22] MEDS: Epoetin (ESRD) 20,000 UNITS/ML IVP SCH (19:51)
[2019-01-22] MEDS ORDERED: Epoetin (ESRD) 20,000 UNITS/ML SC SCH (20:00)
[2019-01-22] MEDS: Atorvastatin Calcium 40 MG TAB PO SCH (20:22)
[2019-01-22] MEDS: Methyl Salicylate/Menthol 85 GM TUBE TOP SCH (20:23)
[2019-01-23 05:12] LABS: #Eosinphils 0.1 thou/uL (0.0-0.7); #Lymphocytes 1.9 thou/uL (1.20-3.40); #Neutrophils 6.1 thou/uL (1.40-6.50); %Basophils 0.5 % (0.0-1.0); %Eosinophils 0.9 % (0.0-10.0); %Lymphocytes 20.9 % (21.0-51.0); %Monocytes 10.7 % (0.0-10.0); %Neutrophils 67.1 % (42.0-75.0); Hemoglobin 6.1 g/dL (14.0-18.0); Mean Corpuscular HGB CONC 33.2 g/dL (32.0-36.0); Mean Corpuscular Hemoglobin 30.5 pg (27.0-31.0); Mean Corpuscular Volume 92.1 fL (78.0-98.0); Mean Platelet Volume 7.2 fL (7.4-10.4); Platelet Count 373 thou/uL (130-400); RBC Distribution Width 12.5 % (11.5-14.5); White Blood Cell (WBC) Count 9.1 thou/uL (4.8-10.8)
[2019-01-23 05:38] LABS: Albumin 1.9 g/dL (3.5-5.0); Anion Gap 10 mmol/L (10-20); BUN (Urea Nitrogen) 31 mg/dL (8.9-20.6); BUN/Creatinine Ratio 9.42; Calc. Creatinine Clearance 35 mL/min (70-130); Calcium 7.6 mg/dL (7.8-10.44); Carbon Dioxide 29 mmol/L (22-29); Chloride 98 mmol/L (98-107); Estimated GFR-MDRD 21; Glucose 211 mg/dL (70-105); Phosphorus 3.4 mg/dL (2.3-4.7); Potassium 3.5 mmol/L (3.5-5.1); Sodium 133 mmol/L (136-145)
[2019-01-23] MEDS: HumaLOG 300 UNITS/3 ML VIAL SC PRN ×4 (06:14→21:19)
--- NOTE | 2019-01-23 06:56 | PDOC.FM ---
- Subjective Subjective: This morning the patient states he is doing well overall. His arm pain is moderately improved. Denies fevers, chills, sweats. No N/V/D, no decreased appetite. - Objective Vital Signs & Weight: Vital Signs (12 hours) Temp Pulse Resp BP Pulse Ox 01/23/19 04:00 98.1 F 99 16 153/82 H 95 01/23/19 00:00 98.1 F 99 16 146/82 H 98 01/22/19 20:22 98 01/22/19 20:00 98.1 F 93 16 133/73 98 Weight Admit Weight 78 kg Weight 81.647 kg Most Recent Monitor Data Heart Rate from ECG 90 NIBP 112/71 NIBP BP-Mean 84 Respiration from ECG 22 SpO2 97 I&O: 01/21/19 01/22/19 01/23/19 06:59 06:59 06:59 Intake Total 1792 3010 940 Output Total 925 Balance 1792 3010 15 Result Diagrams: 01/23/19 04:50 01/23/19 04:50 Phys Exam - Physical Examination Constitutional: NAD HEENT: PERRLA, moist MMs Respiratory: no wheezing, clear to auscultation bilateral Cardiovascular: RRR, no significant murmur, no rub Gastrointestinal: soft, non-tender, no distention, positive bowel sounds Musculoskeletal: no edema, pulses present strength 3/4 on the R Neurological: moves all 4 limbs Psychiatric: normal affect, A&O x 3 Skin: no rash, cap refill <2 seconds Dx/Plan (1) Acute renal failure Status: Acute (2) Basilic vein thrombosis Code(s): I82.619 - ACUTE EMBOLISM AND THROMBOSIS OF SUPERFIC VN UNSP UP EXTREM Status: Acute (3) CVA (cerebral vascular accident) Code(s): I63.9 - CEREBRAL INFARCTION, UNSPECIFIED Status: Acute (4) MSSA bacteremia Code(s): R78.81 - BACTEREMIA Status: Acute (5) Type 2 diabetes mellitus Status: Chronic (6) NSTEMI (non-ST elevated myocardial infarction) Code(s): I21.4 - NON-ST ELEVATION (NSTEMI) MYOCARDIAL INFARCTION Status: Suspected - Plan Plan: 43 yo M with poorly controlled DM now with MSSA bacteremia requiring long-term antibiotics # Fever - 100.6 01/21, bcx taken - will checked cx from line and peripheral - suspect atelectasis, added IC # Normocytic anemia - likely 2/2 many blood draws this week - started Epogen 01/20 - consider transfusion w/ dialysis tomorrow Basilic Vein Thrombosis (R)- resolved - Found on RUE US on 01/07, resolved on US 01/20 - still having pain, suspect thrombophlebitis vs complex pain syndrome - Monitor for other signs of thrombosis - applied Bengay, heating pad MSSA Bacteremia - uncertain etiology; pt denies drug use. Suspected endocarditis - continue Vancomycin SS - Dr. Sheets consulted, appreciate recs. Abx until 02/11 - Per Cardiology, no KOJO at this time and recommend outpatient follow up. - Right fourth digit showed swelling. No evidence of osteomyelitis - Wound care consulted - Will make CBC/CMP draws weekly on Mondays, HTN - titrating up on coreg 01/20, 01/22, 01/23 - also on lisinopril 01/20 Acute Renal failure progressing to ESRD - Continue Dialysis - Limited blood draws to weekly (Mondays) - Nephrology consulted, appreciate recommendations. - Creatinine does not seem to improve without dialysis - No improvement in urine output made and kaur discontinued - Patient will be impossible to place. Plan to continue treatment until well enough to make it back to [place] for supportive services. - started patient on epogen 01/20 Type 2 DM: - Accuchecks improved with some hypoglycemic episodes. - Continue to titrate to control, titrated to 15 U 70/30 BID on 01/20, 22 on 01/22 , 25 on 01/23 - HgA1c of 14.1 on admission CVA 2/2 septic emboli - persistent RUE weakness Scrotal Swelling - US nonspecific - No testicular etiology - Likely due to fluid status - Monitor HFrEF - EF 25-30% - Life vest planned per cardiology. - Friends will fund life vest. - Continue beta elodia NSTEMI- resolved - Initial Troponins elevated, no EKG changes - Echo showed LVEF of 25-30%, area of possible thrombus vs papillary mm - Dr. Lee recommended conservative therapy at this time and follow up as outpatient. Acute Metabolic Encephalopathy: resolved - CT head was negative - Likely 2/2 to HHS coma. - MRI of brain showed multiple small areas of infarction. - pt with RUE focal weakness. Continue PT/OT. Rhabdomyolysis, resolved - CK to 1200 on 01/05 Disposition: Continue current plan of care until antibiotic regimen is completed on 02/11 Addendum - Attending - Attending Attestation Date/Time: 01/23/19 0823 I personally evaluated the patient and discussed the management with Dr. Tapia. I agree with the History, Examination, Assessment and Plan documented above with any addition or exceptions noted below. Patient stable. There is some word he may be making more urine which would be a good sign. Continue HD and await 24 hour urine collection. He is more anemic this morning, will need some blood with HD. Vitals stable and afebrile. Continue abx therapy. Blood sugars improved on escalated Insulin regimen, continue to titrate as needed. Tolerating escalated anti-HTN therapy well.
[2019-01-23] MEDS: Carvedilol 6.25 MG TAB PO SCH (08:46)
[2019-01-23] MEDS ORDERED: VANCOMYCIN IVPB PRN (09:10)
[2019-01-23] MEDS: Aspirin 81 mg Enteric Coated Tablet PO SCH (09:44)
[2019-01-23] MEDS: Lisinopril 5 MG TAB PO SCH (09:44)
[2019-01-23] MEDS: Famotidine 20 MG TAB PO SCH (09:44)
[2019-01-23] MEDS: HumuLIN 70/30 (300 UNITS/3 ML VIAL) SC SCH ×2 (09:45→17:30)
[2019-01-23] MEDS: Methyl Salicylate/Menthol 85 GM TUBE TOP SCH ×2 (09:45→20:18)
[2019-01-23] MEDS: Heparin 5,000 UNITS/ML VIAL SC SCH ×2 (09:46→20:18)
[2019-01-23] MEDS: Clotrimazole 1 % Cream 30 GM TUBE TOP SCH ×2 (09:47→20:18)
--- NOTE | 2019-01-23 10:00 | PDOC.EVN ---
Event Note - Event Note Event Note: to be transfused 2 U with dialysis tomorrow
[2019-01-23] MEDS: Carvedilol 25 MG TAB PO SCH (17:31)
[2019-01-23 19:16] LABS: Body Surface Area 1.95
[2019-01-23 19:19] LABS: 24 Hr Creatinine 730.65 mg/24 hr (950-2490); Creatinine, Urine 30.13 mg/dL (63-166)
[2019-01-23 19:47] LABS: Creatinine, Urine 29.81 mg/dL (63-166)
[2019-01-23] MEDS: Atorvastatin Calcium 40 MG TAB PO SCH (20:15)
--- NOTE | 2019-01-24 05:37 | PDOC.FM ---
- Subjective Subjective: Patient states he is feeling well. He has no complaints today. R arm feels better, bengay is helping. No N/V/D or decreased appetite. Counseled on avoiding juices to help control glucose. - Objective Vital Signs & Weight: Vital Signs (12 hours) Temp Pulse Resp BP Pulse Ox 01/24/19 04:00 98.6 F 87 16 172/87 H 97 01/24/19 00:00 98.1 F 88 16 157/85 H 97 01/23/19 20:00 97.8 F 100 16 159/84 H 97 Weight Admit Weight 78 kg Weight 80.014 kg Most Recent Monitor Data Heart Rate from ECG 90 NIBP 112/71 NIBP BP-Mean 84 Respiration from ECG 22 SpO2 97 I&O: 01/22/19 01/23/19 01/24/19 06:59 06:59 06:59 Intake Total 3010 940 3250 Output Total 925 1550 Balance 3010 15 1700 Result Diagrams: 01/23/19 04:50 01/23/19 17:50 Phys Exam - Physical Examination Constitutional: NAD HEENT: moist MMs, sclera anicteric Respiratory: no wheezing, clear to auscultation bilateral Cardiovascular: RRR, no significant murmur Gastrointestinal: soft, non-tender, no distention, positive bowel sounds Musculoskeletal: no edema, pulses present Neurological: moves all 4 limbs 3/4 stave block roller on R, able to hold arm off bed, still weak Psychiatric: normal affect, A&O x 3 Skin: no rash, cap refill <2 seconds Dx/Plan (1) Acute renal failure Status: Acute (2) Basilic vein thrombosis Code(s): I82.619 - ACUTE EMBOLISM AND THROMBOSIS OF SUPERFIC VN UNSP UP EXTREM Status: Acute (3) CVA (cerebral vascular accident) Code(s): I63.9 - CEREBRAL INFARCTION, UNSPECIFIED Status: Acute (4) MSSA bacteremia Code(s): R78.81 - BACTEREMIA Status: Acute (5) Type 2 diabetes mellitus Status: Chronic (6) NSTEMI (non-ST elevated myocardial infarction) Code(s): I21.4 - NON-ST ELEVATION (NSTEMI) MYOCARDIAL INFARCTION Status: Suspected - Plan Plan: 43 yo M with poorly controlled DM now with MSSA bacteremia requiring long-term antibiotics Acute Renal failure progressing to ESRD - Continue Dialysis - Limited blood draws to weekly (Mondays) - Nephrology consulted, appreciate recommendations. - Creatinine does not seem to improve without dialysis - No improvement in urine output made and vincent discontinued - Patient will be impossible to place. Plan to continue treatment until well enough to make it back to [place] for supportive services. - started patient on epogen 01/20 - GFR 19 on 24 hr urine 01/23 # Fever- resolved - 100.6 01/21, bcx taken - checked cx from line and peripheral - suspect atelectasis, added IC # Normocytic anemia - likely 2/2 many blood draws this week - started Epogen 01/20 - 2U transfusion with Dialysis 01/24 Basilic Vein Thrombosis (R)- resolved - Found on RUE US on 01/07, resolved on US 01/20 - still having pain, suspect thrombophlebitis vs complex pain syndrome - Monitor for other signs of thrombosis - applied Bengay, heating pad MSSA Bacteremia - uncertain etiology; pt denies drug use. Suspected endocarditis - continue Vancomycin SS - Dr. Sheets consulted, appreciate recs. Abx until 02/11 - Per Cardiology, no KOJO at this time and recommend outpatient follow up. - Right fourth digit showed swelling. No evidence of osteomyelitis - Wound care consulted - Will make CBC/CMP draws weekly on Mondays, HTN - titrating up on coreg 01/20, 01/22, 01/23 - also on lisinopril 01/20 - now maxed on coreg 25 BID, 5 of lisinopril Type 2 DM: - Accuchecks improved with some hypoglycemic episodes. - Continue to titrate to control, titrated to 15 U 70/30 BID on 01/20, 22 on 01/22 , 25 on 01/23 - HgA1c of 14.1 on admission CVA 2/2 septic emboli - persistent RUE weakness Scrotal Swelling - US nonspecific - No testicular etiology - Likely due to fluid status - Monitor HFrEF - EF 25-30% - Life vest planned per cardiology. - Friends will fund life vest. - Continue beta elodia NSTEMI- resolved - Initial Troponins elevated, no EKG changes - Echo showed LVEF of 25-30%, area of possible thrombus vs papillary mm - Dr. Lee recommended conservative therapy at this time and follow up as outpatient. Acute Metabolic Encephalopathy: resolved - CT head was negative - Likely 2/2 to [facility]HS coma. - MRI of brain showed multiple small areas of infarction. - pt with RUE focal weakness. Continue PT/OT. Rhabdomyolysis, resolved - CK to 1200 on 01/05 Disposition: Continue current plan of care until antibiotic regimen is completed on 02/11 Addendum - Attending - Attending Attestation Date/Time: 01/24/19 1201 I personally evaluated the patient and discussed the management with Dr. Montez Tapia I agree with the History, Examination, Assessment and Plan documented above with any addition or exceptions noted below.
[2019-01-24 08:15] LABS: Vancomycin, Random 8.8 ug/mL (See Comment)
[2019-01-24] MEDS ORDERED: VANCOMYCIN IVPB PRN (08:38)
[2019-01-24] MEDS ORDERED: Vancomycin HCl 750 MG in Sodium Chloride 0.9% 250 ML 250 ML IVPB SCH (08:45)
[2019-01-24] MEDS ORDERED: Vancomycin HCl 500 MG in Sodium Chloride 0.9% 100 ML IVPB SCH (08:45)
[2019-01-24] MEDS ORDERED: Vancomycin HCl 1.25 GM in Sodium Chloride 0.9% 250 ML 250 ML IVPB SCH (08:45)
[2019-01-24] MEDS ORDERED: HOLD VANCOMYCIN FOR LEVEL >20 FS SCH (08:45)
[2019-01-24] MEDS: Vancomycin HCl 1 GM in Premix Bag 1 BAG IVPB SCH (10:58)
[2019-01-24] MEDS: Lisinopril 5 MG TAB PO SCH (12:37)
[2019-01-24] MEDS: Docusate 100 MG CAP PO PRN (12:37)
[2019-01-24] MEDS: Carvedilol 25 MG TAB PO SCH ×2 (12:37→16:59)
[2019-01-24] MEDS: Aspirin 81 mg Enteric Coated Tablet PO SCH (12:37)
[2019-01-24] MEDS: Famotidine 20 MG TAB PO SCH (12:38)
[2019-01-24] MEDS: Heparin 5,000 UNITS/ML VIAL SC SCH ×2 (12:38→19:40)
[2019-01-24] MEDS: HumuLIN 70/30 (300 UNITS/3 ML VIAL) SC SCH ×2 (12:39→18:02)
[2019-01-24] MEDS: Methyl Salicylate/Menthol 85 GM TUBE TOP SCH ×2 (12:44→19:33)
[2019-01-24] MEDS: Clotrimazole 1 % Cream 30 GM TUBE TOP SCH ×2 (12:44→19:33)
[2019-01-24] MEDS: Acetaminophen 325 MG TAB PO PRN (16:59)
[2019-01-24] MEDS ORDERED: Heparin 10,000 UNITS/ 10 ML VIAL ONE (18:00)
[2019-01-24] MEDS: HumaLOG 300 UNITS/3 ML VIAL SC PRN ×2 (18:01→19:40)
[2019-01-24] MEDS: Epoetin (ESRD) 20,000 UNITS/ML IVP SCH (18:02)
[2019-01-24] MEDS: Atorvastatin Calcium 40 MG TAB PO SCH (19:32)
[2019-01-25] MEDS: HumaLOG 300 UNITS/3 ML VIAL SC PRN ×3 (05:45→17:23)
--- NOTE | 2019-01-25 07:14 | PDOC.FM ---
- Subjective Subjective: This morning patient states his arm is feeling fine. He denies any N/V/D. Denies lightheadness. Tolerated dialysis yesterday without difficulty. No questions about course. - Objective Vital Signs & Weight: Vital Signs (12 hours) Temp Pulse Resp BP Pulse Ox 01/25/19 03:38 98.5 F 84 16 162/86 H 99 01/24/19 23:36 99.9 F H 85 14 148/80 H 97 01/24/19 19:40 98.8 F 87 12 109/69 97 Weight Admit Weight 78 kg Weight 77.2 kg Most Recent Monitor Data Heart Rate from ECG 90 NIBP 112/71 NIBP BP-Mean 84 Respiration from ECG 22 SpO2 97 I&O: 01/24/19 01/25/19 01/26/19 06:59 06:59 06:59 Intake Total 3250 2337 Output Total 1550 Balance 1700 2337 Result Diagrams: 01/23/19 04:50 01/23/19 17:50 Phys Exam - Physical Examination Constitutional: NAD HEENT: moist MMs, sclera anicteric Respiratory: no wheezing, clear to auscultation bilateral Cardiovascular: RRR, no significant murmur Gastrointestinal: soft, non-tender, no distention, positive bowel sounds Musculoskeletal: no edema, pulses present Neurological: moves all 4 limbs 3/5 strength on R arm Psychiatric: normal affect, A&O x 3 Skin: no rash, cap refill <2 seconds Dx/Plan (1) Acute renal failure Status: Acute (2) Basilic vein thrombosis Code(s): I82.619 - ACUTE EMBOLISM AND THROMBOSIS OF SUPERFIC VN UNSP UP EXTREM Status: Acute (3) CVA (cerebral vascular accident) Code(s): I63.9 - CEREBRAL INFARCTION, UNSPECIFIED Status: Acute (4) MSSA bacteremia Code(s): R78.81 - BACTEREMIA Status: Acute (5) Type 2 diabetes mellitus Status: Chronic (6) NSTEMI (non-ST elevated myocardial infarction) Code(s): I21.4 - NON-ST ELEVATION (NSTEMI) MYOCARDIAL INFARCTION Status: Suspected - Plan Plan: 43 yo M with poorly controlled DM now with MSSA bacteremia requiring long-term antibiotics 01/25 - no changes to course today - abx through 02/11 Acute Renal failure progressing to ESRD - Continue Dialysis - Limited blood draws to weekly (Mondays) - Nephrology consulted, appreciate recommendations. - Creatinine does not seem to improve without dialysis - No improvement in urine output made and kaur discontinued - Patient will be impossible to place. Plan to continue treatment until well enough to make it back to [place] for supportive services. - started patient on epogen 01/20 - GFR 19 on 24 hr urine 01/23 # Fever- resolved - 100.6 01/21, bcx taken - checked cx from line and peripheral - suspect atelectasis, added IC # Normocytic anemia - likely 2/2 many blood draws this week - started Epogen 01/20 - 2U transfusion with Dialysis 01/24 Basilic Vein Thrombosis (R)- resolved - Found on RUE US on 01/07, resolved on US 01/20 - still having pain, suspect thrombophlebitis vs complex pain syndrome - Monitor for other signs of thrombosis - applied Bengay, heating pad MSSA Bacteremia - uncertain etiology; pt denies drug use. Suspected endocarditis - continue Vancomycin SS - Dr. Sheets consulted, appreciate recs. Abx until 02/11 - Per Cardiology, no KOJO at this time and recommend outpatient follow up. - Right fourth digit showed swelling. No evidence of osteomyelitis - Wound care consulted - Will make CBC/CMP draws weekly on Mondays, HTN - titrating up on coreg 01/20, 01/22, 01/23 - also on lisinopril 01/20 - now maxed on coreg 25 BID, 5 of lisinopril Type 2 DM: - Accuchecks improved with some hypoglycemic episodes. - Continue to titrate to control, titrated to 15 U 70/30 BID on 01/20, 22 on 01/22 , 25 on 01/23 - HgA1c of 14.1 on admission CVA 2/2 septic emboli - persistent RUE weakness Scrotal Swelling - US nonspecific - No testicular etiology - Likely due to fluid status - Monitor HFrEF - EF 25-30% - Life vest planned per cardiology. - Friends will fund life vest. - Continue beta elodia NSTEMI- resolved - Initial Troponins elevated, no EKG changes - Echo showed LVEF of 25-30%, area of possible thrombus vs papillary mm - Dr. Lee recommended conservative therapy at this time and follow up as outpatient. Acute Metabolic Encephalopathy: resolved - CT head was negative - Likely 2/2 to [facility] coma. - MRI of brain showed multiple small areas of infarction. - pt with RUE focal weakness. Continue PT/OT. Rhabdomyolysis, resolved - CK to 1200 on 01/05 Disposition: Continue current plan of care until antibiotic regimen is completed on 02/11 Addendum - Attending - Attending Attestation Date/Time: 01/25/19 1422 I personally evaluated the patient and discussed the management with Dr. Lanny Tapia I agree with the History, Examination, Assessment and Plan documented above with any addition or exceptions noted below.Pt would benefit continued OT/PT s/p CVA.
[2019-01-25] MEDS: Famotidine 20 MG TAB PO SCH (08:45)
[2019-01-25] MEDS: Acetaminophen 325 MG TAB PO PRN ×2 (08:45→17:23)
[2019-01-25] MEDS: Aspirin 81 mg Enteric Coated Tablet PO SCH (08:45)
[2019-01-25] MEDS: Lisinopril 5 MG TAB PO SCH (08:45)
[2019-01-25] MEDS: Carvedilol 25 MG TAB PO SCH ×2 (08:45→17:23)
[2019-01-25] MEDS ORDERED: Vancomycin HCl 1 GM in Premix Bag 1 BAG IVPB SCH (08:45)
[2019-01-25] MEDS: Heparin 5,000 UNITS/ML VIAL SC SCH ×2 (08:45→21:38)
[2019-01-25] MEDS: Clotrimazole 1 % Cream 30 GM TUBE TOP SCH ×2 (08:46→21:38)
[2019-01-25] MEDS: HumuLIN 70/30 (300 UNITS/3 ML VIAL) SC SCH ×2 (08:46→17:23)
[2019-01-25] MEDS: Methyl Salicylate/Menthol 85 GM TUBE TOP SCH ×2 (08:47→21:38)
[2019-01-25] MEDS ORDERED: traMADol HCl 50 MG TAB PO SCH (13:00)
[2019-01-25] MEDS: Atorvastatin Calcium 40 MG TAB PO SCH (21:38)
[2019-01-26 05:10] LABS: Hemoglobin 8.3 g/dL (14.0-18.0); Mean Corpuscular HGB CONC 33.7 g/dL (32.0-36.0); Mean Corpuscular Hemoglobin 29.9 pg (27.0-31.0); Mean Corpuscular Volume 88.7 fL (78.0-98.0); Mean Platelet Volume 7.1 fL (7.4-10.4); Platelet Count 409 thou/uL (130-400); RBC Distribution Width 13.9 % (11.5-14.5); Red Blood Cell (RBC) Count 2.77 mill/uL (4.70-6.10); White Blood Cell (WBC) Count 8.7 thou/uL (4.8-10.8)
[2019-01-26 05:28] LABS: Anion Gap 11 mmol/L (10-20); BUN (Urea Nitrogen) 44 mg/dL (8.9-20.6); Calc. Creatinine Clearance 26 mL/min (70-130); Calcium 8.1 mg/dL (7.8-10.44); Carbon Dioxide 27 mmol/L (22-29); Chloride 98 mmol/L (98-107); Estimated GFR-MDRD 17; Glucose 102 mg/dL (70-105); Potassium 3.2 mmol/L (3.5-5.1); Sodium 133 mmol/L (136-145)
--- NOTE | 2019-01-26 08:20 | PDOC.FM ---
- Subjective Subjective: This morning patient states that his R arm is causing stabbing pain which comes and goes. His strength is improving. Denies any changes in appetite. No N/V/D. - Objective Vital Signs & Weight: Vital Signs (12 hours) Temp Pulse Resp BP Pulse Ox 01/26/19 07:43 98 F 81 16 172/94 H 98 01/26/19 04:00 97.5 F L 78 16 169/95 H 99 01/25/19 23:59 98.4 F 78 16 133/82 98 Weight Admit Weight 78 kg Weight 76.5 kg Most Recent Monitor Data Heart Rate from ECG 90 NIBP 112/71 NIBP BP-Mean 84 Respiration from ECG 22 SpO2 97 I&O: 01/25/19 01/26/19 01/27/19 06:59 06:59 06:59 Intake Total 2337 1950 Output Total 650 Balance 2337 1300 Result Diagrams: 01/26/19 04:46 01/26/19 04:45 Phys Exam - Physical Examination Constitutional: NAD HEENT: moist MMs, sclera anicteric Respiratory: no wheezing, clear to auscultation bilateral Cardiovascular: RRR, no significant murmur Gastrointestinal: soft, non-tender, no distention, positive bowel sounds Musculoskeletal: no edema, pulses present Neurological: moves all 4 limbs 3/5 strength in R arm Psychiatric: A&O x 3 Skin: no rash, cap refill <2 seconds Deviation from normal: redness noted at R 4th finger, no warmth or TTP Dx/Plan (1) Acute renal failure Status: Acute (2) Basilic vein thrombosis Code(s): I82.619 - ACUTE EMBOLISM AND THROMBOSIS OF SUPERFIC VN UNSP UP EXTREM Status: Acute (3) CVA (cerebral vascular accident) Code(s): I63.9 - CEREBRAL INFARCTION, UNSPECIFIED Status: Acute (4) MSSA bacteremia Code(s): R78.81 - BACTEREMIA Status: Acute (5) Type 2 diabetes mellitus Status: Chronic (6) NSTEMI (non-ST elevated myocardial infarction) Code(s): I21.4 - NON-ST ELEVATION (NSTEMI) MYOCARDIAL INFARCTION Status: Suspected - Plan Plan: 43 yo M with poorly controlled DM now with MSSA bacteremia requiring long-term antibiotics 01/26 - will add gabapentin to help with R arm pain, amlodipine to help with BP control - otherwise no changes to course - abx through 02/11 Acute Renal failure progressing to ESRD - Continue Dialysis - Limited blood draws to weekly (Mondays) - Nephrology consulted, appreciate recommendations. - Creatinine does not seem to improve without dialysis - No improvement in urine output made and kaur discontinued - Patient will be impossible to place. Plan to continue treatment until well enough to make it back to [place] for supportive services. - started patient on epogen 01/20 - GFR 19 on 24 hr urine 01/23 # Fever- resolved - 100.6 01/21, bcx no growth - checked cx from line and peripheral - suspect atelectasis, added IC # Normocytic anemia - likely 2/2 many blood draws this week - started Epogen 01/20 - 2U transfusion with Dialysis 01/24 Basilic Vein Thrombosis (R)- resolved - Found on RUE US on 01/07, resolved on US 01/20 - still having pain, suspect thrombophlebitis vs complex pain syndrome - Monitor for other signs of thrombosis - applied Bengay, heating pad MSSA Bacteremia - uncertain etiology; pt denies drug use. Suspected endocarditis - continue Vancomycin SS - Dr. Sheets consulted, appreciate recs. Abx until 02/11 - Per Cardiology, no KOJO at this time and recommend outpatient follow up. - Right fourth digit showed swelling. No evidence of osteomyelitis - Wound care consulted - Will make CBC/CMP draws weekly on Mondays, HTN - titrating up on coreg 01/20, 01/22, 01/23 - also on lisinopril 01/20 - now maxed on coreg 25 BID, 5 of lisinopril Type 2 DM: - Accuchecks improved with some hypoglycemic episodes. - Continue to titrate to control, titrated to 15 U 70/30 BID on 01/20, 22 on 01/22 , 25 on 01/23 - HgA1c of 14.1 on admission CVA 2/2 septic emboli - persistent RUE weakness Scrotal Swelling - US nonspecific - No testicular etiology - Likely due to fluid status - Monitor HFrEF - EF 25-30% - Life vest planned per cardiology. - Friends will fund life vest. - Continue beta elodia NSTEMI- resolved - Initial Troponins elevated, no EKG changes - Echo showed LVEF of 25-30%, area of possible thrombus vs papillary mm - Dr. Lee recommended conservative therapy at this time and follow up as outpatient. Acute Metabolic Encephalopathy: resolved - CT head was negative - Likely 2/2 to [facility]HS coma. - MRI of brain showed multiple small areas of infarction. - pt with RUE focal weakness. Continue PT/OT. Rhabdomyolysis, resolved - CK to 1200 on 01/05 Disposition: Continue current plan of care until antibiotic regimen is completed on 02/11 Addendum - Attending - Attending Attestation Date/Time: 01/26/19 0258 I personally evaluated the patient and discussed the management with Dr. Tapia. I agree with the History, Examination, Assessment and Plan documented above with any addition or exceptions noted below. The patient is doing well. Adjusting blood pressure medication. Pt will continue antibiotics until 02/11.
[2019-01-26] MEDS: Heparin 5,000 UNITS/ML VIAL SC SCH ×2 (08:30→20:52)
[2019-01-26] MEDS: HumuLIN 70/30 (300 UNITS/3 ML VIAL) SC SCH ×2 (08:30→17:30)
[2019-01-26] MEDS: Lisinopril 5 MG TAB PO SCH (08:32)
[2019-01-26] MEDS: Acetaminophen 325 MG TAB PO PRN (08:32)
[2019-01-26] MEDS: Carvedilol 25 MG TAB PO SCH ×2 (08:33→17:30)
[2019-01-26] MEDS: Methyl Salicylate/Menthol 85 GM TUBE TOP SCH ×2 (08:33→22:35)
[2019-01-26] MEDS: Famotidine 20 MG TAB PO SCH (08:33)
[2019-01-26] MEDS: Aspirin 81 mg Enteric Coated Tablet PO SCH (08:33)
[2019-01-26] MEDS: Amlodipine 5 MG TAB PO SCH (09:29)
[2019-01-26] MEDS: Gabapentin 100 MG CAP PO SCH (09:29)
[2019-01-26] MEDS: Clotrimazole 1 % Cream 30 GM TUBE TOP SCH ×2 (13:39→22:34)
[2019-01-26] MEDS: HumaLOG 300 UNITS/3 ML VIAL SC PRN ×2 (17:29→20:52)
[2019-01-26] MEDS ORDERED: Clopidogrel Bisulfate 75 MG TAB ONE (19:42)
--- NOTE | 2019-01-26 20:17 | PRG ---
DATE OF SERVICE: 01/26/2019 SUBJECTIVE: The patient is seen and examined. Complaining of right upper extremity pain. Otherwise, the patient seems to be hemodynamically stable. OBJECTIVE: VITAL SIGNS: Afebrile, temperature 98.4, pulse 83, respiratory rate of 16, and O2 saturation of 98% with blood pressure 141/82. HEENT: Unremarkable. CARDIOVASCULAR SYSTEM: First and second heart sounds were heard. RESPIRATORY SYSTEM: Clear to auscultation. DIGESTIVE SYSTEM: Revealed a benign abdomen. Positive bowel sounds. EXTREMITIES: No peripheral edema. SKIN: No new gross rash or lymphatics. No peripheral lymphadenopathy. LABORATORY INVESTIGATION: Significant for recent 6-hour creatinine clearance of 12. IMPRESSION: 1. End-stage renal disease, on hemodialysis. 2. Right upper extremity pain, query cause. 3. Anemia of chronic kidney disease. PLAN: 1. Continue current renal replacement therapy. 2. Erythropoiesis stimulating agents. 3. Surgical consult for long-term dialysis access creation. 4. Further management will be dependent on the clinical course. Job ID: [id number]
[2019-01-26] MEDS: Atorvastatin Calcium 40 MG TAB PO SCH (20:51)
[2019-01-27] MEDS: Docusate 100 MG CAP PO PRN (01:33)
--- NOTE | 2019-01-27 07:13 | PDOC.FM ---
- Subjective Subjective: Patient states he is feeling well this morning, he is tolerating PO intake without difficulty. States he had some hard stool yesterday, no blood with BM. Informed patient surgery would be coming by to eval for fistula for long-term dialysis access, patient is in understanding. - Objective Vital Signs & Weight: Vital Signs (12 hours) Temp Pulse Resp BP Pulse Ox 01/27/19 04:00 98.5 F 85 16 160/80 H 95 01/26/19 23:26 99 F 88 16 146/79 H 96 01/26/19 19:46 98.5 F 87 16 135/77 98 Weight Admit Weight 78 kg Weight 75.931 kg Most Recent Monitor Data Heart Rate from ECG 90 NIBP 112/71 NIBP BP-Mean 84 Respiration from ECG 22 SpO2 97 I&O: 01/26/19 01/27/19 01/28/19 06:59 06:59 06:59 Intake Total 1950 2050 Output Total 650 3605 Balance 1300 -1555 Result Diagrams: 01/26/19 04:46 01/26/19 04:45 Phys Exam - Physical Examination Constitutional: NAD HEENT: moist MMs, sclera anicteric Respiratory: no wheezing, clear to auscultation bilateral Cardiovascular: RRR, no significant murmur Gastrointestinal: soft, non-tender, no distention, positive bowel sounds Musculoskeletal: no edema, pulses present Neurological: moves all 4 limbs 3/5 strength on R arm, sensation intact Psychiatric: normal affect, A&O x 3 Skin: no rash, cap refill <2 seconds Dx/Plan (1) Acute renal failure Status: Acute (2) Basilic vein thrombosis Code(s): I82.619 - ACUTE EMBOLISM AND THROMBOSIS OF SUPERFIC VN UNSP UP EXTREM Status: Acute (3) CVA (cerebral vascular accident) Code(s): I63.9 - CEREBRAL INFARCTION, UNSPECIFIED Status: Acute (4) MSSA bacteremia Code(s): R78.81 - BACTEREMIA Status: Acute (5) Type 2 diabetes mellitus Status: Chronic (6) NSTEMI (non-ST elevated myocardial infarction) Code(s): I21.4 - NON-ST ELEVATION (NSTEMI) MYOCARDIAL INFARCTION Status: Suspected - Plan Plan: 43 yo M with poorly controlled DM, HTN now with MSSA bacteremia requiring long- term antibiotics 4/ - surgery consulted for long-term access - replace potassium - abx through 02/11 Acute Renal failure progressing to ESRD - Continue Dialysis - Limited blood draws to weekly (Mondays) - Nephrology consulted, appreciate recommendations. - Creatinine does not seem to improve without dialysis - No improvement in urine output made and kaur discontinued - Patient will be impossible to place. Plan to continue treatment until well enough to make it back to [place] for supportive services. - started patient on epogen 01/20 - GFR 19 on 24 hr urine 01/23 # Fever- resolved - 100.6 01/21, bcx no growth - checked cx from line and peripheral - suspect atelectasis, added IC # Normocytic anemia - likely /2 many blood draws this week - started Epogen 01/20 - 2U transfusion with Dialysis 01/24 Basilic Vein Thrombosis (R)- resolved - Found on RUE US on 01/07, resolved on US 01/20 - still having pain, suspect thrombophlebitis vs complex pain syndrome - Monitor for other signs of thrombosis - applied Bengay, heating pad - added gabapentin MSSA Bacteremia - uncertain etiology; pt denies drug use. Suspected endocarditis - continue Vancomycin SS - Dr. Sheets consulted, appreciate recs. Abx until 02/11 - Per Cardiology, no KOJO at this time and recommend outpatient follow up. - Right fourth digit showed swelling. No evidence of osteomyelitis - Wound care consulted - Will make CBC/CMP draws weekly on Mondays, HTN - titrating up on coreg 01/20, 01/22, 01/23 - also on lisinopril 01/20 - now maxed on coreg 25 BID, 5 of lisinopril Type 2 DM: - Accuchecks improved with some hypoglycemic episodes. - Continue to titrate to control, titrated to 15 U 70/30 BID on 01/20, 22 on 01/22 , 25 on 01/23 - HgA1c of 14.1 on admission CVA 2/2 septic emboli - persistent RUE weakness Scrotal Swelling - US nonspecific - No testicular etiology - Likely due to fluid status - Monitor HFrEF - EF 25-30% - Life vest planned per cardiology. - Friends will fund life vest. - Continue beta elodia NSTEMI- resolved - Initial Troponins elevated, no EKG changes - Echo showed LVEF of 25-30%, area of possible thrombus vs papillary mm - Dr. Lee recommended conservative therapy at this time and follow up as outpatient. Acute Metabolic Encephalopathy: resolved - CT head was negative - Likely 2/2 to [facility]HS coma. - MRI of brain showed multiple small areas of infarction. - pt with RUE focal weakness. Continue PT/OT. Rhabdomyolysis, resolved - CK to 1200 on 01/05 Disposition: Continue current plan of care until antibiotic regimen is completed on 02/11 Addendum - Attending - Attending Attestation Date/Time: 01/27/19 0061 I personally evaluated the patient and discussed the management with Dr. Tapia. I agree with the History, Examination, Assessment and Plan documented above with any addition or exceptions noted below. The patient was seen in dialysis. Surgery is being consulted for AV fistula placement. Pt will continue antibiotics for endocarditis.
[2019-01-27 09:01] LABS: Vancomycin, Random 7.6 ug/mL (See Comment)
[2019-01-27] MEDS ORDERED: Docusate 100 MG CAP PO SCH (09:45)
[2019-01-27] MEDS: Acetaminophen 325 MG TAB PO PRN (10:04)
[2019-01-27] MEDS: Gabapentin 100 MG CAP PO SCH (10:04)
[2019-01-27] MEDS: Vancomycin HCl 1 GM in Premix Bag 1 BAG IVPB SCH (10:13)
[2019-01-27] MEDS: Amlodipine 5 MG TAB PO SCH (12:32)
[2019-01-27] MEDS: Potassium Chloride 20 MEQ TAB PO SCH (12:32)
[2019-01-27] MEDS: Lisinopril 5 MG TAB PO SCH (12:32)
[2019-01-27] MEDS: Aspirin 81 mg Enteric Coated Tablet PO SCH (12:32)
[2019-01-27] MEDS: Carvedilol 25 MG TAB PO SCH ×2 (12:32→17:16)
[2019-01-27] MEDS: Heparin 5,000 UNITS/ML VIAL SC SCH ×2 (12:33→20:26)
[2019-01-27] MEDS: Methyl Salicylate/Menthol 85 GM TUBE TOP SCH ×2 (12:33→20:28)
[2019-01-27] MEDS: Famotidine 20 MG TAB PO SCH (12:33)
[2019-01-27] MEDS: Clotrimazole 1 % Cream 30 GM TUBE TOP SCH ×2 (12:33→20:27)
[2019-01-27] MEDS: HumuLIN 70/30 (300 UNITS/3 ML VIAL) SC SCH ×2 (12:34→17:16)
--- NOTE | 2019-01-27 15:34 | ULT ---
ULTRASOUND VESSEL MAPPING DIALYSIS ACCESS 01/27/19 HISTORY: Chronic kidney disease, stage V. COMPARISON: None. TECHNIQUE: Real time rogers scale color doppler and spectral analysis of the bilateral upper extremity vascular sy stem was performed. RIGHT UPPER EXTREMITY BRACHIAL ARTERY: 4.6 mm RADIAL ARTERY: 2.4 mm ULNAR ARTERY: 2.1 mm CEPHALIC VEIN Proximal Arm: 2.9 mm Mid Arm: 2.1 mm Distal Arm: 1.9 mm Antecubital Fossa: 2.7 mm Proximal Forearm: 1.7 mm Mid Forearm: 1.4 mm Distal Forearm: 1.2 mm BASILIC VEIN Proximal Arm: 4.4 mm Mid Arm: 3.6 mm Distal Arm: 3.5 mm Antecubital Fossa: 3.9 mm Proximal Forearm: 1.7 mm Mid Forearm: 1.0 mm Distal Forearm: 1.0 mm LEFT UPPER EXTREMITY BRACHIAL ARTERY: 4.9 mm RADIAL ARTERY: 2.4 mm ULNAR ARTERY: 3.1 mm CEPHALIC VEIN Proximal Arm: 2.7 mm Mid Arm: 1.7 mm Distal Arm: 1.5 mm Antecubital Fossa: 3.3 mm Proximal Forearm: 3.2 mm Mid Forearm: 1.7 mm Distal Forearm: 1.5 mm BASILIC VEIN Proximal Arm: 1.6 mm Mid Arm: 2.1 mm Distal Arm: 2.8 mm Antecubital Fossa: 4.1 mm Proximal Forearm: 0.8 mm Mid Forearm: 1.5 mm Distal Forearm: 0.8 mm IMPRESSION: Vascular size as above. POS: [facility]
[2019-01-27] MEDS: HumaLOG 300 UNITS/3 ML VIAL SC PRN (16:38)
[2019-01-27] MEDS: Epoetin (ESRD) 20,000 UNITS/ML SC SCH (17:16)
[2019-01-27] MEDS: Epoetin (ESRD) 20,000 UNITS/ML IVP SCH (17:33)
[2019-01-27] MEDS: Atorvastatin Calcium 40 MG TAB PO SCH (20:26)
--- NOTE | 2019-01-27 23:08 | CON ---
DATE OF CONSULTATION: REASON FOR CONSULTATION: Need for permanent dialysis access. HISTORY OF PRESENT ILLNESS: Mr. Blevins is a 43-year-old diabetic, who was found down for an unknown duration at home. He was brought into the hospital and found to be in DKA, rhabdomyolysis, and acute renal failure. He has been on dialysis since his admission. He had Staph bacteremia of unclear source and is on long-term antibiotics for this. He initially had a femoral catheter placed for emergency dialysis and then a right subclavian catheter placed by Dr. Peralta on the . He underwent dialysis this morning and had almost 2 L of fluid taken off. He is making some urine on his own now, but his building cleaner does not anticipate that he will be coming off dialysis in the near future. PAST MEDICAL HISTORY: Diabetes. No known history of renal problems prior to this admission. PAST SURGICAL HISTORY: Dialysis catheters during this admission, otherwise none. FAMILY HISTORY: None. SOCIAL HISTORY: The patient denies drug, alcohol, or tobacco use prior to admission. REVIEW OF SYSTEMS: Ten system review of systems is negative except per HPI. PHYSICAL EXAMINATION: VITAL SIGNS: The patient has been afebrile. Heart rate 79, respirations 16, 99% saturated on room air, and blood pressure 136/79. GENERAL: Reveals a tired-appearing, drowsy man, in no acute distress. He is not flushed or toxic in appearance. He is not jaundiced or icteric. HEENT: Unremarkable. NECK: Supple without lymphadenopathy or thyroid nodules. HEART: Regular in its rate and rhythm without murmurs, rubs, or gallops. LUNGS: Clear to auscultation bilaterally. ABDOMEN: Soft, nontender, and nondistended. EXTREMITIES: Warm and well perfused without edema. He is significantly weak on the right side with inability to fully close or open his hand and able to lift his arm against gravity and very little resistance. He has basically full strength on the left side. PSYCHIATRIC: Alert, oriented, and appropriate. Conversing through a [place] control technician. He has palpable cephalic veins in both forearms and antecubital veins as well. LABORATORY DATA: He was transfused a couple of days ago for hemoglobin of 6, hemoglobin yesterday was up to 8.3, white count 8.7, and platelets 409. Blood sugars have ranged from 149 to 272 over the past 24 hours. BMP yesterday showed potassium of 3.2, BUN and creatinine of 44 and 3.98. Random vancomycin level this morning was 7.6. MEDICATIONS: He is on, 1. Sliding scale vancomycin. 2. Amlodipine. 3. Aspirin. 4. Lipitor. 5. Coreg. 6. Clotrimazole cream. 7. Docusate. 8. Epogen. 9. Pepcid. 10. Neurontin. 11. Sliding scale insulin. 12. 70/30 insulin. 13. Subcu heparin. 14. Lisinopril. 15. Potassium. 16. Plavix was discontinued yesterday. IMAGING STUDIES: Vein mapping shows good sized upper arm, basilic veins on both sides, small but potentially usable cephalic veins in both forearms. He did have a DVT in his basilic vein earlier last month, but this was absent on repeat ultrasound. He also had multiple small strokes on MRI in the right and left centrum semiovale, more on the left than on the right, suspected to be septic emboli induced. Blood cultures on the were mostly positive for Staph aureus, but repeat cultures on the and were all negative. ASSESSMENT: Multiple medical problems including renal failure, which has not resolved during this hospitalization. He has a tunneled catheter in place, but this is in the right subclavian position and will need to be moved to the internal jugular position to minimize risk of subclavian stenosis. He will also need an AV fistula for long-term dialysis. He is right-handed, but is mostly using his left hand now because of his dense hemiparesis on the right, so we will preferably place this on the right side. I discussed both of these procedure with the patient using a [place] diplomatic interpreter/translator and he wishes to proceed. Inherent risks include, but are not limited to, bleeding, infection, risks of anesthesia, hemothorax, pneumothorax, failure of the fistula to mature, need for other procedures to obtain working fistula, and arterial steal which can cause ischemia to the hand. He understands and accepts these risks. We will make him n.p.o. after midnight. He is on scheduled vancomycin. I will also order Ancef on-call to the OR since he had MSSA on cultures. All of his questions were answered. Job ID: [id number]
[2019-01-28] MEDS ORDERED: Dextrose 50% Abboject 50 ML SYRINGE SLOW IVP SCH ×2 (06:30)
--- NOTE | 2019-01-28 07:20 | PDOC.FM ---
- Subjective Subjective: This morning patient states he is feeling well. He denies N/V/D. The patient states his foot drop has been going on since the time his initial insult, same time as R arm weakness. He feels the strength in his R arm is improving. The patient has a few questions regarding the AV fistula which were answered. - Objective Vital Signs & Weight: Vital Signs (12 hours) Temp Pulse Resp BP Pulse Ox 01/28/19 04:00 98.7 F 82 18 125/75 96 01/28/19 00:00 98.9 F 82 18 121/78 96 01/27/19 20:00 98.8 F 84 18 135/80 100 Weight Admit Weight 78 kg Weight 71.985 kg Most Recent Monitor Data Heart Rate from ECG 90 NIBP 112/71 NIBP BP-Mean 84 Respiration from ECG 22 SpO2 97 I&O: 01/27/19 01/28/19 01/29/19 06:59 06:59 06:59 Intake Total 2050 500 Output Total 3605 2700 Balance -1555 -2200 Result Diagrams: 01/26/19 04:46 01/26/19 04:45 Phys Exam - Physical Examination Constitutional: NAD HEENT: moist MMs, sclera anicteric Respiratory: no wheezing, clear to auscultation bilateral Cardiovascular: RRR, no significant murmur Gastrointestinal: soft, non-tender, no distention, positive bowel sounds Musculoskeletal: no edema, pulses present 3/5 strength at R arm Psychiatric: normal affect, A&O x 3 Skin: no rash, cap refill <2 seconds Dx/Plan (1) Acute renal failure Status: Acute (2) Basilic vein thrombosis Code(s): I82.619 - ACUTE EMBOLISM AND THROMBOSIS OF SUPERFIC VN UNSP UP EXTREM Status: Acute (3) CVA (cerebral vascular accident) Code(s): I63.9 - CEREBRAL INFARCTION, UNSPECIFIED Status: Acute (4) MSSA bacteremia Code(s): R78.81 - BACTEREMIA Status: Acute (5) Type 2 diabetes mellitus Status: Chronic (6) NSTEMI (non-ST elevated myocardial infarction) Code(s): I21.4 - NON-ST ELEVATION (NSTEMI) MYOCARDIAL INFARCTION Status: Suspected - Plan Plan: 43 yo M with poorly controlled DM, HTN now with MSSA bacteremia requiring long- term antibiotics 4/3 - surgery consulted, plan for AV fistula, tunnel cath today - abx through 02/11 Acute Renal failure progressing to ESRD - Continue Dialysis - Limited blood draws to weekly (Mondays) - Nephrology consulted, appreciate recommendations. - Patient will be impossible to place. Plan to continue treatment until well enough to make it back to [place] for supportive services. - started patient on epogen 01/20 - GFR 19 on 24 hr urine 01/23 # Normocytic anemia - started Epogen 01/20 - 2U transfusion with Dialysis 01/24 Basilic Vein Thrombosis (R)- resolved - Found on RUE US on 01/07, resolved on US 01/20 - applied Bengay, heating pad, gabepentin MSSA Bacteremia - uncertain etiology; pt denies drug use. Suspected endocarditis - continue Vancomycin SS - Dr. Sheets consulted, appreciate recs. Abx until 02/11 - Per Cardiology, no KOJO at this time and recommend outpatient follow up. - Right fourth digit showed swelling. No evidence of osteomyelitis - Wound care consulted HTN - titrated up on coreg, added amlodipine - lisinopril Type 2 DM: - Accuchecks improved with some hypoglycemic episodes. - Continue to titrate to control, titrated to 15 U 70/30 BID on 01/20, 22 on 01/22 , 25 on 01/23 - HgA1c of 14.1 on admission CVA 2/2 septic emboli - persistent RUE weakness Scrotal Swelling - US nonspecific - No testicular etiology - Likely due to fluid status HFrEF - EF 25-30% - Life vest planned per cardiology. - Friends will fund life vest. - Continue beta elodia NSTEMI- resolved - Initial Troponins elevated, no EKG changes - Echo showed LVEF of 25-30%, area of possible thrombus vs papillary mm - Dr. Lee recommended conservative therapy at this time and follow up as outpatient. Acute Metabolic Encephalopathy: resolved - CT head was negative - Likely 2/2 to HHS coma. - MRI of brain showed multiple small areas of infarction. - pt with RUE focal weakness. Continue PT/OT. Rhabdomyolysis, resolved - CK to 1200 on 01/05 Disposition: Continue current plan of care until antibiotic regimen is completed on 02/11 Addendum - Attending - Attending Attestation Date/Time: 01/28/19 1241 I personally evaluated the patient and discussed the management with Dr. Tapia. I agree with the History, Examination, Assessment and Plan documented above with any addition or exceptions noted below. Pt getting AV fistula this morning. Will continue antibiotics until 02/11. Dialysis per Dr. Schrader.
[2019-01-28] MEDS ORDERED: Fentanyl 100 MCG/2 ML VIAL ONE (08:20)
[2019-01-28] MEDS ORDERED: Propofol 1,000 MG/100 ML VIAL IV ONE (08:21)
[2019-01-28] MEDS ORDERED: Lidocaine 2% PF 5 ML VIAL ONE (08:25)
[2019-01-28] MEDS ORDERED: Heparin 5,000 UNITS/ML VIAL ONE (08:25)
[2019-01-28] MEDS ORDERED: Protamine Sulfate 50 MG/5 ML VIAL ONE (08:25)
[2019-01-28] MEDS ORDERED: Bupivacaine/Epinephrine 0.25% 30 ML VIAL ONE (08:25)
[2019-01-28] MEDS ORDERED: Heparin 10,000 UNITS/1 ML VIAL ONE (09:38)
[2019-01-28] MEDS ORDERED: Heparin 10,000 UNITS/ 10 ML VIAL ONE (10:07)
[2019-01-28] MEDS: HumuLIN 70/30 (300 UNITS/3 ML VIAL) SC SCH ×2 (11:00→16:21)
[2019-01-28] MEDS: Clotrimazole 1 % Cream 30 GM TUBE TOP SCH ×2 (11:01→20:25)
[2019-01-28] MEDS: Methyl Salicylate/Menthol 85 GM TUBE TOP SCH ×2 (11:01→20:26)
[2019-01-28] MEDS: Heparin 5,000 UNITS/ML VIAL SC SCH ×2 (11:01→20:25)
[2019-01-28] MEDS: Aspirin 81 mg Enteric Coated Tablet PO SCH (11:07)
--- NOTE | 2019-01-28 12:42 | RAD ---
SINGLE VIEW OF THE CHEST: Comparison: 01-08-19 History: Line placement. FINDINGS: Single view of the chest shows a normal sized cardiomediastinal silhouette. There is a right IJ dialy sis catheter with its tip in the superior vena cava. No pneumothorax is seen. There is no evidence of consolidation, mass, or pleural effusion. IMPRESSION: Status post dialysis catheter placement without evidence of complication. POS: GENI
[2019-01-28] MEDS: Amlodipine 5 MG TAB PO SCH (13:23)
[2019-01-28] MEDS: Carvedilol 25 MG TAB PO SCH ×2 (13:23→16:21)
[2019-01-28] MEDS: Potassium Chloride 20 MEQ TAB PO SCH (13:23)
[2019-01-28] MEDS: Lisinopril 5 MG TAB PO SCH (13:24)
[2019-01-28] MEDS: Gabapentin 100 MG CAP PO SCH (13:24)
[2019-01-28] MEDS: Famotidine 20 MG TAB PO SCH (13:24)
[2019-01-28] MEDS: Acetaminophen 325 MG TAB PO PRN ×2 (13:25→20:25)
[2019-01-28] MEDS ORDERED: Bupivacaine HCl 0.5%/Epinephrine 1:200,000/PF 30 ml Vial ONE (14:55)
[2019-01-28] MEDS ORDERED: PROPOFOL 200 MG/20 ML VIAL ONE (15:50)
[2019-01-28] MEDS ORDERED: Glycopyrrolate 0.2 MG/ML 5 ML SYRINGE ONE (15:50)
[2019-01-28] MEDS ORDERED: Ondansetron PF 4 MG/2 ML Vial ONE (15:50)
[2019-01-28] MEDS: Atorvastatin Calcium 40 MG TAB PO SCH (20:25)
--- NOTE | 2019-01-28 21:01 | PRG ---
DATE OF SERVICE: 01/28/2019 SUBJECTIVE: The patient is seen and examined, sleepy but arousable, seems to be doing much better. Noted with the following vital signs. OBJECTIVE: VITAL SIGNS: Afebrile, temperature 99.3, pulse 84, respiratory rate of 18, O2 saturations are 97%, and blood pressure are 116/73. HEENT: Unremarkable. CARDIOVASCULAR SYSTEM: First and second heart sounds were heard. RESPIRATORY SYSTEM: Clear to auscultation. DIGESTIVE SYSTEM: Revealed a benign abdomen. Positive bowel sounds. EXTREMITIES: No peripheral edema. SKIN: No new gross rash. IMPRESSION: End-stage renal disease, hemodialysis dependent. PLAN: 1. The patient to continue with current hemodialysis schedule. 2. Longtime dialysis access has been established and previous tunnelled subclavian catheter was swept out and a tunneled IJ catheter was placed. 3. Further management to be dependent on the clinical course. Job ID: [id number]
[2019-01-28] MEDS: HumaLOG 300 UNITS/3 ML VIAL SC PRN (22:00)
[2019-01-28] MEDS ORDERED: HYDROcodone/Acetaminophen 5/325 mg Tablet PO SCH (23:45)
[2019-01-29] MEDS: HumaLOG 300 UNITS/3 ML VIAL SC PRN (06:13)
[2019-01-29 08:29] LABS: Vancomycin, Random 8.7 ug/mL (See Comment)
--- NOTE | 2019-01-29 08:35 | PDOC.FM ---
- Subjective Subjective: This morning patient states he is having throbbing pain in R arm since the surgery yesterday. He states it comes and goes, nothing really makes it better or worse. Otherwise no complaints. Denies N/V/D, sob, or cough. - Objective Vital Signs & Weight: Vital Signs (12 hours) Temp Pulse Resp BP BP Pulse Ox 01/29/19 08:04 98.9 F 86 20 150/86 H 100 01/29/19 04:00 98.9 F 91 18 150/82 H 98 01/29/19 00:00 98.5 F 93 19 146/78 H 96 Weight Admit Weight 78 kg Weight 71.979 kg Most Recent Monitor Data Heart Rate from ECG 90 NIBP 112/71 NIBP BP-Mean 84 Respiration from ECG 22 SpO2 97 I&O: 01/28/19 01/29/19 01/30/19 06:59 06:59 06:59 Intake Total 740 780 Output Total 2700 1950 Balance -1960 -1170 Result Diagrams: 01/26/19 04:46 01/26/19 04:45 Phys Exam - Physical Examination Constitutional: NAD HEENT: moist MMs, sclera anicteric Neck: no nodes Respiratory: no wheezing, clear to auscultation bilateral Cardiovascular: RRR, no significant murmur Gastrointestinal: soft, non-tender, no distention, positive bowel sounds Musculoskeletal: no edema, pulses present Neurological: non-focal, moves all 4 limbs Psychiatric: normal affect, A&O x 3 Skin: no rash, cap refill <2 seconds Dx/Plan (1) Acute renal failure Status: Acute (2) Basilic vein thrombosis Code(s): I82.619 - ACUTE EMBOLISM AND THROMBOSIS OF SUPERFIC VN UNSP UP EXTREM Status: Acute (3) CVA (cerebral vascular accident) Code(s): I63.9 - CEREBRAL INFARCTION, UNSPECIFIED Status: Acute (4) MSSA bacteremia Code(s): R78.81 - BACTEREMIA Status: Acute (5) Type 2 diabetes mellitus Status: Chronic (6) NSTEMI (non-ST elevated myocardial infarction) Code(s): I21.4 - NON-ST ELEVATION (NSTEMI) MYOCARDIAL INFARCTION Status: Suspected - Plan Plan: 43 yo M with poorly controlled DM, HTN now with MSSA bacteremia requiring long- term antibiotics 01/29 - AV fistula, tunnel cath 01/28 - abx through 02/11 (would like d/c on 02/10, 02/12 after dialysis so he can travel and establish dialysis in [place]) Acute Renal failure progressing to ESRD - Continue Dialysis - Limited blood draws to weekly (Mondays) - Nephrology consulted, appreciate recommendations. - Patient will be impossible to place. Plan to continue treatment until well enough to make it back to [place] for supportive services. - started patient on epogen 01/20 - GFR 19 on 24 hr urine 01/23 # Normocytic anemia - started Epogen 01/20 - 2U transfusion with Dialysis 01/24 Basilic Vein Thrombosis (R)- resolved - Found on RUE US on 01/07, resolved on US 01/20 - applied Bengay, heating pad, gabepentin MSSA Bacteremia - uncertain etiology; pt denies drug use. Suspected endocarditis - continue Vancomycin SS - Dr. Sheets consulted, appreciate recs. Abx until 02/11 - Per Cardiology, no KOJO at this time and recommend outpatient follow up. - Right fourth digit showed swelling. No evidence of osteomyelitis - Wound care consulted HTN - titrated up on coreg, added amlodipine - lisinopril Type 2 DM: - Accuchecks improved with some hypoglycemic episodes. - Continue to titrate to control, titrated to 15 U 70/30 BID on 01/20, 22 on 01/22 , 25 on 01/23 - HgA1c of 14.1 on admission CVA 2/2 septic emboli - persistent RUE weakness Scrotal Swelling - US nonspecific - No testicular etiology - Likely due to fluid status HFrEF - EF 25-30% - Life vest planned per cardiology. - Friends will fund life vest. - Continue beta elodia NSTEMI- resolved - Initial Troponins elevated, no EKG changes - Echo showed LVEF of 25-30%, area of possible thrombus vs papillary mm - Dr. Lee recommended conservative therapy at this time and follow up as outpatient. Acute Metabolic Encephalopathy: resolved - CT head was negative - Likely 2/2 to HHS coma. - MRI of brain showed multiple small areas of infarction. - pt with RUE focal weakness. Continue PT/OT. Rhabdomyolysis, resolved - CK to 1200 on 01/05 Disposition: Continue current plan of care until antibiotic regimen is completed on 02/11 Addendum - Attending - Attending Attestation Date/Time: 01/29/191934 I personally evaluated the patient and discussed the management with Dr. Tapia. I agree with the History, Examination, Assessment and Plan documented above with any addition or exceptions noted below. The patient had his fistula placed yesterday. Complaining of pain today. Adding pain medication. Pt seen during dialysis.
[2019-01-29] MEDS ORDERED: Heparin 10,000 UNITS/ 10 ML VIAL ONE (10:00)
[2019-01-29] MEDS: Vancomycin HCl 1 GM in Premix Bag 1 BAG IVPB SCH (10:04)
[2019-01-29] MEDS: Epoetin (ESRD) 20,000 UNITS/ML SC SCH (10:36)
[2019-01-29] MEDS: Amlodipine 5 MG TAB PO SCH (11:42)
[2019-01-29] MEDS: Famotidine 20 MG TAB PO SCH (11:42)
[2019-01-29] MEDS: Aspirin 81 mg Enteric Coated Tablet PO SCH (11:42)
[2019-01-29] MEDS: Potassium Chloride 20 MEQ TAB PO SCH (11:42)
[2019-01-29] MEDS: Carvedilol 25 MG TAB PO SCH ×2 (11:42→16:29)
[2019-01-29] MEDS: Clotrimazole 1 % Cream 30 GM TUBE TOP SCH ×2 (11:43→22:57)
[2019-01-29] MEDS: Lisinopril 5 MG TAB PO SCH (11:43)
[2019-01-29] MEDS: Gabapentin 100 MG CAP PO SCH (11:43)
[2019-01-29] MEDS: Methyl Salicylate/Menthol 85 GM TUBE TOP SCH ×2 (11:43→21:27)
[2019-01-29] MEDS: HumuLIN 70/30 (300 UNITS/3 ML VIAL) SC SCH ×2 (11:44→16:29)
[2019-01-29] MEDS: Heparin 5,000 UNITS/ML VIAL SC SCH ×2 (11:44→21:23)
[2019-01-29] MEDS: HYDROcodone/Acetaminophen 5/325 mg Tablet PO PRN ×2 (11:53→21:26)
--- NOTE | 2019-01-29 17:57 | ULT ---
FBilateral lower extremity venous Doppler ultrasound: 01/29/2019 COMPARISON: None HISTORY: History of venous thromboembolism of right upper extremity TECHNIQUE: Multiplanar grayscale sonographic imaging of the venous structures of the bilateral lower extremities obtained with color flow and spectral analysis FINDINGS:Bilateral common femoral vein, greater saphenous vein, profunda femoral vein, femoral vein, popliteal vein, and posterior tibial vein appear patent. Normal blood flow, augmentation, and ileana aura within the deep venous system. No evidence for DVT. IMPRESSION: No evidence for deep venous thrombosis of either lower extremity.
[2019-01-29] MEDS: Atorvastatin Calcium 40 MG TAB PO SCH (21:23)
[2019-01-30] MEDS: HumaLOG 300 UNITS/3 ML VIAL SC PRN ×4 (06:01→22:46)
--- NOTE | 2019-01-30 06:29 | PDOC.FM ---
- Subjective Subjective: Patient states he slept well overnight, slept in chair as he was getting tired of the bed. The leg pain is improved today, still mild pain in L calf. Denies cp , sob, fevers, chills, sweats, N/v/D. - Objective Vital Signs & Weight: Vital Signs (12 hours) Temp Pulse Resp BP Pulse Ox 01/30/19 04:29 98.7 F 88 16 125/77 98 01/30/19 00:00 99.6 F 89 16 140/78 97 01/29/19 20:00 97 01/29/19 19:31 98.3 F 90 16 102/60 96 Weight Admit Weight 78 kg Weight 73.845 kg Most Recent Monitor Data Heart Rate from ECG 90 NIBP 112/71 NIBP BP-Mean 84 Respiration from ECG 22 SpO2 97 I&O: 01/28/19 01/29/19 01/30/19 06:59 06:59 06:59 Intake Total 139 883 6751 Output Total 2700 1950 3750 Balance -[facility] -2432 -5102 Result Diagrams: 01/26/19 04:46 01/26/19 04:45 Phys Exam - Physical Examination Constitutional: NAD HEENT: moist MMs, sclera anicteric Respiratory: no wheezing, clear to auscultation bilateral Cardiovascular: RRR, no significant murmur Gastrointestinal: soft, non-tender, no distention, positive bowel sounds 3/5 strength on the RUE, foot drop on L foot Neurological: moves all 4 limbs Psychiatric: normal affect, A&O x 3 Skin: no rash, cap refill <2 seconds Dx/Plan (1) Acute renal failure Status: Acute (2) Basilic vein thrombosis Code(s): I82.619 - ACUTE EMBOLISM AND THROMBOSIS OF SUPERFIC VN UNSP UP EXTREM Status: Acute (3) CVA (cerebral vascular accident) Code(s): I63.9 - CEREBRAL INFARCTION, UNSPECIFIED Status: Acute (4) MSSA bacteremia Code(s): R78.81 - BACTEREMIA Status: Acute (5) Type 2 diabetes mellitus Status: Chronic (6) NSTEMI (non-ST elevated myocardial infarction) Code(s): I21.4 - NON-ST ELEVATION (NSTEMI) MYOCARDIAL INFARCTION Status: Suspected - Plan Plan: 43 yo M with poorly controlled DM, HTN now with MSSA bacteremia requiring long- term antibiotics 01/30 - AV fistula, tunnel cath 01/28 - abx through 02/11 (would like d/c on 02/10, 02/12 after dialysis so he can travel and establish dialysis in [place]) - no change to course today MSSA Bacteremia, likely endocarditis - uncertain etiology; pt denies drug use. Suspected endocarditis - continue Vancomycin SS - Dr. Sheets consulted, appreciate recs. Abx until 02/11 - Per Cardiology, no KOJO at this time and recommend outpatient follow up. - Right fourth digit showed swelling. No evidence of osteomyelitis - Wound care consulted CVA 2/ septic emboli - persistent RUE weakness - 12/30 RUE strength, foot drop on L since injury - orthotic ordered for L ankle Acute Renal failure progressing to ESRD - Continue Dialysis - Limited blood draws to weekly (Mondays) - Nephrology consulted, appreciate recommendations. - Patient will be impossible to place. Plan to continue treatment until well enough to make it back to [place] for supportive services. - started patient on epogen 01/20 - GFR 19 on 24 hr urine 01/23, making some urine # Normocytic anemia - started Epogen 01/20 - 2U transfusion with Dialysis 01/24 Basilic Vein Thrombosis (R)- resolved - Found on RUE US on 01/07, resolved on US 01/20 - applied Bengay, heating pad, gabepentin - complained of L calf pain 01/29, susanne +, bilateral LE doppler Neg HTN - titrated up on coreg, added amlodipine - lisinopril Type 2 DM: - Accuchecks improved with some hypoglycemic episodes. - Continue to titrate to control, titrated to 15 U 70/30 BID on 01/20, 22 on 01/22 , 25 on 01/23 - HgA1c of 14.1 on admission Scrotal Swelling - US nonspecific - No testicular etiology - Likely due to fluid status HFrEF - EF 25-30% - Life vest planned per cardiology - Friends will fund life vest, suggest repeat echo closer to time of d/c to eval for improved EF - Continue beta elodia NSTEMI- resolved - Initial Troponins elevated, no EKG changes - Echo showed LVEF of 25-30%, area of possible thrombus vs papillary mm - Dr. Lee recommended conservative therapy at this time and follow up as outpatient. Acute Metabolic Encephalopathy: resolved - CT head was negative - Likely 2/2 to HHS coma. - MRI of brain showed multiple small areas of infarction. - pt with RUE focal weakness. Continue PT/OT. Rhabdomyolysis, resolved - CK to 1200 on 01/05 Disposition: Continue current plan of care until antibiotic regimen is completed on 02/11 Addendum - Attending - Attending Attestation Date/Time: 01/30/19 1000 I personally evaluated the patient and discussed the management with Dr. Tapia. I agree with the History, Examination, Assessment and Plan documented above with any addition or exceptions noted below. The patient has some left calf pain. Lower extremity doppler is negative for dvt. He is working with physical therapy during our visit. No other concerns. Continue antibiotics until 02/11.
[2019-01-30] MEDS: Carvedilol 25 MG TAB PO SCH ×2 (09:58→16:30)
[2019-01-30] MEDS: HumuLIN 70/30 (300 UNITS/3 ML VIAL) SC SCH ×2 (09:58→17:22)
[2019-01-30] MEDS: Potassium Chloride 20 MEQ TAB PO SCH (09:58)
[2019-01-30] MEDS: Famotidine 20 MG TAB PO SCH (09:59)
[2019-01-30] MEDS: Amlodipine 5 MG TAB PO SCH (09:59)
[2019-01-30] MEDS: Lisinopril 5 MG TAB PO SCH (09:59)
[2019-01-30] MEDS: Aspirin 81 mg Enteric Coated Tablet PO SCH (09:59)
[2019-01-30] MEDS: Gabapentin 100 MG CAP PO SCH (09:59)
[2019-01-30] MEDS: Heparin 5,000 UNITS/ML VIAL SC SCH ×2 (10:00→21:09)
[2019-01-30] MEDS: Methyl Salicylate/Menthol 85 GM TUBE TOP SCH ×2 (10:00→21:10)
[2019-01-30] MEDS: Clotrimazole 1 % Cream 30 GM TUBE TOP SCH ×2 (10:00→21:09)
[2019-01-30] MEDS: Acetaminophen 325 MG TAB PO PRN ×2 (11:51→23:44)
[2019-01-30] MEDS: traMADol HCl 50 MG TAB PO PRN (14:05)
--- NOTE | 2019-01-30 19:06 | PRG ---
DATE OF SERVICE: 01/30/2019 SUBJECTIVE: The patient is seen and examined with no new complaints. Hemodynamically stable. OBJECTIVE: HEENT: Unremarkable. CARDIOVASCULAR SYSTEM: First and second heart sounds were heard. RESPIRATORY SYSTEM: Clear to auscultation. DIGESTIVE SYSTEM: Revealed a benign abdomen. Positive bowel sounds. EXTREMITIES: No peripheral edema. SKIN: No new gross rash. LYMPHATICS: No peripheral lymphadenopathy. IMPRESSION: 1. End-stage renal disease, on hemodialysis. 2. Bacteremia. TREATMENT PLAN: 1. Continue current hemodialysis schedule. 2. Anemia management with erythropoiesis stimulating agent. 3. Follow up lab evaluation sometime in the next week. Job ID: [id number]
[2019-01-30] MEDS: Atorvastatin Calcium 40 MG TAB PO SCH (21:08)
--- NOTE | 2019-01-31 05:51 | PDOC.FM ---
- Subjective Subjective: Inc. temp to 99.9 max after tylenol for temp of 100.0. NAEO otherwise. Stable, no complaints. - Objective MAR Reviewed: Yes Vital Signs & Weight: Vital Signs (12 hours) Temp Pulse Resp BP BP Pulse Ox 01/31/19 04:05 99.9 F H 83 16 124/73 98 01/31/19 00:00 100 F H 89 16 121/74 97 01/30/19 20:00 99.9 F H 89 18 111/68 97 Weight Admit Weight 78 kg Weight 73.845 kg Most Recent Monitor Data Heart Rate from ECG 90 NIBP 112/71 NIBP BP-Mean 84 Respiration from ECG 22 SpO2 97 I&O: 01/29/19 01/30/19 01/31/19 06:59 06:59 06:59 Intake Total 780 2400 1561 Output Total 1950 3750 600 Balance -1170 -1350 961 Result Diagrams: 01/31/19 11:52 01/26/19 04:45 Phys Exam - Physical Examination Constitutional: NAD HEENT: PERRLA, moist MMs, sclera anicteric Respiratory: no wheezing, clear to auscultation bilateral Cardiovascular: RRR, no significant murmur Musculoskeletal: no edema right wrist wrapped from fistula Neurological: non-focal, moves all 4 limbs Psychiatric: normal affect, A&O x 3 Dx/Plan (1) Metabolic encephalopathy Code(s): G93.41 - METABOLIC ENCEPHALOPATHY Status: Resolved (2) NSTEMI (non-ST elevated myocardial infarction) Code(s): I21.4 - NON-ST ELEVATION (NSTEMI) MYOCARDIAL INFARCTION Status: Suspected (3) Acute renal failure Status: Acute (4) Basilic vein thrombosis Code(s): I82.619 - ACUTE EMBOLISM AND THROMBOSIS OF SUPERFIC VN UNSP UP EXTREM Status: Acute (5) CVA (cerebral vascular accident) Code(s): I63.9 - CEREBRAL INFARCTION, UNSPECIFIED Status: Acute (6) MSSA bacteremia Code(s): R78.81 - BACTEREMIA Status: Acute (7) Scrotum swelling Code(s): N50.89 - OTHER SPECIFIED DISORDERS OF THE MALE GENITAL ORGANS Status : Acute (8) Type 2 diabetes mellitus Status: Chronic (9) Lactic acid acidosis Code(s): E87.2 - ACIDOSIS Status: Resolved (10) Rhabdomyolysis Code(s): M62.82 - RHABDOMYOLYSIS Status: Resolved - Plan Plan: 43 yo M with poorly controlled DM, HTN now with MSSA bacteremia requiring long- term antibiotics 01/31 - AV fistula, tunnel cath 01/28 - abx through 02/11 (would like d/c on 02/10, 02/12 after dialysis so he can travel and establish dialysis in [place]) - Due to low grade temps, ordered CBC - Hyperglyemic (251-342), inc 70/30 to 28 units MSSA Bacteremia, likely endocarditis - uncertain etiology; pt denies drug use. Suspected endocarditis - continue Vancomycin SS - Dr. Sheets consulted, appreciate recs. Abx until 02/11 - Per Cardiology, no KOJO at this time and recommend outpatient follow up. - Right fourth digit showed swelling. No evidence of osteomyelitis - Wound care consulted CVA 2/ septic emboli - persistent RUE weakness - 3/ RUE strength, foot drop on L since injury - orthotic ordered for L ankle Acute Renal failure progressing to ESRD - Continue Dialysis - Limited blood draws to weekly (Mondays) - Nephrology consulted, appreciate recommendations. - Patient will be impossible to place. Plan to continue treatment until well enough to make it back to [place] for supportive services. - started patient on epogen 01/20 - GFR 19 on 24 hr urine 01/23, making some urine # Normocytic anemia - started Epogen 01/20 - 2U transfusion with Dialysis 01/24 Basilic Vein Thrombosis (R)- resolved - Found on RUE US on 01/07, resolved on US 01/20 - applied Bengay, heating pad, gabepentin - complained of L calf pain 01/29, susanne +, bilateral LE doppler Neg HTN - titrated up on coreg, added amlodipine - lisinopril Type 2 DM: - Accuchecks improved with some hypoglycemic episodes. - Continue to titrate to control, titrated to 15 U 70/30 BID on 01/20, 22 on 01/22 , 25 on 01/23 - HgA1c of 14.1 on admission - POC show hyperglycemic values of 251-342, required 17 U sliding scale. Will inc. 70/30 to 28 U on 01/31 Scrotal Swelling - US nonspecific - No testicular etiology - Likely due to fluid status HFrEF - EF 25-30% - Life vest planned per cardiology - Friends will fund life vest, suggest repeat echo closer to time of d/c to eval for improved EF - Continue beta elodia NSTEMI- resolved - Initial Troponins elevated, no EKG changes - Echo showed LVEF of 25-30%, area of possible thrombus vs papillary mm - Dr. Lee recommended conservative therapy at this time and follow up as outpatient. Acute Metabolic Encephalopathy: resolved - CT head was negative - Likely 2/2 to HHS coma. - MRI of brain showed multiple small areas of infarction. - pt with RUE focal weakness. Continue PT/OT. Rhabdomyolysis, resolved - CK to 1200 on 01/05 Disposition: Continue current plan of care until antibiotic regimen is completed on 02/11 Addendum - Attending - Attending Attestation Date/Time: 01/31/19 3320 I personally evaluated the patient and discussed the management with Dr. Bronson. I agree with the History, Examination, Assessment and Plan documented above with any addition or exceptions noted below. The patient had a temp of 100 overnight. Treated with tylenol. Will check CBC and monitor for signs of infection.
[2019-01-31] MEDS: HumaLOG 300 UNITS/3 ML VIAL SC PRN (06:29)
[2019-01-31 07:25] LABS: #Eosinphils 0.1 thou/uL (0.0-0.7); #Lymphocytes 1.9 thou/uL (1.20-3.40); #Monocytes 0.9 thou/uL (0.11-0.59); %Basophils 0.4 % (0.0-1.0); %Eosinophils 0.7 % (0.0-10.0); %Lymphocytes 21.4 % (21.0-51.0); %Monocytes 10.1 % (0.0-10.0); %Neutrophils 67.5 % (42.0-75.0); Hemoglobin 7.3 g/dL (14.0-18.0); Mean Corpuscular HGB CONC 31.6 g/dL (32.0-36.0); Mean Corpuscular Volume 88.5 fL (78.0-98.0); Mean Platelet Volume 7.9 fL (7.4-10.4); Platelet Count 403 thou/uL (130-400); RBC Distribution Width 13.4 % (11.5-14.5); White Blood Cell (WBC) Count 8.9 thou/uL (4.8-10.8)
[2019-01-31 07:44] LABS: Vancomycin, Random 11.4 ug/mL (See Comment)
[2019-01-31] MEDS: HumuLIN 70/30 (300 UNITS/3 ML VIAL) SC SCH ×3 (08:43→18:09)
[2019-01-31] MEDS: Heparin 5,000 UNITS/ML VIAL SC SCH ×2 (08:43→22:41)
[2019-01-31] MEDS: Clotrimazole 1 % Cream 30 GM TUBE TOP SCH ×2 (08:44→22:41)
[2019-01-31] MEDS: Methyl Salicylate/Menthol 85 GM TUBE TOP SCH ×2 (08:44→22:42)
[2019-01-31 12:11] LABS: #Lymphocytes 1.8 thou/uL (1.20-3.40); #Monocytes 0.8 thou/uL (0.11-0.59); #Neutrophils 5.6 thou/uL (1.40-6.50); %Basophils 0.4 % (0.0-1.0); %Eosinophils 0.4 % (0.0-10.0); %Lymphocytes 21.2 % (21.0-51.0); %Monocytes 10.1 % (0.0-10.0); %Neutrophils 67.8 % (42.0-75.0); Mean Corpuscular HGB CONC 32.7 g/dL (32.0-36.0); Mean Corpuscular Hemoglobin 29.2 pg (27.0-31.0); Mean Corpuscular Volume 89.2 fL (78.0-98.0); Mean Platelet Volume 7.4 fL (7.4-10.4); Platelet Count 402 thou/uL (130-400); RBC Distribution Width 13.3 % (11.5-14.5); Red Blood Cell (RBC) Count 2.75 mill/uL (4.70-6.10); White Blood Cell (WBC) Count 8.2 thou/uL (4.8-10.8)
[2019-01-31 12:51] LABS: HBSAB Concentration 2.45 mIU/mL; HBSAg Index 0.31 S/CO (0-0.99); Hep B Surf AB Non-Reactive (NonReactive); Hep B Surf Ag Non-Reactive S/CO (NonReactive)
[2019-01-31] MEDS: Potassium Chloride 20 MEQ TAB PO SCH (13:29)
[2019-01-31] MEDS: Famotidine 20 MG TAB PO SCH (13:29)
[2019-01-31] MEDS: Gabapentin 100 MG CAP PO SCH (13:29)
[2019-01-31] MEDS: Lisinopril 5 MG TAB PO SCH (13:29)
[2019-01-31] MEDS: Amlodipine 5 MG TAB PO SCH (13:29)
[2019-01-31] MEDS: Aspirin 81 mg Enteric Coated Tablet PO SCH (13:30)
[2019-01-31] MEDS: Carvedilol 25 MG TAB PO SCH ×2 (13:30→18:11)
[2019-01-31] MEDS: Epoetin (ESRD) 20,000 UNITS/ML SC SCH (18:10)
[2019-01-31] MEDS: Atorvastatin Calcium 40 MG TAB PO SCH (22:42)
[2019-02-01] MEDS: traMADol HCl 50 MG TAB PO PRN (00:50)
--- NOTE | 2019-02-01 06:44 | PDOC.FM ---
- Subjective Subjective: NAEO. Denies fevers, chills. No other complaints/concerns. - Objective MAR Reviewed: Yes Vital Signs & Weight: Vital Signs (12 hours) Temp Pulse Resp BP Pulse Ox 02/01/19 04:15 98.9 F 87 18 128/77 98 01/31/19 23:46 99.6 F 96 18 130/77 96 01/31/19 20:17 99.5 F 96 18 128/71 97 01/31/19 20:00 97 Weight Admit Weight 78 kg Weight 73.567 kg Most Recent Monitor Data Heart Rate from ECG 90 NIBP 112/71 NIBP BP-Mean 84 Respiration from ECG 22 SpO2 97 I&O: 01/30/19 01/31/19 02/01/19 06:59 06:59 06:59 Intake Total 2400 2161 2421 Output Total 3750 1150 450 Balance -1350 1011 1971 Result Diagrams: 01/31/19 11:52 01/26/19 04:45 Phys Exam - Physical Examination Constitutional: NAD HEENT: PERRLA, moist MMs, sclera anicteric Neck: full ROM Respiratory: clear to auscultation bilateral Cardiovascular: RRR, no significant murmur Musculoskeletal: no edema, pulses present Neurological: non-focal, moves all 4 limbs Psychiatric: normal affect, A&O x 3 Dx/Plan (1) MSSA bacteremia Code(s): R78.81 - BACTEREMIA Status: Acute (2) Metabolic encephalopathy Code(s): G93.41 - METABOLIC ENCEPHALOPATHY Status: Resolved (3) NSTEMI (non-ST elevated myocardial infarction) Code(s): I21.4 - NON-ST ELEVATION (NSTEMI) MYOCARDIAL INFARCTION Status: Suspected (4) Acute renal failure Status: Acute (5) Basilic vein thrombosis Code(s): I82.619 - ACUTE EMBOLISM AND THROMBOSIS OF SUPERFIC VN UNSP UP EXTREM Status: Acute (6) CVA (cerebral vascular accident) Code(s): I63.9 - CEREBRAL INFARCTION, UNSPECIFIED Status: Acute (7) Scrotum swelling Code(s): N50.89 - OTHER SPECIFIED DISORDERS OF THE MALE GENITAL ORGANS Status : Acute (8) Type 2 diabetes mellitus Status: Chronic (9) Lactic acid acidosis Code(s): E87.2 - ACIDOSIS Status: Resolved (10) Rhabdomyolysis Code(s): M62.82 - RHABDOMYOLYSIS Status: Resolved - Plan Plan: 43 yo M with poorly controlled DM, HTN now with MSSA bacteremia requiring long- term antibiotics MSSA Bacteremia, likely endocarditis - uncertain etiology; pt denies drug use. Suspected endocarditis - continue Vancomycin SS - Dr. Sheets consulted, appreciate recs. Abx until 02/11 - Per Cardiology, no KOJO at this time and recommend outpatient follow up. - Right fourth digit showed swelling. No evidence of osteomyelitis - Wound care consulted CVA 2/2 septic emboli - persistent RUE weakness - 3/ RUE strength, foot drop on L since injury - orthotic ordered for L ankle Acute Renal failure progressing to ESRD - Continue Dialysis - Limited blood draws to weekly (Mondays) - Nephrology consulted, appreciate recommendations. - Patient will be impossible to place. Plan to continue treatment until well enough to make it back to [place] for supportive services. - started patient on epogen 01/20 - GFR 19 on 24 hr urine 01/23, making some urine # Normocytic anemia - started Epogen 01/20 - 2U transfusion with Dialysis 01/24 Basilic Vein Thrombosis (R)- resolved - Found on RUE US on 01/07, resolved on US 01/20 - applied Bengay, heating pad, gabepentin - complained of L calf pain 01/29, susanne +, bilateral LE doppler Neg HTN - titrated up on coreg, added amlodipine - lisinopril Type 2 DM: - Accuchecks improved with some hypoglycemic episodes. - Continue to titrate to control, titrated to 15 U 70/30 BID on 01/20, 22 on 01/22 , 25 on 01/23 - HgA1c of 14.1 on admission - Stable, continue . 70/30 to 28 U on 01/31 Scrotal Swelling - US nonspecific - No testicular etiology - Likely due to fluid status HFrEF - EF 25-30% - Life vest planned per cardiology - Friends will fund life vest, suggest repeat echo closer to time of d/c to eval for improved EF - Continue beta elodia NSTEMI- resolved - Initial Troponins elevated, no EKG changes - Echo showed LVEF of 25-30%, area of possible thrombus vs papillary mm - Dr. Lee recommended conservative therapy at this time and follow up as outpatient. Acute Metabolic Encephalopathy: resolved - CT head was negative - Likely 2/2 to HHS coma. - MRI of brain showed multiple small areas of infarction. - pt with RUE focal weakness. Continue PT/OT. Rhabdomyolysis, resolved - CK to 1200 on 01/05 Disposition: Continue current plan of care until antibiotic regimen is completed on 02/11 Addendum - Attending - Attending Attestation Date/Time: 02/01/19 6738 I personally evaluated the patient and discussed the management with Dr. Bronson. I agree with the History, Examination, Assessment and Plan documented above with any addition or exceptions noted below. The patient is awake and alert this morning. He is doing well on his antibiotics. Will continue to monitor.
[2019-02-01] MEDS: Aspirin 81 mg Enteric Coated Tablet PO SCH (09:46)
[2019-02-01] MEDS: HumuLIN 70/30 (300 UNITS/3 ML VIAL) SC SCH ×2 (09:46→17:42)
[2019-02-01] MEDS: Gabapentin 100 MG CAP PO SCH (09:46)
[2019-02-01] MEDS: Potassium Chloride 20 MEQ TAB PO SCH (09:46)
[2019-02-01] MEDS: Amlodipine 5 MG TAB PO SCH (09:46)
[2019-02-01] MEDS: Carvedilol 25 MG TAB PO SCH ×2 (09:46→17:42)
[2019-02-01] MEDS: Methyl Salicylate/Menthol 85 GM TUBE TOP SCH ×2 (09:47→22:04)
[2019-02-01] MEDS: Lisinopril 5 MG TAB PO SCH (09:47)
[2019-02-01] MEDS: Famotidine 20 MG TAB PO SCH (09:47)
[2019-02-01] MEDS: Heparin 5,000 UNITS/ML VIAL SC SCH ×2 (09:47→22:05)
[2019-02-01] MEDS: Clotrimazole 1 % Cream 30 GM TUBE TOP SCH ×2 (09:48→22:04)
[2019-02-01] MEDS ORDERED: Heparin 10,000 UNITS/ 10 ML VIAL ONE (13:24)
[2019-02-01] MEDS: Atorvastatin Calcium 40 MG TAB PO SCH (22:04)
[2019-02-01] MEDS: HumaLOG 300 UNITS/3 ML VIAL SC PRN (22:05)
[2019-02-02] MEDS: traMADol HCl 50 MG TAB PO PRN (02:40)
--- NOTE | 2019-02-02 05:58 | PDOC.FM ---
- Subjective Subjective: Mr. Blevins was resting comfortably in bed this morning. Says he is a little constipated. - Objective Vital Signs & Weight: Vital Signs (12 hours) Temp Pulse Resp BP Pulse Ox 02/02/19 04:00 98.1 F 91 16 134/78 95 02/02/19 00:00 99.5 F 87 16 136/84 100 02/01/19 20:00 98.1 F 85 16 113/69 100 Weight Admit Weight 78 kg Weight 73.437 kg Most Recent Monitor Data Heart Rate from ECG 90 NIBP 112/71 NIBP BP-Mean 84 Respiration from ECG 22 SpO2 97 I&O: 01/31/19 02/01/19 02/02/19 06:59 06:59 06:59 Intake Total 2161 2421 1681 Output Total 6320 989 5112 Balance 1011 1970 -4 Result Diagrams: 02/02/19 05:30 02/02/19 05:30 Phys Exam - Physical Examination Constitutional: NAD Respiratory: clear to auscultation bilateral Cardiovascular: RRR, no significant murmur Gastrointestinal: soft, non-tender, no distention, positive bowel sounds Musculoskeletal: no edema Psychiatric: normal affect Dx/Plan (1) Acute renal failure Status: Acute (2) Basilic vein thrombosis Code(s): I82.619 - ACUTE EMBOLISM AND THROMBOSIS OF SUPERFIC VN UNSP UP EXTREM Status: Acute (3) CVA (cerebral vascular accident) Code(s): I63.9 - CEREBRAL INFARCTION, UNSPECIFIED Status: Acute (4) MSSA bacteremia Code(s): R78.81 - BACTEREMIA Status: Acute (5) Scrotum swelling Code(s): N50.89 - OTHER SPECIFIED DISORDERS OF THE MALE GENITAL ORGANS Status : Acute (6) Type 2 diabetes mellitus Status: Chronic (7) NSTEMI (non-ST elevated myocardial infarction) Code(s): I21.4 - NON-ST ELEVATION (NSTEMI) MYOCARDIAL INFARCTION Status: Suspected (8) Hyperosmolar hyperglycemic coma due to diabetes mellitus without ketoacidosis Code(s): E11.01 - TYPE 2 DIABETES MELLITUS WITH HYPEROSMOLARITY WITH COMA Status: Resolved (9) Lactic acid acidosis Code(s): E87.2 - ACIDOSIS Status: Resolved (10) Metabolic encephalopathy Code(s): G93.41 - METABOLIC ENCEPHALOPATHY Status: Resolved (11) Rhabdomyolysis Code(s): M62.82 - RHABDOMYOLYSIS Status: Resolved - Plan Plan: 43 yo M with poorly controlled DM, HTN now with MSSA bacteremia requiring long- term antibiotics MSSA Bacteremia, likely endocarditis - uncertain etiology; pt denies drug use. Suspected endocarditis - continue Vancomycin SS - Dr. Sheets consulted, appreciate recs. Abx until 02/11 - Per Cardiology, no KOJO at this time and recommend outpatient follow up. - Right fourth digit showed swelling. No evidence of osteomyelitis - Wound care consulted CVA 2/2 septic emboli - persistent RUE weakness - 12/30 RUE strength, foot drop on L since injury - orthotic ordered for L ankle Acute Renal failure progressing to ESRD - Continue Dialysis - Limited blood draws to weekly (Mondays) - Nephrology consulted, appreciate recommendations. - Patient will be impossible to place. Plan to continue treatment until well enough to make it back to [place] for supportive services. - started patient on epogen 01/20 - GFR 19 on 24 hr urine 01/23, making some urine Normocytic anemia - started Epogen 01/20 - 2U transfusion with Dialysis 01/24 Basilic Vein Thrombosis (R)- resolved - Found on RUE US on 01/07, resolved on US 01/20 - applied Bengay, heating pad, gabepentin - complained of L calf pain 01/29, susanne +, bilateral LE doppler Neg HTN - titrated up on coreg, added amlodipine - lisinopril Type 2 DM: - Accuchecks improved with some hypoglycemic episodes. - Continue to titrate to control, titrated to 15 U 70/30 BID on 01/20, 22 on 01/22 , 25 on 01/23 - HgA1c of 14.1 on admission - Stable, continue . 70/30 to 28 U on 01/31 Scrotal Swelling - US nonspecific - No testicular etiology - Likely due to fluid status HFrEF - EF 25-30% - Life vest planned per cardiology - Friends will fund life vest, suggest repeat echo closer to time of d/c to eval for improved EF - Continue beta elodia NSTEMI- resolved - Initial Troponins elevated, no EKG changes - Echo showed LVEF of 25-30%, area of possible thrombus vs papillary mm - Dr. Lee recommended conservative therapy at this time and follow up as outpatient. Acute Metabolic Encephalopathy: resolved - CT head was negative - Likely 2/2 to HHS coma. - MRI of brain showed multiple small areas of infarction. - pt with RUE focal weakness. Continue PT/OT. Rhabdomyolysis, resolved - CK to 1200 on 01/05 Disposition: Continue current plan of care until antibiotic regimen is completed on 02/11 Addendum - Attending - Attending Attestation Date/Time: 02/02/19 5313 I personally evaluated the patient and discussed the management with Dr. Oshea. I agree with the History, Examination, Assessment and Plan documented above with any addition or exceptions noted below. The patient was seen outside in the prayer garden. Nursing notes that he appeared depressed always being indoors so a tech was able to take him outside for fresh air. He states this helped him feel better. Will continue IV antibiotics and dialysis per nephrology.
[2019-02-02 06:00] LABS: Hemoglobin 7.9 g/dL (14.0-18.0); Mean Corpuscular HGB CONC 32.4 g/dL (32.0-36.0); Mean Corpuscular Hemoglobin 28.9 pg (27.0-31.0); Mean Corpuscular Volume 89.4 fL (78.0-98.0); Mean Platelet Volume 7.9 fL (7.4-10.4); Platelet Count 419 thou/uL (130-400); RBC Distribution Width 13.3 % (11.5-14.5); Red Blood Cell (RBC) Count 2.75 mill/uL (4.70-6.10); White Blood Cell (WBC) Count 9.1 thou/uL (4.8-10.8)
[2019-02-02 06:21] LABS: Anion Gap 13 mmol/L (10-20); BUN (Urea Nitrogen) 56 mg/dL (8.9-20.6); Calc. Creatinine Clearance 29 mL/min (70-130); Calcium 8.4 mg/dL (7.8-10.44); Carbon Dioxide 25 mmol/L (22-29); Chloride 98 mmol/L (98-107); Estimated GFR-MDRD 20; Glucose 105 mg/dL (70-105); Potassium 4.3 mmol/L (3.5-5.1); Sodium 132 mmol/L (136-145)
--- NOTE | 2019-02-02 08:40 | PRG ---
DATE OF SERVICE: 01/30/2019 SUBJECTIVE: This is a 43-year-old gentleman, who was admitted and was found out to be septic endocarditis. He has what was presumed to be controlled hypertension and uncontrolled diabetes, which led to chronic kidney disease and the septic emboli above the edge into ESRD. He is receiving treatment with vancomycin through February 11 in the hospital because he is undocumented and unfunded. His plan is to return to [place] after finishing treatment and to set up dialysis therapy. Please see Dr. Brunner's dictation from 01/16/2019, to summarize the first part of his stay. Since January 16, we have continued the patient's vancomycin. He will be getting this through the . He would like to be discharged on either the or the as he is on a Saturday, , Saturday dialysis schedule and this would give him time to get down to [place] and set up dialysis down there if he is discharged on the day after he has dialysis. The patient earlier in the stay on the had a right basilic vein thrombosis. Ultrasound was repeated on 01/21 and found to be negative. The patient has been complaining of persistent pain in that arm, which comes and goes. It was relieved with Bengay and gabapentin. The patient had an AV fistula placed in the right arm as well as a new tunneled catheter placed in the right subclavian on 01/[address] Hays. The patient started complaining of some leg pain on 01/29 and a Doppler ultrasound was ordered, which was shown to be negative. The patient has persistent weakness in the right upper extremity as well as left footdrop, which is secondary to the septic emboli, CVA, from the endocarditis. Left ankle orthotic was ordered to assist with the footdrop. He continues physical therapy, which has been helping him quite a bit. His hypertension medications were titrated up. He is now on Coreg, amlodipine, and lisinopril, and seems to be fairly well controlled. Titrated up on his insulin. He is now on 25 units b.i.d. of 70/30. This seems to have been fairly well controlled. PLAN: Continue current plan of care until the antibiotic regimen is completed on February 11. Job ID: [id number]
[2019-02-02] MEDS: Lisinopril 5 MG TAB PO SCH (08:59)
[2019-02-02] MEDS: Heparin 5,000 UNITS/ML VIAL SC SCH ×2 (09:00→20:08)
[2019-02-02] MEDS: Potassium Chloride 20 MEQ TAB PO SCH (09:00)
[2019-02-02] MEDS: Gabapentin 100 MG CAP PO SCH (09:00)
[2019-02-02] MEDS: HumuLIN 70/30 (300 UNITS/3 ML VIAL) SC SCH ×2 (09:00→19:22)
[2019-02-02] MEDS: Methyl Salicylate/Menthol 85 GM TUBE TOP SCH ×2 (09:01→20:08)
[2019-02-02] MEDS: Famotidine 20 MG TAB PO SCH (09:01)
[2019-02-02] MEDS: Amlodipine 5 MG TAB PO SCH (09:01)
[2019-02-02] MEDS: Carvedilol 25 MG TAB PO SCH ×2 (09:01→18:27)
[2019-02-02] MEDS: Aspirin 81 mg Enteric Coated Tablet PO SCH (09:01)
[2019-02-02] MEDS: Clotrimazole 1 % Cream 30 GM TUBE TOP SCH ×2 (09:02→20:08)
--- NOTE | 2019-02-02 09:42 | PRG ---
DATE OF SERVICE: 02/02/2019 SUBJECTIVE: The patient is seen and examined. Seems to be feeling much better, noted with the following vital signs. OBJECTIVE: VITAL SIGNS: Afebrile, temperature 98.6, pulse 90, respiratory rate 16, and O2 saturations are 97% with a blood pressure of 136/73. HEENT: Unremarkable. CARDIOVASCULAR SYSTEM: Fist and second sounds were heard. RESPIRATORY SYSTEM: Clear to auscultation. DIGESTIVE SYSTEM: Revealed a benign abdomen with positive bowel sounds. EXTREMITIES: No peripheral edema. SKIN: No new gross rash. LYMPHATICS: No peripheral lymphadenopathy. LABORATORY INVESTIGATION: Showed the following; sodium of 132, creatinine 3.44, BUN of 56. CBC showed a hemoglobin of 7.9. IMPRESSION: 1. Acute on chronic kidney disease, which is advanced to end-stage renal disease on hemodialysis, dependent on a Saturday, , and Saturday schedule. 2. Hyponatremia, mild. 3. Anemia of chronic kidney disease. PLAN: 1. The patient currently undergoing dialysis per schedule of Saturday, , and Saturday. 2. Erythropoiesis-stimulating agents will address the anemia. 3. Disposition planning per the primary team. Further management will be dependent on the clinical course. Job ID: [id number]
[2019-02-02] MEDS: Atorvastatin Calcium 40 MG TAB PO SCH (20:07)
[2019-02-02] MEDS: HumaLOG 300 UNITS/3 ML VIAL SC PRN (21:23)
--- NOTE | 2019-02-03 05:17 | PDOC.FM ---
- Subjective Subjective: Mr. Blevins was resting well in bed this morning. Nurse mentioned that he often does not sleep well at night. Patient says this is due to intermittent L leg pain that has been present since admission. - Objective MAR Reviewed: Yes Vital Signs & Weight: Vital Signs (12 hours) Temp Pulse Resp BP BP Pulse Ox 02/03/19 04:00 98.9 F 90 18 136/78 95 02/03/19 00:37 99.2 F 87 20 139/75 97 02/02/19 20:00 98.4 F 87 18 120/71 96 02/02/19 17:59 114/66 Weight Admit Weight 78 kg Weight 73.437 kg Most Recent Monitor Data Heart Rate from ECG 90 NIBP 112/71 NIBP BP-Mean 84 Respiration from ECG 22 SpO2 97 I&O: 02/01/19 02/02/19 02/03/19 06:59 06:59 06:59 Intake Total 2421 3081 1564 Output Total 450 2525 2400 Balance 1971 266 -696 Result Diagrams: 02/02/19 05:30 02/02/19 05:30 Phys Exam - Physical Examination Constitutional: NAD Respiratory: clear to auscultation bilateral Cardiovascular: RRR, no significant murmur Gastrointestinal: soft, non-tender Musculoskeletal: no edema Psychiatric: normal affect Skin: normal turgor Dx/Plan (1) Acute renal failure Status: Acute (2) Basilic vein thrombosis Code(s): I82.619 - ACUTE EMBOLISM AND THROMBOSIS OF SUPERFIC VN UNSP UP EXTREM Status: Acute (3) CVA (cerebral vascular accident) Code(s): I63.9 - CEREBRAL INFARCTION, UNSPECIFIED Status: Acute (4) MSSA bacteremia Code(s): R78.81 - BACTEREMIA Status: Acute (5) Scrotum swelling Code(s): N50.89 - OTHER SPECIFIED DISORDERS OF THE MALE GENITAL ORGANS Status : Acute (6) Type 2 diabetes mellitus Status: Chronic (7) NSTEMI (non-ST elevated myocardial infarction) Code(s): I21.4 - NON-ST ELEVATION (NSTEMI) MYOCARDIAL INFARCTION Status: Suspected (8) Hyperosmolar hyperglycemic coma due to diabetes mellitus without ketoacidosis Code(s): E11.01 - TYPE 2 DIABETES MELLITUS WITH HYPEROSMOLARITY WITH COMA Status: Resolved (9) Lactic acid acidosis Code(s): E87.2 - ACIDOSIS Status: Resolved (10) Metabolic encephalopathy Code(s): G93.41 - METABOLIC ENCEPHALOPATHY Status: Resolved (11) Rhabdomyolysis Code(s): M62.82 - RHABDOMYOLYSIS Status: Resolved - Plan Plan: 43 yo M with poorly controlled DM, HTN now with MSSA bacteremia requiring long- term antibiotics MSSA Bacteremia, likely endocarditis - uncertain etiology; pt denies drug use. Suspected endocarditis - continue Vancomycin SS - Dr. Sheets consulted, appreciate recs. Abx until 02/11 - Per Cardiology, no KOJO at this time and recommend outpatient follow up. - Wound care consulted CVA 2/ septic emboli - persistent RUE weakness - 12/30 RUE strength, foot drop on L since injury - orthotic ordered for L ankle Acute Renal failure progressing to ESRD - Continue Dialysis //Sat - Limited blood draws to weekly (Mondays) - Nephrology consulted, appreciate recommendations. - Patient will be impossible to place. Plan to continue treatment until well enough to make it back to [place] for supportive services. - started patient on epogen 01/20 - GFR 19 on 24 hr urine 01/23, making some urine Normocytic anemia - started Epogen 01/20 - 2U transfusion with Dialysis 01/24 Basilic Vein Thrombosis (R)- resolved - Found on RUE US on 01/07, resolved on US 01/20 - applied Bengay, heating pad, gabepentin - complained of L calf pain 01/29, susanne +, bilateral LE doppler Neg HTN - titrated up on coreg, added amlodipine - lisinopril Type 2 DM: - Accuchecks improved with some hypoglycemic episodes. - Continue to titrate to control, titrated to 15 U 70/30 BID on 01/20, 22 on 01/22 , 25 on 01/23 - HgA1c of 14.1 on admission - Stable, continue . 70/30 to 28 U on 01/31 Scrotal Swelling - US nonspecific - No testicular etiology - Likely due to fluid status HFrEF - EF 25-30% - Life vest planned per cardiology - Friends will fund life vest, suggest repeat echo closer to time of d/c to eval for improved EF - Continue beta elodia NSTEMI- resolved - Initial Troponins elevated, no EKG changes - Echo showed LVEF of 25-30%, area of possible thrombus vs papillary mm - Dr. Lee recommended conservative therapy at this time and follow up as outpatient. Acute Metabolic Encephalopathy: resolved - CT head was negative - Likely 2/2 to HHS coma. - MRI of brain showed multiple small areas of infarction. - pt with RUE focal weakness. Continue PT/OT. Rhabdomyolysis, resolved - CK to 1200 on 01/05 Disposition: Continue current plan of care until antibiotic regimen is completed on 02/11 Addendum - Attending - Attending Attestation Date/Time: 02/03/19 4865 I personally evaluated the patient and discussed the management with Dr. Oshea. I agree with the History, Examination, Assessment and Plan documented above with any addition or exceptions noted below. Pt is doing well this morning. He is at dialysis. Pt has intermittent leg pain. Has had a negative u/s.
[2019-02-03] MEDS: HumaLOG 300 UNITS/3 ML VIAL SC PRN ×2 (06:19→22:06)
[2019-02-03 08:09] LABS: Vancomycin, Random 6.7 ug/mL (See Comment)
[2019-02-03] MEDS: HumuLIN 70/30 (300 UNITS/3 ML VIAL) SC SCH ×2 (08:58→17:59)
[2019-02-03] MEDS: Carvedilol 25 MG TAB PO SCH ×2 (08:59→18:00)
[2019-02-03] MEDS: Potassium Chloride 20 MEQ TAB PO SCH (09:02)
[2019-02-03] MEDS: Amlodipine 5 MG TAB PO SCH (09:02)
[2019-02-03] MEDS: Gabapentin 100 MG CAP PO SCH (09:02)
[2019-02-03] MEDS: Heparin 5,000 UNITS/ML VIAL SC SCH ×2 (09:03→20:50)
[2019-02-03] MEDS: Famotidine 20 MG TAB PO SCH (09:03)
[2019-02-03] MEDS: Lisinopril 5 MG TAB PO SCH (09:03)
[2019-02-03] MEDS: Clotrimazole 1 % Cream 30 GM TUBE TOP SCH ×2 (09:03→20:55)
[2019-02-03] MEDS: Aspirin 81 mg Enteric Coated Tablet PO SCH (09:03)
[2019-02-03] MEDS: Methyl Salicylate/Menthol 85 GM TUBE TOP SCH ×2 (09:04→20:55)
[2019-02-03] MEDS ORDERED: Heparin 10,000 UNITS/ 10 ML VIAL ONE (10:00)
--- NOTE | 2019-02-03 10:03 | PRG ---
DATE OF SERVICE: SUBJECTIVE: The patient is seen and examined, seems to be doing better with no new complaint. OBJECTIVE: HEENT: Unremarkable. CARDIOVASCULAR SYSTEM: First and second heart sounds were heard. RESPIRATORY SYSTEM: Clear to auscultation. DIGESTIVE SYSTEM: Benign abdomen. Positive bowel sounds. EXTREMITIES: No peripheral edema. SKIN: No new gross rash. LYMPHATICS: No peripheral lymphadenopathy. IMPRESSION: 1. End-stage renal disease, on hemodialysis. 2. Rhabdomyolysis. 3. Sepsis, improved. PLAN: 1. Continue hemodialysis per schedule. 2. Further management to be dependent on the clinical course. Job ID: [id number]
[2019-02-03] MEDS ORDERED: Vancomycin HCl 1.25 GM in Sodium Chloride 0.9% 250 ML 250 ML IVPB SCH (10:15)
[2019-02-03] MEDS ORDERED: Vancomycin HCl 500 MG in Sodium Chloride 0.9% 100 ML IVPB SCH (10:15)
[2019-02-03] MEDS ORDERED: Vancomycin HCl 750 MG in Sodium Chloride 0.9% 250 ML 250 ML IVPB SCH (10:15)
[2019-02-03] MEDS: Epoetin (ESRD) 20,000 UNITS/ML SC SCH (12:56)
[2019-02-03] MEDS: Vancomycin HCl 1 GM in Premix Bag 1 BAG IVPB SCH (13:01)
[2019-02-03] MEDS: Atorvastatin Calcium 40 MG TAB PO SCH (20:50)
--- NOTE | 2019-02-04 05:37 | PDOC.FM ---
- Subjective Subjective: Mr. Blevins has no complaints today. Ambulated in the hallways yesterday. Says had BM yesterday but still feels a little constipated. - Objective MAR Reviewed: Yes Vital Signs & Weight: Vital Signs (12 hours) Temp Pulse Resp BP Pulse Ox 02/04/19 03:48 97.8 F 88 20 148/83 H 97 02/03/19 23:46 99.2 F 89 20 133/78 95 Weight Admit Weight 78 kg Weight 32.477 kg Most Recent Monitor Data Heart Rate from ECG 90 NIBP 112/71 NIBP BP-Mean 84 Respiration from ECG 22 SpO2 97 I&O: 02/02/19 02/03/19 02/04/19 06:59 06:59 06:59 Intake Total 3081 1964 1665 Output Total 4848 3980 4300 Balance 556 -2016 -2635 Result Diagrams: 02/02/19 05:30 02/02/19 05:30 Phys Exam - Physical Examination Constitutional: NAD Respiratory: clear to auscultation bilateral Cardiovascular: RRR, no significant murmur Gastrointestinal: soft, non-tender Musculoskeletal: no edema Psychiatric: normal affect Skin: normal turgor Dx/Plan (1) Acute renal failure Status: Acute (2) Basilic vein thrombosis Code(s): I82.619 - ACUTE EMBOLISM AND THROMBOSIS OF SUPERFIC VN UNSP UP EXTREM Status: Acute (3) CVA (cerebral vascular accident) Code(s): I63.9 - CEREBRAL INFARCTION, UNSPECIFIED Status: Acute (4) MSSA bacteremia Code(s): R78.81 - BACTEREMIA Status: Acute (5) Scrotum swelling Code(s): N50.89 - OTHER SPECIFIED DISORDERS OF THE MALE GENITAL ORGANS Status : Acute (6) Type 2 diabetes mellitus Status: Chronic (7) NSTEMI (non-ST elevated myocardial infarction) Code(s): I21.4 - NON-ST ELEVATION (NSTEMI) MYOCARDIAL INFARCTION Status: Suspected (8) Hyperosmolar hyperglycemic coma due to diabetes mellitus without ketoacidosis Code(s): E11.01 - TYPE 2 DIABETES MELLITUS WITH HYPEROSMOLARITY WITH COMA Status: Resolved (9) Lactic acid acidosis Code(s): E87.2 - ACIDOSIS Status: Resolved (10) Metabolic encephalopathy Code(s): G93.41 - METABOLIC ENCEPHALOPATHY Status: Resolved (11) Rhabdomyolysis Code(s): M62.82 - RHABDOMYOLYSIS Status: Resolved - Plan Plan: 43 yo M with poorly controlled DM, HTN now with MSSA bacteremia requiring long- term antibiotics MSSA Bacteremia, likely endocarditis - uncertain etiology; pt denies drug use. Suspected endocarditis - continue Vancomycin SS - Dr. Sheets consulted, appreciate recs. Abx until 02/10. Plan for discharge with 7 days Keflex PO. - Per Cardiology, no KOJO at this time and recommend outpatient follow up. - Wound care consulted CVA 2/2 septic emboli - persistent RUE weakness - foot drop on L since injury - orthotic ordered for L ankle Acute Renal failure progressing to ESRD - Continue Dialysis T//Sat - Limited blood draws to weekly (Mondays) - Nephrology consulted, appreciate recommendations. - Patient will be impossible to place. Plan to continue treatment until well enough to make it back to [place] for supportive services. - started patient on epogen 01/20 - GFR 19 on 24 hr urine 01/23, making some urine Normocytic anemia - started Epogen 01/20 - 2U transfusion with Dialysis 01/24 Basilic Vein Thrombosis (R)- resolved - Found on RUE US on 01/07, resolved on US 01/20 - applied Bengay, heating pad, gabepentin - complained of L calf pain 01/29, susanne +, bilateral LE doppler Neg HTN - titrated up on coreg, added amlodipine - lisinopril Type 2 DM: - Accuchecks improved with some hypoglycemic episodes. - Continue to titrate to control, titrated to 15 U 70/30 BID on 01/20, 22 on 01/22 , 25 on 01/23 - HgA1c of 14.1 on admission - Stable, continue . 70/30 to 28 U on 01/31 Scrotal Swelling - US nonspecific - No testicular etiology - Likely due to fluid status HFrEF - EF 25-30% - Life vest planned per cardiology - Friends will fund life vest, suggest repeat echo closer to time of d/c to eval for improved EF - Continue beta elodia NSTEMI- resolved - Initial Troponins elevated, no EKG changes - Echo showed LVEF of 25-30%, area of possible thrombus vs papillary mm - Dr. Lee recommended conservative therapy at this time and follow up as outpatient. Acute Metabolic Encephalopathy: resolved - CT head was negative - Likely 2/2 to HHS coma. - MRI of brain showed multiple small areas of infarction. - pt with RUE focal weakness. Continue PT/OT. Rhabdomyolysis, resolved - CK to 1200 on 01/05 Disposition: Continue current plan of care until antibiotic regimen is completed on 02/10, plan for d/c that day after dialysis Addendum - Attending - Attending Attestation Date/Time: 02/04/19 [id number] I personally evaluated the patient and discussed the management with Dr. Oshea I agree with the History, Examination, Assessment and Plan documented above with any addition or exceptions noted below. Discussed dicharge plans with Patient regard continued HD in [place]. Patient will be due last ABX pending HD on 10 February. Patient receiving restorative care and appears stable.
[2019-02-04] MEDS: Potassium Chloride 20 MEQ TAB PO SCH (08:51)
[2019-02-04] MEDS: HumuLIN 70/30 (300 UNITS/3 ML VIAL) SC SCH ×2 (08:51→17:53)
[2019-02-04] MEDS: Carvedilol 25 MG TAB PO SCH ×2 (08:52→18:25)
[2019-02-04] MEDS: Famotidine 20 MG TAB PO SCH (08:52)
[2019-02-04] MEDS: Aspirin 81 mg Enteric Coated Tablet PO SCH (08:52)
[2019-02-04] MEDS: Lisinopril 5 MG TAB PO SCH (08:52)
[2019-02-04] MEDS: Gabapentin 100 MG CAP PO SCH (08:52)
[2019-02-04] MEDS: Heparin 5,000 UNITS/ML VIAL SC SCH ×2 (08:53→21:25)
[2019-02-04] MEDS: Amlodipine 5 MG TAB PO SCH (08:53)
[2019-02-04] MEDS: Clotrimazole 1 % Cream 30 GM TUBE TOP SCH ×2 (08:54→21:28)
[2019-02-04] MEDS: Methyl Salicylate/Menthol 85 GM TUBE TOP SCH ×2 (08:54→21:28)
[2019-02-04] MEDS ORDERED: Polyethylene Glycol 3350 17 GM Packet PO SCH (10:00)
[2019-02-04] MEDS: HumaLOG 300 UNITS/3 ML VIAL SC PRN (10:55)
[2019-02-04] MEDS: Insulin Regular 300 UNITS/3 ML VIAL SC PRN ×2 (17:52→21:26)
--- NOTE | 2019-02-04 21:20 | PRG ---
DATE OF SERVICE: 02/04/2019 SUBJECTIVE: The patient was seen and examined, noted with the following: OBJECTIVE: VITAL SIGNS: Afebrile, temperature 99, pulse 83, respiratory rate 16, O2 saturations are 97%, and blood pressure 119/72. HEENT: Unremarkable. CARDIOVASCULAR SYSTEM: First and second heart sounds were heard. RESPIRATORY SYSTEM: Clear to auscultation. DIGESTIVE SYSTEM: Revealed a benign abdomen. EXTREMITIES: No peripheral edema. SKIN: No new gross rash. LYMPHATICS: No peripheral lymphadenopathy. IMPRESSION: 1. End-stage renal disease. 2. Anemia of chronic kidney disease. PLAN: 1. Continue current regimen of hemodialysis. 2. Further management will be dependent on the clinical course. The patient will receive an erythropoietin stimulating agent. Job ID: [id number]
[2019-02-04] MEDS: Atorvastatin Calcium 40 MG TAB PO SCH (21:25)
[2019-02-05] MEDS: Acetaminophen 325 MG TAB PO PRN (04:49)
--- NOTE | 2019-02-05 05:49 | PDOC.FM ---
- Subjective Subjective: Patient complains of various musculoskeletal complaints that are not severe. Has ambulated with PT. - Objective MAR Reviewed: Yes Vital Signs & Weight: Vital Signs (12 hours) Temp Pulse Resp BP Pulse Ox 02/05/19 04:00 98.8 F 87 18 138/79 95 02/05/19 00:00 98.4 F 18 125/76 95 02/04/19 20:59 96 02/04/19 20:00 98.6 F 86 18 120/73 96 Weight Admit Weight 78 kg Weight 77.836 kg Most Recent Monitor Data Heart Rate from ECG 90 NIBP 112/71 NIBP BP-Mean 84 Respiration from ECG 22 SpO2 97 I&O: 02/03/19 02/04/19 02/05/19 06:59 06:59 06:59 Intake Total 1964 2065 1200 Output Total 3980 4775 450 Balance -2015 750 Result Diagrams: 02/02/19 05:30 02/02/19 05:30 Phys Exam - Physical Examination Constitutional: NAD Respiratory: clear to auscultation bilateral Cardiovascular: RRR, no significant murmur Gastrointestinal: soft, non-tender Musculoskeletal: no edema Psychiatric: normal affect Skin: normal turgor Dx/Plan (1) Acute renal failure Status: Acute (2) Basilic vein thrombosis Code(s): I82.619 - ACUTE EMBOLISM AND THROMBOSIS OF SUPERFIC VN UNSP UP EXTREM Status: Acute (3) CVA (cerebral vascular accident) Code(s): I63.9 - CEREBRAL INFARCTION, UNSPECIFIED Status: Acute (4) MSSA bacteremia Code(s): R78.81 - BACTEREMIA Status: Acute (5) Scrotum swelling Code(s): N50.89 - OTHER SPECIFIED DISORDERS OF THE MALE GENITAL ORGANS Status : Acute (6) Type 2 diabetes mellitus Status: Chronic (7) NSTEMI (non-ST elevated myocardial infarction) Code(s): I21.4 - NON-ST ELEVATION (NSTEMI) MYOCARDIAL INFARCTION Status: Suspected (8) Hyperosmolar hyperglycemic coma due to diabetes mellitus without ketoacidosis Code(s): E11.01 - TYPE 2 DIABETES MELLITUS WITH HYPEROSMOLARITY WITH COMA Status: Resolved (9) Lactic acid acidosis Code(s): E87.2 - ACIDOSIS Status: Resolved (10) Metabolic encephalopathy Code(s): G93.41 - METABOLIC ENCEPHALOPATHY Status: Resolved (11) Rhabdomyolysis Code(s): M62.82 - RHABDOMYOLYSIS Status: Resolved - Plan Plan: 43 yo M with poorly controlled DM, HTN now with MSSA bacteremia requiring long- term antibiotics MSSA Bacteremia, likely endocarditis - uncertain etiology; pt denies drug use. Suspected endocarditis - continue Vancomycin SS - Dr. Sheets consulted, appreciate recs. Abx until 02/10. Plan for discharge with 7 days Keflex PO. - Per Cardiology, no KOJO at this time and recommend outpatient follow up. - Wound care consulted CVA 2/2 septic emboli - persistent RUE weakness - foot drop on L since injury - orthotic ordered for L ankle Acute Renal failure progressing to ESRD - Continue Dialysis / - Limited blood draws to weekly (Mondays) - Nephrology consulted, appreciate recommendations. - Patient will be impossible to place. Plan to continue treatment until well enough to make it back to [place] for supportive services. - started patient on epogen 01/20 - GFR 19 on 24 hr urine 01/23, making some urine Normocytic anemia - started Epogen 01/20 - 2U transfusion with Dialysis 01/24 Basilic Vein Thrombosis (R)- resolved - Found on RUE US on 01/07, resolved on US 01/20 - applied Bengay, heating pad, gabepentin - complained of L calf pain 01/29, susanne +, bilateral LE doppler Neg HTN - titrated up on coreg, added amlodipine - lisinopril Type 2 DM: - Accuchecks improved with some hypoglycemic episodes. - Continue to titrate to control, titrated to 15 U 70/30 BID on 01/20, 22 on 01/22 , 25 on 01/23 - HgA1c of 14.1 on admission - Stable, continue . 70/30 to 28 U on 01/31 Scrotal Swelling - US nonspecific - No testicular etiology - Likely due to fluid status HFrEF - EF 25-30% - Life vest planned per cardiology - Friends will fund life vest, suggest repeat echo closer to time of d/c to eval for improved EF - Continue beta elodia NSTEMI- resolved - Initial Troponins elevated, no EKG changes - Echo showed LVEF of 25-30%, area of possible thrombus vs papillary mm - Dr. Lee recommended conservative therapy at this time and follow up as outpatient. Acute Metabolic Encephalopathy: resolved - CT head was negative - Likely 2/2 to HHS coma. - MRI of brain showed multiple small areas of infarction. - pt with RUE focal weakness. Continue PT/OT. Rhabdomyolysis, resolved - CK to 1200 on 01/05 Disposition: Continue current plan of care until antibiotic regimen is completed on 02/10, plan for d/c that day after dialysis Addendum - Attending - Attending Attestation Date/Time: 02/05/19 [id number] I personally evaluated the patient and discussed the management with Dr. Oshea I agree with the History, Examination, Assessment and Plan documented above with any addition or exceptions noted below.
[2019-02-05 08:35] LABS: Vancomycin, Trough 8.4 ug/mL
[2019-02-05] MEDS: Epoetin (ESRD) 20,000 UNITS/ML SC SCH ×2 (09:27→20:19)
[2019-02-05] MEDS: Vancomycin HCl 1 GM in Premix Bag 1 BAG IVPB SCH (09:28)
[2019-02-05] MEDS: Heparin 5,000 UNITS/ML VIAL SC SCH ×2 (11:43→22:26)
[2019-02-05] MEDS: Lisinopril 5 MG TAB PO SCH (11:43)
[2019-02-05] MEDS: Amlodipine 5 MG TAB PO SCH (11:43)
[2019-02-05] MEDS: Famotidine 20 MG TAB PO SCH (11:44)
[2019-02-05] MEDS: HumuLIN 70/30 (300 UNITS/3 ML VIAL) SC SCH ×2 (11:44→18:10)
[2019-02-05] MEDS: Carvedilol 25 MG TAB PO SCH ×2 (11:44→18:11)
[2019-02-05] MEDS: Aspirin 81 mg Enteric Coated Tablet PO SCH (11:44)
[2019-02-05] MEDS: Gabapentin 100 MG CAP PO SCH (11:44)
[2019-02-05] MEDS: Potassium Chloride 20 MEQ TAB PO SCH (11:44)
[2019-02-05] MEDS: Clotrimazole 1 % Cream 30 GM TUBE TOP SCH ×2 (11:45→22:25)
[2019-02-05] MEDS: Methyl Salicylate/Menthol 85 GM TUBE TOP SCH ×2 (11:46→22:25)
[2019-02-05] MEDS: Insulin Regular 300 UNITS/3 ML VIAL SC PRN (18:10)
--- NOTE | 2019-02-05 19:18 | PRG ---
DATE OF SERVICE: 02/05/2019 SUBJECTIVE: The patient was seen and examined with no new complaint. Noted with the following vital signs. OBJECTIVE: VITAL SIGNS: Afebrile, temperature 97.4, pulse 87, respiratory rate of 16, O2 saturations are 97%, and blood pressure 130/75. HEENT: Unremarkable. CARDIOVASCULAR SYSTEM: First and second heart sounds were heard. RESPIRATORY SYSTEM: Clear to auscultation. DIGESTIVE SYSTEM: Revealed a benign abdomen with positive bowel sounds. EXTREMITIES: No peripheral edema. SKIN: No new gross rash. LYMPHATICS: No peripheral lymphadenopathy. IMPRESSION: 1. End-stage renal disease, on hemodialysis. 2. Anemia of chronic kidney disease. PLAN: 1. The patient to continue with current schedule of hemodialysis. 2. Further management to be dependent on the clinical course. Job ID: [id number]
[2019-02-05] MEDS ORDERED: Heparin 1,000 UNITS/ML VIAL ONE (20:48)
[2019-02-05] MEDS: Atorvastatin Calcium 40 MG TAB PO SCH (22:26)
--- NOTE | 2019-02-06 06:26 | PDOC.FM ---
- Subjective Subjective: Mr. Blevins was sleeping in bed this morning. Has no complaints today. - Objective MAR Reviewed: Yes Vital Signs & Weight: Vital Signs (12 hours) Temp Pulse Resp BP Pulse Ox 02/06/19 04:00 98.4 F 84 18 135/75 98 02/06/19 00:00 99.4 F 84 18 118/69 98 02/05/19 22:00 99 02/05/19 20:00 98.7 F 82 18 121/72 99 Weight Admit Weight 78 kg Weight 74.661 kg Most Recent Monitor Data Heart Rate from ECG 90 NIBP 112/71 NIBP BP-Mean 84 Respiration from ECG 22 SpO2 97 I&O: 02/04/19 02/05/19 02/06/19 06:59 06:59 06:59 Intake Total 2065 1400 300 Output Total 4775 800 1050 Balance -2710 600 -750 Result Diagrams: 02/02/19 05:30 02/02/19 05:30 Phys Exam - Physical Examination Constitutional: NAD Respiratory: clear to auscultation bilateral Cardiovascular: RRR, no significant murmur Gastrointestinal: soft, non-tender, positive bowel sounds Musculoskeletal: no edema Psychiatric: normal affect Dx/Plan (1) Acute renal failure Status: Acute (2) Basilic vein thrombosis Code(s): I82.619 - ACUTE EMBOLISM AND THROMBOSIS OF SUPERFIC VN UNSP UP EXTREM Status: Acute (3) CVA (cerebral vascular accident) Code(s): I63.9 - CEREBRAL INFARCTION, UNSPECIFIED Status: Acute (4) MSSA bacteremia Code(s): R78.81 - BACTEREMIA Status: Acute (5) Scrotum swelling Code(s): N50.89 - OTHER SPECIFIED DISORDERS OF THE MALE GENITAL ORGANS Status : Acute (6) Type 2 diabetes mellitus Status: Chronic (7) NSTEMI (non-ST elevated myocardial infarction) Code(s): I21.4 - NON-ST ELEVATION (NSTEMI) MYOCARDIAL INFARCTION Status: Suspected (8) Hyperosmolar hyperglycemic coma due to diabetes mellitus without ketoacidosis Code(s): E11.01 - TYPE 2 DIABETES MELLITUS WITH HYPEROSMOLARITY WITH COMA Status: Resolved (9) Lactic acid acidosis Code(s): E87.2 - ACIDOSIS Status: Resolved (10) Metabolic encephalopathy Code(s): G93.41 - METABOLIC ENCEPHALOPATHY Status: Resolved (11) Rhabdomyolysis Code(s): M62.82 - RHABDOMYOLYSIS Status: Resolved - Plan Plan: 43 yo M with poorly controlled DM, HTN now with MSSA bacteremia requiring long- term antibiotics MSSA Bacteremia, likely endocarditis - uncertain etiology; pt denies drug use. Suspected endocarditis - continue Vancomycin SS - Dr. Sheets consulted, appreciate recs. Abx until 02/10. Plan for discharge with 7 days Keflex PO. - Per Cardiology, no KOJO at this time - Wound care consulted CVA 2/2 septic emboli - persistent RUE weakness - foot drop on L since injury - orthotic ordered for L ankle Acute Renal failure progressing to ESRD - Continue Dialysis T//Sat - Limited blood draws to weekly (Mondays) - Nephrology consulted, appreciate recommendations. - Plan to continue treatment until well enough to make it back to [place] for supportive services. - started patient on epogen 01/20 - GFR 19 on 24 hr urine 01/23, making some urine Normocytic anemia - started Epogen 01/20 - 2U transfusion with Dialysis 01/24 Basilic Vein Thrombosis (R)- resolved - Found on RUE US on 01/07, resolved on US 01/20 - applied Bengay, heating pad, gabepentin - complained of L calf pain 01/29, susanne +, bilateral LE doppler Neg HTN - titrated up on coreg, added amlodipine - lisinopril Type 2 DM: - Accuchecks improved with some hypoglycemic episodes. - Continue to titrate to control, titrated to 15 U 70/30 BID on 01/20, 22 on 01/22 , 25 on 01/23 - HgA1c of 14.1 on admission - Stable, continue . 70/30 to 30 U on 02/06 Scrotal Swelling - US nonspecific - No testicular etiology - Likely due to fluid status HFrEF - EF 25-30% - Life vest planned per cardiology - pending repeat echo - Continue beta elodia NSTEMI- resolved - Initial Troponins elevated, no EKG changes - Echo showed LVEF of 25-30%, area of possible thrombus vs papillary mm - Dr. Lee recommended conservative therapy at this time and follow up as outpatient. Acute Metabolic Encephalopathy: resolved - CT head was negative - Likely 2/2 to HHS coma. - MRI of brain showed multiple small areas of infarction. - pt with RUE focal weakness. Continue PT/OT. Rhabdomyolysis, resolved - CK to 1200 on 01/05 Disposition: Continue current plan of care until antibiotic regimen is completed on 02/10, plan for d/c that day after dialysis Addendum - Attending - Attending Attestation Date/Time: 02/06/19 3573 I personally evaluated the patient and discussed the management with Dr. Oshea I agree with the History, Examination, Assessment and Plan documented above with any addition or exceptions noted below.
[2019-02-06] MEDS ORDERED: HumuLIN 70/30 (300 UNITS/3 ML VIAL) SC SCH (06:45)
[2019-02-06] MEDS: Lisinopril 5 MG TAB PO SCH (09:21)
[2019-02-06] MEDS: Aspirin 81 mg Enteric Coated Tablet PO SCH (09:25)
[2019-02-06] MEDS: Carvedilol 25 MG TAB PO SCH ×2 (09:25→16:51)
[2019-02-06] MEDS: Potassium Chloride 20 MEQ TAB PO SCH (09:25)
[2019-02-06] MEDS: Amlodipine 5 MG TAB PO SCH (09:25)
[2019-02-06] MEDS: Gabapentin 100 MG CAP PO SCH (09:25)
[2019-02-06] MEDS: Clotrimazole 1 % Cream 30 GM TUBE TOP SCH ×2 (09:26→20:17)
[2019-02-06] MEDS: Methyl Salicylate/Menthol 85 GM TUBE TOP SCH ×2 (09:26→20:18)
[2019-02-06] MEDS: Famotidine 20 MG TAB PO SCH (09:26)
[2019-02-06] MEDS: Heparin 5,000 UNITS/ML VIAL SC SCH ×2 (09:26→20:16)
[2019-02-06] MEDS: Insulin Regular 300 UNITS/3 ML VIAL SC PRN ×2 (16:49→20:17)
[2019-02-06] MEDS: HumuLIN 70/30 (300 UNITS/3 ML VIAL) SC SCH (16:50)
--- NOTE | 2019-02-06 18:06 | PRG ---
DATE OF SERVICE: 02/06/2019 SUBJECTIVE: The patient is seen and examined, seems still continuing to do very well, hemodynamically stable. OBJECTIVE: HEENT: Unremarkable. CARDIOVASCULAR SYSTEM: First and second heart sounds were heard. RESPIRATORY SYSTEM: Clear to auscultation. DIGESTIVE SYSTEM: Revealed a benign abdomen with positive bowel sounds. EXTREMITIES: No peripheral edema. SKIN: No new gross rash. LYMPHATICS: No peripheral lymphadenopathy. IMPRESSION: End-stage renal disease, on hemodialysis. PLAN: We will continue with current hemodialysis regimen. Job ID: [id number]
[2019-02-06] MEDS: Atorvastatin Calcium 40 MG TAB PO SCH (20:16)
[2019-02-06] MEDS: Acetaminophen 325 MG TAB PO PRN (20:16)
--- NOTE | 2019-02-07 06:30 | PDOC.FM ---
- Subjective Subjective: Saw patient in dialysis this morning. He has no complaints. No events overnight. - Objective Vital Signs & Weight: Vital Signs (12 hours) Temp Pulse Resp BP Pulse Ox 02/07/19 04:00 97.5 F L 86 16 135/74 100 02/07/19 00:00 97.3 F L 92 16 126/70 99 02/06/19 19:16 97.9 F 85 16 139/76 99 Weight Admit Weight 78 kg Weight 74.661 kg Most Recent Monitor Data Heart Rate from ECG 90 NIBP 112/71 NIBP BP-Mean 84 Respiration from ECG 22 SpO2 97 I&O: 02/05/19 02/06/19 02/07/19 06:59 06:59 06:59 Intake Total 0261 962 4432 Output Total 800 1050 1675 Balance 600 -250 237 Result Diagrams: 02/02/19 05:30 02/02/19 05:30 Phys Exam - Physical Examination Constitutional: NAD Respiratory: clear to auscultation bilateral Cardiovascular: RRR, no significant murmur Gastrointestinal: soft, non-tender, positive bowel sounds Musculoskeletal: no edema Psychiatric: normal affect Skin: normal turgor Dx/Plan (1) Acute renal failure Status: Acute (2) Basilic vein thrombosis Code(s): I82.619 - ACUTE EMBOLISM AND THROMBOSIS OF SUPERFIC VN UNSP UP EXTREM Status: Acute (3) CVA (cerebral vascular accident) Code(s): I63.9 - CEREBRAL INFARCTION, UNSPECIFIED Status: Acute (4) MSSA bacteremia Code(s): R78.81 - BACTEREMIA Status: Acute (5) Scrotum swelling Code(s): N50.89 - OTHER SPECIFIED DISORDERS OF THE MALE GENITAL ORGANS Status : Acute (6) Type 2 diabetes mellitus Status: Chronic (7) NSTEMI (non-ST elevated myocardial infarction) Code(s): I21.4 - NON-ST ELEVATION (NSTEMI) MYOCARDIAL INFARCTION Status: Suspected (8) Hyperosmolar hyperglycemic coma due to diabetes mellitus without ketoacidosis Code(s): E11.01 - TYPE 2 DIABETES MELLITUS WITH HYPEROSMOLARITY WITH COMA Status: Resolved (9) Lactic acid acidosis Code(s): E87.2 - ACIDOSIS Status: Resolved (10) Metabolic encephalopathy Code(s): G93.41 - METABOLIC ENCEPHALOPATHY Status: Resolved (11) Rhabdomyolysis Code(s): M62.82 - RHABDOMYOLYSIS Status: Resolved - Plan Plan: 43 yo M with poorly controlled DM, HTN now with MSSA bacteremia requiring long- term antibiotics MSSA Bacteremia, likely endocarditis - uncertain etiology; pt denies drug use. Suspected endocarditis - continue Vancomycin SS - Dr. Sehets consulted, appreciate recs. Abx until 02/10. Plan for discharge with 7 days Keflex PO. - Per Cardiology, no KOJO at this time CVA 2/2 septic emboli - persistent RUE weakness - foot drop on L since injury - orthotic ordered for L ankle Acute Renal failure progressing to ESRD - Continue Dialysis T//Sat - Limited blood draws to weekly (Mondays) - Nephrology consulted, appreciate recommendations. - Plan to continue treatment until well enough to make it back to [place] for supportive services. - started patient on epogen 01/20 - GFR 19 on 24 hr urine 01/23, making some urine Normocytic anemia - started Epogen 01/20 - 2U transfusion with Dialysis 01/24 Basilic Vein Thrombosis (R)- resolved - Found on RUE US on 01/07, resolved on US 01/20 - applied Bengay, heating pad, gabepentin - complained of L calf pain 01/29, susanne +, bilateral LE doppler Neg HTN - titrated up on coreg, added amlodipine - lisinopril Type 2 DM: - Accuchecks improved with some hypoglycemic episodes. - Continue to titrate to control, titrated to 15 U 70/30 BID on 01/20, 22 on 01/22 , 25 on 01/23 - HgA1c of 14.1 on admission - Stable, continue . 70/30 to 30 U on 02/06 Scrotal Swelling - US nonspecific - No testicular etiology - Likely due to fluid status HFrEF - EF 25-30% initially - follow up echo 02/06/19 showed EF 50-55% - Life vest planned per cardiology - Continue beta elodia NSTEMI- resolved - Initial Troponins elevated, no EKG changes - Echo showed LVEF of 25-30%, area of possible thrombus vs papillary mm - Dr. Lee recommended conservative therapy at this time and follow up as outpatient. Acute Metabolic Encephalopathy: resolved - CT head was negative - Likely 2/2 to HHS coma. - MRI of brain showed multiple small areas of infarction. - pt with RUE focal weakness. Continue PT/OT. Rhabdomyolysis, resolved - CK to 1200 on 01/05 Disposition: Continue current plan of care until antibiotic regimen is completed on 02/10, plan for d/c that day after dialysis Addendum - Attending - Attending Attestation Date/Time: 02/07/19 0567 I personally evaluated the patient and discussed the management with Dr. Oshea I agree with the History, Examination, Assessment and Plan documented above with any addition or exceptions noted below. Continue vanc with dialysis through Saturday 02/10. Then stable to d/c home on keflex for one week. Cardiomyopathy improved to EF 50-55%.
[2019-02-07] MEDS: HumuLIN 70/30 (300 UNITS/3 ML VIAL) SC SCH ×2 (08:18→17:27)
[2019-02-07 08:30] LABS: Vancomycin, Random 8.5 ug/mL (See Comment)
[2019-02-07] MEDS: Vancomycin HCl 1 GM in Premix Bag 1 BAG IVPB SCH (10:04)
[2019-02-07] MEDS: Lisinopril 5 MG TAB PO SCH (12:25)
[2019-02-07] MEDS: Potassium Chloride 20 MEQ TAB PO SCH (12:26)
[2019-02-07] MEDS: Amlodipine 5 MG TAB PO SCH (12:26)
[2019-02-07] MEDS: Famotidine 20 MG TAB PO SCH (12:26)
[2019-02-07] MEDS: Gabapentin 100 MG CAP PO SCH (12:26)
[2019-02-07] MEDS: Aspirin 81 mg Enteric Coated Tablet PO SCH (12:26)
[2019-02-07] MEDS: Carvedilol 25 MG TAB PO SCH ×2 (12:27→17:27)
[2019-02-07] MEDS: Heparin 5,000 UNITS/ML VIAL SC SCH ×2 (12:27→19:56)
[2019-02-07] MEDS: Methyl Salicylate/Menthol 85 GM TUBE TOP SCH ×2 (12:29→19:54)
[2019-02-07] MEDS: Clotrimazole 1 % Cream 30 GM TUBE TOP SCH ×2 (12:29→19:54)
[2019-02-07] MEDS: Epoetin (ESRD) 20,000 UNITS/ML SC SCH (17:27)
[2019-02-07] MEDS: Atorvastatin Calcium 40 MG TAB PO SCH (19:52)
[2019-02-07] MEDS: Insulin Regular 300 UNITS/3 ML VIAL SC PRN (20:04)
--- NOTE | 2019-02-07 21:02 | PRG ---
DATE OF SERVICE: 02/07/2019 SUBJECTIVE: The patient was seen and examined with no new complaint. The patient seems to be tolerating dialysis okay. We will continue with current regimen of dialysis scheduled for him. Job ID: [id number]
[2019-02-08] MEDS: Insulin Regular 300 UNITS/3 ML VIAL SC PRN ×2 (06:23→13:23)
--- NOTE | 2019-02-08 06:24 | PDOC.FM ---
- Subjective Subjective: Mr. Blevins says he is feeling much better today. Says his musculoskeletal complaints have all resolved. - Objective Vital Signs & Weight: Vital Signs (12 hours) Temp Pulse Resp BP Pulse Ox 02/08/19 04:24 97.3 F L 84 16 126/73 98 02/08/19 00:00 98.3 F 90 16 110/64 100 02/07/19 19:49 98.3 F 84 16 100/65 98 Weight Admit Weight 78 kg Weight 74.661 kg Most Recent Monitor Data Heart Rate from ECG 90 NIBP 112/71 NIBP BP-Mean 84 Respiration from ECG 22 SpO2 97 I&O: 02/06/19 02/07/19 02/08/19 06:59 06:59 06:59 Intake Total 800 2312 3736 Output Total 1050 2650 960 Balance -250 338 4136 Result Diagrams: 02/02/19 05:30 02/02/19 05:30 Phys Exam - Physical Examination Constitutional: NAD Respiratory: clear to auscultation bilateral Cardiovascular: RRR, no significant murmur Gastrointestinal: soft, non-tender, positive bowel sounds Musculoskeletal: no edema Psychiatric: normal affect Skin: normal turgor Dx/Plan (1) Acute renal failure Status: Acute (2) Basilic vein thrombosis Code(s): I82.619 - ACUTE EMBOLISM AND THROMBOSIS OF SUPERFIC VN UNSP UP EXTREM Status: Acute (3) CVA (cerebral vascular accident) Code(s): I63.9 - CEREBRAL INFARCTION, UNSPECIFIED Status: Acute (4) MSSA bacteremia Code(s): R78.81 - BACTEREMIA Status: Acute (5) Scrotum swelling Code(s): N50.89 - OTHER SPECIFIED DISORDERS OF THE MALE GENITAL ORGANS Status : Acute (6) Type 2 diabetes mellitus Status: Chronic (7) NSTEMI (non-ST elevated myocardial infarction) Code(s): I21.4 - NON-ST ELEVATION (NSTEMI) MYOCARDIAL INFARCTION Status: Suspected (8) Hyperosmolar hyperglycemic coma due to diabetes mellitus without ketoacidosis Code(s): E11.01 - TYPE 2 DIABETES MELLITUS WITH HYPEROSMOLARITY WITH COMA Status: Resolved (9) Lactic acid acidosis Code(s): E87.2 - ACIDOSIS Status: Resolved (10) Metabolic encephalopathy Code(s): G93.41 - METABOLIC ENCEPHALOPATHY Status: Resolved (11) Rhabdomyolysis Code(s): M62.82 - RHABDOMYOLYSIS Status: Resolved - Plan Plan: 43 yo M with poorly controlled DM, HTN now with MSSA bacteremia requiring long- term antibiotics MSSA Bacteremia, likely endocarditis - uncertain etiology; pt denies drug use. Suspected endocarditis - continue Vancomycin SS - Dr. Sheets consulted, appreciate recs. Abx until 02/10. Plan for discharge with 7 days Keflex PO. - Per Cardiology, no KOJO at this time CVA 2/2 septic emboli - persistent RUE weakness - foot drop on L since injury - orthotic ordered for L ankle Acute Renal failure progressing to ESRD - Continue Dialysis T//Sat - Limited blood draws to weekly (Mondays) - Nephrology consulted, appreciate recommendations. - Plan to continue treatment until well enough to make it back to [place] for supportive services. - started patient on epogen 01/20 - GFR 19 on 24 hr urine 01/23, making some urine Normocytic anemia - started Epogen 01/20 - 2U transfusion with Dialysis 01/24 Basilic Vein Thrombosis (R)- resolved - Found on RUE US on 01/07, resolved on US 01/20 - applied Bengay, heating pad, gabepentin - complained of L calf pain 01/29, susanne +, bilateral LE doppler Neg HTN - titrated up on coreg, added amlodipine - lisinopril Type 2 DM: - Accuchecks improved with some hypoglycemic episodes. - Continue to titrate to control, titrated to 15 U 70/30 BID on 01/20, 22 on 01/22 , 25 on 01/23, 30 on 02/06, 33 on 02/08 - HgA1c of 14.1 on admission - Stable, continue Scrotal Swelling - US nonspecific - No testicular etiology - Likely due to fluid status HFrEF - EF 25-30% initially - follow up echo 02/06/19 showed EF 50-55% - Life vest planned per cardiology - Continue beta elodia NSTEMI- resolved - Initial Troponins elevated, no EKG changes - Echo showed LVEF of 25-30%, area of possible thrombus vs papillary mm - Dr. Lee recommended conservative therapy at this time and follow up as outpatient. Acute Metabolic Encephalopathy: resolved - CT head was negative - Likely 2/2 to [facility] coma. - MRI of brain showed multiple small areas of infarction. - pt with RUE focal weakness. Continue PT/OT. Rhabdomyolysis, resolved - CK to 1200 on 01/05 Disposition: Continue current plan of care until antibiotic regimen is completed on 02/10, plan for d/c that day after dialysis Addendum - Attending - Attending Attestation Date/Time: 02/08/19 4253 I personally evaluated the patient and discussed the management with Dr. Oshea. I agree with the History, Examination, Assessment and Plan documented above with any addition or exceptions noted below. Ready for d/c after dialysis and last dose of vanc on saturday.
[2019-02-08] MEDS: HumuLIN 70/30 (300 UNITS/3 ML VIAL) SC SCH ×2 (10:03→18:07)
[2019-02-08] MEDS: Aspirin 81 mg Enteric Coated Tablet PO SCH (10:04)
[2019-02-08] MEDS: Heparin 5,000 UNITS/ML VIAL SC SCH ×2 (10:04→20:46)
[2019-02-08] MEDS: Famotidine 20 MG TAB PO SCH (10:04)
[2019-02-08] MEDS: Gabapentin 100 MG CAP PO SCH (10:04)
[2019-02-08] MEDS: Lisinopril 5 MG TAB PO SCH (10:04)
[2019-02-08] MEDS: Potassium Chloride 20 MEQ TAB PO SCH (10:05)
[2019-02-08] MEDS: Carvedilol 25 MG TAB PO SCH ×2 (10:05→17:32)
[2019-02-08] MEDS: Methyl Salicylate/Menthol 85 GM TUBE TOP SCH ×2 (10:06→20:46)
[2019-02-08] MEDS: Clotrimazole 1 % Cream 30 GM TUBE TOP SCH ×2 (10:07→20:59)
[2019-02-08] MEDS: Amlodipine 5 MG TAB PO SCH (10:17)
[2019-02-08] MEDS ORDERED: Benzonatate 100 MG CAP PO PRN (14:26)
[2019-02-08] MEDS: Acetaminophen 325 MG TAB PO PRN (14:50)
[2019-02-08] MEDS ORDERED: Heparin 10,000 UNITS/ 10 ML VIAL ONE (17:53)
[2019-02-08] MEDS: Atorvastatin Calcium 40 MG TAB PO SCH (20:45)
[2019-02-08] MEDS: guaiFENesin ER 600 MG TAB PO SCH (20:46)
--- NOTE | 2019-02-08 21:20 | PRG ---
DATE OF SERVICE: 02/08/2019 SUBJECTIVE: The patient is seen and examined, hemodynamically stable. OBJECTIVE: VITAL SIGNS: Afebrile, temperature 97.9, pulse 78, respiratory rate 16, O2 saturations are 99%, and blood pressure 113/70. HEENT: Unremarkable. CARDIOVASCULAR SYSTEM: First and second heart sounds were heard. RESPIRATORY SYSTEM: Clear to auscultation. DIGESTIVE SYSTEM: Revealed a benign abdomen. IMPRESSION: 1. Ropnm-if-lpkehqa kidney disease. 2. Gca-HL-psqymrigm myocardial infarction. 3. Type 2 diabetes. PLAN: 1. We will continue with current renal supportive measures. 2. Further management to be dependent on the clinical course. Job ID: [id number]
[2019-02-09] MEDS: traMADol HCl 50 MG TAB PO PRN (02:17)
[2019-02-09] MEDS: Cepastat Lozenges 1 LOZ PO PRN ×2 (02:20→06:20)
--- NOTE | 2019-02-09 06:42 | PDOC.FM ---
- Subjective Subjective: Mr. Blevins has no complaints this morning. Awaiting plan for discharge tomorrow. - Objective Vital Signs & Weight: Vital Signs (12 hours) Temp Pulse Resp BP BP Pulse Ox 02/09/19 04:00 99.7 F H 91 16 109/67 97 02/08/19 23:29 97.8 F 87 12 124/78 99 02/08/19 20:00 99 02/08/19 19:17 97.9 F 78 16 113/70 99 Weight Admit Weight 78 kg Weight 74.661 kg Most Recent Monitor Data Heart Rate from ECG 90 NIBP 112/71 NIBP BP-Mean 84 Respiration from ECG 22 SpO2 97 I&O: 02/07/19 02/08/19 02/09/19 06:59 06:59 06:59 Intake Total 2312 3736 1765 Output Total 2650 960 1625 Balance -338 2776 140 Result Diagrams: 02/09/19 09:43 02/09/19 09:43 Phys Exam - Physical Examination Constitutional: NAD Respiratory: clear to auscultation bilateral Cardiovascular: RRR, no significant murmur Gastrointestinal: soft, positive bowel sounds Musculoskeletal: no edema Psychiatric: normal affect Skin: normal turgor Dx/Plan (1) Acute renal failure Status: Acute (2) Basilic vein thrombosis Code(s): I82.619 - ACUTE EMBOLISM AND THROMBOSIS OF SUPERFIC VN UNSP UP EXTREM Status: Acute (3) CVA (cerebral vascular accident) Code(s): I63.9 - CEREBRAL INFARCTION, UNSPECIFIED Status: Acute (4) MSSA bacteremia Code(s): R78.81 - BACTEREMIA Status: Acute (5) Scrotum swelling Code(s): N50.89 - OTHER SPECIFIED DISORDERS OF THE MALE GENITAL ORGANS Status : Acute (6) Type 2 diabetes mellitus Status: Chronic (7) NSTEMI (non-ST elevated myocardial infarction) Code(s): I21.4 - NON-ST ELEVATION (NSTEMI) MYOCARDIAL INFARCTION Status: Suspected (8) Hyperosmolar hyperglycemic coma due to diabetes mellitus without ketoacidosis Code(s): E11.01 - TYPE 2 DIABETES MELLITUS WITH HYPEROSMOLARITY WITH COMA Status: Resolved (9) Lactic acid acidosis Code(s): E87.2 - ACIDOSIS Status: Resolved (10) Metabolic encephalopathy Code(s): G93.41 - METABOLIC ENCEPHALOPATHY Status: Resolved (11) Rhabdomyolysis Code(s): M62.82 - RHABDOMYOLYSIS Status: Resolved - Plan Plan: 43 yo M with poorly controlled DM, HTN now with MSSA bacteremia requiring long- term antibiotics MSSA Bacteremia, likely endocarditis - uncertain etiology; pt denies drug use. Suspected endocarditis - continue Vancomycin SS - Dr. Sheets consulted, appreciate recs. Abx until 02/10. Plan for discharge with 7 days Keflex PO. - Per Cardiology, no KOJO at this time CVA 2/2 septic emboli - persistent RUE weakness - foot drop on L since injury - orthotic ordered for L ankle Acute Renal failure progressing to ESRD - Continue Dialysis T//Sat - Limited blood draws to weekly (Mondays) - Nephrology consulted, appreciate recommendations. - Plan to continue treatment until well enough to make it back to [place] for supportive services. - started patient on epogen 01/20 - GFR 19 on 24 hr urine 01/23, making some urine Normocytic anemia - started Epogen 01/20 - 2U transfusion with Dialysis 01/24 Basilic Vein Thrombosis (R)- resolved - Found on RUE US on 01/07, resolved on US 01/20 - applied Bengay, heating pad, gabepentin - complained of L calf pain 01/29, susanne +, bilateral LE doppler Neg HTN - titrated up on coreg, added amlodipine - lisinopril Type 2 DM: - Accuchecks improved with some hypoglycemic episodes. One last night, decreased dinner. Will decrease back to 30 units. - Continue to titrate to control, titrated to 15 U 70/30 BID on 01/20, 22 on 01/22 , 25 on 01/23, 30 on 02/06, 33 on 02/08 - HgA1c of 14.1 on admission - Stable, continue Scrotal Swelling - US nonspecific - No testicular etiology - Likely due to fluid status HFrEF - EF 25-30% initially - follow up echo 02/06/19 showed EF 50-55% - Life vest planned per cardiology - Continue beta elodia NSTEMI- resolved - Initial Troponins elevated, no EKG changes - Echo showed LVEF of 25-30%, area of possible thrombus vs papillary mm - Dr. Lee recommended conservative therapy at this time and follow up as outpatient. Acute Metabolic Encephalopathy: resolved - CT head was negative - Likely 2/2 to [facility] coma. - MRI of brain showed multiple small areas of infarction. - pt with RUE focal weakness. Continue PT/OT. Rhabdomyolysis, resolved - CK to 1200 on 01/05 Disposition: Continue current plan of care until antibiotic regimen is completed on 02/10, plan for d/c that day after dialysis Addendum - Attending - Attending Attestation Date/Time: 02/09/19 9773 I personally evaluated the patient and discussed the management with Dr. Oshea. I agree with the History, Examination, Assessment and Plan documented above with any addition or exceptions noted below. Plan to d/c tomorrow. Today will get medication reconcilition, DME needs set up so tomorrow after dialysis he can be discharged.
[2019-02-09] MEDS ORDERED: HumuLIN 70/30 (300 UNITS/3 ML VIAL) SC SCH (09:14)
[2019-02-09] MEDS: Heparin 5,000 UNITS/ML VIAL SC SCH ×2 (09:25→20:17)
[2019-02-09] MEDS: Lisinopril 5 MG TAB PO SCH (09:27)
[2019-02-09] MEDS: Potassium Chloride 20 MEQ TAB PO SCH (09:28)
[2019-02-09] MEDS: Gabapentin 100 MG CAP PO SCH (09:28)
[2019-02-09] MEDS: Amlodipine 5 MG TAB PO SCH (09:29)
[2019-02-09] MEDS: Famotidine 20 MG TAB PO SCH (09:29)
[2019-02-09] MEDS: guaiFENesin ER 600 MG TAB PO SCH ×2 (09:29→20:16)
[2019-02-09] MEDS: Carvedilol 25 MG TAB PO SCH ×2 (09:29→17:32)
[2019-02-09] MEDS: Aspirin 81 mg Enteric Coated Tablet PO SCH (09:29)
[2019-02-09] MEDS: Methyl Salicylate/Menthol 85 GM TUBE TOP SCH ×2 (09:30→20:21)
[2019-02-09] MEDS: Clotrimazole 1 % Cream 30 GM TUBE TOP SCH ×2 (09:33→20:21)
[2019-02-09] MEDS: Fluticasone Propionate Nasal Spray 16 gm Bottle NASAL SCH (09:33)
[2019-02-09] MEDS: HumuLIN 70/30 (300 UNITS/3 ML VIAL) SC SCH ×2 (09:42→17:32)
[2019-02-09 09:54] LABS: #Eosinphils 0.1 thou/uL (0.0-0.7); #Lymphocytes 1.8 thou/uL (1.20-3.40); #Monocytes 0.7 thou/uL (0.11-0.59); #Neutrophils 5.6 thou/uL (1.40-6.50); %Basophils 0.1 % (0.0-1.0); %Eosinophils 1.7 % (0.0-10.0); %Lymphocytes 21.3 % (21.0-51.0); %Monocytes 8.7 % (0.0-10.0); %Neutrophils 68.2 % (42.0-75.0); Hemoglobin 8.9 g/dL (14.0-18.0); Mean Corpuscular HGB CONC 31.4 g/dL (32.0-36.0); Mean Corpuscular Hemoglobin 28.1 pg (27.0-31.0); Mean Corpuscular Volume 89.6 fL (78.0-98.0); Mean Platelet Volume 7.8 fL (7.4-10.4); Platelet Count 338 thou/uL (130-400); RBC Distribution Width 13.7 % (11.5-14.5); Red Blood Cell (RBC) Count 3.18 mill/uL (4.70-6.10); White Blood Cell (WBC) Count 8.2 thou/uL (4.8-10.8)
[2019-02-09 10:08] LABS: ALT (SGPT) 17 U/L (8-55); AST (SGOT) 22 U/L (5-34); Albumin 2.8 g/dL (3.5-5.0); Alkaline Phosphatase 96 U/L (40-150); Anion Gap 13 mmol/L (10-20); BUN (Urea Nitrogen) 65 mg/dL (8.9-20.6); Bilirubin, Total 0.2 mg/dL (0.2-1.2); Calc. Creatinine Clearance 29 mL/min (70-130); Calcium 8.6 mg/dL (7.8-10.44); Carbon Dioxide 26 mmol/L (22-29); Chloride 97 mmol/L (98-107); Estimated GFR-MDRD 19; Glucose 137 mg/dL (70-105); Potassium 4.7 mmol/L (3.5-5.1); Protein, Total 8.8 g/dL (6.0-8.3); Sodium 131 mmol/L (136-145)
--- NOTE | 2019-02-09 19:26 | PRG ---
DATE OF SERVICE: 02/09/2019 SUBJECTIVE: The patient was seen and examined, with no new complaint, hemodynamically stable. OBJECTIVE: HEENT: Unremarkable. CARDIOVASCULAR SYSTEM: First and second heart sounds were heard. RESPIRATORY SYSTEM: Clear to auscultation. DIGESTIVE SYSTEM: Revealed a benign abdomen. EXTREMITIES: No peripheral edema. SKIN EXAMINATION: No new gross rash. LYMPHATICS: No peripheral lymphadenopathy. IMPRESSION: 1. Acute renal failure, on dialysis. 2. Basilic vein thrombosis. 3. Type 2 diabetes. PLAN: 1. The patient to continue with current dialysis regimen. 2. Further management including discharge planning will be per the primary team. Job ID: [id number]
[2019-02-09] MEDS: Atorvastatin Calcium 40 MG TAB PO SCH (20:16)
[2019-02-09] MEDS: Insulin Regular 300 UNITS/3 ML VIAL SC PRN (20:18)
--- NOTE | 2019-02-10 06:44 | PDOC.FM ---
- Subjective Subjective: Mr. Blevins is planning for discharge today after dialysis. CM has been assisting with preparation. - Objective Vital Signs & Weight: Vital Signs (12 hours) Temp Pulse Resp BP Pulse Ox 02/10/19 04:00 98.1 F 81 16 120/74 98 02/10/19 00:00 98.8 F 84 16 116/72 100 02/09/19 20:21 100 02/09/19 20:00 97.7 F 87 16 98/65 100 Weight Admit Weight 78 kg Weight 74.661 kg Most Recent Monitor Data Heart Rate from ECG 90 NIBP 112/71 NIBP BP-Mean 84 Respiration from ECG 22 SpO2 97 I&O: 02/08/19 02/09/19 02/10/19 06:59 06:59 06:59 Intake Total 3736 1765 780 Output Total 960 1625 700 Balance 2776 140 80 Result Diagrams: 02/09/19 09:43 02/09/19 09:43 Phys Exam - Physical Examination Constitutional: NAD Respiratory: clear to auscultation bilateral Cardiovascular: RRR, no significant murmur Gastrointestinal: soft, non-tender, no distention LUE 5/5. RUE 2-3/5. BLLE 5/5. 1/5 dorsiflexion b/l feet Psychiatric: normal affect Dx/Plan (1) Acute renal failure Status: Acute (2) Basilic vein thrombosis Code(s): I82.619 - ACUTE EMBOLISM AND THROMBOSIS OF SUPERFIC VN UNSP UP EXTREM Status: Acute (3) CVA (cerebral vascular accident) Code(s): I63.9 - CEREBRAL INFARCTION, UNSPECIFIED Status: Acute (4) MSSA bacteremia Code(s): R78.81 - BACTEREMIA Status: Acute (5) Scrotum swelling Code(s): N50.89 - OTHER SPECIFIED DISORDERS OF THE MALE GENITAL ORGANS Status : Acute (6) Type 2 diabetes mellitus Status: Chronic (7) NSTEMI (non-ST elevated myocardial infarction) Code(s): I21.4 - NON-ST ELEVATION (NSTEMI) MYOCARDIAL INFARCTION Status: Suspected (8) Hyperosmolar hyperglycemic coma due to diabetes mellitus without ketoacidosis Code(s): E11.01 - TYPE 2 DIABETES MELLITUS WITH HYPEROSMOLARITY WITH COMA Status: Resolved (9) Lactic acid acidosis Code(s): E87.2 - ACIDOSIS Status: Resolved (10) Metabolic encephalopathy Code(s): G93.41 - METABOLIC ENCEPHALOPATHY Status: Resolved (11) Rhabdomyolysis Code(s): M62.82 - RHABDOMYOLYSIS Status: Resolved - Plan Plan: 43 yo M with poorly controlled DM, HTN now with MSSA bacteremia requiring long- term antibiotics MSSA Bacteremia, likely endocarditis - uncertain etiology; pt denies drug use. Suspected endocarditis - continue Vancomycin SS - Dr. Sheets consulted, appreciate recs. Abx until 02/10. Plan for discharge with 7 days Keflex PO treatment. - Per Cardiology, no KOJO at this time CVA 2/2 septic emboli - persistent RUE weakness - foot drop on L since injury - orthotic ordered for L ankle Acute Renal failure progressing to ESRD - Continue Dialysis - Limited blood draws to weekly (Mondays) - Nephrology consulted, appreciate recommendations. - Plan to continue treatment until well enough to make it back to [place] for supportive services. - started patient on epogen 01/20 - GFR 19 on 24 hr urine 01/23, making some urine Normocytic anemia - started Epogen 01/20 - 2U transfusion with Dialysis 01/24 Basilic Vein Thrombosis (R)- resolved - Found on RUE US on 01/07, resolved on US 01/20 - applied Bengay, heating pad, gabepentin - complained of L calf pain 01/29, susanne +, bilateral LE doppler Neg HTN - titrated up on coreg, added amlodipine - lisinopril Type 2 DM: - Accuchecks improved with some hypoglycemic episodes. One last night, decreased dinner. Continue 30 units. - Continue to titrate to control, titrated to 15 U 70/30 BID on 01/20, 22 on 01/22 , 25 on 01/23, 30 on 02/06, 33 on 02/08 - HgA1c of 14.1 on admission - Stable, continue Scrotal Swelling - US nonspecific - No testicular etiology - Likely due to fluid status HFrEF - EF 25-30% initially - follow up echo 02/06/19 showed EF 50-55% - Life vest planned per cardiology - Continue beta elodia NSTEMI- resolved - Initial Troponins elevated, no EKG changes - Echo showed LVEF of 25-30%, area of possible thrombus vs papillary mm - Dr. Lee recommended conservative therapy at this time and follow up as outpatient. Acute Metabolic Encephalopathy: resolved - CT head was negative - Likely 2/2 to [facility] coma. - MRI of brain showed multiple small areas of infarction. - pt with RUE focal weakness. Continue PT/OT. Rhabdomyolysis, resolved - CK to 1200 on 01/05 Disposition: D/c today after dialysis Addendum - Attending - Attending Attestation Date/Time: 02/10/19 1409 I personally evaluated the patient and discussed the management with Dr. Oshea. I agree with the History, Examination, Assessment and Plan documented above with any addition or exceptions noted below. Stable for d/c home after dialysis today. All d/c paperwork completed. Patient plans to return to [place] to establish care.
[2019-02-10] MEDS ORDERED: EPOETIN ALFA-EPBX (ESRD) 3,000 UNIT/ML VIAL SC SCH (07:08)
[2019-02-10] MEDS ORDERED: EPOETIN ALFA-EPBX (ESRD) 2,000 UNIT/ML VIAL SC SCH (07:08)
[2019-02-10 08:38] LABS: Vancomycin, Random 7.6 ug/mL (See Comment)
[2019-02-10] MEDS: Vancomycin HCl 1 GM in Premix Bag 1 BAG IVPB SCH (10:53)
[2019-02-10 11:38] VITALS: BMI 24.9
[2019-02-10] MEDS: Carvedilol 25 MG TAB PO SCH (13:10)
[2019-02-10] MEDS: Gabapentin 100 MG CAP PO SCH (13:10)
[2019-02-10] MEDS: Aspirin 81 mg Enteric Coated Tablet PO SCH (13:11)
[2019-02-10] MEDS: HumuLIN 70/30 (300 UNITS/3 ML VIAL) SC SCH (13:11)
[2019-02-10] MEDS: Famotidine 20 MG TAB PO SCH (13:11)
[2019-02-10] MEDS: Amlodipine 5 MG TAB PO SCH (13:11)
[2019-02-10] MEDS: Potassium Chloride 20 MEQ TAB PO SCH (13:12)
[2019-02-10] MEDS: Heparin 5,000 UNITS/ML VIAL SC SCH (13:12)
[2019-02-10] MEDS: Fluticasone Propionate Nasal Spray 16 gm Bottle NASAL SCH (13:13)
[2019-02-10] MEDS: Methyl Salicylate/Menthol 85 GM TUBE TOP SCH (13:13)
[2019-02-10] MEDS: Clotrimazole 1 % Cream 30 GM TUBE TOP SCH (13:13)
[2019-02-10] MEDS: Lisinopril 5 MG TAB PO SCH (13:13)
[2019-02-10] MEDS: guaiFENesin ER 600 MG TAB PO SCH (13:13)
[2019-02-10] MEDS ORDERED: Heparin 10,000 UNITS/ 10 ML VIAL ONE (15:00)
[2019-02-10 16:05] VITALS: BP 125/77; TEMP 99.7
== END 2019-02-10 17:38 | disposition home or self-care (01) | DRG 871 ==
LOC: ERS 19:45 → EDBD 19:45 → CCU 22:00 → IMCU/EMU 01-02 18:50 → 2SW 01-04 16:02 → 2SE 01-04 17:19
PROVIDERS: ADMIT Family Medicine; ATTEND Family Medicine
PROC: 06HM33Z Insertion of Infusion Device into Right Femoral Vein, Percutaneous Approach (ICD-10-PCS; 2019-01-01)
PROC: B54BZZA Ultrasonography of Right Lower Extremity Veins, Guidance (ICD-10-PCS; 2019-01-01)
PROC: 5A1D70Z Performance of Urinary Filtration, Intermittent, Less than 6 Hours Per Day (ICD-10-PCS; 2019-01-01)
PROC: 0JH63XZ Insertion of Tunneled Vascular Access Device into Chest Subcutaneous Tissue and Fascia, Percutaneous Approach (ICD-10-PCS; 2019-01-08)
PROC: 05H533Z Insertion of Infusion Device into Right Subclavian Vein, Percutaneous Approach (ICD-10-PCS; 2019-01-08)
PROC: B5161ZA Fluoroscopy of Right Subclavian Vein using Low Osmolar Contrast, Guidance (ICD-10-PCS; 2019-01-08)
PROC: 5A1D70Z Performance of Urinary Filtration, Intermittent, Less than 6 Hours Per Day (ICD-10-PCS; 2019-01-10)
PROC: 06HN33Z Insertion of Infusion Device into Left Femoral Vein, Percutaneous Approach (ICD-10-PCS; 2019-01-19)
PROC: B54CZZA Ultrasonography of Left Lower Extremity Veins, Guidance (ICD-10-PCS; 2019-01-19)
PROC: 30233N1 Transfusion of Nonautologous Red Blood Cells into Peripheral Vein, Percutaneous Approach (ICD-10-PCS; principal; 2019-01-24)
PROC: 5A1D70Z Performance of Urinary Filtration, Intermittent, Less than 6 Hours Per Day (ICD-10-PCS; 2019-01-24)
DX: A41.01 Sepsis due to Methicillin susceptible Staphylococcus aureus (principal); E11.01 Type 2 diabetes mellitus with hyperosmolarity with coma; G93.41 Metabolic encephalopathy; I21.4 Non-ST elevation (NSTEMI) myocardial infarction; I63.9 Cerebral infarction, unspecified; N17.0 Acute kidney failure with tubular necrosis; N18.6 End stage renal disease; E87.2 Acidosis; N39.0 Urinary tract infection, site not specified; M62.82 Rhabdomyolysis; I50.20 Unspecified systolic (congestive) heart failure; I82.611 Acute embolism and thrombosis of superficial veins of right upper extremity; I38 Endocarditis, valve unspecified; I76 Septic arterial embolism; I42.9 Cardiomyopathy, unspecified; H55.00 Unspecified nystagmus; R00.0 Tachycardia, unspecified; E87.6 Hypokalemia; R36.9 Urethral discharge, unspecified; N50.89 Other specified disorders of the male genital organs; F10.20 Alcohol dependence, uncomplicated; E83.39 Other disorders of phosphorus metabolism; E11.22 Type 2 diabetes mellitus with diabetic chronic kidney disease; D63.1 Anemia in chronic kidney disease; Z79.84 Long term (current) use of oral hypoglycemic drugs
CPT/HCPCS: 36415; 36416; 36430; 51702; 70450; 70551; 71045; 74176; 76870; 80048; 80053; 80061; 80069; 80076; 80202; 80306; 80307; 81003; 81015; 82010; 82330; 82533; 82550; 82553; 82570; 82575; 82803; 82805; 83036; 83605; 83970; 84145; 84443; 84484; 85007; 85014; 85018; 85025; 85027; 85049; 85610; 85730; 86704; 86706; 86780; 86803; 86850; 86900; 86901; 87040; 87070; 87077; 87086; 87110; 87149; 87186; 87210; 87220; 87340; 87389; 87491; 87591; 87804; 90471; 90670; 90686; 90935; 93005; 93306; 93970; 93976; 94760; 96361; 96365; 96367; 96375; 99292; C1751; C1752; C1769; G0008; G0009; G0257; G0365; J0131; J0670; J0690; J1644; J1720; J1815; J1825; J2001; J2405; J2543; J2700; J2704; J2720; J3010; J3370; J3480; J7050; P9016; Q4081; Q5105; S0020; S0028